=== PATIENT | male | born 1945 | race Caucasian/White ===

== ENCOUNTER 2017-08-20 15:33 | Emergency (ER) | payer MEDICARE, SELFPAY ==
[2017-08-20 15:34] VITALS: BP 159/77; PULSE 73; RESP 26; TEMP 36.4; O2SAT 92; BMI 58.8
[2017-08-20 15:46] VITALS: O2SAT 92
--- NOTE | 2017-08-20 15:53 | EKG12_ITS ---
Test Reason : SOB Blood Pressure : / mmHG Vent. Rate : 071 BPM Atrial Rate : 071 BPM P-R Int : 000 ms QRS Dur : 100 ms QT Int : 412 ms P-R-T Axes : 000 003 050 degrees QTc Int : 447 ms Atrial fibrillation Abnormal ECG Confirmed by XAVIER RINCON, RIGO ([id number]), metropolitan editor MINA ECHEVARRIA ([id number]) on 08/24/2017 2:59:14 PM Referred By: EMILI/DOUGLAS Confirmed By:RIGO PARK MD
--- NOTE | 2017-08-20 15:55 | RAD_ITS ---
STUDY: X-RAY CHEST REASON FOR EXAM: Male, 72 years old. Shortness of breath TECHNIQUE: Single AP portable view of the chest. COMPARISON: February 18, 2017 chest x-ray FINDINGS: Interstitial markings are prominent. There is a pattern of mild interstitial nodularity. There is slightly greater hazy appearance of the lung markings when compared to prior study. There is no demonstrated pleural abnormality. There is moderate cardiac enlargement. Normal mediastinum and duncan. Normal visualized pulmonary arteries. Normal visualized aortic arch and descending thoracic aorta. There are diffuse degenerative changes of the visualized thoracic spine. Normal visualized ribs, clavicles, and shoulders. There is no demonstrated abnormality of the visualized soft tissue structures of the upper abdomen. RAD/Chest PA and Lateral IMPRESSION: Similar appearing pattern of interstitial nodularity with slightly increased haziness when compared to prior study may represent superimposed atypical infiltrates or mild edema. Moderate cardiomegaly. Electronically Signed: Sandra Sanchez MD at 16:11 EDT Tel , Service support ,
[2017-08-20 16:07] LABS: Absolute Lymphocyte Count 0.82 X10^3/ul (0.83-4.51); Absolute Neutrophil Count 4.5 X10^3/uL (2.0-7.7); Basophil# 0.07 X10^3/uL; Basophil% 1.1 % (0-1); Eosinophil# 0.22 X10^3/uL; Eosinophils% 3.5 % (0-5); Hematocrit 32.4 % (40-54); Hemoglobin 10.1 g/dl (13.0-16.5); Lymphocyte # 0.82 X10^3/ul (4.0); Lymphocyte % 13.1 % (19-41); Mean Corp Hgb Conc 31.2 g/gl (32-36); Mean Corpuscular Hgb 26.2 pg (27.0-32.0); Mean Corpuscular Volume 83.9 fL (80-94); Mean Platelet Vol. 10.7 fl (6.2-12.0); Monocyte# 0.66 X10^3/uL; Monocyte% 10.5 % (0-10); Neutrophil # 4.46 X10^3/uL (2.7-7.7); Neutrophil % 71.3 % (47-70); Platelet Count 211 K/mm3 (150-450); RBC Distribution Width CV 16.7 % (11.6-14.6); RBC Distribution Width SD 49.6 fl (35.1-43.9); Red Blood Count 3.86 M/mm3 (4.6-6.2); White Blood Count 6.3 K/mm3 (4.4-11.0)
[2017-08-20 16:17] LABS: Anion Gap 10 (5-15); BUN 36 mg/dL (7-18); BUN/Creat Ratio 15.6 RATIO (10-20); Calcium,Total 8.1 mg/dL (8.5-10.1); Chloride 110 mmol/L (98-107); Creatinine, Serum 2.31 mg/dL (0.70-1.30); EST Glomerular Filtration Rate 30 mL/min (>60); Est Glom Filt Rate - Afr Amer 36 mL/min (>60); Estimated Creatinine Clearance 30.28 ml/min; Glucose 163 mg/dL (74-106); Potassium 4.1 mmol/L (3.5-5.1); Sodium Level 142 mmol/L (136-145)
[2017-08-20 16:24] LABS: POSITIVE COUNT NO; POSITIVE DIFFERENTIAL NO; POSITIVE MORPHOLOGY NO
--- NOTE | 2017-08-20 16:29 | ED.DCSUM_ITS ---
- ER Visit Summary Date of Service: 08/20/17 Chief Complaint: Dyspnea History of Present Illness: The patient is a 72 M worsening dyspnea over the past month, worse with exertion. No chest pains. History of CHF, sleep apnea, home O2 for the past year. 2 L during the day, 4 L at night. Also sleeps with a CPAP. History of diabetes, hypertension, paroxysmal atrial fibrillation. Patient denies any increasing leg swelling. He is on Lasix 80 mg p.o. daily. Patient on Coumadin. States recently now only having a dry cough, previously having sputum cough. Denies tobacco history. Occasional wine use. States had a heart cath a year ago by Dr. Rees. Has been no stenting. States he had an appointment last week, however there was delay at the office therefore he left. Denies any changes in his medications. States symptoms improved with rest. Physical Examination: General: Alert and oriented ?3, no acute distress, on oxygen. HEENT: Normocephalic, atraumatic. Moist mucosa membranes Neck: supple, nontender. Cardiovascular: Regular rate and rhythm, no murmurs Respiratory: Diminished sounds at bases, no distress Abdomen: Soft, nontender, nondistended Extremities: Nontender, chronic lymphedema bilateral legs 3+., pulses intact ?4 Neuro: no focal neurological deficits. Test Results: Rate controlled A. fib rate of 71, no ST or T-wave changes. WBC 6.3. Hemoglobin 10.1. Creatinine 2.31. Glucose 163. INR 1.9. BNP 543. Troponin less than 0.20. Emergency Department Course and Treatment: Patient vital signs stable, pulse ox stable on his 2 L. Complaining of exertional dyspnea with a cough, workup initiated. EKG noted rate controlled A. fib rate of [address] or T-wave changes. History of atrial fibrillation. INR 1.9. Hemoglobin 10.1. Creatinine 2.31. BNP 343. Troponin negative. Two-view chest x-ray noted per radiology infiltrate versus mild edema. Patient states recently more dry cough , clinically not concerned of pneumonia. White count 6.3. History of CHF, noting more concerns of mild edema. BNP was normal. He is only on daily Lasix of 80 mg p.o. patient does report chronic kidney disease, however currently with system on downtime, unable to review for previous baseline creatinine. Patient was ambulated on his 2 L, he went from 95-93%, however he was increasing dyspneic. Treated with 40 of IV Lasix in the ED. Discuss with hospitalist, Dr Perkins for admission due to symptoms. He agrees with admission. Treatment Plan: [] Disposition: Admission Impression: 1. CHF exacerbation 2. Chronic kidney disease 3. Chronic A. fib Addendum: Due to downtime there is delay patient being transported upstairs. Patient became increasing frustrated. At 2235, patient decided to leave department AMA and did not want to wait any further. Appropriate paperwork was filled and signed by patient. This note was generated with [employer] dictation software. It may contain incorrect words, spelling, and punctuation that were not noted in review of the chart prior to signing ED Disposition - Plan for ED Patient: Disposition: Against Medical Advice Chief Complaint: Shortness of Breath Referrals: Gutierrez Garces DO [Primary Care Provider] -
[2017-08-20 16:33] VITALS: BP 149/83; PULSE 71; RESP 20; O2SAT 97
[2017-08-20 16:40] LABS: BNP,B-Type NATRIURETIC PEPTIDE 343.1 pg/mL (0-100)
[2017-08-20 17:07] LABS: International Normalized Ratio 1.9
--- NOTE | 2017-08-21 00:49 | ED.RN ---
see down time charting for patient from [id number] to [id number]
== END 2017-08-20 22:36 | disposition left against medical advice (07) ==
PROVIDERS: Emergency Medicine; Emergency Provider Emergency Medicine; Family Provider Family Medicine; PCP Family Medicine
DX: I13.0 Hypertensive heart and chronic kidney disease with heart failure and stage 1 through stage 4 chronic kidney disease, or unspecified chronic kidney disease (principal); E11.22 Type 2 diabetes mellitus with diabetic chronic kidney disease; N18.4 Chronic kidney disease, stage 4 (severe); I50.21 Acute systolic (congestive) heart failure; I48.2 Chronic atrial fibrillation; G47.30 Sleep apnea, unspecified; E66.9 Obesity, unspecified; Z99.81 Dependence on supplemental oxygen; Z79.4 Long term (current) use of insulin; Z79.01 Long term (current) use of anticoagulants; Z79.899 Other long term (current) drug therapy
CPT/HCPCS: 36415; 71046; 80048; 83880; 84484; 85025; 85610; 93005; 96374; 99282; 99283; A4216; J1940

== ENCOUNTER → 2017-10-07 09:22 | Outpatient (CLI) | payer MEDICARE, SELFPAY ==
--- NOTE | 2017-10-07 09:22 | DT_ITS ---
This patient was seen during an EMR downtime October 04, 2017 - October 11, 2017. This patient may have a combination of paper and electronic documentation or all paper documentation. All documentation is viewable within the e-chart portion of [facility] for each patient visit.
[2017-10-12 02:03] LABS: Anion Gap 10 (5-15); BUN 36 mg/dL (7-18); BUN/Creat Ratio 17.3 RATIO (10-20); Calcium,Total 8.6 mg/dL (8.5-10.1); Chloride 107 mmol/L (98-107); Creatinine, Serum 2.08 mg/dL (0.70-1.30); EST Glomerular Filtration Rate 34 mL/min (>60); Est Glom Filt Rate - Afr Amer 41 mL/min (>60); Potassium 3.9 mmol/L (3.5-5.1); Sodium Level 141 mmol/L (136-145)
[2017-10-12 02:04] LABS: Glucose 111 mg/dL (74-106)
== END ==
PROVIDERS: Family Provider Family Medicine; PCP Family Medicine; Visit Provider Family Medicine
DX: E11.319 Type 2 diabetes mellitus with unspecified diabetic retinopathy without macular edema (principal); E11.22 Type 2 diabetes mellitus with diabetic chronic kidney disease; I13.0 Hypertensive heart and chronic kidney disease with heart failure and stage 1 through stage 4 chronic kidney disease, or unspecified chronic kidney disease; N18.4 Chronic kidney disease, stage 4 (severe); I50.9 Heart failure, unspecified
CPT/HCPCS: 36415; 80048

== ENCOUNTER 2017-12-21 08:30 | Day surgery (SDC) | payer MEDICARE, SELFPAY ==
[2017-12-21] VITALS (7 sets, daily range): BP systolic 97–135; BP diastolic 47–90; PULSE 56–69; RESP 16–18; TEMP 36.3–36.8; O2SAT 94–96; BMI 51.1
--- NOTE | 2017-12-21 | COLBX_PTH ---
PATIENT: REGGIE MOHR LOC: EN U#:[id number] AGE/SX: 72/M ROOM: RE12/21/[address]: Dr. Bob Merritt MD : [id number] BED: DIS: 12/21/2017 SPEC #: [id number] RECD: 12/21/17 14:35 STATUS: BERNICE SARA #: [id number] DUANE: 12/21/17 00:[address]: Bob Merritt DEPT: SURGICAL PATHOLOGY RECD BY: Junior Castellanos ENTERED: 12/21/17 14:35 SP TYPE: COLON BX OTHR DR: Dr. Gutierrez Garces, Tissues: Rectum, NOS Procedures: Surgery Specimen Level IV HEADER OPERATION: Colonoscopy PRE-OP DIAGNOSIS: History of adenoma TISSUE SUBMITTED: Rectal polyps MICROSCOPIC DIAGNOSIS Rectal polyps, biopsy: Tubular adenoma. Hyperplastic polyp. SJ:adrian 12/22/17 MICROSCOPIC DESCRIPTION Slides are reviewed. GROSS DESCRIPTION Received in fixative is one container labeled with the patient's name and designated rectal polyps. The specimen consists of two irregular fragments of light redd soft tissue that in aggregate measure 0.5 x 0.3 x 0.1 cm. The specimen is totally submitted in one cassette. / SJ:adrian 12/21/17 TC:1 CPT: 54358
[2017-12-21 08:56] LABS: Prothrombin Time Fingerstick 17.9 SEC (11.9-14.4)
[2017-12-21 09:11] LABS: Bedside Glucose 132 mg/dL (70-110)
--- NOTE | 2017-12-21 10:55 | PCM.OPRPT ---
Problem List (1) Tubulovillous adenoma polyp of colon Status: Acute Report of Operation Date of Procedure: 12/21/17 Pre-Operative Diagnosis: History of tubovillous adenoma with large-base Post-Operative Diagnosis: Rectal polyps, diverticulosis Surgery/Procedure Performed:: Colonoscopy with hot forcep polypectomy Specimen's removed: Rectal polyps ?2 Description of Procedure: The major risks and benefits associated with the procedure were explained to the patient in detail. The patient verbalized understanding and agreement with the same. The patient was brought to the endoscopy suite. After adequate sedation was achieved, the patient was placed in the left lateral decubitus position and a digital rectal exam was performed. This examination was within normal limits. A well-lubricated colonoscope was then inserted into the rectum and advanced under direct visualization to the level of the cecum. The bowel prep was good. The cecum was identified by both visual and anatomic landmarks. A photograph was taken of the end of the cecum. The scope was then fully withdrawn while examining the color, texture, anatomy and integrity of the mucosa from the cecum to the anal canal. The findings were consistent with normal colonic mucosa. Over 6 minutes were taken to examine the colonic mucosa. The previously tattooed area was identified and closely examined in the sigmoid colon. There did not appear to be any polyp growth or malignancy. Upon reaching the rectum the scope was retroflexed to examine the distal rectal vault. The patient did have 2 small rectal polyps. These were both removed with cautery forceps. Hemostasis was good. The scope was then straightened and was completely retrieved upon exiting the anal canal and the procedure was terminated. The patient was then transferred to the recovery room in stable condition. Recommendations for follow up: Dependent upon pathology but max 5 years
== END 2017-12-21 11:29 | disposition home or self-care (01) ==
LOC: EN 08:30 → AC 08:31
PROVIDERS: Family Provider Family Medicine; PCP Family Medicine; Visit Provider Surgery
PROC: 0DJD8ZZ Inspection of Lower Intestinal Tract, Via Natural or Artificial Opening Endoscopic (ICD-10-PCS; CPT 45378; principal; 2017-12-21 09:40)
DX: D12.8 Benign neoplasm of rectum (principal); K62.1 Rectal polyp; I13.0 Hypertensive heart and chronic kidney disease with heart failure and stage 1 through stage 4 chronic kidney disease, or unspecified chronic kidney disease; E11.22 Type 2 diabetes mellitus with diabetic chronic kidney disease; N18.3 Chronic kidney disease, stage 3 (moderate); I50.32 Chronic diastolic (congestive) heart failure; E78.5 Hyperlipidemia, unspecified; I48.0 Paroxysmal atrial fibrillation; I27.20 Pulmonary hypertension, unspecified; G47.33 Obstructive sleep apnea (adult) (pediatric); E66.01 Morbid (severe) obesity due to excess calories; Z68.43 Body mass index [BMI] 50.0-59.9, adult; Z87.442 Personal history of urinary calculi; Z87.891 Personal history of nicotine dependence; Z99.81 Dependence on supplemental oxygen; Z79.4 Long term (current) use of insulin; Z79.01 Long term (current) use of anticoagulants; Z79.82 Long term (current) use of aspirin; Z79.899 Other long term (current) drug therapy
CPT/HCPCS: 45384; 36416; 82962; 85610; 88305; J7120

== ENCOUNTER → 2018-01-10 09:15 | Outpatient (CLI) | payer MEDICARE, SELFPAY ==
[2018-01-10 10:05] LABS: International Normalized Ratio 2.5; Prothrombin Time (Protime)PT. 27.5 SECONDS (11.7-14.9)
== END ==
PROVIDERS: Family Provider Family Medicine; PCP Family Medicine; Visit Provider Internal Medicine Cardiovascular Disease
DX: I48.0 Paroxysmal atrial fibrillation (principal); Z79.01 Long term (current) use of anticoagulants
CPT/HCPCS: 36415; 85610

== ENCOUNTER → 2018-07-11 09:12 | Outpatient (CLI) | payer MEDICARE, SELFPAY ==
[2018-07-11 08:36] VITALS: BMI 49.7
[2018-07-11 09:58] LABS: International Normalized Ratio 3.4; Prothrombin Time (Protime)PT. 34.8 SECONDS (11.7-14.9)
== END ==
PROVIDERS: Family Provider Family Medicine; PCP Family Medicine; Referring Provider Internal Medicine Cardiovascular Disease; Visit Provider Internal Medicine Cardiovascular Disease
DX: I48.0 Paroxysmal atrial fibrillation (principal); Z79.01 Long term (current) use of anticoagulants
CPT/HCPCS: 36415; 85610

== ENCOUNTER → 2018-07-28 08:41 | Outpatient (CLI) | payer MEDICARE, SELFPAY ==
[2018-07-11 08:36] VITALS: BMI 49.7
[2018-07-28 10:14] LABS: International Normalized Ratio 2.1; Prothrombin Time (Protime)PT. 23.2 SECONDS (11.7-14.9)
== END ==
PROVIDERS: Family Provider Family Medicine; PCP Family Medicine; Referring Provider Internal Medicine Cardiovascular Disease; Visit Provider Internal Medicine Cardiovascular Disease
DX: I48.0 Paroxysmal atrial fibrillation (principal); Z79.01 Long term (current) use of anticoagulants
CPT/HCPCS: 36415; 85610

== ENCOUNTER 2018-08-20 12:10 | Emergency (ER) | payer MEDICARE, SELFPAY ==
[2018-07-11 08:36] VITALS: BMI 49.7
[2018-08-20] VITALS (11 sets, daily range): BP systolic 94–207; BP diastolic 70–99; PULSE 66–90; RESP 15–30; TEMP 36.9–37; O2SAT 90–98; BMI 50.5
--- NOTE | 2018-08-20 12:16 | NURSING ---
1200 STROKE ALERT CALLED PRIOR TO ARRIVAL
--- NOTE | 2018-08-20 12:18 | RAD_ITS ---
STUDY: X-RAY CHEST REASON FOR EXAM: Male, 73 years old. Possible stroke, mental status changes TECHNIQUE: AP COMPARISON: 08/20/2017 FINDINGS: Lungs are less expanded as compared to the prior study with more conspicuous central pulmonary vascular congestion and interstitial thickening. There is a nodular density in the right midlung measuring 2.8 cm, not evident on the prior study. There is no demonstrated pleural abnormality. There is moderate cardiac enlargement. Normal mediastinum and duncan. There is prominence of the pulmonary hilar arteries and peripheral pulmonary arteries, consistent with congestive heart failure (CHF). Normal visualized aortic arch and descending thoracic aorta. No acute bony process. There is no demonstrated abnormality of the visualized soft tissue structures of the upper abdomen. RAD/Chest 1 View IMPRESSION: 1. Possible nodule/mass of the right upper lobe, new since the prior study. Chest CT is warranted. 2. More conspicuous vascular congestion/fluid overload may be exaggerated by relative hypoinflation or related to worsening CHF. Electronically Signed: Prabhakar Sheikh MD at 13:18 EDT , Service support ,
--- NOTE | 2018-08-20 12:18 | CT_ITS ---
STUDY: CT BRAIN WITHOUT CONTRAST REASON FOR EXAM: Male, 73 years old. CVA RADIATION DOSAGE (If Supplied By Facility): CTDIvol = ( ) mGy, DLP = ( ) mGycm TECHNIQUE: Transaxial CT imaging of the brain was performed without administration of intravenous contrast material. Individualized dose optimization techniques were used for this CT. COMPARISON: No relevant priors. FINDINGS: Normal soft tissue structures. Normal calvarium. Normal size ventricles and extra-axial spaces for the patient's age. Area of diminished density of the left insular cortex and adjacent subinsular white matter measures approximately 2.5 x 1.5 cm. No associated hemorrhage. Areas of diminished density in the periventricular and subcortical white matter are moderate in severity. Normal basal ganglia and thalami. Normal brainstem. Normal cerebellum. There is no intracranial hemorrhage. Normal visualized paranasal sinuses. CT/Brain/Head without Contrast IMPRESSION: 1. Early small left MCA infarction. No intracranial hemorrhage. 2. Central parenchymal volume loss. White matter changes that are nonspecific but most commonly associated with chronic small vessel ischemic disease. N.B. : The above information has been verbally conveyed by Prabhakar Sheikh MD to Tom Hutchins on 08/20/2018 12:35:05 (ET). Electronically Signed: Prabhakar Sheikh MD at 12:38 EDT , Service support ,
--- NOTE | 2018-08-20 12:18 | EKG12_ITS ---
Test Reason : STROKE Blood Pressure : / mmHG Vent. Rate : 087 BPM Atrial Rate : 076 BPM P-R Int : 000 ms QRS Dur : 096 ms QT Int : 400 ms P-R-T Axes : 000 055 065 degrees QTc Int : 481 ms Atrial fibrillation with premature ventricular or aberrantly conducted complexes Nonspecific ST abnormality Prolonged QT Abnormal ECG Confirmed by XAVIER RINCON, RIGO ([id number]), desk editor MINA ECHEVARRIA ([id number]) on 08/23/2018 2:00:48 PM Referred By: KAY Confirmed By:RIGO PARK MD
--- NOTE | 2018-08-20 12:18 | NURSING ---
DR MERCHANT ON LINE FOR DR VILLANUEVA
--- NOTE | 2018-08-20 12:20 | CT_ITS ---
We are attempting to reach Tom Hutchins MD to discuss findings. An addendum with communication details will be sent when the communication is complete. STUDY: CTA OF THE BRAIN REASON FOR EXAM: Male, 73 years old. CVASCVASCTA - Head. AMS RADIATION DOSAGE (If Supplied By Facility): CTDIvol = ( 17.93 ) mGy, DLP = ( 505.94 ) mGycm TECHNIQUE: CT angiography was performed with a multi-detector CT scanner. Data acquisition was obtained from the skull base through the vertex following intravenous administration of 100ML IV Isovue 370. MIP images were reconstructed from the axial data set. Post-processing of the angiographic images was performed, with multiplanar reformation and 3D reconstruction. Individualized dose optimization techniques were used for this CT. COMPARISON: None. FINDINGS: There is calcified plaque formation of the right cavernous carotid artery, without a cross-sectional luminal stenosis. There is calcified plaque formation of the left cavernous carotid artery, without a cross-sectional luminal stenosis. There is non-visualization of the right A1 segment of the anterior cerebral arteries consistent with either aplastic development or an occlusion. Normal left A1 segments of the anterior cerebral artery. Normal intact anterior communicating artery (ACOM). Normal bilateral A2 segments of the anterior cerebral arteries. Normal right M1 and M2 segments of the middle cerebral arteries, with a normal M1 bifurcation. Normal left M1 segments of the middle cerebral arteries. There is occlusion at the proximal M2 superior division (axial image #152 series 2). Normal right posterior communicating artery (PCOM). There is non-visualization of the left posterior communicating artery (PCOM). Normal bilateral vertebral arteries. Normal basilar artery with a normal basilar bifurcation. The visualized bilateral superior cerebellar (SCA) arteries are normal. Normal bilateral P1, P2 and visualized P3 segments of the posterior cerebral arteries. IMPRESSION: Proximal left M2 occlusion. Electronically Signed: Fina Vizcarra MD at 13:09 EDT Tel , Service support , STUDY: CTA NECK WITH CONTRAST REASON FOR EXAM: Male, 73 years old. CVA CVA CTA - Head. AMS RADIATION DOSAGE (If Supplied By Facility): CTDIvol = ( ) mGy, DLP = ( ) mGycm TECHNIQUE: CT angiography with multi-detector data acquisition was performed from the aortic arch to the skull base following intravenous administration of 100ML IV Isovue 370. MIP images were reconstructed from the axial data set. Post-processing of the angiographic images was performed, with multiplanar reformation and 3D reconstruction. Individualized dose optimization techniques were used for this CT. COMPARISON: None. FINDINGS: RIGHT CAROTID ARTERIES: There is atherosclerotic tortuous elongation of the right common carotid artery. There is mild atherosclerotic plaque formation with minimal narrowing of the right carotid bulb. Normal origin of the right internal carotid (ICA) artery without a hemodynamically significant stenosis. There is atherosclerotic tortuous elongation of the cervical portion of the right internal carotid artery. Normal origin of the right external carotid artery (ECA). LEFT CAROTID ARTERIES: There is atherosclerotic tortuous elongation of the left common carotid artery. There is mild atherosclerotic plaque formation with minimal narrowing of the left carotid bulb. Normal origin of the left internal carotid (ICA) artery without a hemodynamically significant stenosis. There is atherosclerotic tortuous elongation of the cervical portion of the left internal carotid artery. Normal origin of the left external carotid artery (ECA). VERTEBRAL ARTERIES: Normal bilateral vertebral arteries. CT/CTA Head W/WO Contrast IMPRESSION: No occlusion or significant stenosis. Mild atherosclerotic plaque Electronically Signed: Fina Vizcarra MD at 13:11 EDT Tel , Service support ,
--- NOTE | 2018-08-20 12:20 | CT_ITS ---
We are attempting to reach Tom Hutchins MD to discuss findings. An addendum with communication details will be sent when the communication is complete. STUDY: CTA OF THE BRAIN REASON FOR EXAM: Male, 73 years old. CVASCVASCTA - Head. AMS RADIATION DOSAGE (If Supplied By Facility): CTDIvol = ( 17.93 ) mGy, DLP = ( 505.94 ) mGycm TECHNIQUE: CT angiography was performed with a multi-detector CT scanner. Data acquisition was obtained from the skull base through the vertex following intravenous administration of 100ML IV Isovue 370. MIP images were reconstructed from the axial data set. Post-processing of the angiographic images was performed, with multiplanar reformation and 3D reconstruction. Individualized dose optimization techniques were used for this CT. COMPARISON: None. FINDINGS: There is calcified plaque formation of the right cavernous carotid artery, without a cross-sectional luminal stenosis. There is calcified plaque formation of the left cavernous carotid artery, without a cross-sectional luminal stenosis. There is non-visualization of the right A1 segment of the anterior cerebral arteries consistent with either aplastic development or an occlusion. Normal left A1 segments of the anterior cerebral artery. Normal intact anterior communicating artery (ACOM). Normal bilateral A2 segments of the anterior cerebral arteries. Normal right M1 and M2 segments of the middle cerebral arteries, with a normal M1 bifurcation. Normal left M1 segments of the middle cerebral arteries. There is occlusion at the proximal M2 superior division (axial image #152 series 2). Normal right posterior communicating artery (PCOM). There is non-visualization of the left posterior communicating artery (PCOM). Normal bilateral vertebral arteries. Normal basilar artery with a normal basilar bifurcation. The visualized bilateral superior cerebellar (SCA) arteries are normal. Normal bilateral P1, P2 and visualized P3 segments of the posterior cerebral arteries. IMPRESSION: Proximal left M2 occlusion. Electronically Signed: Fina Vizcarra MD at 13:09 EDT Tel , Service support , STUDY: CTA NECK WITH CONTRAST REASON FOR EXAM: Male, 73 years old. CVA CVA CTA - Head. AMS RADIATION DOSAGE (If Supplied By Facility): CTDIvol = ( ) mGy, DLP = ( ) mGycm TECHNIQUE: CT angiography with multi-detector data acquisition was performed from the aortic arch to the skull base following intravenous administration of 100ML IV Isovue 370. MIP images were reconstructed from the axial data set. Post-processing of the angiographic images was performed, with multiplanar reformation and 3D reconstruction. Individualized dose optimization techniques were used for this CT. COMPARISON: None. FINDINGS: RIGHT CAROTID ARTERIES: There is atherosclerotic tortuous elongation of the right common carotid artery. There is mild atherosclerotic plaque formation with minimal narrowing of the right carotid bulb. Normal origin of the right internal carotid (ICA) artery without a hemodynamically significant stenosis. There is atherosclerotic tortuous elongation of the cervical portion of the right internal carotid artery. Normal origin of the right external carotid artery (ECA). LEFT CAROTID ARTERIES: There is atherosclerotic tortuous elongation of the left common carotid artery. There is mild atherosclerotic plaque formation with minimal narrowing of the left carotid bulb. Normal origin of the left internal carotid (ICA) artery without a hemodynamically significant stenosis. There is atherosclerotic tortuous elongation of the cervical portion of the left internal carotid artery. Normal origin of the left external carotid artery (ECA). VERTEBRAL ARTERIES: Normal bilateral vertebral arteries. CT/CTA Neck W/WO Contrast IMPRESSION: No occlusion or significant stenosis. Mild atherosclerotic plaque Electronically Signed: Fina Vizcarra MD at 13:11 EDT Tel , Service support ,
[2018-08-20 12:21] LABS: Bedside Glucose 162 mg/dL (70-110)
[2018-08-20 12:49] LABS: Anion Gap 6 (5-15); BUN 35 mg/dL (7-18); BUN/Creat Ratio 19.8 RATIO (10-20); Calcium,Total 8.3 mg/dL (8.5-10.1); Chloride 113 mmol/L (98-107); Creatinine, Serum 1.77 mg/dL (0.70-1.30); EST Glomerular Filtration Rate 40 mL/min (>60); Est Glom Filt Rate - Afr Amer 49 mL/min (>60); Estimated Creatinine Clearance 40.18 ml/min; Glucose 155 mg/dL (74-106); Potassium 4.3 mmol/L (3.5-5.1); Sodium Level 140 mmol/L (136-145)
[2018-08-20 12:54] LABS: Absolute Lymphocyte Count 0.65 X10^3/ul (0.83-4.51); Absolute Neutrophil Count 5.7 X10^3/uL (2.0-7.7); Basophil# 0.03 X10^3/uL; Basophil% 0.4 % (0-1); Eosinophil# 0.05 X10^3/uL; Eosinophils% 0.7 % (0-5); Hematocrit 39.6 % (40-54); Hemoglobin 12.8 g/dl (13.0-16.5); Lymphocyte # 0.65 X10^3/ul (4.0); Lymphocyte % 9.4 % (19-41); Mean Corp Hgb Conc 32.3 g/gl (32-36); Mean Corpuscular Hgb 26.1 pg (27.0-32.0); Mean Corpuscular Volume 80.7 fL (80-94); Mean Platelet Vol. 10.1 fl (6.2-12.0); Monocyte# 0.49 X10^3/uL; Monocyte% 7.1 % (0-10); Neutrophil % 82.3 % (47-70); Platelet Count 221 K/mm3 (150-450); RBC Distribution Width CV 15.8 % (11.6-14.6); Red Blood Count 4.91 M/mm3 (4.6-6.2); White Blood Count 6.9 K/mm3 (4.4-11.0)
[2018-08-20 12:55] LABS: POSITIVE COUNT NO; POSITIVE DIFFERENTIAL NO; POSITIVE MORPHOLOGY NO
[2018-08-20 12:58] LABS: International Normalized Ratio 1.8; Prothrombin Time (Protime)PT. 20.5 SECONDS (11.7-14.9)
[2018-08-20 12:59] LABS: Partial Thromboplast Time 47.7 Seconds (24.1-36.2)
--- NOTE | 2018-08-20 14:02 | ED.RN ---
WRONG TIME CHARTED FOR NIH AT 1245. TIME EDITED TO CORRECT TIME.
--- NOTE | 2018-08-20 14:40 | NURSING ---
[facility] NEURO ICU 3206 NURSE TO NURSE [phone]
--- NOTE | 2018-08-20 14:43 | NURSING ---
CALLED [facility] FOR TRANSPORT
--- NOTE | 2018-08-20 14:51 | ED.VISSUMM ---
- ER Visit Summary Date of Service: 08/20/18 Chief Complaint: Slurred speech, facial droop, right-sided weakness History of Present Illness: The patient is a 73 M who has the above symptoms. It is unclear when the symptoms started. The last time he was seen well was last night. The patient's daughter's boyfriend checked on him today and he had the symptoms. He denies headache or nausea. He does have a history of atrial fibrillation on Coumadin. History is difficult to obtain because of the patient's facial droop and slurred speech. Physical Examination: Vital signs reviewed. HEENT exam shows the right-sided facial droop. Heart is irregular without any murmurs. Lungs are clear. Abdomen is soft. His NIH is 11. He scores 2 points for questions, 1.4 commands, one point for gaze, 2 points for visual, 1.4 facial palsy, one point for right leg weakness and 2 points for dysarthria Test Results: CAT scan of the head reveals an early left MCA infarction. CTA reveals an M2 occlusion. Creatinine is 1.77, INR 1.8. Troponin normal. Atrial fibrillation with a rate of 87. Nonspecific ST and T wave changes. Emergency Department Course and Treatment: Dr. Sheldon called about this patient. He reviewed the patient's images and was concerned that because of the infarction already showing on the CAT scan the patient may have some decompensation. He recommended the patient be transferred to a neuro ICU where he can be monitored very closely. Family requested [facility]. I spoke with the transfer center and Dr. Hair accepted the patient Treatment Plan: [] Disposition: Transfer Impression: Ischemic stroke secondary to left M2 occlusion This note was generated with [employer] dictation software. It may contain incorrect words, spelling, and punctuation that were not noted in review of the chart prior to signing ED Disposition - Plan for ED Patient: Referrals: Gutierrez Garces DO [Primary Care Provider] -
--- NOTE | 2018-08-20 14:54 | ED.DCSUM_ITS ---
- ER Visit Summary Date of Service: 08/20/18 Chief Complaint: Slurred speech, facial droop, right-sided weakness History of Present Illness: The patient is a 73 M who has the above symptoms. It is unclear when the symptoms started. The last time he was seen well was last night. The patient's daughter's boyfriend checked on him today and he had the symptoms. He denies headache or nausea. He does have a history of atrial fibrillation on Coumadin. History is difficult to obtain because of the patient 's facial droop and slurred speech. Physical Examination: Vital signs reviewed. HEENT exam shows the right-sided facial droop. Heart is irregular without any murmurs. Lungs are clear. Abdomen is soft. His NIH is 11. He scores 2 points for questions, 1.4 commands, one point for gaze, 2 points for visual, 1.4 facial palsy, one point for right leg weakness and 2 points for dysarthria Test Results: CAT scan of the head reveals an early left MCA infarction. CTA reveals an M2 occlusion. Creatinine is 1.77, INR 1.8. Troponin normal. Atrial fibrillation with a rate of 87. Nonspecific ST and T wave changes. Emergency Department Course and Treatment: Dr. Sheldon called about this patient. He reviewed the patient's images and was concerned that because of the infarction already showing on the CAT scan the patient may have some decompensation. He recommended the patient be transferred to a neuro ICU where he can be monitored very closely. [facility] I spoke with the transfer center and Dr. Hair accepted the patient Treatment Plan: [] Disposition: Transfer Impression: Ischemic stroke secondary to left M2 occlusion This note was generated with [employer] dictation software. It may contain incorrect words, spelling, and punctuation that were not noted in review of the chart prior to signing ED Disposition - Plan for ED Patient: Referrals: Gutierrez Garces DO [Primary Care Provider] -
--- NOTE | 2018-08-20 15:57 | ED.RN ---
PT LEAVING VIA THAKUR SQUAD AT 1604
== END 2018-08-20 16:04 | disposition short-term general hospital (02) ==
PROVIDERS: Emergency Provider Emergency Medicine; Family Provider Family Medicine; PCP Family Medicine
DX: I63.542 Cerebral infarction due to unspecified occlusion or stenosis of left cerebellar artery (principal); R47.81 Slurred speech; R29.810 Facial weakness; G81.91 Hemiplegia, unspecified affecting right dominant side; I48.91 Unspecified atrial fibrillation; I25.10 Atherosclerotic heart disease of native coronary artery without angina pectoris; E11.9 Type 2 diabetes mellitus without complications; I10 Essential (primary) hypertension; G47.33 Obstructive sleep apnea (adult) (pediatric); Z79.01 Long term (current) use of anticoagulants
CPT/HCPCS: 70450; 70496; 70498; 71045; 80048; 82962; 84484; 85025; 85610; 85730; 93005; 99285; Q9967

== ENCOUNTER 2018-09-19 21:33 | Observation (INO) | payer MEDICARE, SELFPAY ==
[2018-08-20 12:13] VITALS: BMI 50.5
[2018-09-19 21:33] VITALS: BP 143/82; PULSE 70; RESP 18; TEMP 36.4; O2SAT 95; BMI 44.6
[2018-09-19 21:50] LABS: Bedside Glucose 119 mg/dL (70-110)
--- NOTE | 2018-09-19 21:55 | ED.VIS.GEN ---
History of Present Illness Chief Complaint: Hypoglycemia Detail of Chief Complaint: Confusion, unable to care for self Informant: Patient, Family Onset: Weeks Context: Sudden Onset Timing: Intermittent Quality: Problems since diagnosed with stroke Location: Home Current Severity: Mild Maximum Severity: Moderate Worsened by: Recent stroke and hypoglycemia Relieved by: Oral glucose Associated Symptoms: Patient states she has been confused. Unable to walk without assistance Narrative: Patient is a elderly male who was diagnosed with stroke approximately 1 month ago. He was transferred to [facility]. He was discharged to rehab unit. Daughter states he was discharged prematurely. They have had visiting nurse home care and unable to care for him. He needs 24-hour assistance according to patient and daughter. He states he gets confused. He has difficulty walking. He states he is not able to care for himself. - Past Medical History (1) Ischemic stroke Status: Chronic Comment: D/T left M2 occlusion per CTA done @ [facility] (2) Chronic diastolic (congestive) heart failure Status: Chronic (3) Chronic kidney disease, stage 3 (moderate) Status: Chronic (4) Hyperlipidemia Status: Chronic (5) Hypertension Status: Chronic (6) intermediate (current) use of anticoagulants Status: Chronic (7) Moderate to severe pulmonary hypertension Status: Chronic Comment: due to sleep apnea and extrisic restrictive lung disease (obesity) (8) Morbid obesity with body mass index of 50.0-59.9 in adult Status: Chronic Comment: referrend to bariatric surgery [facility] (9) Obstructive sleep apnea of adult Status: Chronic Comment: cpap at night (10) Paroxysmal atrial fibrillation Status: Chronic (11) Stasis dermatitis Status: Chronic (12) 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 Denies: Chills, Fever, Subjective, Sweats, Weight loss, - Eyes: Denies: Visual changes - bilaterally, Blurred Vision - bilaterally, Diplopia ENT: Denies: Rhinorrhea, Sore throat Cardiovascular: Denies: Chest pain Respiratory: Denies: Dyspnea, Cough, Dyspnea on exertion Gastrointestinal: Denies: Abdominal pain, Nausea, Vomiting, Diarrhea, Melena, Hematochezia Genitourinary: Denies: Dysuria, Hematuria, Frequency Musculoskeletal: Reports: Swelling - Swelling of right and left lower extremity. Denies: Myalgias, Arthralgias, Neck pain, Back pain, Extremity Pain Skin: Reports: Rash. Denies: Abscess, Wounds Neurological: Reports: Weakness. Denies: Headache, Parasthesia, Numbness Psych: Reports: Depression Hematologic: Denies: Easy bruising, Easy bleeding Allergy: Denies: Uticaria, Swelling of the mouth Physical Exam Vital Signs/Narrative: Vital Signs Temp Pulse Resp BP Pulse Ox 09/19/18 21:33 97.5 F L 70 18 143/82 H 95 Inital Vital Signs reviewed: Yes General: Well nourished, Well developed, No Acute Distress Head: Normocephalic, Atraumatic Eyes: Perrl, EOMI. Negative for: Pale conjunctiva, Scleral icterus ENT: Moist mucous membranes, No rhinorrhea, TM's clear Neck: Supple, Nontender, No lymphadenopathy, No JVD Cardiovascular: Regular rate, Regular rhythm, No murmurs, Normal S1, Normal S2 Respiratory: No distress, CTA bilaterally, Chest nontender Abdomen: Soft, Nontender, Nondistended, Normal bowel sounds, No masses Rectal: Deferred Back: Nontender, Normal Inspection. Negative for: CVA tenderness Extremities: Nontender, Edema - 2+ pitting Skin: Normal color, No rash, No Trauma. Negative for: Cyanosis, Jaundice Neurological: Alert, Oriented x3, Cranial nerves II-XII grossly intact, Normal Sensation, Normal DTR Psychological: Depressed Diagnostic/Tx/Re-eval Laboratory Results 09/19/18 09/19/18 09/19/18 21:44 21:45 21:45 WBC 10.5 RBC 5.48 Hgb 14.6 Hct 43.5 MCV 79.4 L MCH 26.6 L MCHC 33.6 RDW 16.5 H RDW Differential 47.1 H Plt Count 156 MPV 10.8 Immature Gran % (Auto) 0.300 Neut % (Auto) 82.4 H Lymph % (Auto) 8.1 L [place] % (Auto) 7.5 Eos % (Auto) 1.3 Baso % (Auto) 0.4 Absolute Neuts (auto) 8.6 H Absolute Lymphs (auto) 0.85 Total Counted Not Reportable Sodium 138 Potassium 3.6 Chloride 105 Carbon Dioxide 25.0 Anion Gap 8 BUN 22 H Creatinine 1.78 H Estim Creat Clear Calc 39.95 Est GFR (MDRD) Af Amer 49 L Est GFR (MDRD) Non-Af 40 L BUN/Creatinine Ratio 12.4 Glucose 99 Calcium 8.8 POC Glucose 119 H Urine is pending at the time of this note. . Hemoglobin is approximately 1.5 g higher than August 20, 2018. This may represent hemoconcentration. - Medical Decision Making Metabolic infectious lab/work-up was undertaken. Patient will require overnight stay and consult to social service for placement since patient is not able to care for himself in spite of home health care. Since patient unable to care for himself and unable to medicate himself will contact hospitalist for observation status with consult to case management for placement. ED Disposition - Plan for ED Patient: Disposition: Acute Care Hospital [facility] Diagnosis: Hypoglycemia due to insulin, Failure to thrive, Recent cerebrovascular accident (CVA) Referrals: Gutierrez Garces DO [Primary Care Provider] -
--- NOTE | 2018-09-19 21:59 | ED.DCSUM_ITS ---
History of Present Illness Chief Complaint: Hypoglycemia Detail of Chief Complaint: Confusion, unable to care for self Informant: Patient, Family Onset: Weeks Context: Sudden Onset Timing: Intermittent Quality: Problems since diagnosed with stroke Location: Home Current Severity: Mild Maximum Severity: Moderate Worsened by: Recent stroke and hypoglycemia Relieved by: Oral glucose Associated Symptoms: Patient states she has been confused. Unable to walk without assistance Narrative: Patient is a elderly male who was diagnosed with stroke approximately 1 month ago. He was transferred to [facility]. He was discharged to rehab unit. Daughter states he was discharged prematurely. They have had visiting nurse home care and unable to care for him. He needs 24-hour assistance according to patient and daughter. He states he gets confused. He has difficulty walking. He states he is not able to care for himself. - Past Medical History (1) Ischemic stroke Status: Chronic Comment: D/T left M2 occlusion per CTA done @ [facility] (2) Chronic diastolic (congestive) heart failure Status: Chronic (3) Chronic kidney disease, stage 3 (moderate) Status: Chronic (4) Hyperlipidemia Status: Chronic (5) Hypertension Status: Chronic (6) USP (current) use of anticoagulants Status: Chronic (7) Moderate to severe pulmonary hypertension Status: Chronic Comment: due to sleep apnea and extrisic restrictive lung disease (obesity) (8) Morbid obesity with body mass index of 50.0-59.9 in adult Status: Chronic Comment: referrend to bariatric surgery [facility] (9) Obstructive sleep apnea of adult Status: Chronic Comment: cpap at night (10) Paroxysmal atrial fibrillation Status: Chronic (11) Stasis dermatitis Status: Chronic (12) 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 Denies: Chills, Fever, Subjective, Sweats, Weight loss, - Eyes: Denies: Visual changes - bilaterally, Blurred Vision - bilaterally, Diplopia ENT: Denies: Rhinorrhea, Sore throat Cardiovascular: Denies: Chest pain Respiratory: Denies: Dyspnea, Cough, Dyspnea on exertion Gastrointestinal: Denies: Abdominal pain, Nausea, Vomiting, Diarrhea, Melena, Hematochezia Genitourinary: Denies: Dysuria, Hematuria, Frequency Musculoskeletal: Reports: Swelling - Swelling of right and left lower extremity. Denies: Myalgias, Arthralgias, Neck pain, Back pain, Extremity Pain Skin: Reports: Rash. Denies: Abscess, Wounds Neurological: Reports: Weakness. Denies: Headache, Parasthesia, Numbness Psych: Reports: Depression Hematologic: Denies: Easy bruising, Easy bleeding Allergy: Denies: Uticaria, Swelling of the mouth Physical Exam Vital Signs/Narrative: Vital Signs Temp Pulse Resp BP Pulse Ox 09/19/18 21:33 97.5 F L 70 18 143/82 H 95 Inital Vital Signs reviewed: Yes General: Well nourished, Well developed, No Acute Distress Head: Normocephalic, Atraumatic Eyes: Perrl, EOMI. Negative for: Pale conjunctiva, Scleral icterus ENT: Moist mucous membranes, No rhinorrhea, TM's clear Neck: Supple, Nontender, No lymphadenopathy, No JVD Cardiovascular: Regular rate, Regular rhythm, No murmurs, Normal S1, Normal S2 Respiratory: No distress, CTA bilaterally, Chest nontender Abdomen: Soft, Nontender, Nondistended, Normal bowel sounds, No masses Rectal: Deferred Back: Nontender, Normal Inspection. Negative for: CVA tenderness Extremities: Nontender, Edema - 2+ pitting Skin: Normal color, No rash, No Trauma. Negative for: Cyanosis, Jaundice Neurological: Alert, Oriented x3, Cranial nerves II-XII grossly intact, Normal Sensation, Normal DTR Psychological: Depressed Diagnostic/Tx/Re-eval Laboratory Results 09/19/18 09/19/18 09/19/18 21:44 21:45 21:45 WBC 10.5 RBC 5.48 Hgb 14.6 Hct 43.5 MCV 79.4 L MCH 26.6 L MCHC 33.6 RDW 16.5 H RDW Differential 47.1 H Plt Count 156 MPV 10.8 Immature Gran % (Auto) 0.300 Neut % (Auto) 82.4 H Lymph % (Auto) 8.1 L [place] % (Auto) 7.5 Eos % (Auto) 1.3 Baso % (Auto) 0.4 Absolute Neuts (auto) 8.6 H Absolute Lymphs (auto) 0.85 Total Counted Not Reportable Sodium 138 Potassium 3.6 Chloride 105 Carbon Dioxide 25.0 Anion Gap 8 BUN 22 H Creatinine 1.78 H Estim Creat Clear Calc 39.95 Est GFR (MDRD) Af Amer 49 L Est GFR (MDRD) Non-Af 40 L BUN/Creatinine Ratio 12.4 Glucose 99 Calcium 8.8 POC Glucose 119 H Urine is pending at the time of this note. . Hemoglobin is approximately 1.5 g higher than August 20, 2018. This may represent hemoconcentration. - Medical Decision Making Metabolic infectious lab/work-up was undertaken. Patient will require overnight stay and consult to social service for placement since patient is not able to care for himself in spite of home health care. Since patient unable to care for himself and unable to medicate himself will contact hospitalist for observation status with consult to case management for placement. ED Disposition - Plan for ED Patient: Disposition: Acute Care Hospital [facility] Diagnosis: Hypoglycemia due to insulin, Failure to thrive, Recent cerebrovascular accident (CVA) Referrals: Gutierrez Garces DO [Primary Care Provider] -
[2018-09-19 22:01] LABS: Absolute Lymphocyte Count 0.85 X10^3/ul (0.83-4.51); Absolute Neutrophil Count 8.6 X10^3/uL (2.0-7.7); Basophil# 0.04 X10^3/uL; Basophil% 0.4 % (0-1); Eosinophil# 0.14 X10^3/uL; Eosinophils% 1.3 % (0-5); Hematocrit 43.5 % (40-54); Hemoglobin 14.6 g/dl (13.0-16.5); Lymphocyte # 0.85 X10^3/ul (4.0); Lymphocyte % 8.1 % (19-41); Mean Corp Hgb Conc 33.6 g/gl (32-36); Mean Corpuscular Hgb 26.6 pg (27.0-32.0); Mean Corpuscular Volume 79.4 fL (80-94); Mean Platelet Vol. 10.8 fl (6.2-12.0); Monocyte# 0.79 X10^3/uL; Monocyte% 7.5 % (0-10); Neutrophil # 8.64 X10^3/uL (2.7-7.7); Neutrophil % 82.4 % (47-70); POSITIVE COUNT NO; POSITIVE DIFFERENTIAL NO; POSITIVE MORPHOLOGY NO; Platelet Count 156 K/mm3 (150-450); RBC Distribution Width CV 16.5 % (11.6-14.6); RBC Distribution Width SD 47.1 fl (35.1-43.9); Red Blood Count 5.48 M/mm3 (4.6-6.2); White Blood Count 10.5 K/mm3 (4.4-11.0)
--- NOTE | 2018-09-19 22:05 | NURSING ---
pt and family unsure of medication. pt has had some additions meds from jhon hernandez not sure. Daughter will call it in when she gets home
[2018-09-19 22:22] VITALS: BP 127/76; PULSE 59; RESP 20; O2SAT 93
[2018-09-19 22:35] LABS: Anion Gap 8 (5-15); BUN 22 mg/dL (7-18); BUN/Creat Ratio 12.4 RATIO (10-20); Calcium,Total 8.8 mg/dL (8.5-10.1); Chloride 105 mmol/L (98-107); Creatinine, Serum 1.78 mg/dL (0.70-1.30); EST Glomerular Filtration Rate 40 mL/min (>60); Est Glom Filt Rate - Afr Amer 49 mL/min (>60); Estimated Creatinine Clearance 39.95 ml/min; Glucose 99 mg/dL (74-106); Potassium 3.6 mmol/L (3.5-5.1); Sodium Level 138 mmol/L (136-145)
[2018-09-19 22:45] LABS: Bedside Glucose 116 mg/dL (70-110)
--- NOTE | 2018-09-19 22:59 | NURSING ---
pt po drop to 88% on ra. while sleeping. 02 at 2lnc applied. Family brought in list
[2018-09-19 23:00] VITALS: O2SAT 88
--- NOTE | 2018-09-19 23:03 | PCM.HP.STD ---
Problem List (1) Hypoglycemia due to insulin Status: Acute (2) Failure to thrive Status: Acute (3) Recent cerebrovascular accident (CVA) Status: Chronic (4) Ischemic stroke Status: Chronic Comment: D/T left M2 occlusion per CTA done @ [facility] (5) Chronic kidney disease, stage 3 (moderate) Status: Chronic (6) History of right and left heart catheterization Status: Chronic Comment: [facility] (7) History of right heart catheterization Status: Chronic (8) History of cardioversion Status: Chronic Comment: 03/23/14, 02/13/15, 08/23/2015 (9) Chronic diastolic (congestive) heart failure Status: Chronic (10) Hyperlipidemia Status: Chronic Qualifiers: Hyperlipidemia type: pure hypercholesterolemia Qualified Code(s): E78.00 - Pure hypercholesterolemia, unspecified; E78.0 - Pure hypercholesterolemia (11) Paroxysmal atrial fibrillation Status: Chronic (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 The patient subsequently went through rehabilitation for 2 weeks in [place]. He was discharged home with home nursing care. Per report of his daughter that was insufficient care at home as the patient has dosed himself with insulin improperly and caused him to become hypoglycemic today. The patient remains confused, discoordinated, and clearly unable to care for himself adequately at home without 24-hour care. He will be admitted tonight for observation and case management consulted in the morning. Currently denies any chest pain shortness of breath fevers or chills. Past Medical History Past Medical History (Chronic Problems): Chronic Problems (Last Updated 09/19/18 @ 18:17 by Jeri Sosa) Recent cerebrovascular accident (CVA) (Chronic) Ischemic stroke (Chronic 08/20/18) D/T left M2 occlusion per CTA done @ [facility] Tubulovillous adenoma polyp of colon (Chronic) Chronic kidney disease, stage 3 (moderate) (Chronic) Colon polyp (Chronic) Kidney stones (Chronic) History of right and left heart catheterization (Chronic ~2008) [facility] History of right heart catheterization (Chronic 05/19/13) History of cardioversion (Chronic 08/23/15) 03/23/14, 02/13/15, 08/23/2015 Stasis dermatitis (Chronic) Chronic diastolic (congestive) heart failure (Chronic) Severe concentric left ventricular hypertrophy (Chronic) Hyperlipidemia (Chronic) Hypertension (Chronic) Paroxysmal atrial fibrillation (Chronic) 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 (Chronic) Moderate to severe pulmonary hypertension (Chronic) due to sleep apnea and extrisic restrictive lung disease (obesity) Obstructive sleep apnea of adult (Chronic) cpap at night Morbid obesity with body mass index of 50.0-59.9 in adult (Chronic) referrend to bariatric surgery [facility] Medical History: Medical History (Last Updated 09/19/18 @ 18:17 by Jeri Sosa) Ischemic stroke (Chronic) Onset Date: 08/20/18 I63.9 D/T left M2 occlusion per CTA done @ [facility] Tubulovillous adenoma polyp of colon (Chronic) D12.6 Chronic kidney disease, stage 3 (moderate) (Chronic) N18.3 Colon polyp (Chronic) K63.5 Kidney stones (Chronic) N20.0 Stasis dermatitis (Chronic) I87.2 Dyspnea (Acute) R06.00 Chronic diastolic (congestive) heart failure (Chronic) I50.32 Severe concentric left ventricular hypertrophy (Chronic) I51.7 Hyperlipidemia (Chronic) E78.5 Hypertension (Chronic) I10 Paroxysmal atrial fibrillation (Chronic) I48.0 halfway (current) use of anticoagulants (Chronic) Z79.01 Moderate to severe pulmonary hypertension (Chronic) I27.2 due to sleep apnea and extrisic restrictive lung disease (obesity) Obstructive sleep apnea of adult (Chronic) G47.33 cpap at night Morbid obesity with body mass index of 50.0-59.9 in adult (Chronic) E66.01, Z68.43 referrend to bariatric surgery [facility] Allergies macitentan [From Opsumit] Allergy (Unknown, Verified 09/19/18 21:39) unknown Home Medications: Ambulatory Orders Medication Instructions Recorded Furosemide [Lasix] 80 mg PO DAILY 02/18/14 Amlodipine [Norvasc] 10 mg PO DAILY #30 tab 05/08/16 warfarin 1 mg tablet 1 mg PO .wednesday tab 07/11/18 Warfarin Sodium [Coumadin] 5 mg PO MOTUWETH 09/19/18 acetaminophen ER 650 mg 650 mg PO .qid tab 09/19/18 tablet,extended release atorvastatin 80 mg tablet 80 mg PO QHS 09/19/18 carvedilol 12.5 mg tablet 12.5 mg PO BID 09/19/18 guaifenesin ER 600 mg tablet, 600 mg PO Q12H 09/19/18 extended release 12 hr hydralazine 50 mg tablet 50 mg PO TID 09/19/18 insulin aspart (U-100) 100 unit/mL 4 unit SC .COMPLEX ml 09/19/18 (3 mL) subcutaneous pen insulin glargine (U-100) 100 25 unit SC QHS ml 09/19/18 unit/mL (3 mL) subcutaneous pen montelukast 10 mg tablet 10 mg PO QPM 09/19/18 sertraline 50 mg tablet 50 mg PO .q hs tab 09/19/18 topiramate 25 mg tablet 25 mg PO BID 09/19/18 Surgical History: Surgical History (Last Reviewed 07/11/18 @ 08:33 by Jeri Sosa) History of right and left heart catheterization (Chronic) Onset Date: ~2008 Z98.890 [facility] History of right heart catheterization (Chronic) Onset Date: 05/19/13 Z98.890 History of cardioversion (Chronic) Onset Date: 08/23/15 Z98.890 03/23/14, 02/13/15, 08/23/2015 Hx of appendectomy (Resolved) Z90.49 Hx of colonoscopy (Resolved) Z98.890 01/27/16 Surgical History: appendectomy Lives: With Family Smoking Status: Former smoker Alcohol: None - *Family History Maternal Family History: Family History (Last Reviewed 07/11/18 @ 08:33 by Jeri Sosa) Father Colon cancer History Items: Unknown Review of Systems Constitutional: Reports: Malaise, Weakness. Denies: Chills, Fever, Weight Change HEENT: Denies: Head Aches, Sinus Congestion, Sinus Drainage Cardiovascular: Denies: Chest Pain, Palpitations Respiratory: Denies: Cough, Shortness of breath at rest, Sputum production Gastrointestinal: Denies: Abdominal Pain, Nausea, Vomiting Genitourinary: Denies: Dysuria Musculoskeletal: Denies: Joint Pain, Joint Tenderness Skin: Denies: Rash, Wounds Neurological: Reports: Confusion, Incoordination. Denies: Focal weakness, Numbness, Tingling Psychiatric: Denies: Anxiety, Depression, Homicidal Ideations, Suicidal Ideations Hematologic/ Lymphatic: Denies: Easy Bruising, Easy Bleeding VTE Information - Inpt Only VTE Present on Admission: No VTE Mechan Device Prophylaxis: None VTE Pharm Prophylaxis ordered?: No Patient Problems: Active and Suspected Problems (Last Updated 09/19/18 @ 18:17 by Jeri Sosa) Hypoglycemia due to insulin (Acute) Failure to thrive (Acute) - Physical Exam General: Alert, Cooperative, Confused HEENT: Atraumatic, Normocephalic Neck: Supple Lungs: Clear to auscultation, Normal air movement Cardiovascular: Regular rate, Normal S1, Normal S2, No murmurs Abdomen: Bowel Sounds Present, Soft, Non Tender, Obese Extremities: Capillary Refill Less than 3 Seconds, Edema - 2+lower ext Skin: No rashes, No breakdown Musculoskeletal: No Tenderness to Palpation of Joints or Extremities Neurological: Neuro grossly intact Psych/Mental Status: Normal Affect, Appropriate Vital Signs Temp Pulse Resp BP Pulse Ox 97.5 F L 59 L 20 H 127/76 H 88 09/19/18 21:33 09/19/18 22:22 09/19/18 22:22 09/19/18 22:22 09/19/18 23:00 Oxygen Delivery Method Room Air Weight: 319 lb 10.724 oz Body Mass Index (BMI) 44.6 Finger Stick Blood Glucose 116 Laboratory Tests Past 24 Hrs 09/19/18 09/19/18 21:45 21:45 WBC 10.5 RBC 5.48 Hgb 14.6 Hct 43.5 MCV 79.4 L MCH 26.6 L MCHC 33.6 RDW 16.5 H RDW Differential 47.1 H Plt Count 156 MPV 10.8 Immature Gran % (Auto) 0.300 Neut % (Auto) 82.4 H Lymph % (Auto) 8.1 L [place] % (Auto) 7.5 Eos % (Auto) 1.3 Baso % (Auto) 0.4 Absolute Neuts (auto) 8.6 H Absolute Lymphs (auto) 0.85 Total Counted Not Reportable Sodium 138 Potassium 3.6 Chloride 105 Carbon Dioxide 25.0 Anion Gap 8 BUN 22 H Creatinine 1.78 H Estim Creat Clear Calc 39.95 Est GFR (MDRD) Af Amer 49 L Est GFR (MDRD) Non-Af 40 L BUN/Creatinine Ratio 12.4 Glucose 99 Calcium 8.8 POC Glucose 09/19/18 09/19/18 22:39 21:44 POC Glucose 116 H 119 H Assessment/Plan All Active Problems (Last Reviewed 07/11/18 @ 08:33 by Jeri Sosa) Hypoglycemia due to insulin (Acute) Failure to thrive (Acute) Dyspnea (Acute) Cellulitis (Resolved) Hx of appendectomy (Resolved) Hx of colonoscopy (Resolved) Chronic Problems (Last Updated 09/19/18 @ 18:17 by Jeri Sosa) Recent cerebrovascular accident (CVA) (Chronic) Ischemic stroke (Chronic 08/20/18) D/T left M2 occlusion per CTA done @ [facility] Tubulovillous adenoma polyp of colon (Chronic) Chronic kidney disease, stage 3 (moderate) (Chronic) Colon polyp (Chronic) Kidney stones (Chronic) History of right and left heart catheterization (Chronic ~2008) [facility] History of right heart catheterization (Chronic 05/19/13) History of cardioversion (Chronic 08/23/15) 03/23/14, 02/13/15, 08/23/2015 Stasis dermatitis (Chronic) Chronic diastolic (congestive) heart failure (Chronic) Severe concentric left ventricular hypertrophy (Chronic) Hyperlipidemia (Chronic) Hypertension (Chronic) Paroxysmal atrial fibrillation (Chronic) halfway (current) use of anticoagulants (Chronic) Moderate to severe pulmonary hypertension (Chronic) due to sleep apnea and extrisic restrictive lung disease (obesity) Obstructive sleep apnea of adult (Chronic) cpap at night Morbid obesity with body mass index of 50.0-59.9 in adult (Chronic) referrend to bariatric surgery [facility] Plan 1. Recent history of left middle cerebral artery stroke/2 weeks and rehab facility/unable to take care of self at home and function with ADLs?admit to medical surgical floor for observation, monitor blood sugars, repeat BMP in the a.m. 2. Chronic kidney disease-bmp am 3. Hyperlipidemia maintain statin 4. Paroxysmal atrial fibrillation continue Coumadin check INR in a.m. 5. DVT prophylaxis continue Coumadin 6. Hypertension continue home medication 7. Consult case management for placement Code Visit OBSV E&M: [id number] Initial observation care L2
[2018-09-19 23:05] VITALS: BP 132/87; PULSE 57; RESP 23; O2SAT 96
--- NOTE | 2018-09-19 23:07 | HP.PCM_ITS ---
Problem List (1) Hypoglycemia due to insulin Status: Acute (2) Failure to thrive Status: Acute (3) Recent cerebrovascular accident (CVA) Status: Chronic (4) Ischemic stroke Status: Chronic Comment: D/T left M2 occlusion per CTA done @ [facility] (5) Chronic kidney disease, stage 3 (moderate) Status: Chronic (6) History of right and left heart catheterization Status: Chronic Comment: [facility] (7) History of right heart catheterization Status: Chronic (8) History of cardioversion Status: Chronic Comment: 03/23/14, 02/13/15, 08/23/2015 (9) Chronic diastolic (congestive) heart failure Status: Chronic (10) Hyperlipidemia Status: Chronic Qualifiers: Hyperlipidemia type: pure hypercholesterolemia Qualified Code(s): E78.00 - Pure hypercholesterolemia, unspecified; E78.0 - Pure hypercholesterolemia (11) Paroxysmal atrial fibrillation Status: Chronic (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 The patient subsequently went through rehabilitation for 2 weeks in [place]. He was discharged home with home nursing care. Per report of his daughter that was insufficient care at home as the patient has dosed himself with insulin improperly and caused him to become hypoglycemic today. The patient remains confused, discoordinated, and clearly unable to care for himself adequately at home without 24-hour care. He will be admitted tonight for observation and case management consulted in the morning. Currently denies any chest pain shortness of breath fevers or chills. Past Medical History Past Medical History (Chronic Problems): Chronic Problems (Last Updated 09/19/18 @ 18:17 by Jeri Sosa) Recent cerebrovascular accident (CVA) (Chronic) Ischemic stroke (Chronic 08/20/18) D/T left M2 occlusion per CTA done @ [facility] Tubulovillous adenoma polyp of colon (Chronic) Chronic kidney disease, stage 3 (moderate) (Chronic) Colon polyp (Chronic) Kidney stones (Chronic) History of right and left heart catheterization (Chronic ~2008) [place] [facility] History of right heart catheterization (Chronic 05/19/13) History of cardioversion (Chronic 08/23/15) 03/23/14, 02/13/15, 08/23/2015 Stasis dermatitis (Chronic) Chronic diastolic (congestive) heart failure (Chronic) Severe concentric left ventricular hypertrophy (Chronic) Hyperlipidemia (Chronic) Hypertension (Chronic) Paroxysmal atrial fibrillation (Chronic) 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 (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) Moderate to severe pulmonary hypertension (Chronic) due to sleep apnea and extrisic restrictive lung disease (obesity) Obstructive sleep apnea of adult (Chronic) cpap at night Morbid obesity with body mass index of 50.0-59.9 in adult (Chronic) referrend to bariatric surgery [facility] Medical History: Medical History (Last Updated 09/19/18 @ 18:17 by Jeri Sosa) Ischemic stroke (Chronic) Onset Date: 08/20/18 I63.9 D/T left M2 occlusion per CTA done @ [facility] Tubulovillous adenoma polyp of colon (Chronic) D12.6 Chronic kidney disease, stage 3 (moderate) (Chronic) N18.3 Colon polyp (Chronic) K63.5 Kidney stones (Chronic) N20.0 Stasis dermatitis (Chronic) I87.2 Dyspnea (Acute) R06.00 Chronic diastolic (congestive) heart failure (Chronic) I50.32 Severe concentric left ventricular hypertrophy (Chronic) I51.7 Hyperlipidemia (Chronic) E78.5 Hypertension (Chronic) I10 Paroxysmal atrial fibrillation (Chronic) I48.0 longterm (current) use of anticoagulants (Chronic) Z79.01 Moderate to severe pulmonary hypertension (Chronic) I27.2 due to sleep apnea and extrisic restrictive lung disease (obesity) Obstructive sleep apnea of adult (Chronic) G47.33 cpap at night Morbid obesity with body mass index of 50.0-59.9 in adult (Chronic) E66.01, Z68.43 referrend to bariatric surgery [facility] Allergies macitentan [From Opsumit] Allergy (Unknown, Verified 09/19/18 21:39) unknown Home Medications: Ambulatory Orders Medication Instructions Recorded Furosemide [Lasix] 80 mg PO DAILY 02/18/14 Amlodipine [Norvasc] 10 mg PO DAILY #30 tab 05/08/16 warfarin 1 mg tablet 1 mg PO .wednesday tab 07/11/18 Warfarin Sodium [Coumadin] 5 mg PO MOTUWETH 09/19/18 acetaminophen ER 650 mg 650 mg PO .qid tab 09/19/18 tablet,extended release atorvastatin 80 mg tablet 80 mg PO QHS 09/19/18 carvedilol 12.5 mg tablet 12.5 mg PO BID 09/19/18 guaifenesin ER 600 mg tablet, 600 mg PO Q12H 09/19/18 extended release 12 hr hydralazine 50 mg tablet 50 mg PO TID 09/19/18 insulin aspart (U-100) 100 unit/mL 4 unit SC .COMPLEX ml 09/19/18 (3 mL) subcutaneous pen insulin glargine (U-100) 100 25 unit SC QHS ml 09/19/18 unit/mL (3 mL) subcutaneous pen montelukast 10 mg tablet 10 mg PO QPM 09/19/18 sertraline 50 mg tablet 50 mg PO .q hs tab 09/19/18 topiramate 25 mg tablet 25 mg PO BID 09/19/18 Surgical History: Surgical History (Last Reviewed 07/11/18 @ 08:33 by Jeri Sosa) History of right and left heart catheterization (Chronic) Onset Date: ~2008 Z98.890 [facility] History of right heart catheterization (Chronic) Onset Date: 05/19/13 Z98.890 History of cardioversion (Chronic) Onset Date: 08/23/15 Z98.890 03/23/14, 02/13/15, 08/23/2015 Hx of appendectomy (Resolved) Z90.49 Hx of colonoscopy (Resolved) Z98.890 01/27/16 Surgical History: appendectomy Lives: With Family Smoking Status: Former smoker Alcohol: None - *Family History Maternal Family History: Family History (Last Reviewed 07/11/18 @ 08:33 by Jeri Sosa) Father Colon cancer History Items: Unknown Review of Systems Constitutional: Reports: Malaise, Weakness. Denies: Chills, Fever, Weight Change HEENT: Denies: Head Aches, Sinus Congestion, Sinus Drainage Cardiovascular: Denies: Chest Pain, Palpitations Respiratory: Denies: Cough, Shortness of breath at rest, Sputum production Gastrointestinal: Denies: Abdominal Pain, Nausea, Vomiting Genitourinary: Denies: Dysuria Musculoskeletal: Denies: Joint Pain, Joint Tenderness Skin: Denies: Rash, Wounds Neurological: Reports: Confusion, Incoordination. Denies: Focal weakness, Numbness, Tingling Psychiatric: Denies: Anxiety, Depression, Homicidal Ideations, Suicidal Ideations Hematologic/ Lymphatic: Denies: Easy Bruising, Easy Bleeding VTE Information - Inpt Only VTE Present on Admission: No VTE Mechan Device Prophylaxis: None VTE Pharm Prophylaxis ordered?: No Patient Problems: Active and Suspected Problems (Last Updated 09/19/18 @ 18:17 by Jeri Sosa) Hypoglycemia due to insulin (Acute) Failure to thrive (Acute) - Physical Exam General: Alert, Cooperative, Confused HEENT: Atraumatic, Normocephalic Neck: Supple Lungs: Clear to auscultation, Normal air movement Cardiovascular: Regular rate, Normal S1, Normal S2, No murmurs Abdomen: Bowel Sounds Present, Soft, Non Tender, Obese Extremities: Capillary Refill Less than 3 Seconds, Edema - 2+lower ext Skin: No rashes, No breakdown Musculoskeletal: No Tenderness to Palpation of Joints or Extremities Neurological: Neuro grossly intact Psych/Mental Status: Normal Affect, Appropriate Vital Signs Temp Pulse Resp BP Pulse Ox 97.5 F L 59 L 20 H 127/76 H 88 09/19/18 21:33 09/19/18 22:22 09/19/18 22:22 09/19/18 22:22 09/19/18 23:00 Oxygen Delivery Method Room Air Weight: 319 lb 10.724 oz Body Mass Index (BMI) 44.6 Finger Stick Blood Glucose 116 Laboratory Tests Past 24 Hrs 09/19/18 09/19/18 21:45 21:45 WBC 10.5 RBC 5.48 Hgb 14.6 Hct 43.5 MCV 79.4 L MCH 26.6 L MCHC 33.6 RDW 16.5 H RDW Differential 47.1 H Plt Count 156 MPV 10.8 Immature Gran % (Auto) 0.300 Neut % (Auto) 82.4 H Lymph % (Auto) 8.1 L [place] % (Auto) 7.5 Eos % (Auto) 1.3 Baso % (Auto) 0.4 Absolute Neuts (auto) 8.6 H Absolute Lymphs (auto) 0.85 Total Counted Not Reportable Sodium 138 Potassium 3.6 Chloride 105 Carbon Dioxide 25.0 Anion Gap 8 BUN 22 H Creatinine 1.78 H Estim Creat Clear Calc 39.95 Est GFR (MDRD) Af Amer 49 L Est GFR (MDRD) Non-Af 40 L BUN/Creatinine Ratio 12.4 Glucose 99 Calcium 8.8 POC Glucose 09/19/18 09/19/18 22:39 21:44 POC Glucose 116 H 119 H Assessment/Plan All Active Problems (Last Reviewed 07/11/18 @ 08:33 by Jeri Sosa) Hypoglycemia due to insulin (Acute) Failure to thrive (Acute) Dyspnea (Acute) Cellulitis (Resolved) Hx of appendectomy (Resolved) Hx of colonoscopy (Resolved) Chronic Problems (Last Updated 09/19/18 @ 18:17 by Jeri Sosa) Recent cerebrovascular accident (CVA) (Chronic) Ischemic stroke (Chronic 08/20/18) D/T left M2 occlusion per CTA done @ [facility] Tubulovillous adenoma polyp of colon (Chronic) Chronic kidney disease, stage 3 (moderate) (Chronic) Colon polyp (Chronic) Kidney stones (Chronic) History of right and left heart catheterization (Chronic ~2008) [facility] History of right heart catheterization (Chronic 05/19/13) History of cardioversion (Chronic 08/23/15) 03/23/14, 02/13/15, 08/23/2015 Stasis dermatitis (Chronic) Chronic diastolic (congestive) heart failure (Chronic) Severe concentric left ventricular hypertrophy (Chronic) Hyperlipidemia (Chronic) Hypertension (Chronic) Paroxysmal atrial fibrillation (Chronic) longterm (current) use of anticoagulants (Chronic) Moderate to severe pulmonary hypertension (Chronic) due to sleep apnea and extrisic restrictive lung disease (obesity) Obstructive sleep apnea of adult (Chronic) cpap at night Morbid obesity with body mass index of 50.0-59.9 in adult (Chronic) referrend to bariatric surgery [facility] Plan 1. Recent history of left middle cerebral artery stroke/2 weeks and rehab facility/unable to take care of self at home and function with ADLs?admit to medical surgical floor for observation, monitor blood sugars, repeat BMP in the a.m. 2. Chronic kidney disease-bmp am 3. Hyperlipidemia maintain statin 4. Paroxysmal atrial fibrillation continue Coumadin check INR in a.m. 5. DVT prophylaxis continue Coumadin 6. Hypertension continue home medication 7. Consult case management for placement Code Visit OBSV E&M: [id number] Initial observation care L2
[2018-09-19 23:57] VITALS: BP 121/80; PULSE 59; RESP 17; O2SAT 95
[2018-09-20] VITALS (7 sets, daily range): BP systolic 130–165; BP diastolic 63–89; PULSE 63–85; RESP 18; TEMP 36.3–37.1; O2SAT 95–99; BMI 43.7
[2018-09-20 01:00] LABS: Bedside Glucose 169 mg/dL (70-110)
[2018-09-20] MEDS: Insulin Lispro 100 UNIT/ML INSULN.PEN SC ×5 (01:13→21:31)
[2018-09-20] MEDS: hydrALAZINE 50 MG Tablet PO ×3 (05:43→21:33)
[2018-09-20 06:50] LABS: Bedside Glucose 174 mg/dL (70-110)
[2018-09-20 06:50] LABS: Absolute Lymphocyte Count 1.21 X10^3/ul (0.83-4.51); Absolute Neutrophil Count 5.1 X10^3/uL (2.0-7.7); Basophil# 0.03 X10^3/uL; Basophil% 0.4 % (0-1); Eosinophil# 0.11 X10^3/uL; Eosinophils% 1.6 % (0-5); Hematocrit 44.4 % (40-54); Hemoglobin 14.4 g/dl (13.0-16.5); Lymphocyte # 1.21 X10^3/ul (4.0); Lymphocyte % 17.1 % (19-41); Mean Corp Hgb Conc 32.4 g/gl (32-36); Mean Corpuscular Hgb 25.4 pg (27.0-32.0); Mean Corpuscular Volume 78.4 fL (80-94); Mean Platelet Vol. 11.4 fl (6.2-12.0); Monocyte# 0.63 X10^3/uL; Monocyte% 8.9 % (0-10); Neutrophil % 71.9 % (47-70); Platelet Count 163 K/mm3 (150-450); RBC Distribution Width CV 16.7 % (11.6-14.6); RBC Distribution Width SD 47.9 fl (35.1-43.9); Red Blood Count 5.66 M/mm3 (4.6-6.2); White Blood Count 7.1 K/mm3 (4.4-11.0)
[2018-09-20 06:53] LABS: International Normalized Ratio 1.3; POSITIVE COUNT NO; POSITIVE DIFFERENTIAL NO; POSITIVE MORPHOLOGY NO; Prothrombin Time (Protime)PT. 15.5 SECONDS (11.7-14.9)
[2018-09-20 06:59] LABS: Anion Gap 7 (5-15); BUN 26 mg/dL (7-18); Calcium,Total 8.5 mg/dL (8.5-10.1); Chloride 104 mmol/L (98-107); Creatinine, Serum 1.63 mg/dL (0.70-1.30); EST Glomerular Filtration Rate 44 mL/min (>60); Est Glom Filt Rate - Afr Amer 54 mL/min (>60); Estimated Creatinine Clearance 43.63 ml/min; Glucose 164 mg/dL (74-106); Potassium 3.7 mmol/L (3.5-5.1); Sodium Level 137 mmol/L (136-145)
[2018-09-20 07:34] LABS: Mucous, Urine 0 SEEN /hpf (<or=2+); White Blood Cells 0 SEEN /hpf (0-5)
[2018-09-20 07:36] LABS: Color, Urine Yellow (Yellow); Glucose, Dipstick Normal (Normal); Ketone-Dipstick Negative (Negative); Leukocyte Esterase-Dipstick Negative /ul (Negative); Nitrite-Dipstick Negative (Negative); Occult Blood-Urine Negative /ul (Negative); Protein-Dipstick 100 mg/dl (Negative); Specific Gravity, Urine 1.015 (1.002-1.030); Urine Bilirubin Dipstick Negative (Negative); Urine Clarity Sl. Cloudy (Clear); Urine Urobilinogen Normal (Normal)
[2018-09-20 08:01] LABS: Magnesium 1.9 mg/dL (1.6-2.6)
[2018-09-20 08:16] LABS: Bacteria RARE /hpf (None Seen); Hyaline Cast 0-5 SEEN /lpf (0-5); Red Blood Cells-Urine 0-5 SEEN /hpf (0-5); Squamous Epithelial Cells - UA 0-5 SEEN /hpf (0-5)
[2018-09-20] MEDS: Carvedilol 12.5 MG Tablet PO ×2 (10:35→21:33)
[2018-09-20] MEDS: Furosemide 80 MG Tablet PO (10:35)
[2018-09-20] MEDS: guaiFENesin 600 MG Tablet PO ×2 (10:36→21:33)
[2018-09-20] MEDS: Nystatin Powder 15gm Bottle 1 APPLIC TOPICAL ×2 (10:36→21:35)
[2018-09-20] MEDS: amLODIPine 10 MG Tablet PO (10:37)
[2018-09-20] MEDS: Acetaminophen 325 MG Tablet 650 MG PO ×4 (10:37→21:35)
[2018-09-20] MEDS: Topiramate 25 MG Tablet PO ×2 (10:38→21:33)
--- NOTE | 2018-09-20 10:41 | PCM.PN.HOSP ---
Patient Problems: Active and Suspected Problems (Last Updated 09/19/18 @ 18:17 by Jeri Sosa) Hypoglycemia due to insulin (Acute) Failure to thrive (Acute) Subjective: Patient with no acute events overnight per self and per nursing report. He is been up and moving with physical and occupational therapy and did do well. He does have periods of worsened weakness and has difficulty lifting himself up and pushing with his upper extremities following his strokes. He does note that he has had 3 incidences of incorrectly performing insulin regimen but the most recent was an accidental clicking of his pen device by his daughter. Patient is amenable to shelter facility placement. Patient denies fevers, chills, nausea, emesis, abdominal pain, chest pain or dyspnea. Objective: Physical Examination: General: awake, alert, oriented x 3 and cooperative, seated upright in bed in no apparent distress. Skin: normal color, turgor, no icterus, cyanosis except bilateral lower extremity chronic venous stasis skin changes with wound care currently cleaning. HEENT: AT/NC, EOMI, PERRLA, MMM. Lungs: CTA bilaterally, moderate effort, mild decrease BL bases, no rales, ronchi or wheezing. Heart: Regular rate and rhythm; no gallop, rub audible. Abdomen: soft, morbidly obese, NTTP, ND, normal BS. Extremities: no cyanosis, clubbing, BL LE chronic venous stasis changes as noted, see skin. Neurological: patient awake, alert, oriented x 3; cognitive function intact; pupils equally reactive to light and accomodation; cranial nerves II-XII grossly normal, moving all 4 extremities, patient does state that from strokes he primarily has difficulties lifting himself with his upper extremities but the deficits are primarily with urinary and stool incontinence, strength moderately globally decreased. Psychiatric: affect appears normal, no acute evidence of depressive or anxiety feelings. Vitals/I&O's: Vital Signs Temp Pulse Resp BP Pulse Ox 98.7 F 85 18 133/77 H 95 09/20/18 10:29 09/20/18 10:29 09/20/18 10:29 09/20/18 10:29 09/20/18 10:29 Oxygen Flow Rate (L/min) 2 Oxygen Delivery Method Room Air Weight: 313 lb 4.43 oz Body Mass Index (BMI) 43.7 Finger Stick Blood Glucose 116 Intake and Output for Last 24 Hours 09/18/18 09/19/18 09/20/18 23:59 23:59 23:59 Intake Total 150 / 150 Balance 150 / 150 Laboratory Results 09/19/18 21:44: POC Glucose 119 H 09/19/18 21:45: WBC 10.5, RBC 5.48, Hgb 14.6, Hct 43.5, MCV 79.4 L, MCH 26.6 L, MCHC 33.6, RDW 16.5 H, RDW Differential 47.1 H, Plt Count 156, MPV 10.8, Immature Gran % (Auto) 0.300, Neut % (Auto) 82.4 H, Lymph % (Auto) 8.1 L, [place] % (Auto) 7.5, Eos % (Auto) 1.3, Baso % (Auto) 0.4, Absolute Neuts (auto) 8.6 H, Absolute Lymphs (auto) 0.85, Total Counted Not Reportable 09/19/18 21:45: Sodium 138, Potassium 3.6, Chloride 105, Carbon Dioxide 25.0, Anion Gap 8, BUN 22 H, Creatinine 1.78 H, Estim Creat Clear Calc 39.95, Est GFR (MDRD) Af Amer 49 L, Est GFR (MDRD) Non-Af 40 L, BUN/Creatinine Ratio 12.4, Glucose 99, Calcium 8.8 09/19/18 22:39: POC Glucose 116 H 09/20/18 00:50: POC Glucose 169 H 09/20/18 06:33: Sodium 137, Potassium 3.7, Chloride 104, Carbon Dioxide 26.0, Anion Gap 7, BUN 26 H, Creatinine 1.63 H, Estim Creat Clear Calc 43.63, Est GFR (MDRD) Af Amer 54 L, Est GFR (MDRD) Non-Af 44 L, BUN/Creatinine Ratio 16.0, Glucose 164 H, Calcium 8.5 09/20/18 06:33: WBC 7.1, RBC 5.66, Hgb 14.4, Hct 44.4, MCV 78.4 L, MCH 25.4 L, MCHC 32.4, RDW 16.7 H, RDW Differential 47.9 H, Plt Count 163, MPV 11.4, Immature Gran % (Auto) 0.100, Neut % (Auto) 71.9 H, Lymph % (Auto) 17.1 L, [place] % (Auto) 8.9, Eos % (Auto) 1.6, Baso % (Auto) 0.4, Absolute Neuts (auto) 5.1, Absolute Lymphs (auto) 1.21, Total Counted Not Reportable 09/20/18 06:33: PT 15.5 H, INR 1.3 09/20/18 06:33: Magnesium 1.9 09/20/18 06:44: POC Glucose 174 H 09/20/18 07:22: Urine Color Yellow, Urine Clarity Sl. Cloudy, Urine pH 5.0, Ur Specific [place] 1.015, Urine Protein 100 H, Urine Glucose (UA) Normal, Urine Ketones Negative, Urine Occult Blood Negative, Urine Nitrite Negative, Urine Bilirubin Negative, Urine Urobilinogen Normal, Ur Leukocyte Esterase Negative, Urine RBC 0-5 SEEN, Urine WBC 0 SEEN, Ur Squamous Epith Cells 0-5 SEEN, Urine Bacteria RARE, Hyaline Casts 0-5 SEEN, Urine Mucus 0 SEEN Current Medications Acetaminophen (Tylenol) 650 mg PO 4X/DAY [facility] Last Admin: 09/20/18 10:37 Dose: 650 mg Amlodipine Besylate (Norvasc) [address] [facility] Last Admin: 09/20/18 10:37 Dose: 10 mg Atorvastatin Calcium (Lipitor) [address] [facility] Carvedilol (Coreg) 12.[address] [facility] Last Admin: 09/20/18 10:35 Dose: 12.5 mg Dextrose (D50w Syringe) 0 gm IV X1 PRN; Protocol PRN Reason: Hypoglycemia Furosemide (Lasix) [address] [facility] Last Admin: 09/20/18 10:35 Dose: 80 mg Glucagon () 1 mg IM .X1 PRN PRN Reason: Hypoglycemia Guaifenesin (Mucinex) [address] [facility] Last Admin: 09/20/18 10:36 Dose: 600 mg Hydralazine HCl (Apresoline) [address] [facility] Last Admin: 09/20/18 05:43 Dose: 50 mg Insulin Glargine (Lantus (Bkc)) [address] [facility] Insulin Human Lispro (Humalog Kwikpen (Bkc)) [address] [facility]; Protocol Last Admin: 09/20/18 06:53 Dose: 1 u Montelukast Sodium (Singulair) [address] [facility] Nutritional Formula (Lactose Free) (Glucerna Shake) [address] [facility] Last Admin: 09/20/18 08:25 Dose: Not Given Nystatin (Mycostatin Powder) [address] [facility]; Protocol Last Admin: 09/20/18 10:36 Dose: 1 applicatio Sertraline HCl (Zoloft) [address] [facility] Sodium Chloride () 5 - 15 ml IV UD PRN PRN Reason: SALINE FLUSH Topiramate (Topamax) [address] [facility] Last Admin: 09/20/18 10:38 Dose: 25 mg Warfarin Sodium (Coumadin (Pbkc)) 2.5 mg PO SuSa@1700 [facility]; Protocol Warfarin Sodium (Coumadin (Pbkc)) 5 mg PO MoTuWeTh@1700 [facility] Medical Necessity - Tobacco Use Smoking Status: Former smoker Assessment/Plan All Active Problems (Last Reviewed 07/11/18 @ 08:33 by Jeri Sosa) Hypoglycemia due to insulin (Acute) Failure to thrive (Acute) Dyspnea (Acute) Cellulitis (Resolved) Hx of appendectomy (Resolved) Hx of colonoscopy (Resolved) The patient is a 73 y/o M w/ PMHx: Morbid Obesity, HTN, HLD, Chronic Diastolic CHF, CKD stage III, PAF on coumadin, Pulmonary HTN, ANDERSON on CPAP q HS, recent left middle cerebral artery stroke approximately 1 month prior with recent rehabilitation stay x2 weeks in [place] with discharge to home over this last week with difficulties caring for himself and medication errors. (1) Diabetes mellitus type II w/ Transient Hypoglycemia secondary to Medication Error: Medication regimen air x3 although recent regimen possibly incorrectly dosed per family member, given patient recent history of stroke and discharge to home with difficulties, admitted to medical surgical floor, maintain on fall and aspiration precautions, improvement of blood sugars therefore restarted on patient diabetic regimen with close monitoring, ADA diet, accu checks w/ ISS, PT, OT and case management consulted as from current description patient would likely benefit from continued shelter facility as he had been in acute rehab but potentially needs a stepdown prior to home. (2) Recent L MCA CVA: Notes primary deficit urinary and stool incontinence as well as some difficulties with bilateral upper extremity, primarily attempts to push himself up, continue home regimen with transition from Coumadin which is notably subtherapeutic to Xarelto with CM assessment for cost, continue statin, BP regimen and diabetic regimen. (3) Chronic diastolic CHF: Will continue home regimen with transition from Coumadin which is notably subtherapeutic to Xarelto with CM assessment for cost, continue statin, Coreg, Lasix, hydralazine. (4) Hypertension: Continue home regimen including Norvasc, Coreg, Lasix, hydralazine, PRN hydralazine. (5) Hyperlipidemia: Continue home statin regimen. (6) Chronic Kidney Disease Stage III: Admission BUN/Cr 22/1.78, repeat 09/19/18 BUN/Cr 26/1.63, baseline renal function 1.6-2.0, repeat BMP in AM. (7) Anxiety and depression: We will continue home Zoloft regimen. (8) Morbid Obesity: Weight loss and lifestyle changes encouraged, nutrition consulted. (9) ANDERSON: CPAP nightly. (10) DVT prophylaxis: SCDs, coumadin w/ INR trending, subtherapeutic 1.3, given recent issues with medication self abilities, will transition to xarelto renally dosed and will need to check with CM about cost. Code Visit OBSV E&M: [id number] Subsequent observation care L2
--- NOTE | 2018-09-20 10:50 | NURSING ---
Was asked to see patient for venous stasis dermatitis to bilateral lower legs. there are patches of dry, thick, redd skin. there is hemosiderin staining noted bilaterally. no open wounds at this time. applied aloe vesta to bilateral lower legs. was able to remove most of the dry skin from bilateral shins. only minimal edema noted. patient states he does not normally getting swelling in his legs unless I don't take my Lasix. will monitor.
--- NOTE | 2018-09-20 10:58 | PN_ITS ---
Patient Problems: Active and Suspected Problems (Last Updated 09/19/18 @ 18:17 by Jeri Sosa) Hypoglycemia due to insulin (Acute) Failure to thrive (Acute) Subjective: Patient with no acute events overnight per self and per nursing report. He is been up and moving with physical and occupational therapy and did do well. He does have periods of worsened weakness and has difficulty lifting himself up and pushing with his upper extremities following his strokes. He does note that he has had 3 incidences of incorrectly performing insulin regimen but the most recent was an accidental clicking of his pen device by his daughter. Patient is amenable to nursing home facility placement. Patient denies fevers, chills, nausea, emesis, abdominal pain, chest pain or dyspnea. Objective: Physical Examination: General: awake, alert, oriented x 3 and cooperative, seated upright in bed in no apparent distress. Skin: normal color, turgor, no icterus, cyanosis except bilateral lower extremity chronic venous stasis skin changes with wound care currently cleaning. HEENT: AT/NC, EOMI, PERRLA, MMM. Lungs: CTA bilaterally, moderate effort, mild decrease BL bases, no rales, ronchi or wheezing. Heart: Regular rate and rhythm; no gallop, rub audible. Abdomen: soft, morbidly obese, NTTP, ND, normal BS. Extremities: no cyanosis, clubbing, BL LE chronic venous stasis changes as noted, see skin. Neurological: patient awake, alert, oriented x 3; cognitive function intact; pupils equally reactive to light and accomodation; cranial nerves II-XII grossly normal, moving all 4 extremities, patient does state that from strokes he primarily has difficulties lifting himself with his upper extremities but the deficits are primarily with urinary and stool incontinence, strength moderately globally decreased. Psychiatric: affect appears normal, no acute evidence of depressive or anxiety feelings. Vitals/I&O's: Vital Signs Temp Pulse Resp BP Pulse Ox 98.7 F 85 18 133/77 H 95 09/20/18 10:29 09/20/18 10:29 09/20/18 10:29 09/20/18 10:29 09/20/18 10:29 Oxygen Flow Rate (L/min) 2 Oxygen Delivery Method Room Air Weight: 313 lb 4.43 oz Body Mass Index (BMI) 43.7 Finger Stick Blood Glucose 116 Intake and Output for Last 24 Hours 09/18/18 09/19/18 09/20/18 23:59 23:59 23:59 Intake Total 150 / 150 Balance 150 / 150 Laboratory Results 09/19/18 21:44: POC Glucose 119 H 09/19/18 21:45: WBC 10.5, RBC 5.48, Hgb 14.6, Hct 43.5, MCV 79.4 L, MCH 26.6 L, MCHC 33.6, RDW 16.5 H, RDW Differential 47.1 H, Plt Count 156, MPV 10.8, Immature Gran % (Auto) 0.300, Neut % (Auto) 82.4 H, Lymph % (Auto) 8.1 L, [place] % (Auto) 7.5, Eos % (Auto) 1.3, Baso % (Auto) 0.4, Absolute Neuts (auto) 8.6 H, Absolute Lymphs (auto) 0.85, Total Counted Not Reportable 09/19/18 21:45: Sodium 138, Potassium 3.6, Chloride 105, Carbon Dioxide 25.0, Anion Gap 8, BUN 22 H, Creatinine 1.78 H, Estim Creat Clear Calc 39.95, Est GFR (MDRD) Af Amer 49 L, Est GFR (MDRD) Non-Af 40 L, BUN/Creatinine Ratio 12.4, Glucose 99, Calcium 8.8 09/19/18 22:39: POC Glucose 116 H 09/20/18 00:50: POC Glucose 169 H 09/20/18 06:33: Sodium 137, Potassium 3.7, Chloride 104, Carbon Dioxide 26.0, Anion Gap 7, BUN 26 H, Creatinine 1.63 H, Estim Creat Clear Calc 43.63, Est GFR (MDRD) Af Amer 54 L, Est GFR (MDRD) Non-Af 44 L, BUN/Creatinine Ratio 16.0, Glucose 164 H, Calcium 8.5 09/20/18 06:33: WBC 7.1, RBC 5.66, Hgb 14.4, Hct 44.4, MCV 78.4 L, MCH 25.4 L, MCHC 32.4, RDW 16.7 H, RDW Differential 47.9 H, Plt Count 163, MPV 11.4, Immature Gran % (Auto) 0.100, Neut % (Auto) 71.9 H, Lymph % (Auto) 17.1 L, [place] % (Auto) 8.9, Eos % (Auto) 1.6, Baso % (Auto) 0.4, Absolute Neuts (auto) 5.1, Absolute Lymphs (auto) 1.21, Total Counted Not Reportable 09/20/18 06:33: PT 15.5 H, INR 1.3 09/20/18 06:33: Magnesium 1.9 09/20/18 06:44: POC Glucose 174 H 09/20/18 07:22: Urine Color Yellow, Urine Clarity Sl. Cloudy, Urine pH 5.0, Ur Specific Norris 1.015, Urine Protein 100 H, Urine Glucose (UA) Normal, Urine Ketones Negative, Urine Occult Blood Negative, Urine Nitrite Negative, Urine Bilirubin Negative, Urine Urobilinogen Normal, Ur Leukocyte Esterase Negative, Urine RBC 0-5 SEEN, Urine WBC 0 SEEN, Ur Squamous Epith Cells 0-5 SEEN, Urine Bacteria RARE, Hyaline Casts 0-5 SEEN, Urine Mucus 0 SEEN Current Medications Acetaminophen (Tylenol) 650 mg PO 4X/DAY [facility] Last Admin: 09/20/18 10:37 Dose: 650 mg Amlodipine Besylate (Norvasc) 10 mg PO DAILY [facility] Last Admin: 09/20/18 10:37 Dose: 10 mg Atorvastatin Calcium (Lipitor) 80 mg PO QHS [facility] Carvedilol (Coreg) 12.5 mg PO BID [facility] Last Admin: 09/20/18 10:35 Dose: 12.5 mg Dextrose (D50w Syringe) 0 gm IV X1 PRN; Protocol PRN Reason: Hypoglycemia Furosemide (Lasix) 80 mg PO DAILY [facility] Last Admin: 09/20/18 10:35 Dose: 80 mg Glucagon () 1 mg IM .X1 PRN PRN Reason: Hypoglycemia Guaifenesin (Mucinex) 600 mg PO Q12 [facility] Last Admin: 09/20/18 10:36 Dose: 600 mg Hydralazine HCl (Apresoline) 50 mg PO TID [facility] Last Admin: 09/20/18 05:43 Dose: 50 mg Insulin Glargine (Lantus (Bkc)) 12 units SC DINNER [facility] Insulin Human Lispro (Humalog Kwikpen (Bkc)) 0 unit SC ACHS [facility]; Protocol Last Admin: 09/20/18 06:53 Dose: 1 u Montelukast Sodium (Singulair) 10 mg PO QPM [facility] Nutritional Formula (Lactose Free) (Glucerna Shake) 120 ml PO TIDCM [facility] Last Admin: 09/20/18 08:25 Dose: Not Given Nystatin (Mycostatin Powder) 1 applic TOPICAL BID [facility]; Protocol Last Admin: 09/20/18 10:36 Dose: 1 applicatio Sertraline HCl (Zoloft) 50 mg PO QHS [facility] Sodium Chloride () 5 - 15 ml IV UD PRN PRN Reason: SALINE FLUSH Topiramate (Topamax) 25 mg PO BID [facility] Last Admin: 09/20/18 10:38 Dose: 25 mg Warfarin Sodium (Coumadin (Pbkc)) 2.5 mg PO SuSa@1700 [facility]; Protocol Warfarin Sodium (Coumadin (Pbkc)) 5 mg PO MoTuWeTh@1700 [facility] Medical Necessity - Tobacco Use Smoking Status: Former smoker Assessment/Plan All Active Problems (Last Reviewed 07/11/18 @ 08:33 by Jrei Sosa) Hypoglycemia due to insulin (Acute) Failure to thrive (Acute) Dyspnea (Acute) Cellulitis (Resolved) Hx of appendectomy (Resolved) Hx of colonoscopy (Resolved) The patient is a 73 y/o M w/ PMHx: Morbid Obesity, HTN, HLD, Chronic Diastolic CHF, CKD stage III, PAF on coumadin, Pulmonary HTN, ANDERSON on CPAP q HS, recent left middle cerebral artery stroke approximately 1 month prior with recent rehabilitation stay x2 weeks in [place] with discharge to home over this last week with difficulties caring for himself and medication errors. (1) Diabetes mellitus type II w/ Transient Hypoglycemia secondary to Medication Error: Medication regimen air x3 although recent regimen possibly incorrectly dosed per family member, given patient recent history of stroke and discharge to home with difficulties, admitted to medical surgical floor, maintain on fall and aspiration precautions, improvement of blood sugars therefore restarted on patient diabetic regimen with close monitoring, ADA diet, accu checks w/ ISS, PT, OT and case management consulted as from current description patient would likely benefit from continued nursing home facility as he had been in acute rehab but potentially needs a stepdown prior to home. (2) Recent L MCA CVA: Notes primary deficit urinary and stool incontinence as well as some difficulties with bilateral upper extremity, primarily attempts to push himself up, continue home regimen with transition from Coumadin which is notably subtherapeutic to Xarelto with CM assessment for cost, continue statin, BP regimen and diabetic regimen. (3) Chronic diastolic CHF: Will continue home regimen with transition from Coumadin which is notably subtherapeutic to Xarelto with CM assessment for cost, continue statin, Coreg, Lasix, hydralazine. (4) Hypertension: Continue home regimen including Norvasc, Coreg, Lasix, hydralazine, PRN hydralazine. (5) Hyperlipidemia: Continue home statin regimen. (6) Chronic Kidney Disease Stage III: Admission BUN/Cr 22/1.78, repeat 09/19/18 BUN/Cr 26/1.63, baseline renal function 1.6-2.0, repeat BMP in AM. (7) Anxiety and depression: We will continue home Zoloft regimen. (8) Morbid Obesity: Weight loss and lifestyle changes encouraged, nutrition consulted. (9) ANDERSON: CPAP nightly. (10) DVT prophylaxis: SCDs, coumadin w/ INR trending, subtherapeutic 1.3, given recent issues with medication self abilities, will transition to xarelto renally dosed and will need to check with CM about cost. Code Visit OBSV E&M: 45814 Subsequent observation care L2
--- NOTE | 2018-09-20 11:13 | CASEMGMT ---
Addendum entered by Rita Bedoya 09/20/18 11:56: SW received message from Sylvia at [facility]. Sylvia states that they had already been working on getting pt placed skilled at [facility] through Dr. Garces has pt had recent hospitalization and was already working with [facility] to get pre-cert. Sylvia states that she received referral and will provide referral to DON and [facility] and will update this worker when pre-cert is obtained. Original Note: Social Work Note SW reviewed H+P, appears that pt is at [facility] for SNF placement. Pt does have periods of confusion. SW met with pt, introduced self and role at [facility]. Pt states agreeable to SNF, unable to recall specific name of SNF but states that his daughter Sofy will know the name of the SNF. Pt gave this worker permission to call his daughter Sofy. SW placed a call to pt's daughter Sofy. Sofy confirms the plan is for pt to go to SNF and states pt will be going to [facility]. REBECA explained that this worker will have to check on bed availability and will need to determine if [facility] is in network with pt's insurance. Sofy states she has already been in contact with [facility] and they have a bed for pt and that they take pt's insurance. REBECA explained that this worker will still have to make referral and determine if they are able to accept pt. Sofy states understanding. REBECA placed a call to Sylvia at [facility], left message regarding referral. REBECA faxed referral. REBECA waiting for call back from Sylvia at [facility]. Plan: [facility] pending acceptance and pre-cert Rita Bedoya [employer]STOCK HAULIER, GENERAL FREIGHT AGENT
[2018-09-20 12:15] LABS: Bedside Glucose 290 mg/dL (70-110)
[2018-09-20] MEDS: Rivaroxaban 15 MG Tablet PO (16:43)
[2018-09-20 17:15] LABS: Bedside Glucose 256 mg/dL (70-110)
[2018-09-20] MEDS: Sertraline 50 MG Tablet PO (21:33)
[2018-09-20] MEDS: Atorvastatin Calcium 80 MG Tablet PO (21:33)
[2018-09-20] MEDS: Montelukast 10 MG Tablet PO (21:39)
[2018-09-20 23:00] LABS: Bedside Glucose 238 mg/dL (70-110)
[2018-09-21] VITALS (7 sets, daily range): BP systolic 121–156; BP diastolic 54–91; PULSE 61–98; RESP 18; TEMP 36.4–36.9; O2SAT 95–97
[2018-09-21] MEDS: Insulin Lispro 100 UNIT/ML INSULN.PEN SC ×4 (06:36→21:20)
[2018-09-21] MEDS: hydrALAZINE 50 MG Tablet PO ×3 (06:39→21:16)
[2018-09-21 06:46] LABS: Bedside Glucose 191 mg/dL (70-110)
[2018-09-21] MEDS: Multivitamins,Ther W-Minerals Tablet 1 TABLET PO (08:02)
[2018-09-21 08:07] LABS: Absolute Lymphocyte Count 1.29 X10^3/ul (0.83-4.51); Absolute Neutrophil Count 3.8 X10^3/uL (2.0-7.7); Basophil# 0.04 X10^3/uL; Basophil% 0.7 % (0-1); Eosinophils% 3.4 % (0-5); Hematocrit 41.2 % (40-54); Hemoglobin 13.6 g/dl (13.0-16.5); Lymphocyte # 1.29 X10^3/ul (4.0); Lymphocyte % 21.6 % (19-41); Mean Corpuscular Hgb 26.5 pg (27.0-32.0); Mean Corpuscular Volume 80.3 fL (80-94); Mean Platelet Vol. 10.8 fl (6.2-12.0); Monocyte# 0.61 X10^3/uL; Monocyte% 10.2 % (0-10); Neutrophil # 3.82 X10^3/uL (2.7-7.7); Neutrophil % 63.9 % (47-70); Platelet Count 152 K/mm3 (150-450); RBC Distribution Width CV 16.8 % (11.6-14.6); RBC Distribution Width SD 48.9 fl (35.1-43.9); Red Blood Count 5.13 M/mm3 (4.6-6.2)
[2018-09-21 08:09] LABS: POSITIVE COUNT NO; POSITIVE DIFFERENTIAL NO; POSITIVE MORPHOLOGY NO
[2018-09-21 08:16] LABS: Anion Gap 9 (5-15); BUN 30 mg/dL (7-18); BUN/Creat Ratio 16.7 RATIO (10-20); Calcium,Total 8.4 mg/dL (8.5-10.1); Chloride 107 mmol/L (98-107); EST Glomerular Filtration Rate 40 mL/min (>60); Est Glom Filt Rate - Afr Amer 48 mL/min (>60); Estimated Creatinine Clearance 39.51 ml/min; Glucose 172 mg/dL (74-106); Potassium 3.7 mmol/L (3.5-5.1); Sodium Level 139 mmol/L (136-145)
--- NOTE | 2018-09-21 08:58 | CASEMGMT ---
Addendum entered by Rita Bedoya 09/21/18 14:52: REBECA received call from Rosita Flores at [facility] who is pt's CM. SW update Rosita on admission to [facility] and plan is for pt to discharge to [facility] pending pre-cert. Original Note: Addendum entered by Rita Bedoya 09/21/18 14:14: REBECA faxed updated clinicals to [facility]. Original Note: Social Work Note SW spoke with Sylvia at [facility] informed her that pt is medically cleared for discharge once pre-cert is obtained. Sylvia states that her supervisor communications and signals had started the process last week with [facility] and they were having difficulties but states that she will follow up with [facility] and let this worker know when pre-cert is obtained. REBECA will fax updated clinicals when available. Plan: [facility] pending pre-cert Rita Bedoya MORTGAGE LOAN PROCESSOR, BIOMEDICAL REPAIR TECHNICIAN
--- NOTE | 2018-09-21 09:00 | NURSING ---
In to reassess bilateral lower legs. there is still a small amount of thick dry skin to the left card. washed legs and feet with soap and water. pat dry. was able to remove most of the remaining dry skin. applied aloe vesta to bilateral lower legs and feet. patient tolerated well. no further needs or concerns voiced at this time.
[2018-09-21] MEDS: Nystatin Powder 15gm Bottle 1 APPLIC TOPICAL ×2 (09:31→21:26)
[2018-09-21] MEDS: Carvedilol 12.5 MG Tablet PO ×2 (09:32→21:15)
[2018-09-21] MEDS: guaiFENesin 600 MG Tablet PO ×2 (09:32→21:15)
[2018-09-21] MEDS: Furosemide 80 MG Tablet PO (09:32)
[2018-09-21] MEDS: Acetaminophen 325 MG Tablet 650 MG PO ×4 (09:33→21:16)
[2018-09-21] MEDS: amLODIPine 10 MG Tablet PO (09:33)
[2018-09-21] MEDS: Topiramate 25 MG Tablet PO ×2 (09:34→21:15)
--- NOTE | 2018-09-21 10:11 | PCM.PN.HOSP ---
Patient Problems: Active and Suspected Problems (Last Updated 09/19/18 @ 18:17 by Jeri Sosa) Hypoglycemia due to insulin (Acute) Failure to thrive (Acute) Subjective: Patient with no acute events overnight per self and per nursing report. Blood sugars remain appropriate. Patient continues to work with PT and OT. From discussion with nursing staff they do feel that transition to assisted facility is appropriate given patient mental status and sometimes appears mildly confused. Patient denies fevers, chills, nausea, emesis, abdominal pain, chest pain or dyspnea. Objective: Physical Examination: General: awake, alert, oriented x 3 and cooperative, seated upright in bed in no apparent distress. Skin: normal color, turgor, no icterus, cyanosis except bilateral lower extremity chronic venous stasis skin changes, improved since day prior Wound Care evaluation. HEENT: AT/NC, EOMI, PERRLA, MMM. Lungs: CTA bilaterally, moderate effort, mild decrease BL bases, no rales, ronchi or wheezing. Heart: Regular rate and rhythm; no gallop, rub audible. Abdomen: soft, morbidly obese, NTTP, ND, normal BS. Extremities: no cyanosis, clubbing, BL LE chronic venous stasis changes as noted, see skin. Neurological: patient awake, alert, oriented x 3; cognitive function intact; pupils equally reactive to light and accomodation; cranial nerves II-XII grossly normal, moving all 4 extremities, patient does state that from strokes he primarily has difficulties lifting himself with his upper extremities but the deficits are primarily with urinary and stool incontinence, strength moderately globally decreased. Psychiatric: affect appears normal, no acute evidence of depressive or anxiety feelings. Vitals/I&O's: Vital Signs Temp Pulse Resp BP Pulse Ox 97.9 F 75 18 142/73 H 95 09/21/18 09:24 09/21/18 09:24 09/21/18 09:24 09/21/18 09:24 09/21/18 09:24 Oxygen Flow Rate (L/min) 2 Oxygen Delivery Method Room Air Weight: 313 lb 4.43 oz Body Mass Index (BMI) 43.7 Finger Stick Blood Glucose 116 Intake and Output for Last 24 Hours 09/19/18 09/20/18 09/21/18 23:59 23:59 23:59 Intake Total 1300 / 1300 600 / 600 Output Total 350 / 350 500 / 500 Balance 950 / 950 100 / 100 Laboratory Results 09/20/18 11:46: POC Glucose 290 H 09/20/18 16:38: POC Glucose 256 H 09/20/18 21:31: POC Glucose 238 H 09/21/18 06:34: POC Glucose 191 H 09/21/18 07:20: WBC 6.0, RBC 5.13, Hgb 13.6, Hct 41.2, MCV 80.3, MCH 26.5 L, MCHC 33.0, RDW 16.8 H, RDW Differential 48.9 H, Plt Count 152, MPV 10.8, Immature Gran % (Auto) 0.200, Neut % (Auto) 63.9, Lymph % (Auto) 21.6, [place] % (Auto) 10.2 H, Eos % (Auto) 3.4, Baso % (Auto) 0.7, Absolute Neuts (auto) 3.8, Absolute Lymphs (auto) 1.29, Total Counted Not Reportable 09/21/18 07:20: Sodium 139, Potassium 3.7, Chloride 107, Carbon Dioxide 23.0, Anion Gap 9, BUN 30 H, Creatinine 1.80 H, Estim Creat Clear Calc 39.51, Est GFR (MDRD) Af Amer 48 L, Est GFR (MDRD) Non-Af 40 L, BUN/Creatinine Ratio 16.7, Glucose 172 H, Calcium 8.4 L Current Medications Acetaminophen (Tylenol) 650 mg PO 4X/DAY [facility] Last Admin: 09/21/18 09:33 Dose: 650 mg Amlodipine Besylate (Norvasc) 10 mg PO DAILY [facility] Last Admin: 09/21/18 09:33 Dose: 10 mg Atorvastatin Calcium (Lipitor) 80 mg PO QHS [facility] Last Admin: 09/20/18 21:33 Dose: 80 mg Carvedilol (Coreg) 12.5 mg PO BID [facility] Last Admin: 09/21/18 09:32 Dose: 12.5 mg Dextrose (D50w Syringe) 0 gm IV X1 PRN; Protocol PRN Reason: Hypoglycemia Furosemide (Lasix) 80 mg PO DAILY [facility] Last Admin: 09/21/18 09:32 Dose: 80 mg Glucagon () 1 mg IM .X1 PRN PRN Reason: Hypoglycemia Guaifenesin (Mucinex) 600 mg PO Q12 [facility] Last Admin: 09/21/18 09:32 Dose: 600 mg Hydralazine HCl (Apresoline) 50 mg PO TID [facility] Last Admin: 09/21/18 06:39 Dose: 50 mg Insulin Glargine (Lantus (Bkc)) 12 units SC DINNER [facility] Last Admin: 09/20/18 16:41 Dose: 12 units Insulin Human Lispro (Humalog Kwikpen (Bkc)) 0 unit SC ACHS [facility]; Protocol Last Admin: 09/21/18 06:36 Dose: 2 u Montelukast Sodium (Singulair) 10 mg PO QPM [facility] Last Admin: 09/20/18 21:39 Dose: 10 mg Multivitamins/Minerals (Multivitamin With Minerals) 1 tablet PO DAILYCM [facility] Last Admin: 09/21/18 08:02 Dose: 1 tablet Nystatin (Mycostatin Powder) 1 applic TOPICAL BID [facility]; Protocol Last Admin: 09/21/18 09:31 Dose: 1 applicatio Rivaroxaban (Xarelto) 15 mg PO DAILY@1700 [facility] Last Admin: 09/20/18 16:43 Dose: 15 mg Sertraline HCl (Zoloft) 50 mg PO QHS [facility] Last Admin: 09/20/18 21:33 Dose: 50 mg Sodium Chloride () 5 - 15 ml IV UD PRN PRN Reason: SALINE FLUSH Topiramate (Topamax) 25 mg PO BID [facility] Last Admin: 09/21/18 09:34 Dose: 25 mg Medical Necessity - Tobacco Use Smoking Status: Former smoker Assessment/Plan All Active Problems (Last Reviewed 07/11/18 @ 08:33 by Jeri Sosa) Hypoglycemia due to insulin (Acute) Failure to thrive (Acute) Dyspnea (Acute) Cellulitis (Resolved) Hx of appendectomy (Resolved) Hx of colonoscopy (Resolved) The patient is a 73 y/o M w/ PMHx: Morbid Obesity, HTN, HLD, Chronic Diastolic CHF, CKD stage III, PAF on coumadin, Pulmonary HTN, ANDERSON on CPAP q HS, recent left middle cerebral artery stroke approximately 1 month prior with recent rehabilitation stay x2 weeks in [place] with discharge to home over this last week with difficulties caring for himself and medication errors. (1) Diabetes mellitus type II w/ Transient Hypoglycemia secondary to Medication Error: Medication regimen air x3 although recent regimen possibly incorrectly dosed per family member, given patient recent history of stroke and discharge to home with difficulties, admitted to medical surgical floor, maintain on fall and aspiration precautions, improvement of blood sugars therefore restarted on patient diabetic regimen with close monitoring, ADA diet, accu checks w/ ISS, PT, OT and case management consulted. Awaiting precertification for SNF transition. (2) Recent L MCA CVA: Notes primary deficit urinary and stool incontinence as well as some difficulties with bilateral upper extremity, primarily attempts to push himself up, transitioning to Xarelto, continue statin, BP regimen and diabetic regimen. (3) Chronic diastolic CHF: Transitioning to Xarelto, continue statin, Coreg, Lasix, hydralazine. (4) Hypertension: Continue home regimen including Norvasc, Coreg, Lasix, hydralazine, PRN hydralazine. (5) Hyperlipidemia: Continue home statin regimen. (6) Chronic Kidney Disease Stage III: Admission BUN/Cr 22/1.78, repeat 09/19/18 BUN/Cr 26/1.63, baseline renal function 1.6-2.0, 09/21/18 BUN/Cr 30/1.80, remains within baseline renal function noted. (7) Anxiety and depression: We will continue home Zoloft regimen. (8) Morbid Obesity: Weight loss and lifestyle changes encouraged, nutrition consulted. (9) ANDERSON: CPAP nightly. (10) DVT prophylaxis: SCDs, transitioned to xarelto given admission INR 1.3, has had difficulties managing his medications, suspect coumadin poor choice for him given this history. Code Visit OBSV E&M: 23119 Subsequent observation care L2
--- NOTE | 2018-09-21 10:15 | PN_ITS ---
Patient Problems: Active and Suspected Problems (Last Updated 09/19/18 @ 18:17 by Jeri Sosa) Hypoglycemia due to insulin (Acute) Failure to thrive (Acute) Subjective: Patient with no acute events overnight per self and per nursing report. Blood sugars remain appropriate. Patient continues to work with PT and OT. From discussion with nursing staff they do feel that transition to longterm facility is appropriate given patient mental status and sometimes appears mildly confused. Patient denies fevers, chills, nausea, emesis, abdominal pain, chest pain or dyspnea. Objective: Physical Examination: General: awake, alert, oriented x 3 and cooperative, seated upright in bed in no apparent distress. Skin: normal color, turgor, no icterus, cyanosis except bilateral lower extremity chronic venous stasis skin changes, improved since day prior Wound Care evaluation. HEENT: AT/NC, EOMI, PERRLA, MMM. Lungs: CTA bilaterally, moderate effort, mild decrease BL bases, no rales, ronchi or wheezing. Heart: Regular rate and rhythm; no gallop, rub audible. Abdomen: soft, morbidly obese, NTTP, ND, normal BS. Extremities: no cyanosis, clubbing, BL LE chronic venous stasis changes as noted, see skin. Neurological: patient awake, alert, oriented x 3; cognitive function intact; pupils equally reactive to light and accomodation; cranial nerves II-XII grossly normal, moving all 4 extremities, patient does state that from strokes he primarily has difficulties lifting himself with his upper extremities but the deficits are primarily with urinary and stool incontinence, strength moderately globally decreased. Psychiatric: affect appears normal, no acute evidence of depressive or anxiety feelings. Vitals/I&O's: Vital Signs Temp Pulse Resp BP Pulse Ox 97.9 F 75 18 142/73 H 95 09/21/18 09:24 09/21/18 09:24 09/21/18 09:24 09/21/18 09:24 09/21/18 09:24 Oxygen Flow Rate (L/min) 2 Oxygen Delivery Method Room Air Weight: 313 lb 4.43 oz Body Mass Index (BMI) 43.7 Finger Stick Blood Glucose 116 Intake and Output for Last 24 Hours 09/19/18 09/20/18 09/21/18 23:59 23:59 23:59 Intake Total 1300 / 1300 600 / 600 Output Total 350 / 350 500 / 500 Balance 950 / 950 100 / 100 Laboratory Results 09/20/18 11:46: POC Glucose 290 H 09/20/18 16:38: POC Glucose 256 H 09/20/18 21:31: POC Glucose 238 H 09/21/18 06:34: POC Glucose 191 H 09/21/18 07:20: WBC 6.0, RBC 5.13, Hgb 13.6, Hct 41.2, MCV 80.3, MCH 26.5 L, MCHC 33.0, RDW 16.8 H, RDW Differential 48.9 H, Plt Count 152, MPV 10.8, Immature Gran % (Auto) 0.200, Neut % (Auto) 63.9, Lymph % (Auto) 21.6, [place] % (Auto) 10.2 H, Eos % (Auto) 3.4, Baso % (Auto) 0.7, Absolute Neuts (auto) 3.8, Absolute Lymphs (auto) 1.29, Total Counted Not Reportable 09/21/18 07:20: Sodium 139, Potassium 3.7, Chloride 107, Carbon Dioxide 23.0, Anion Gap 9, BUN 30 H, Creatinine 1.80 H, Estim Creat Clear Calc 39.51, Est GFR (MDRD) Af Amer 48 L, Est GFR (MDRD) Non-Af 40 L, BUN/Creatinine Ratio 16.7, Glucose 172 H, Calcium 8.4 L Current Medications Acetaminophen (Tylenol) 650 mg PO 4X/DAY [facility] Last Admin: 09/21/18 09:33 Dose: 650 mg Amlodipine Besylate (Norvasc) 10 mg PO DAILY [facility] Last Admin: 09/21/18 09:33 Dose: 10 mg Atorvastatin Calcium (Lipitor) 80 mg PO QHS [facility] Last Admin: 09/20/18 21:33 Dose: 80 mg Carvedilol (Coreg) 12.5 mg PO BID [facility] Last Admin: 09/21/18 09:32 Dose: 12.5 mg Dextrose (D50w Syringe) 0 gm IV X1 PRN; Protocol PRN Reason: Hypoglycemia Furosemide (Lasix) 80 mg PO DAILY [facility] Last Admin: 09/21/18 09:32 Dose: 80 mg Glucagon () 1 mg IM .X1 PRN PRN Reason: Hypoglycemia Guaifenesin (Mucinex) 600 mg PO Q12 [facility] Last Admin: 09/21/18 09:32 Dose: 600 mg Hydralazine HCl (Apresoline) 50 mg PO TID [facility] Last Admin: 09/21/18 06:39 Dose: 50 mg Insulin Glargine (Lantus (Bkc)) 12 units SC DINNER [facility] Last Admin: 09/20/18 16:41 Dose: 12 units Insulin Human Lispro (Humalog Kwikpen (Bkc)) 0 unit SC ACHS [facility]; Protocol Last Admin: 09/21/18 06:36 Dose: 2 u Montelukast Sodium (Singulair) 10 mg PO QPM [facility] Last Admin: 09/20/18 21:39 Dose: 10 mg Multivitamins/Minerals (Multivitamin With Minerals) 1 tablet PO DAILYCM [facility] Last Admin: 09/21/18 08:02 Dose: 1 tablet Nystatin (Mycostatin Powder) 1 applic TOPICAL BID [facility]; Protocol Last Admin: 09/21/18 09:31 Dose: 1 applicatio Rivaroxaban (Xarelto) 15 mg PO DAILY@1700 [facility] Last Admin: 09/20/18 16:43 Dose: 15 mg Sertraline HCl (Zoloft) 50 mg PO QHS [facility] Last Admin: 09/20/18 21:33 Dose: 50 mg Sodium Chloride () 5 - 15 ml IV UD PRN PRN Reason: SALINE FLUSH Topiramate (Topamax) 25 mg PO BID [facility] Last Admin: 09/21/18 09:34 Dose: 25 mg Medical Necessity - Tobacco Use Smoking Status: Former smoker Assessment/Plan All Active Problems (Last Reviewed 07/11/18 @ 08:33 by Jeri Sosa) Hypoglycemia due to insulin (Acute) Failure to thrive (Acute) Dyspnea (Acute) Cellulitis (Resolved) Hx of appendectomy (Resolved) Hx of colonoscopy (Resolved) The patient is a 73 y/o M w/ PMHx: Morbid Obesity, HTN, HLD, Chronic Diastolic CHF, CKD stage III, PAF on coumadin, Pulmonary HTN, ANDERSON on CPAP q HS, recent left middle cerebral artery stroke approximately 1 month prior with recent rehabilitation stay x2 weeks in [place] with discharge to home over this last week with difficulties caring for himself and medication errors. (1) Diabetes mellitus type II w/ Transient Hypoglycemia secondary to Medication Error: Medication regimen air x3 although recent regimen possibly incorrectly dosed per family member, given patient recent history of stroke and discharge to home with difficulties, admitted to medical surgical floor, maintain on fall and aspiration precautions, improvement of blood sugars therefore restarted on patient diabetic regimen with close monitoring, ADA diet, accu checks w/ ISS, PT, OT and case management consulted. Awaiting precertification for SNF transition. (2) Recent L MCA CVA: Notes primary deficit urinary and stool incontinence as well as some difficulties with bilateral upper extremity, primarily attempts to push himself up, transitioning to Xarelto, continue statin, BP regimen and diabetic regimen. (3) Chronic diastolic CHF: Transitioning to Xarelto, continue statin, Coreg, Lasix, hydralazine. (4) Hypertension: Continue home regimen including Norvasc, Coreg, Lasix, hydralazine, PRN hydralazine. (5) Hyperlipidemia: Continue home statin regimen. (6) Chronic Kidney Disease Stage III: Admission BUN/Cr 22/1.78, repeat 09/19/18 BUN/Cr 26/1.63, baseline renal function 1.6-2.0, 09/21/18 BUN/Cr 30/1.80, remains within baseline renal function noted. (7) Anxiety and depression: We will continue home Zoloft regimen. (8) Morbid Obesity: Weight loss and lifestyle changes encouraged, nutrition consulted. (9) ANDERSON: CPAP nightly. (10) DVT prophylaxis: SCDs, transitioned to xarelto given admission INR 1.3, has had difficulties managing his medications, suspect coumadin poor choice for him given this history. Code Visit OBSV E&M: 75951 Subsequent observation care L2
--- NOTE | 2018-09-21 10:43 | CASEMGMT ---
RN JAZMIN NOTE: To room to talk with pt. Pt sitting up in recliner chair. Reviewed FU form with pt and questions answered. Pt voices understanding. Form signed by pt, copy made and placed on chart, and original given to pt. Pt instructed if he has any further questions, to ask for CM. Bhupendra MARTINEZ RN CM
--- NOTE | 2018-09-21 11:19 | PCM.TXEXTCAR ---
- Diet 09/20/18 06:44 ADA [Diet: Calorie Controlled] Is pt able to select menu?: Yes How many daily calories?: 2000 calorie - Routine Orders/Code Status Enema Type: Fleetz Enema Frequency: Daily PRN Suppository Type: Dulcolax 10mg Suppository Frequency: Daily PRN Keep PO Greater than or Equal to (%): 92 Routine Lab Work: - - Repeat CBC, BMP within 1 week. Code Status: Full Code - Wound(s) right elbow Wound Type: Abrasion Dressing Change: Dry Sterile Dressing - Suggestions for Active Care Change Position every (hours): 2 Hours to sit in a chair: 6 Times a day to sit in chair: 3 - Therapies Weight Bearing: Full weight bearing Physical Therapy: Eval and Treat Occupational Therapy: Eval and Treat - Allergies/Procedures Done in Hospital Allergies/Adverse Reactions: Allergies macitentan [From Opsumit] Allergy (Unknown, Verified 09/19/18 21:39) unknown Procedures: EKG - Type of Care/Length of Stay Estimated LOS: Convalescent Care Less Than 30 days Type of Care Needed: Skilled Rehab Potential: Good Prognosis: Good - Additional Orders/Day of Discharge Additional Orders: (1) Fall and Aspiration precautions. (2) HOB. (3) IS 10x/hr 7a-7p. (4) Continue ISS accu checks q AC and HS. May increase lantus as needed to achieve goal, was reduced during current admission secondary to hypoglycemia with accidental frequent insulin dosing errors outpatient. (5) Patient has chronic urinary and stool incontinence. Day of Discharge: 09/21/18 - Dietary and Speech Recommendations Dietitian Recommendations/Changes: Will discontinue Glucerna TID d/t adequate PO intake and pt desiring to lose wt. - Follow Up Care Primary Care Physician: Gutierrez Garces DO [Primary Care Provider] - Please follow up with your Primary Care Physician in: Follow-up within 3-5 days hospital discharge and 1-2 days SNF discharge.
[2018-09-21 11:31] LABS: Bedside Glucose 302 mg/dL (70-110)
--- NOTE | 2018-09-21 16:12 | CASEMGMT ---
Social Work Note SW placed a call to Sylvia at [facility]. Sylvia states that she reached out to pt's insurance and got a pre-authorization number but no pre-cert yet. Sylvia states she talked with her salesforce administrator about bringing pt to [facility] without the official pre-cert and salesforce administrator told Sylvia that if pre-cert is not obtained by midday tomorrow, salesforce administrator is going to call [facility] in regards to pre-cert. Plan: [facility] pending pre-cert Rita Bedoya MAINTENANCE MECHANIC ENGINE, WELFARE ADVISER
[2018-09-21 16:41] LABS: Bedside Glucose 271 mg/dL (70-110)
[2018-09-21] MEDS: Rivaroxaban 15 MG Tablet PO (17:19)
--- NOTE | 2018-09-21 20:59 | NURSING ---
pt states he does not want to be woken up tonight. informed the pt that the nurse & risk control analyst would still be rounding every hour.
[2018-09-21] MEDS: Sertraline 50 MG Tablet PO (21:15)
[2018-09-21] MEDS: Atorvastatin Calcium 80 MG Tablet PO (21:15)
[2018-09-21] MEDS: Montelukast 10 MG Tablet PO (21:15)
[2018-09-21 23:15] LABS: Bedside Glucose 304 mg/dL (70-110)
[2018-09-22] VITALS (9 sets, daily range): BP systolic 144–156; BP diastolic 62–77; PULSE 52–68; RESP 18; TEMP 36.4–37.1; O2SAT 95–99
[2018-09-22] MEDS: 0.9% NaCl Peripheral Flush Adult/Peds IV (06:35)
[2018-09-22] MEDS: hydrALAZINE 50 MG Tablet PO ×3 (06:43→22:04)
[2018-09-22 07:01] LABS: Bedside Glucose 187 mg/dL (70-110)
[2018-09-22 07:13] LABS: Anion Gap 7 (5-15); BUN 27 mg/dL (7-18); BUN/Creat Ratio 15.4 RATIO (10-20); Calcium,Total 8.5 mg/dL (8.5-10.1); Chloride 107 mmol/L (98-107); Creatinine, Serum 1.75 mg/dL (0.70-1.30); EST Glomerular Filtration Rate 41 mL/min (>60); Est Glom Filt Rate - Afr Amer 50 mL/min (>60); Estimated Creatinine Clearance 40.64 ml/min; Glucose 185 mg/dL (74-106); Potassium 3.7 mmol/L (3.5-5.1); Sodium Level 139 mmol/L (136-145)
[2018-09-22 07:16] LABS: Absolute Lymphocyte Count 0.92 X10^3/ul (0.83-4.51); Absolute Neutrophil Count 3.7 X10^3/uL (2.0-7.7); Basophil# 0.05 X10^3/uL; Basophil% 0.9 % (0-1); Eosinophil# 0.16 X10^3/uL; Hematocrit 44.1 % (40-54); Hemoglobin 14.4 g/dl (13.0-16.5); Lymphocyte # 0.92 X10^3/ul (4.0); Lymphocyte % 17.4 % (19-41); Mean Corp Hgb Conc 32.7 g/gl (32-36); Mean Corpuscular Volume 79.6 fL (80-94); Mean Platelet Vol. 11.3 fl (6.2-12.0); Monocyte# 0.46 X10^3/uL; Monocyte% 8.7 % (0-10); Neutrophil # 3.68 X10^3/uL (2.7-7.7); Neutrophil % 69.8 % (47-70); POSITIVE COUNT NO; POSITIVE DIFFERENTIAL NO; POSITIVE MORPHOLOGY NO; Platelet Count 156 K/mm3 (150-450); RBC Distribution Width SD 49.4 fl (35.1-43.9); Red Blood Count 5.54 M/mm3 (4.6-6.2); White Blood Count 5.3 K/mm3 (4.4-11.0)
--- NOTE | 2018-09-22 07:57 | NURSING ---
Still just a few areas of dry skin noted to the left lower leg. applied aloe vesta. patient awaiting precert to the snf. possible discharge today. pt denies further needs at this time.
--- NOTE | 2018-09-22 09:05 | CASEMGMT ---
Social Work Note SW received message from Sylvia at [facility] stating she still hasn't heard anything regarding pre-cert. Sylvia states she will be out of the office from 9:30-11:30am but has her medical office clerk looking for fax from pt's insurance. Sylvia states that she is giving pt's insurance until 12:00pm and then will be speaking with her practice administrator about getting pt to facility today. Sylvia provided cell phone [phone]. Plan: [facility] pending pre-cert Rita Bedoya MSW, DENTAL CERAMIST ASSISTANT
[2018-09-22] MEDS: Carvedilol 12.5 MG Tablet PO ×2 (10:35→22:05)
[2018-09-22] MEDS: Furosemide 80 MG Tablet PO (10:35)
[2018-09-22] MEDS: Nystatin Powder 15gm Bottle 1 APPLIC TOPICAL (10:35)
[2018-09-22] MEDS: Multivitamins,Ther W-Minerals Tablet 1 TABLET PO (10:35)
[2018-09-22] MEDS: guaiFENesin 600 MG Tablet PO ×2 (10:35→22:05)
[2018-09-22] MEDS: amLODIPine 10 MG Tablet PO (10:36)
[2018-09-22] MEDS: Topiramate 25 MG Tablet PO ×2 (10:37→22:06)
[2018-09-22 11:50] LABS: Bedside Glucose 244 mg/dL (70-110)
[2018-09-22] MEDS: Insulin Lispro 100 UNIT/ML INSULN.PEN SC ×2 (12:36→16:02)
--- NOTE | 2018-09-22 14:10 | CASEMGMT ---
Addendum entered by Rita Bedoya 09/22/18 16:03: SW received message from Sylvia at [facility] stating she has called [facility] and hasn't got a response yet from anyone. Sylvia states she has been trying to contact Fariha Vieyra, Patient Chain Tender, #[phone] ext. [phone]. REBECA placed a call to Fariha Vieyra as well asking to clarify if pt was denied SNF due to pt's functioning level or because of [facility] being out if network with insurance. SW waiting for call back for clarification. Original Note: Social Work Note SW received call from Sylvia at [facility]. Sylvia states that she received a letter from [facility] stating pt was denied skilled due to [facility] being an out of network facility. Sylvia states that she has plenty of residents [facility] and states that she will be calling [facility] to get more information regarding letter and give this worker a call back. REBECA placed a call to Sylvia at [facility] who states she still hasn't heard anything from [facility] but will let this worker know by the end of the day what she finds out. Plan: Sylvia at [facility] is calling [facility] to check with being in network with pt's insurance. REBECA waiting for call back. Rita Bedoya DIRECTOR AMBULATORY, HEAD USHER
--- NOTE | 2018-09-22 14:25 | PCM.PN.HOSP ---
Patient Problems: Active and Suspected Problems (Last Updated 09/19/18 @ 18:17 by Jeri Sosa) Hypoglycemia due to insulin (Acute) Failure to thrive (Acute) Subjective: Patient with no acute events overnight per self and per nursing report. His only complaint was being awoken during the evening and also complaining of the left hand IV that some place. Discussed the patient is still awaiting precertification and noted that this was an ideal situation for transition to longterm facility given patient debility with walking as well as confusion and several medication insulin self dosing errors. Patient denies fevers, chills, nausea, emesis, abdominal pain, chest pain or dyspnea. Objective: Physical Examination: General: awake, alert, oriented x 3 and cooperative, seated upright in bed in no apparent distress. Skin: normal color, turgor, no icterus, cyanosis except bilateral lower extremity chronic venous stasis skin changes. HEENT: AT/NC, EOMI, PERRLA, MMM. Lungs: CTA bilaterally, moderate effort, mild decrease BL bases, no rales, ronchi or wheezing. Heart: Regular rate and rhythm; no gallop, rub audible. Abdomen: soft, morbidly obese, NTTP, ND, normal BS. Extremities: no cyanosis, clubbing, BL LE chronic venous stasis changes as noted, bilateral lower extremity ankle edema, not markedly pitting. Neurological: patient awake, alert, oriented x 3; cognitive function intact; pupils equally reactive to light and accomodation; cranial nerves II-XII grossly normal, moving all 4 extremities, patient does state that from strokes he primarily has difficulties lifting himself with his upper extremities but the deficits are primarily with urinary and stool incontinence, strength improving but remains moderately globally decreased. Psychiatric: affect appears normal, no acute evidence of depressive or anxiety feelings. Vitals/I&O's: Vital Signs Temp Pulse Resp BP Pulse Ox 98.1 F 60 18 156/77 H 95 09/22/18 09:50 09/22/18 09:50 09/22/18 09:50 09/22/18 09:50 09/22/18 09:50 Oxygen Flow Rate (L/min) 4 Oxygen Delivery Method Room Air Weight: 313 lb 4.43 oz Body Mass Index (BMI) 43.7 Finger Stick Blood Glucose 116 Intake and Output for Last 24 Hours 0509/21/18 09/22/18 23:59 23:59 23:59 Intake Total 1300 / 1300 2400 / 2400 400 / 400 Output Total 350 / 350 500 / 500 Balance 950 / 950 1900 / 1900 400 / 400 Laboratory Results 09/21/18 16:33: POC Glucose 271 H 09/21/18 21:10: POC Glucose 304 H 09/22/18 06:38: POC Glucose 187 H 09/22/18 06:50: WBC 5.3, RBC 5.54, Hgb 14.4, Hct 44.1, MCV 79.6 L, MCH 26.0 L, MCHC 32.7, RDW 17.0 H, RDW Differential 49.4 H, Plt Count 156, MPV 11.3, Immature Gran % (Auto) 0.200, Neut % (Auto) 69.8, Lymph % (Auto) 17.4 L, [place] % (Auto) 8.7, Eos % (Auto) 3.0, Baso % (Auto) 0.9, Absolute Neuts (auto) 3.7, Absolute Lymphs (auto) 0.92, Total Counted Not Reportable 09/22/18 06:50: Sodium 139, Potassium 3.7, Chloride 107, Carbon Dioxide 25.0, Anion Gap 7, BUN 27 H, Creatinine 1.75 H, Estim Creat Clear Calc 40.64, Est GFR (MDRD) Af Amer 50 L, Est GFR (MDRD) Non-Af 41 L, BUN/Creatinine Ratio 15.4, Glucose 185 H, Calcium 8.5 09/22/18 11:43: POC Glucose 244 H Current Medications Acetaminophen (Tylenol) 650 mg PO 4X/DAY [facility] Last Admin: 09/22/18 10:37 Dose: Not Given Amlodipine Besylate (Norvasc) 10 mg PO DAILY [facility] Last Admin: 09/22/18 10:36 Dose: 10 mg Atorvastatin Calcium (Lipitor) 80 mg PO QHS [facility] Last Admin: 09/21/18 21:15 Dose: 80 mg Carvedilol (Coreg) 12.5 mg PO BID [facility] Last Admin: 09/22/18 10:35 Dose: 12.5 mg Dextrose (D50w Syringe) 0 gm IV X1 PRN; Protocol PRN Reason: Hypoglycemia Furosemide (Lasix) 80 mg PO DAILY [facility] Last Admin: 09/22/18 10:35 Dose: 80 mg Glucagon () 1 mg IM .X1 PRN PRN Reason: Hypoglycemia Guaifenesin (Mucinex) 600 mg PO Q12 [facility] Last Admin: 09/22/18 10:35 Dose: 600 mg Hydralazine HCl (Apresoline) 50 mg PO TID [facility] Last Admin: 09/22/18 06:43 Dose: 50 mg Insulin Glargine (Lantus (Bkc)) 12 units SC QHS [facility] Last Admin: 09/21/18 21:19 Dose: 12 u Insulin Human Lispro (Humalog Kwikpen (Bk)) 0 unit SC ACHS [facility]; Protocol Last Admin: 09/22/18 12:36 Dose: 3 u Montelukast Sodium (Singulair) 10 mg PO QPM [facility] Last Admin: 09/21/18 21:15 Dose: 10 mg Multivitamins/Minerals (Multivitamin With Minerals) 1 tablet PO DAILYCM [facility] Last Admin: 09/22/18 10:35 Dose: 1 tablet Nystatin (Mycostatin Powder) 1 applic TOPICAL BID [facility]; Protocol Last Admin: 09/22/18 10:35 Dose: 1 applicatio Rivaroxaban (Xarelto) 15 mg PO DAILY@1700 [facility] Last Admin: 09/21/18 17:19 Dose: 15 mg Sertraline HCl (Zoloft) 50 mg PO QHS [facility] Last Admin: 09/21/18 21:15 Dose: 50 mg Sodium Chloride () 5 - 15 ml IV UD PRN PRN Reason: SALINE FLUSH Last Admin: 09/22/18 06:35 Dose: 10 ml Topiramate (Topamax) 25 mg PO BID [facility] Last Admin: 09/22/18 10:37 Dose: 25 mg Medical Necessity - Tobacco Use Smoking Status: Former smoker Assessment/Plan All Active Problems (Last Reviewed 07/11/18 @ 08:33 by Jeri Sosa) Hypoglycemia due to insulin (Acute) Failure to thrive (Acute) Dyspnea (Acute) Cellulitis (Resolved) Hx of appendectomy (Resolved) Hx of colonoscopy (Resolved) The patient is a 73 y/o M w/ PMHx: Morbid Obesity, HTN, HLD, Chronic Diastolic CHF, CKD stage III, PAF on coumadin, Pulmonary HTN, ANDERSON on CPAP q HS, recent left middle cerebral artery stroke approximately 1 month prior with recent rehabilitation stay x2 weeks in [place] with discharge to home over this last week with difficulties caring for himself and medication errors. (1) Diabetes mellitus type II w/ Transient Hypoglycemia secondary to Medication Error: Medication regimen air x3 although recent regimen possibly incorrectly dosed per family member, given patient recent history of stroke and discharge to home with difficulties, admitted to medical surgical floor, maintain on fall and aspiration precautions, improvement of blood sugars therefore restarted on patient diabetic regimen with close monitoring, ADA diet, accu checks w/ ISS, PT, OT and case management consulted, currently insurance is denying longterm facility transition however given patient's recent stroke, debility, several episodes of self-medication errors notably with his insulin best scenario is for this patient to transition to a longterm facility for continued therapies and medication monitoring. Attempting to contact insurance to assist in patient placement to longterm facility as unsafe to return home even with family as they are not always with him. (2) Recent L MCA CVA: Notes primary deficit urinary and stool incontinence as well as some difficulties with bilateral upper extremity, primarily attempts to push himself up, transitioned to Xarelto, continue statin, BP regimen and diabetic regimen. (3) Chronic diastolic CHF: Transitioning to Xarelto, continue statin, Coreg, Lasix, hydralazine. (4) Hypertension: Continue home regimen including Norvasc, Coreg, Lasix, hydralazine, PRN hydralazine. (5) Hyperlipidemia: Continue home statin regimen. (6) Chronic Kidney Disease Stage III: Admission BUN/Cr 22/1.78, repeat 09/22/18 BUN/Cr 27/1.64, baseline renal function 1.6-2.0, stable. (7) Anxiety and depression: We will continue home Zoloft regimen. (8) Morbid Obesity: Weight loss and lifestyle changes encouraged, nutrition consulted. (9) ANDERSON: CPAP q HS. (10) DVT prophylaxis: SCDs, admission INR 1.3, subtherapeutic, issues with medication self administratio, thus transitioned to xarelto. Code Visit OBSV E&M: 48429 Subsequent observation care L2
--- NOTE | 2018-09-22 14:29 | PN_ITS ---
Patient Problems: Active and Suspected Problems (Last Updated 09/19/18 @ 18:17 by Jeri Sosa) Hypoglycemia due to insulin (Acute) Failure to thrive (Acute) Subjective: Patient with no acute events overnight per self and per nursing report. His only complaint was being awoken during the evening and also complaining of the left hand IV that some place. Discussed the patient is still awaiting precertification and noted that this was an ideal situation for transition to fdc facility given patient debility with walking as well as confusion and several medication insulin self dosing errors. Patient denies fevers, chills, nausea, emesis, abdominal pain, chest pain or dyspnea. Objective: Physical Examination: General: awake, alert, oriented x 3 and cooperative, seated upright in bed in no apparent distress. Skin: normal color, turgor, no icterus, cyanosis except bilateral lower extrem ity chronic venous stasis skin changes. HEENT: AT/NC, EOMI, PERRLA, MMM. Lungs: CTA bilaterally, moderate effort, mild decrease BL bases, no rales, ronchi or wheezing. Heart: Regular rate and rhythm; no gallop, rub audible. Abdomen: soft, morbidly obese, NTTP, ND, normal BS. Extremities: no cyanosis, clubbing, BL LE chronic venous stasis changes as noted, bilateral lower extremity ankle edema, not markedly pitting. Neurological: patient awake, alert, oriented x 3; cognitive function intact; pupils equally reactive to light and accomodation; cranial nerves II-XII grossly normal, moving all 4 extremities, patient does state that from strokes he primarily has difficulties lifting himself with his upper extremities but the deficits are primarily with urinary and stool incontinence, strength improving but remains moderately globally decreased. Psychiatric: affect appears normal, no acute evidence of depressive or anxiety feelings. Vitals/I&O's: Vital Signs Temp Pulse Resp BP Pulse Ox 98.1 F 60 18 156/77 H 95 09/22/18 09:50 09/22/18 09:50 09/22/18 09:50 09/22/18 09:50 09/22/18 09:50 Oxygen Flow Rate (L/min) 4 Oxygen Delivery Method Room Air Weight: 313 lb 4.43 oz Body Mass Index (BMI) 43.7 Finger Stick Blood Glucose 116 Intake and Output for Last 24 Hours 09/20/18 09/21/18 09/22/18 23:59 23:59 23:59 Intake Total 1300 / 1300 2400 / 2400 400 / 400 Output Total 350 / 350 500 / 500 Balance 950 / 950 1900 / 1900 400 / 400 Laboratory Results 09/21/18 16:33: POC Glucose 271 H 09/21/18 21:10: POC Glucose 304 H 09/22/18 06:38: POC Glucose 187 H 09/22/18 06:50: WBC 5.3, RBC 5.54, Hgb 14.4, Hct 44.1, MCV 79.6 L, MCH 26.0 L, MCHC 32.7, RDW 17.0 H, RDW Differential 49.4 H, Plt Count 156, MPV 11.3, Immature Gran % (Auto) 0.200, Neut % (Auto) 69.8, Lymph % (Auto) 17.4 L, [place] % (Auto) 8.7, Eos % (Auto) 3.0, Baso % (Auto) 0.9, Absolute Neuts (auto) 3.7, Absolute Lymphs (auto) 0.92, Total Counted Not Reportable 09/22/18 06:50: Sodium 139, Potassium 3.7, Chloride 107, Carbon Dioxide 25.0, Anion Gap 7, BUN 27 H, Creatinine 1.75 H, Estim Creat Clear Calc 40.64, Est GFR (MDRD) Af Amer 50 L, Est GFR (MDRD) Non-Af 41 L, BUN/Creatinine Ratio 15.4, Glucose 185 H, Calcium 8.5 09/22/18 11:43: POC Glucose 244 H Current Medications Acetaminophen (Tylenol) 650 mg PO 4X/DAY [facility] Last Admin: 09/22/18 10:37 Dose: Not Given Amlodipine Besylate (Norvasc) 10 mg PO DAILY [facility] Last Admin: 09/22/18 10:36 Dose: 10 mg Atorvastatin Calcium (Lipitor) 80 mg PO QHS [facility] Last Admin: 09/21/18 21:15 Dose: 80 mg Carvedilol (Coreg) 12.5 mg PO BID [facility] Last Admin: 09/22/18 10:35 Dose: 12.5 mg Dextrose (D50w Syringe) 0 gm IV X1 PRN; Protocol PRN Reason: Hypoglycemia Furosemide (Lasix) 80 mg PO DAILY [facility] Last Admin: 09/22/18 10:35 Dose: 80 mg Glucagon () 1 mg IM .X1 PRN PRN Reason: Hypoglycemia Guaifenesin (Mucinex) 600 mg PO Q12 [facility] Last Admin: 09/22/18 10:35 Dose: 600 mg Hydralazine HCl (Apresoline) 50 mg PO TID [facility] Last Admin: 09/22/18 06:43 Dose: 50 mg Insulin Glargine (Lantus (Bkc)) 12 units SC QHS [facility] Last Admin: 09/21/18 21:19 Dose: 12 u Insulin Human Lispro (Humalog Kwikpen (Bkc)) 0 unit SC ACHS [facility]; Protocol Last Admin: 09/22/18 12:36 Dose: 3 u Montelukast Sodium (Singulair) 10 mg PO QPM [facility] Last Admin: 09/21/18 21:15 Dose: 10 mg Multivitamins/Minerals (Multivitamin With Minerals) 1 tablet PO DAILYCM [facility] Last Admin: 09/22/18 10:35 Dose: 1 tablet Nystatin (Mycostatin Powder) 1 applic TOPICAL BID [facility]; Protocol Last Admin: 09/22/18 10:35 Dose: 1 applicatio Rivaroxaban (Xarelto) 15 mg PO DAILY@1700 [facility] Last Admin: 09/21/18 17:19 Dose: 15 mg Sertraline HCl (Zoloft) 50 mg PO QHS [facility] Last Admin: 09/21/18 21:15 Dose: 50 mg Sodium Chloride () 5 - 15 ml IV UD PRN PRN Reason: SALINE FLUSH Last Admin: 09/22/18 06:35 Dose: 10 ml Topiramate (Topamax) 25 mg PO BID [facility] Last Admin: 09/22/18 10:37 Dose: 25 mg Medical Necessity - Tobacco Use Smoking Status: Former smoker Assessment/Plan All Active Problems (Last Reviewed 07/11/18 @ 08:33 by Jeri Sosa) Hypoglycemia due to insulin (Acute) Failure to thrive (Acute) Dyspnea (Acute) Cellulitis (Resolved) Hx of appendectomy (Resolved) Hx of colonoscopy (Resolved) The patient is a 73 y/o M w/ PMHx: Morbid Obesity, HTN, HLD, Chronic Diastolic CHF, CKD stage III, PAF on coumadin, Pulmonary HTN, ANDERSON on CPAP q HS, 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 (1) Diabetes mellitus type II w/ Transient Hypoglycemia secondary to Medication Error: Medication regimen air x3 although recent regimen possibly incorrectly dosed per family member, given patient recent history of stroke and discharge to home with difficulties, admitted to medical surgical floor, maintain on fall and aspiration precautions, improvement of blood sugars therefore restarted on patient diabetic regimen with close monitoring, ADA diet, accu checks w/ ISS, PT, OT and case management consulted, currently insurance is denying fdc facility transition however given patient's recent stroke, debility, several episodes of self-medication errors notably with his insulin best scenario is for this patient to transition to a fdc facility for continued therapies and medication monitoring. Attempting to contact insurance to assist in patient placement to fdc facility as unsafe to return home even with family as they are not always with him. (2) Recent L MCA CVA: Notes primary deficit urinary and stool incontinence as w ell as some difficulties with bilateral upper extremity, primarily attempts to push himself up, transitioned to Xarelto, continue statin, BP regimen and diabetic regimen. (3) Chronic diastolic CHF: Transitioning to Xarelto, continue statin, Coreg, Lasix, hydralazine. (4) Hypertension: Continue home regimen including Norvasc, Coreg, Lasix, hydralazine, PRN hydralazine. (5) Hyperlipidemia: Continue home statin regimen. (6) Chronic Kidney Disease Stage III: Admission BUN/Cr 22/1.78, repeat 09/22/18 BUN/Cr 27/1.64, baseline renal function 1.6-2.0, stable. (7) Anxiety and depression: We will continue home Zoloft regimen. (8) Morbid Obesity: Weight loss and lifestyle changes encouraged, nutrition consulted. (9) ANDERSON: CPAP q HS. (10) DVT prophylaxis: SCDs, admission INR 1.3, subtherapeutic, issues with medication self administratio, thus transitioned to xarelto. Code Visit OBSV E&M: 54046 Subsequent observation care L2
[2018-09-22] MEDS: Rivaroxaban 15 MG Tablet PO (16:01)
[2018-09-22] MEDS: Acetaminophen 325 MG Tablet 650 MG PO ×3 (16:01→22:06)
[2018-09-22 16:11] LABS: Bedside Glucose 266 mg/dL (70-110)
[2018-09-22] MEDS: Montelukast 10 MG Tablet PO (20:32)
[2018-09-22] MEDS: Atorvastatin Calcium 80 MG Tablet PO (22:05)
[2018-09-22] MEDS: Sertraline 50 MG Tablet PO (22:07)
[2018-09-22 22:41] LABS: Bedside Glucose 276 mg/dL (70-110)
[2018-09-23] VITALS (7 sets, daily range): BP systolic 129–163; BP diastolic 64–98; PULSE 60–80; RESP 16–20; TEMP 36.3–36.7; O2SAT 94–99
--- NOTE | 2018-09-23 01:57 | NURSING ---
Addendum entered by Luzma Renner 09/23/18 02:42: 2159 Patient refused sliding scale Humalog. He said, You guys haven't got this right the whole time I've been here. It is for before meals. RN said the doctor's orders are for before meals and before bedtime. Original Note: 0145 RN rounded on patient. With hand motions patient dismissed RN.
[2018-09-23 05:50] LABS: Absolute Lymphocyte Count 1.02 X10^3/ul (0.83-4.51); Absolute Neutrophil Count 3.5 X10^3/uL (2.0-7.7); Basophil# 0.04 X10^3/uL; Basophil% 0.8 % (0-1); Eosinophil# 0.15 X10^3/uL; Eosinophils% 2.9 % (0-5); Hematocrit 43.9 % (40-54); Hemoglobin 13.9 g/dl (13.0-16.5); Lymphocyte # 1.02 X10^3/ul (4.0); Lymphocyte % 19.6 % (19-41); Mean Corp Hgb Conc 31.7 g/gl (32-36); Mean Corpuscular Hgb 25.2 pg (27.0-32.0); Mean Corpuscular Volume 79.5 fL (80-94); Mean Platelet Vol. 10.7 fl (6.2-12.0); Monocyte# 0.52 X10^3/uL; Neutrophil # 3.47 X10^3/uL (2.7-7.7); Neutrophil % 66.5 % (47-70); Platelet Count 168 K/mm3 (150-450); RBC Distribution Width CV 17.1 % (11.6-14.6); RBC Distribution Width SD 49.4 fl (35.1-43.9); Red Blood Count 5.52 M/mm3 (4.6-6.2); White Blood Count 5.2 K/mm3 (4.4-11.0)
[2018-09-23 05:53] LABS: POSITIVE COUNT NO; POSITIVE DIFFERENTIAL NO; POSITIVE MORPHOLOGY NO
[2018-09-23 06:02] LABS: Anion Gap 6 (5-15); BUN 26 mg/dL (7-18); BUN/Creat Ratio 14.9 RATIO (10-20); Calcium,Total 8.5 mg/dL (8.5-10.1); Chloride 108 mmol/L (98-107); Creatinine, Serum 1.74 mg/dL (0.70-1.30); EST Glomerular Filtration Rate 41 mL/min (>60); Est Glom Filt Rate - Afr Amer 50 mL/min (>60); Estimated Creatinine Clearance 40.87 ml/min; Glucose 214 mg/dL (74-106); Potassium 3.4 mmol/L (3.5-5.1); Sodium Level 141 mmol/L (136-145)
[2018-09-23] MEDS: Insulin Lispro 100 UNIT/ML INSULN.PEN SC ×4 (06:43→21:11)
[2018-09-23] MEDS: hydrALAZINE 50 MG Tablet PO ×3 (06:45→21:15)
[2018-09-23] MEDS: guaiFENesin 600 MG Tablet PO ×2 (09:06→21:14)
[2018-09-23] MEDS: Multivitamins,Ther W-Minerals Tablet 1 TABLET PO (09:06)
[2018-09-23] MEDS: Carvedilol 12.5 MG Tablet PO ×2 (09:06→21:15)
[2018-09-23] MEDS: amLODIPine 10 MG Tablet PO (09:06)
[2018-09-23] MEDS: Furosemide 80 MG Tablet PO (09:06)
[2018-09-23] MEDS: Topiramate 25 MG Tablet PO ×2 (09:07→21:17)
[2018-09-23] MEDS: Nystatin Powder 15gm Bottle 1 APPLIC TOPICAL ×2 (09:08→21:14)
--- NOTE | 2018-09-23 09:49 | PCM.PN.HOSP ---
Patient Problems: Active and Suspected Problems (Last Updated 09/19/18 @ 18:17 by Jeri Sosa) Hypoglycemia due to insulin (Acute) Failure to thrive (Acute) Subjective: Patient with no acute events overnight per self and per nursing report. Patient despite not being awoken did not sleep well secondary to discomfort with bed. Patient still awaiting precertification. Patient still with some confusion occasionally with orientation occasional reduction which is baseline following his stroke. He continues to have issues with incontinence both of stool and urine which has been since his stroke. Given patient debility and issues especially with medications would still greatly benefit from penitentiary facility placement. Patient denies fevers, chills, nausea, emesis, abdominal pain, chest pain or dyspnea. Objective: Physical Examination: General: awake, alert, oriented x 3 and cooperative, seated upright in bed in no apparent distress. Skin: normal color, turgor, no icterus, cyanosis except bilateral lower extremity chronic venous stasis skin changes, improved since evaluation with wound RN. . HEENT: AT/NC, EOMI, PERRLA, MMM. Lungs: CTA bilaterally, moderate effort, mild decrease BL bases, no rales, ronchi or wheezing. Heart: Regular rate and rhythm; no gallop, rub audible. Abdomen: soft, morbidly obese, NTTP, ND, normal BS. Extremities: no cyanosis, clubbing, BL LE chronic venous stasis changes as noted, bilateral lower extremity ankle edema, not markedly pitting. Neurological: patient awake, alert, oriented x 3; cognitive function intact; pupils equally reactive to light and accomodation; cranial nerves II-XII grossly normal, moving all 4 extremities, BL UE resistance/lifting difficulties, urinary and stool incontinence, strength improving, remains moderately globally decreased. Psychiatric: affect appears normal, no acute evidence of depressive or anxiety feelings. Vitals/I&O's: Vital Signs Temp Pulse Resp BP Pulse Ox 97.4 F L 80 18 129/64 H 99 09/23/18 09:00 09/23/18 09:00 09/23/18 09:00 09/23/18 09:00 09/23/18 09:00 Oxygen Flow Rate (L/min) 4 Oxygen Delivery Method Room Air Weight: 313 lb 4.43 oz Body Mass Index (BMI) 43.7 Finger Stick Blood Glucose 116 Intake and Output for Last 24 Hours 09/21/18 09/22/18 09/23/18 23:59 23:59 23:59 Intake Total 2400 / 2400 400 / 400 Output Total 500 / 500 Balance 1900 / 1900 400 / 400 Laboratory Results 09/22/18 11:43: POC Glucose 244 H 09/22/18 15:59: POC Glucose 266 H 09/22/18 21:56: POC Glucose 276 H 09/23/18 05:30: WBC 5.2, RBC 5.52, Hgb 13.9, Hct 43.9, MCV 79.5 L, MCH 25.2 L, MCHC 31.7 L, RDW 17.1 H, RDW Differential 49.4 H, Plt Count 168, MPV 10.7, Immature Gran % (Auto) 0.200, Neut % (Auto) 66.5, Lymph % (Auto) 19.6, [place] % (Auto) 10.0, Eos % (Auto) 2.9, Baso % (Auto) 0.8, Absolute Neuts (auto) 3.5, Absolute Lymphs (auto) 1.02, Total Counted Not Reportable 09/23/18 05:30: Sodium 141, Potassium 3.4 L, Chloride 108 H, Carbon Dioxide 27.0, Anion Gap 6, BUN 26 H, Creatinine 1.74 H, Estim Creat Clear Calc 40.87, Est GFR (MDRD) Af Amer 50 L, Est GFR (MDRD) Non-Af 41 L, BUN/Creatinine Ratio 14.9, Glucose 214 H, Calcium 8.5 Current Medications Acetaminophen (Tylenol) 650 mg PO 4X/DAY [facility] Last Admin: 09/23/18 09:07 Dose: Not Given Amlodipine Besylate (Norvasc) 10 mg PO DAILY [facility] Last Admin: 09/23/18 09:06 Dose: 10 mg Atorvastatin Calcium (Lipitor) 80 mg PO QHS [facility] Last Admin: 09/22/18 22:05 Dose: 80 mg Carvedilol (Coreg) 12.5 mg PO BID [facility] Last Admin: 09/23/18 09:06 Dose: 12.5 mg Dextrose (D50w Syringe) 0 gm IV X1 PRN; Protocol PRN Reason: Hypoglycemia Furosemide (Lasix) 80 mg PO DAILY [facility] Last Admin: 09/23/18 09:06 Dose: 80 mg Glucagon () 1 mg IM .X1 PRN PRN Reason: Hypoglycemia Guaifenesin (Mucinex) 600 mg PO Q12 [facility] Last Admin: 09/23/18 09:06 Dose: 600 mg Hydralazine HCl (Apresoline) 50 mg PO TID [facility] Last Admin: 09/23/18 06:45 Dose: 50 mg Insulin Glargine (Lantus (Bkc)) 12 units SC QHS [facility] Last Admin: 09/22/18 22:01 Dose: 12 u Insulin Human Lispro (Humalog Kwikpen (Bkc)) 0 unit SC ACHS [facility]; Protocol Last Admin: 09/23/18 06:43 Dose: 2 u Montelukast Sodium (Singulair) 10 mg PO QPM [facility] Last Admin: 09/22/18 20:32 Dose: 10 mg Multivitamins/Minerals (Multivitamin With Minerals) 1 tablet PO DAILYCM [facility] Last Admin: 09/23/18 09:06 Dose: 1 tablet Nystatin (Mycostatin Powder) 1 applic TOPICAL BID [facility]; Protocol Last Admin: 09/23/18 09:08 Dose: 1 applicatio Rivaroxaban (Xarelto) 15 mg PO DAILY@1700 [facility] Last Admin: 09/22/18 16:01 Dose: 15 mg Sertraline HCl (Zoloft) 50 mg PO QHS [facility] Last Admin: 09/22/18 22:07 Dose: 50 mg Sodium Chloride () 5 - 15 ml IV UD PRN PRN Reason: SALINE FLUSH Last Admin: 09/22/18 06:35 Dose: 10 ml Topiramate (Topamax) 25 mg PO BID [facility] Last Admin: 09/23/18 09:07 Dose: 25 mg Medical Necessity - Tobacco Use Smoking Status: Former smoker Assessment/Plan All Active Problems (Last Reviewed 07/11/18 @ 08:33 by Jeri Sosa) Hypoglycemia due to insulin (Acute) Failure to thrive (Acute) Dyspnea (Acute) Cellulitis (Resolved) Hx of appendectomy (Resolved) Hx of colonoscopy (Resolved) The patient is a 73 y/o M w/ PMHx: Morbid Obesity, HTN, HLD, Chronic Diastolic CHF, CKD stage III, PAF on coumadin, Pulmonary HTN, ANDERSON on CPAP q HS, recent left middle cerebral artery stroke approximately 1 month prior with recent rehabilitation stay x2 weeks in [place] with discharge to home over this last week with difficulties caring for himself and medication errors. (1) Diabetes mellitus type II w/ Transient Hypoglycemia secondary to Medication Error: Medication regimen air x3 although recent regimen possibly incorrectly dosed per family member, given patient recent history of stroke and discharge to home with difficulties, admitted to medical surgical floor, maintain on fall and aspiration precautions, improvement of blood sugars therefore restarted on patient diabetic regimen with close monitoring, ADA diet, accu checks w/ ISS, PT, OT and case management consulted, currently insurance is denying [facility]iary facility transition however given patient's recent stroke, debility, several episodes of self-medication errors notably with his insulin best scenario is for this patient to transition to a penitentiary facility for continued therapies and medication monitoring. Patient high risk for accidental self harm if insurance does not approve SNF. (2) Recent L MCA CVA: Notes primary deficit urinary and stool incontinence as well as some difficulties with bilateral upper extremity, primarily attempts to push himself up, transitioned to Xarelto, continue statin, BP regimen and diabetic regimen. (3) Chronic diastolic CHF: Transitioning to Xarelto, continue statin, Coreg, Lasix, hydralazine. (4) Hypertension: Continue home regimen including Norvasc, Coreg, Lasix, hydralazine, PRN hydralazine. (5) Hyperlipidemia: Continue home statin regimen. (6) Chronic Kidney Disease Stage III: Admission BUN/Cr 22/1.78, repeat 09/23/18 BUN/Cr 26/1.74, baseline renal function 1.6-2.0, stable. (7) Anxiety and depression: We will continue home Zoloft regimen. (8) Morbid Obesity: Weight loss and lifestyle changes encouraged, nutrition consulted. (9) ANDERSON: CPAP q HS. (10) DVT prophylaxis: SCDs, admission INR 1.3, subtherapeutic, issues with medication self administration, transitioned to xarelto. Code Visit OBSV E&M: 21206 Subsequent observation care L2
--- NOTE | 2018-09-23 09:54 | PN_ITS ---
Patient Problems: Active and Suspected Problems (Last Updated 09/19/18 @ 18:17 by Jeri Sosa) Hypoglycemia due to insulin (Acute) Failure to thrive (Acute) Subjective: Patient with no acute events overnight per self and per nursing report. Patient despite not being awoken did not sleep well secondary to discomfort with bed. Patient still awaiting precertification. Patient still with some confusion occasionally with orientation occasional reduction which is baseline following his stroke. He continues to have issues with incontinence both of stool and urine which has been since his stroke. Given patient debility and issues especially with medications would still greatly benefit from longterm facility placement. Patient denies fevers, chills, nausea, emesis, abdominal pain, chest pain or dyspnea. Objective: Physical Examination: General: awake, alert, oriented x 3 and cooperative, seated upright in bed in no apparent distress. Skin: normal color, turgor, no icterus, cyanosis except bilateral lower extremity chronic venous stasis skin changes, improved since evaluation with wound RN. . HEENT: AT/NC, EOMI, PERRLA, MMM. Lungs: CTA bilaterally, moderate effort, mild decrease BL bases, no rales, ronchi or wheezing. Heart: Regular rate and rhythm; no gallop, rub audible. Abdomen: soft, morbidly obese, NTTP, ND, normal BS. Extremities: no cyanosis, clubbing, BL LE chronic venous stasis changes as noted, bilateral lower extremity ankle edema, not markedly pitting. Neurological: patient awake, alert, oriented x 3; cognitive function intact; pupils equally reactive to light and accomodation; cranial nerves II-XII grossly normal, moving all 4 extremities, BL UE resistance/lifting difficulties, urinary and stool incontinence, strength improving, remains moderately globally decreased. Psychiatric: affect appears normal, no acute evidence of depressive or anxiety feelings. Vitals/I&O's: Vital Signs Temp Pulse Resp BP Pulse Ox 97.4 F L 80 18 129/64 H 99 09/23/18 09:00 09/23/18 09:00 09/23/18 09:00 09/23/18 09:00 09/23/18 09:00 Oxygen Flow Rate (L/min) 4 Oxygen Delivery Method Room Air Weight: 313 lb 4.43 oz Body Mass Index (BMI) 43.7 Finger Stick Blood Glucose 116 Intake and Output for Last 24 Hours 09/21/18 09/22/18 09/23/18 23:59 23:59 23:59 Intake Total 2400 / 2400 400 / 400 Output Total 500 / 500 Balance 1900 / 1900 400 / 400 Laboratory Results 09/22/18 11:43: POC Glucose 244 H 09/22/18 15:59: POC Glucose 266 H 09/22/18 21:56: POC Glucose 276 H 09/23/18 05:30: WBC 5.2, RBC 5.52, Hgb 13.9, Hct 43.9, MCV 79.5 L, MCH 25.2 L, MCHC 31.7 L, RDW 17.1 H, RDW Differential 49.4 H, Plt Count 168, MPV 10.7, Immature Gran % (Auto) 0.200, Neut % (Auto) 66.5, Lymph % (Auto) 19.6, [place] % (Auto) 10.0, Eos % (Auto) 2.9, Baso % (Auto) 0.8, Absolute Neuts (auto) 3.5, Absolute Lymphs (auto) 1.02, Total Counted Not Reportable 09/23/18 05:30: Sodium 141, Potassium 3.4 L, Chloride 108 H, Carbon Dioxide 27.0, Anion Gap 6, BUN 26 H, Creatinine 1.74 H, Estim Creat Clear Calc 40.87, Est GFR (MDRD) Af Amer 50 L, Est GFR (MDRD) Non-Af 41 L, BUN/Creatinine Ratio 14.9, Glucose 214 H, Calcium 8.5 Current Medications Acetaminophen (Tylenol) 650 mg PO 4X/DAY [facility] Last Admin: 09/23/18 09:07 Dose: Not Given Amlodipine Besylate (Norvasc) 10 mg PO DAILY [facility] Last Admin: 09/23/18 09:06 Dose: 10 mg Atorvastatin Calcium (Lipitor) 80 mg PO QHS [facility] Last Admin: 09/22/18 22:05 Dose: 80 mg Carvedilol (Coreg) 12.5 mg PO BID [facility] Last Admin: 09/23/18 09:06 Dose: 12.5 mg Dextrose (D50w Syringe) 0 gm IV X1 PRN; Protocol PRN Reason: Hypoglycemia Furosemide (Lasix) 80 mg PO DAILY [facility] Last Admin: 09/23/18 09:06 Dose: 80 mg Glucagon () 1 mg IM .X1 PRN PRN Reason: Hypoglycemia Guaifenesin (Mucinex) 600 mg PO Q12 [facility] Last Admin: 09/23/18 09:06 Dose: 600 mg Hydralazine HCl (Apresoline) 50 mg PO TID [facility] Last Admin: 09/23/18 06:45 Dose: 50 mg Insulin Glargine (Lantus (Bkc)) 12 units SC QHS [facility] Last Admin: 09/22/18 22:01 Dose: 12 u Insulin Human Lispro (Humalog Kwikpen (Bkc)) 0 unit SC ACHS [facility]; Protocol Last Admin: 09/23/18 06:43 Dose: 2 u Montelukast Sodium (Singulair) 10 mg PO QPM [facility] Last Admin: 09/22/18 20:32 Dose: 10 mg Multivitamins/Minerals (Multivitamin With Minerals) 1 tablet PO DAILYCM [facility] Last Admin: 09/23/18 09:06 Dose: 1 tablet Nystatin (Mycostatin Powder) 1 applic TOPICAL BID [facility]; Protocol Last Admin: 09/23/18 09:08 Dose: 1 applicatio Rivaroxaban (Xarelto) 15 mg PO DAILY@1700 [facility] Last Admin: 09/22/18 16:01 Dose: 15 mg Sertraline HCl (Zoloft) 50 mg PO QHS [facility] Last Admin: 09/22/18 22:07 Dose: 50 mg Sodium Chloride () 5 - 15 ml IV UD PRN PRN Reason: SALINE FLUSH Last Admin: 09/22/18 06:35 Dose: 10 ml Topiramate (Topamax) 25 mg PO BID [facility] Last Admin: 09/23/18 09:07 Dose: 25 mg Medical Necessity - Tobacco Use Smoking Status: Former smoker Assessment/Plan All Active Problems (Last Reviewed 07/11/18 @ 08:33 by Jeri Sosa) Hypoglycemia due to insulin (Acute) Failure to thrive (Acute) Dyspnea (Acute) Cellulitis (Resolved) Hx of appendectomy (Resolved) Hx of colonoscopy (Resolved) The patient is a 73 y/o M w/ PMHx: Morbid Obesity, HTN, HLD, Chronic Diastolic CHF, CKD stage III, PAF on coumadin, Pulmonary HTN, ANDERSON on CPAP q HS, recent left middle cerebral artery stroke approximately 1 month prior with recent rehabilitation stay x2 weeks in [place] with discharge to home over this last week with difficulties caring for himself and medication errors. (1) Diabetes mellitus type II w/ Transient Hypoglycemia secondary to Medication Error: Medication regimen air x3 although recent regimen possibly incorrectly dosed per family member, given patient recent history of stroke and discharge to home with difficulties, admitted to medical surgical floor, maintain on fall and aspiration precautions, improvement of blood sugars therefore restarted on patient diabetic regimen with close monitoring, ADA diet, accu checks w/ ISS, PT, OT and case management consulted, currently insurance is denying longterm facility transition however given patient's recent stroke, debility, several episodes of self-medication errors notably with his insulin best scenario is for this patient to transition to a longterm facility for continued therapies and medication monitoring. Patient high risk for accidental self harm if insurance does not approve SNF. (2) Recent L MCA CVA: Notes primary deficit urinary and stool incontinence as well as some difficulties with bilateral upper extremity, primarily attempts to push himself up, transitioned to Xarelto, continue statin, BP regimen and diabetic regimen. (3) Chronic diastolic CHF: Transitioning to Xarelto, continue statin, Coreg, Lasix, hydralazine. (4) Hypertension: Continue home regimen including Norvasc, Coreg, Lasix, hydralazine, PRN hydralazine. (5) Hyperlipidemia: Continue home statin regimen. (6) Chronic Kidney Disease Stage III: Admission BUN/Cr 22/1.78, repeat 09/23/18 BUN/Cr 26/1.74, baseline renal function 1.6-2.0, stable. (7) Anxiety and depression: We will continue home Zoloft regimen. (8) Morbid Obesity: Weight loss and lifestyle changes encouraged, nutrition consulted. (9) ANDERSON: CPAP q HS. (10) DVT prophylaxis: SCDs, admission INR 1.3, subtherapeutic, issues with medication self administration, transitioned to xarelto. Code Visit OBSV E&M: 21395 Subsequent observation care L2
--- NOTE | 2018-09-23 11:04 | CASEMGMT ---
REBECA called [facility] at 8:30am and left a message for clarification on pt's denial. REBECA then called [facility], spoke w/Rachel. She explained that she did speak w/[facility], left Rita a message(who is not here today). She explained that [facility] is continuing to deny pt as they are not in network w/[employer]. REBECA explained will call daughter and work on another option of a facility that is in network. REBECA called daughter, explained that [facility] has denied pt for [facility] as they are not in network w/[employer], and that we can try for another facility in the area that is in network. Daughter explained pt was at [facility], then in their rehab for two weeks. Pt was supposed to go to a penitentiary from there but they discharged pt home w/home care instead. She states Rosita from [facility] was working on getting pt into [facility] and that she told Sofy it was approved. REBECA explained that since pt is here now, we have been working on this, since we have the latest clinical information, so Rosita is likely not able to continue to work on this. REBECA explained again that [facility] is not in network, so this plan is not going to work unfortunately. SW explained there are facilities in [facility], offered to read them to her, fax them, or email. Daughter states to email them. She wants to speak w/a couple of people and get back to this REBECA. She also mentioned another daughter in the [place] area who works at a penitentiary. Upon further discussion, the daughter in [place] is not actually related, though pt did care for since the age of [age]. We spoke about what would make more sense, pt staying in this area where he lives or going to [place]. Daughter also asked about POA, states pt wants to make his preacher his POA for medical, she is financial POA. SW explained can speak to pt about it but it would depend on his mental status if he can do the papers or not. She states she thinks he would be able to, SW can speak w/him REBECA received a call back from Julia at [facility]. She reiterated that [facility] is not in network w/them for skilled services. REBECA explained we are working on another facility, asked if there is a way to expedite it. She states that the penitentiary can jyotsna the request urgent, then they have to get back in 48 hours to the facility, and there is someone there on Wednesday and Wednesday. REBECA emailed the list of SNF's to daughter. She called back at 10:15 and left a message stating that they would like a referral sent to [facility]. SW faxed information, phones were down. Referral did go through at 11:20. SW called [facility] and left a message. SW also left in the message that they can jyotsna the request, if they can take pt, urgent and then the insurance has to respond in 48 hours. SW called daughter back, explained that the referral was faxed, spoke w/her again about the insurance, explained again that though pt has Medicare and Medicaid, it's through [employer] and [facility] is not in network w/[employer]. Daughter states it's confusing but she is starting to understand. She is on her way here to see pt, will speak w/her when she is here. ALEKSANDR Ruffin
[2018-09-23 11:30] LABS: Bedside Glucose 281 mg/dL (70-110)
[2018-09-23 11:40] LABS: Bedside Glucose 265 mg/dL (70-110)
--- NOTE | 2018-09-23 13:20 | CASEMGMT ---
SW spoke w/Adia at [facility], they can take pt and will start precert. They use a 3rd constitution party for precerts so it is unlikely they will be able to attain precert on the weekend. SW asked if the 3rd constitution party can have insurance call [facility] directly if they get precert on the weekend, she states will ask. SW did assist pt in completing LW and POA forms, gave pt originals and copies, and copies placed on chart. SW also spoke w/pt, he is agreeable to [facility]. SW spoke w/daughter who just arrived. SW let her know that [facility] can take pt and that we are just waiting for precert. SW explained if we don't have it today there is a chance that we could get precert on weekend, but is unlikely. Daughter states understanding. SW also let daughter know that SW was able to assist pt in completing LW/POA. SW did also get a call from Rod at [facility] inquiring about plan for pt([phone]). SW will let [facility] know once this SW knows for certain the plan. SW will continue to follow, completed PAS/RR, this w/results in envelope to go w/pt to [facility]. Now SW waiting for call back from [facility] in regard to precert . ALEKSANDR Ruffin
--- NOTE | 2018-09-23 16:04 | CASEMGMT ---
SW called daughter and did let her know that we did not get a precert yet. SW explained if precert is attained on the weekend she should be notified. Otherwise pt will be here until Wednesday. Daughter states understanding. ALEKSANDR Ruffin
[2018-09-23] MEDS: Rivaroxaban 15 MG Tablet PO (17:00)
[2018-09-23 17:10] LABS: Bedside Glucose 247 mg/dL (70-110)
[2018-09-23] MEDS: Acetaminophen 325 MG Tablet 650 MG PO (21:10)
[2018-09-23] MEDS: Montelukast 10 MG Tablet PO (21:11)
[2018-09-23] MEDS: Atorvastatin Calcium 80 MG Tablet PO (21:15)
[2018-09-23] MEDS: Sertraline 50 MG Tablet PO (21:17)
[2018-09-23 21:26] LABS: Bedside Glucose 259 mg/dL (70-110)
[2018-09-23 21:50] LABS: Bedside Glucose 211 mg/dL (70-110)
[2018-09-24] VITALS (7 sets, daily range): BP systolic 123–177; BP diastolic 48–119; PULSE 59–73; RESP 16–18; TEMP 36.3–36.6; O2SAT 92–99
[2018-09-24] MEDS: Insulin Lispro 100 UNIT/ML INSULN.PEN SC ×4 (06:36→21:43)
[2018-09-24] MEDS: hydrALAZINE 50 MG Tablet PO ×3 (06:37→21:41)
[2018-09-24 06:50] LABS: Bedside Glucose 184 mg/dL (70-110)
--- NOTE | 2018-09-24 09:04 | PN_ITS ---
Patient Problems: Active and Suspected Problems (Last Updated 09/24/18 @ 09:03 by Marisabel Ricci MD) Hypoglycemia due to insulin (Acute) Failure to thrive (Acute) Subjective: Chief complaint: Follow-up after admission for transient hypoglycemia, recent history of left MCA stroke. Patient seen and examined. No acute events overnight. He denied any significant complaints. He is alert and oriented x3. His vital signs are stable. - Physical Exam General: Alert, Oriented x3, Cooperative, No apparent distress HEENT: Atraumatic, PERRLA, EOMI, Normocephalic Oral: Moist Mucosa, No Gingival or Mucosal Lesions/ Ulcerations Neck: Supple, No JVD, Negative Carotid Bruits Lungs: Clear to auscultation, No rhonchi, No wheeze, No rales, Diminished Cardiovascular: Regular rate, Regular Rhythm, Normal S1, Normal S2, PMI Normal Abdomen: Bowel Sounds Present, Soft, Non Tender, Non-Distended, No Hepato- splenomegaly, Obese Extremities: No clubbing, No cyanosis, - - Stasis dermatitis. Trace edema. Skin: No rashes, No breakdown Lymphatic: No Cervical, Supraclavicular, or Inguinal Adenopathy Neurological: Cranial nerves II-XII grossly intact, Motor Exam 5/5 strength throughout Psych/Mental Status: Normal Affect, Appropriate, Alert and oriented to time, place, person, mood and affect Vital Signs Temp Pulse Resp BP Pulse Ox 97.9 F 62 16 177/119 H 99 09/24/18 02:28 09/24/18 06:37 09/24/18 02:28 09/24/18 02:28 09/24/18 02:28 Oxygen Flow Rate (L/min) 4 Oxygen Delivery Method Nasal Cannula Weight: 313 lb 4.43 oz Body Mass Index (BMI) 43.7 Finger Stick Blood Glucose 116 Intake and Output for Last 24 Hours 09/22/18 09/23/18 09/24/18 23:59 23:59 23:59 Intake Total 400 / 400 Balance 400 / 400 POC Glucose 09/24/18 09/23/18 09/23/18 06:32 21:09 16:59 POC Glucose 184 H 259 H 247 H 09/23/18 09/23/18 09/23/18 11:31 11:16 06:42 POC Glucose 265 H 281 H 211 H Medical Necessity - Tobacco Use Smoking Status: Former smoker Assessment/Plan All Active Problems (Last Updated 09/24/18 @ 09:03 by Marisabel Ricci MD) Hypoglycemia due to insulin (Acute) Failure to thrive (Acute) This is a 73 years old male patient presented to the emergency room because of difficulties taking care of himself as well as medication errors, found to have transient hypoglycemia and also had recent history of left MCA stroke. #1 transient hypoglycemia: Due to medication error. After admission, blood sugar stabilized, has been in the range of 200s. He is on Lantus insulin as well as sliding scale. He has been eating normally. Vital signs are stable. Plan: Awaiting insurance approval for placement to senior care facility. #2 physical debility/functional decline/difficulties caring for himself: Secondary to age and multiple medical problems including recent history of left MCA stroke. Patient seen by PT OT, recommended placement to senior care facility, plan as above. #3 recent left MCA stroke: With no significant motor deficit. Continue Xarelto and statins. Blood pressure has been stable. #4 chronic diastolic CHF: Compensated, stable, continue Coreg, hydralazine and Lasix. #5 hypertension: Blood pressure has been stable but this morning, it was slightly elevated. Continue Norvasc, Coreg, Lasix and hydralazine. #6 paroxysmal A. fib: Has been in sinus rhythm, rate is controlled. Continue Coreg for rate control and Xarelto for anticoagulation. #7 stage III chronic kidney disease: Serum creatinine is been stable. #8 hyperlipidemia: Continue statins. #9 type 2 diabetes mellitus: Blood sugar has been under fair control, continue Lantus and sliding scale. #10 anxiety/depression: Continue Zoloft. #11 obstructive sleep apnea: Continue CPAP nightly. #12 DVT prophylaxis: Continue Xarelto. This note was generated with [employer] dictation software. It may contain incorrect words, spelling, and punctuation that were not noted in checking the note before signing. Code Visit OBSV E&M: 94867 Subsequent observation care L2
[2018-09-24] MEDS: guaiFENesin 600 MG Tablet PO ×2 (09:41→21:40)
[2018-09-24] MEDS: Multivitamins,Ther W-Minerals Tablet 1 TABLET PO (09:41)
[2018-09-24] MEDS: Carvedilol 12.5 MG Tablet PO ×2 (09:41→21:41)
[2018-09-24] MEDS: Nystatin Powder 15gm Bottle 1 APPLIC TOPICAL ×2 (09:42→21:40)
[2018-09-24] MEDS: amLODIPine 10 MG Tablet PO (09:42)
[2018-09-24] MEDS: Furosemide 80 MG Tablet PO (09:42)
[2018-09-24] MEDS: Topiramate 25 MG Tablet PO (09:49)
--- NOTE | 2018-09-24 10:24 | CASEMGMT ---
SOCIAL WORK CALL TO [facility], SPOKE WITH YOANA WHO STATES WILL FOLLOW UP WITH [facility] REGARDING PRECERT. THIS WORKER INQUIRING IF AUTH HAS BEEN OBTAINED. YOANA REPORTS WILL CALL THIS WORKER BACK. NURSE UPDATED. RISHI GONZALEZ, DISC INSPECTOR, ASSISTANT TO THE CEO.
--- NOTE | 2018-09-24 10:42 | CASEMGMT ---
SOCIAL WORK RECEIVED CALL FROM YOANA WITH [facility]. PER YOANA, PRECERT HAS NOT BEEN OBTAINED. [facility] AND [facility] TO CALL THE FLOOR ONCE PRECERT OBTAINED. GREEN SHEET ADDED TO CHART AND STAFF UPDATED. RISHI GONZALEZ, METAL CABINET FINISHER, PHOTOGRAPHER AERIAL.
[2018-09-24 12:15] LABS: Bedside Glucose 304 mg/dL (70-110)
[2018-09-24] MEDS: Rivaroxaban 15 MG Tablet PO (17:33)
[2018-09-24 17:40] LABS: Bedside Glucose 230 mg/dL (70-110)
[2018-09-24] MEDS: Sertraline 50 MG Tablet PO (21:41)
[2018-09-24] MEDS: Montelukast 10 MG Tablet PO (21:41)
[2018-09-24] MEDS: Acetaminophen 325 MG Tablet 650 MG PO (21:42)
[2018-09-24] MEDS: Atorvastatin Calcium 80 MG Tablet PO (21:47)
[2018-09-25] VITALS (7 sets, daily range): BP systolic 99–157; BP diastolic 66–91; PULSE 60–71; RESP 18; TEMP 36.4–36.7; O2SAT 93–100
[2018-09-25] MEDS: hydrALAZINE 50 MG Tablet PO ×2 (06:32→21:39)
[2018-09-25] MEDS: Insulin Lispro 100 UNIT/ML INSULN.PEN SC ×4 (06:33→21:35)
[2018-09-25 06:41] LABS: Bedside Glucose 255 mg/dL (70-110)
[2018-09-25 06:41] LABS: Bedside Glucose 212 mg/dL (70-110)
--- NOTE | 2018-09-25 08:58 | PCM.PROGNOTE ---
Patient Problems: Active and Suspected Problems (Last Updated 09/24/18 @ 09:03 by Marisabel Ricci MD) Hypoglycemia due to insulin (Acute) Failure to thrive (Acute) Subjective: Chief complaint: Follow-up after admission for transient hypoglycemia, recent history of left MCA stroke. Patient seen and examined. No acute events overnight. He denies any significant complaints. His blood pressure slightly elevated, other vital signs are stable. - Physical Exam General: Alert, Oriented x3, Cooperative, No apparent distress HEENT: Atraumatic, PERRLA, EOMI, Normocephalic Oral: Moist Mucosa, No Gingival or Mucosal Lesions/ Ulcerations Neck: Supple, No JVD, Negative Carotid Bruits, Trachea Midline, Thyroid Normal Size and Texture Lungs: Clear to auscultation, No rhonchi, No wheeze, No rales, Diminished Cardiovascular: Regular rate, Regular Rhythm, Normal S1, Normal S2, PMI Normal Abdomen: Bowel Sounds Present, Soft, Non Tender, Non-Distended, No Hepato-splenomegaly, Obese Extremities: No clubbing, No cyanosis, No edema, - - Stasis dermatitis. Skin: No rashes, No breakdown Lymphatic: No Cervical, Supraclavicular, or Inguinal Adenopathy Neurological: Cranial nerves II-XII grossly intact, Neuro grossly intact Psych/Mental Status: Normal Affect, Appropriate Vital Signs Temp Pulse Resp BP Pulse Ox 98.1 F 71 18 157/91 H 100 09/25/18 06:35 09/25/18 06:35 09/25/18 06:35 09/25/18 06:35 09/25/18 06:35 Oxygen Flow Rate (L/min) 2 Oxygen Delivery Method Nasal Cannula Weight: 313 lb 4.43 oz Body Mass Index (BMI) 43.7 Finger Stick Blood Glucose 116 POC Glucose 09/25/18 09/24/18 09/24/18 06:32 21:36 17:31 POC Glucose 212 H 255 H 230 H 09/24/18 12:06 POC Glucose 304 H Medical Necessity - Tobacco Use Smoking Status: Former smoker Assessment/Plan All Active Problems (Last Updated 09/24/18 @ 09:03 by Marisabel Ricci MD) Hypoglycemia due to insulin (Acute) Failure to thrive (Acute) This is a 73 years old male patient presented to the emergency room because of difficulties taking care of himself as well as medication errors, found to have transient hypoglycemia and also had recent history of left MCA stroke. #1 transient hypoglycemia: Due to medication error. After admission, blood sugar stabilized, has been in the range of 200s. Remained on Lantus insulin as well as sliding scale. Vital signs are stable. Plan: Awaiting insurance approval for placement to [facility] facility. #2 physical debility/functional decline/difficulties caring for himself: Secondary to age and multiple medical problems including recent history of left MCA stroke. Patient seen by PT OT, recommended placement to [facility] facility, plan as above. #3 recent left MCA stroke: With no significant motor deficit. Continue Xarelto and statins. Blood pressure has been stable. #4 chronic diastolic CHF: Compensated, stable, continue Coreg, hydralazine and Lasix. #5 hypertension: Blood pressure in the acceptable range in context of recent stroke. Continue Norvasc, Coreg, Lasix and hydralazine. #6 paroxysmal A. fib: Has been in sinus rhythm, rate is controlled. Continue Coreg for rate control and Xarelto for anticoagulation. #7 stage III chronic kidney disease: Serum creatinine is been stable. #8 hyperlipidemia: Continue statins. #9 type 2 diabetes mellitus: Blood sugar has been under fair control, continue Lantus and sliding scale. #10 anxiety/depression: Continue Zoloft. #11 obstructive sleep apnea: Continue CPAP nightly. #12 DVT prophylaxis: Continue Xarelto. This note was generated with [employer] dictation software. It may contain incorrect words, spelling, and punctuation that were not noted in checking the note before signing. Code Visit Inpatient E&M: 60549 Subs Hosp L2
--- NOTE | 2018-09-25 09:01 | PN_ITS ---
Patient Problems: Active and Suspected Problems (Last Updated 09/24/18 @ 09:03 by Marisabel Ricci MD) Hypoglycemia due to insulin (Acute) Failure to thrive (Acute) Subjective: Chief complaint: Follow-up after admission for transient hypoglycemia, recent history of left MCA stroke. Patient seen and examined. No acute events overnight. He denies any significant complaints. His blood pressure slightly elevated, other vital signs are stable. - Physical Exam General: Alert, Oriented x3, Cooperative, No apparent distress HEENT: Atraumatic, PERRLA, EOMI, Normocephalic Oral: Moist Mucosa, No Gingival or Mucosal Lesions/ Ulcerations Neck: Supple, No JVD, Negative Carotid Bruits, Trachea Midline, Thyroid Normal Size and Texture Lungs: Clear to auscultation, No rhonchi, No wheeze, No rales, Diminished Cardiovascular: Regular rate, Regular Rhythm, Normal S1, Normal S2, PMI Normal Abdomen: Bowel Sounds Present, Soft, Non Tender, Non-Distended, No Hepato- splenomegaly, Obese Extremities: No clubbing, No cyanosis, No edema, - - Stasis dermatitis. Skin: No rashes, No breakdown Lymphatic: No Cervical, Supraclavicular, or Inguinal Adenopathy Neurological: Cranial nerves II-XII grossly intact, Neuro grossly intact Psych/Mental Status: Normal Affect, Appropriate Vital Signs Temp Pulse Resp BP Pulse Ox 98.1 F 71 18 157/91 H 100 09/25/18 06:35 09/25/18 06:35 09/25/18 06:35 09/25/18 06:35 09/25/18 06:35 Oxygen Flow Rate (L/min) 2 Oxygen Delivery Method Nasal Cannula Weight: 313 lb 4.43 oz Body Mass Index (BMI) 43.7 Finger Stick Blood Glucose 116 POC Glucose 09/25/18 09/24/18 09/24/18 06:32 21:36 17:31 POC Glucose 212 H 255 H 230 H 09/24/18 12:06 POC Glucose 304 H Medical Necessity - Tobacco Use Smoking Status: Former smoker Assessment/Plan All Active Problems (Last Updated 09/24/18 @ 09:03 by Marisabel Ricci MD) Hypoglycemia due to insulin (Acute) Failure to thrive (Acute) This is a 73 years old male patient presented to the emergency room because of difficulties taking care of himself as well as medication errors, found to have transient hypoglycemia and also had recent history of left MCA stroke. #1 transient hypoglycemia: Due to medication error. After admission, blood sugar stabilized, has been in the range of 200s. Remained on Lantus insulin as well as sliding scale. Vital signs are stable. Plan: Awaiting insurance approval for placement to intermediate facility. #2 physical debility/functional decline/difficulties caring for himself: Secondary to age and multiple medical problems including recent history of left MCA stroke. Patient seen by PT OT, recommended placement to intermediate facility, plan as above. #3 recent left MCA stroke: With no significant motor deficit. Continue Xarelto and statins. Blood pressure has been stable. #4 chronic diastolic CHF: Compensated, stable, continue Coreg, hydralazine and Lasix. #5 hypertension: Blood pressure in the acceptable range in context of recent stroke. Continue Norvasc, Coreg, Lasix and hydralazine. #6 paroxysmal A. fib: Has been in sinus rhythm, rate is controlled. Continue Coreg for rate control and Xarelto for anticoagulation. #7 stage III chronic kidney disease: Serum creatinine is been stable. #8 hyperlipidemia: Continue statins. #9 type 2 diabetes mellitus: Blood sugar has been under fair control, continue Lantus and sliding scale. #10 anxiety/depression: Continue Zoloft. #11 obstructive sleep apnea: Continue CPAP nightly. #12 DVT prophylaxis: Continue Xarelto. This note was generated with [employer] dictation software. It may contain incorrect words, spelling, and punctuation that were not noted in checking the note before signing. Code Visit Inpatient E&M: 88919 Subs Hosp L2
[2018-09-25] MEDS: Furosemide 80 MG Tablet PO (09:06)
[2018-09-25] MEDS: Multivitamins,Ther W-Minerals Tablet 1 TABLET PO (09:06)
[2018-09-25] MEDS: Carvedilol 12.5 MG Tablet PO ×2 (09:06→21:39)
[2018-09-25] MEDS: guaiFENesin 600 MG Tablet PO ×2 (09:06→21:38)
[2018-09-25] MEDS: Nystatin Powder 15gm Bottle 1 APPLIC TOPICAL ×2 (09:07→21:40)
[2018-09-25] MEDS: amLODIPine 10 MG Tablet PO (09:08)
[2018-09-25] MEDS: Acetaminophen 325 MG Tablet 650 MG PO ×2 (09:08→21:38)
[2018-09-25] MEDS: Topiramate 25 MG Tablet PO (09:08)
[2018-09-25 11:26] LABS: Bedside Glucose 203 mg/dL (70-110)
--- NOTE | 2018-09-25 13:28 | NEWVISION ---
BP 99/70 - SCHEDULED APRESOLINE 50MG PO DUE. DR CUNNINGHAM TEXT REGARDING SAME - APRESOLINE TO BE HELD THIS DOSE
[2018-09-25 16:25] LABS: Bedside Glucose 254 mg/dL (70-110)
[2018-09-25] MEDS: Rivaroxaban 15 MG Tablet PO (17:15)
--- NOTE | 2018-09-25 20:37 | NURSING ---
Responded to pt's bed exit and he was going into the bathroom and he slammed the bathroom door. I opened the door and he told me to shut it. Said he was taking a crap and he had been on his own now for 6 days. Checked on him in a couple of minutes and he said he was ok. Jacques BRADY advised.
[2018-09-25] MEDS: Montelukast 10 MG Tablet PO (21:39)
[2018-09-25] MEDS: Atorvastatin Calcium 80 MG Tablet PO (21:40)
[2018-09-25] MEDS: Sertraline 50 MG Tablet PO (21:41)
[2018-09-25 21:51] LABS: Bedside Glucose 242 mg/dL (70-110)
[2018-09-26] VITALS (7 sets, daily range): BP systolic 127–153; BP diastolic 73–96; PULSE 62–78; RESP 18; TEMP 36.6–36.8; O2SAT 96–97
[2018-09-26] MEDS: Insulin Lispro 100 UNIT/ML INSULN.PEN SC ×4 (06:27→21:05)
[2018-09-26] MEDS: hydrALAZINE 50 MG Tablet PO ×3 (06:28→21:04)
[2018-09-26] MEDS: Multivitamins,Ther W-Minerals Tablet 1 TABLET PO (08:22)
[2018-09-26] MEDS: guaiFENesin 600 MG Tablet PO ×2 (08:23→21:04)
[2018-09-26] MEDS: amLODIPine 10 MG Tablet PO (08:23)
[2018-09-26] MEDS: Furosemide 80 MG Tablet PO (08:23)
[2018-09-26] MEDS: Carvedilol 12.5 MG Tablet PO ×2 (08:23→21:04)
[2018-09-26] MEDS: Nystatin Powder 15gm Bottle 1 APPLIC TOPICAL ×2 (08:23→21:04)
[2018-09-26] MEDS: Topiramate 25 MG Tablet PO ×2 (08:24→21:07)
[2018-09-26 10:51] LABS: Bedside Glucose 205 mg/dL (70-110)
--- NOTE | 2018-09-26 11:13 | NURSING ---
ENTERED ROOM TO GET PTS ACCUCHECK, PT LYING IN BED WITH EYES CLOSED, STATES COME BACK LATER. IM SLEEPING.
[2018-09-26 12:56] LABS: Bedside Glucose 276 mg/dL (70-110)
--- NOTE | 2018-09-26 14:10 | PCM.PN.HOSP ---
Patient Problems: Active and Suspected Problems (Last Updated 09/24/18 @ 09:03 by Marisabel Ricci MD) Hypoglycemia due to insulin (Acute) Failure to thrive (Acute) Subjective: No new events. Concerned about his coumadin. Vitals/I&O's: Vital Signs Temp Pulse Resp BP Pulse Ox 36.6 C 62 18 142/79 H 96 09/26/18 12:30 09/26/18 13:47 09/26/18 12:30 09/26/18 13:47 09/26/18 12:30 Oxygen Flow Rate (L/min) 4 Oxygen Delivery Method Room Air Weight: 142.1 kg Body Mass Index (BMI) 43.7 Finger Stick Blood Glucose 116 Intake and Output for Last 24 Hours 09/24/18 09/25/18 09/26/18 23:59 23:59 23:59 Intake Total 440 / 440 1130 / 1130 Balance 440 / 440 1130 / 1130 General: Alert, No apparent distress HEENT: Atraumatic, Normocephalic Oral: Moist Mucosa, No Gingival or Mucosal Lesions/ Ulcerations Neck: No Nodes, Thyroid Normal Size and Texture Lungs: Clear to auscultation, Normal air movement, No rhonchi, No wheeze Cardiovascular: Regular rate, Regular Rhythm, Normal S1, Normal S2 Abdomen: Bowel Sounds Present, Soft, Non Tender, Non-Distended, No Hepato-splenomegaly Extremities: No edema, No Calf Tenderness Skin: No rashes, No breakdown Psych/Mental Status: Normal Affect, Appropriate Laboratory Results 09/25/18 16:19: POC Glucose 254 H 09/25/18 21:32: POC Glucose 242 H 09/26/18 06:27: POC Glucose 205 H 09/26/18 12:44: POC Glucose 276 H Current Medications Acetaminophen (Tylenol) 650 mg PO 4X/DAY [facility] Last Admin: 09/26/18 13:56 Dose: Not Given Amlodipine Besylate (Norvasc) 10 mg PO DAILY [facility] Last Admin: 09/26/18 08:23 Dose: 10 mg Atorvastatin Calcium (Lipitor) 80 mg PO QHS [facility] Last Admin: 09/25/18 21:40 Dose: 80 mg Carvedilol (Coreg) 12.5 mg PO BID [facility] Last Admin: 09/26/18 08:23 Dose: 12.5 mg Dextrose (D50w Syringe) 0 gm IV X1 PRN; Protocol PRN Reason: Hypoglycemia Furosemide (Lasix) 80 mg PO DAILY [facility] Last Admin: 09/26/18 08:23 Dose: 80 mg Glucagon () 1 mg IM .X1 PRN PRN Reason: Hypoglycemia Guaifenesin (Mucinex) 600 mg PO Q12 [facility] Last Admin: 09/26/18 08:23 Dose: 600 mg Hydralazine HCl (Apresoline) 50 mg PO TID [facility] Last Admin: 09/26/18 13:47 Dose: 50 mg Insulin Glargine (Lantus (Bk)) 12 units SC QHS [facility] Last Admin: 09/25/18 21:38 Dose: 12 u Insulin Human Lispro (Humalog Kwikpen ([facility])) 0 unit SC ACHS [facility]; Protocol Last Admin: 09/26/18 12:51 Dose: 4 u Montelukast Sodium (Singulair) 10 mg PO QPM [facility] Last Admin: 09/25/18 21:39 Dose: 10 mg Multivitamins/Minerals (Multivitamin With Minerals) 1 tablet PO DAILYCM [facility] Last Admin: 09/26/18 08:22 Dose: 1 tablet Nystatin (Mycostatin Powder) 1 applic TOPICAL BID [facility]; Protocol Last Admin: 09/26/18 08:23 Dose: 1 applicatio Rivaroxaban (Xarelto) 15 mg PO DAILY@1700 [facility] Last Admin: 09/25/18 17:15 Dose: 15 mg Sertraline HCl (Zoloft) 50 mg PO QHS [facility] Last Admin: 09/25/18 21:41 Dose: 50 mg Sodium Chloride () 5 - 15 ml IV UD PRN PRN Reason: SALINE FLUSH Last Admin: 09/22/18 06:35 Dose: 10 ml Topiramate (Topamax) 25 mg PO BID [facility] Last Admin: 09/26/18 08:24 Dose: 25 mg Medical Necessity - Tobacco Use Smoking Status: Former smoker Assessment/Plan All Active Problems (Last Updated 09/24/18 @ 09:03 by Marisabel Ricci MD) Hypoglycemia due to insulin (Acute) Failure to thrive (Acute) 1. failure to thrive ongoing awaiting on precertification once precertification obtained, pt to be discharged to SNF 2. L MCA complicates #1 rivaroxaban and statin follow up with neurology 3. HFpEF compensated carvedilol, hydralazine and lasix. not candidate for LUCIO-/ARB given CKD Code Visit Inpatient E&M: 06799 Subs Hosp L2
--- NOTE | 2018-09-26 14:14 | PN_ITS ---
Patient Problems: Active and Suspected Problems (Last Updated 09/24/18 @ 09:03 by Marisabel Ricci MD) Hypoglycemia due to insulin (Acute) Failure to thrive (Acute) Subjective: No new events. Concerned about his coumadin. Vitals/I&O's: Vital Signs Temp Pulse Resp BP Pulse Ox 36.6 C 62 18 142/79 H 96 09/26/18 12:30 09/26/18 13:47 09/26/18 12:30 09/26/18 13:47 09/26/18 12:30 Oxygen Flow Rate (L/min) 4 Oxygen Delivery Method Room Air Weight: 142.1 kg Body Mass Index (BMI) 43.7 Finger Stick Blood Glucose 116 Intake and Output for Last 24 Hours 09/24/18 09/25/18 09/26/18 23:59 23:59 23:59 Intake Total 440 / 440 1130 / 1130 Balance 440 / 440 1130 / 1130 General: Alert, No apparent distress HEENT: Atraumatic, Normocephalic Oral: Moist Mucosa, No Gingival or Mucosal Lesions/ Ulcerations Neck: No Nodes, Thyroid Normal Size and Texture Lungs: Clear to auscultation, Normal air movement, No rhonchi, No wheeze Cardiovascular: Regular rate, Regular Rhythm, Normal S1, Normal S2 Abdomen: Bowel Sounds Present, Soft, Non Tender, Non-Distended, No Hepato- splenomegaly Extremities: No edema, No Calf Tenderness Skin: No rashes, No breakdown Psych/Mental Status: Normal Affect, Appropriate Laboratory Results 09/25/18 16:19: POC Glucose 254 H 09/25/18 21:32: POC Glucose 242 H 09/26/18 06:27: POC Glucose 205 H 09/26/18 12:44: POC Glucose 276 H Current Medications Acetaminophen (Tylenol) 650 mg PO 4X/DAY [facility] Last Admin: 09/26/18 13:56 Dose: Not Given Amlodipine Besylate (Norvasc) 10 mg PO DAILY [facility] Last Admin: 09/26/18 08:23 Dose: 10 mg Atorvastatin Calcium (Lipitor) 80 mg PO QHS [facility] Last Admin: 09/25/18 21:40 Dose: 80 mg Carvedilol (Coreg) 12.5 mg PO BID [facility] Last Admin: 09/26/18 08:23 Dose: 12.5 mg Dextrose (D50w Syringe) 0 gm IV X1 PRN; Protocol PRN Reason: Hypoglycemia Furosemide (Lasix) 80 mg PO DAILY [facility] Last Admin: 09/26/18 08:23 Dose: 80 mg Glucagon () 1 mg IM .X1 PRN PRN Reason: Hypoglycemia Guaifenesin (Mucinex) 600 mg PO Q12 [facility] Last Admin: 09/26/18 08:23 Dose: 600 mg Hydralazine HCl (Apresoline) 50 mg PO TID [facility] Last Admin: 09/26/18 13:47 Dose: 50 mg Insulin Glargine (Lantus (Bk)) 12 units SC QHS [facility] Last Admin: 09/25/18 21:38 Dose: 12 u Insulin Human Lispro (Humalog Kwikpen ([facility])) 0 unit SC ACHS [facility]; Protocol Last Admin: 09/26/18 12:51 Dose: 4 u Montelukast Sodium (Singulair) 10 mg PO QPM [facility] Last Admin: 09/25/18 21:39 Dose: 10 mg Multivitamins/Minerals (Multivitamin With Minerals) 1 tablet PO DAILYCM [facility] Last Admin: 09/26/18 08:22 Dose: 1 tablet Nystatin (Mycostatin Powder) 1 applic TOPICAL BID [facility]; Protocol Last Admin: 09/26/18 08:23 Dose: 1 applicatio Rivaroxaban (Xarelto) 15 mg PO DAILY@1700 [facility] Last Admin: 09/25/18 17:15 Dose: 15 mg Sertraline HCl (Zoloft) 50 mg PO QHS [facility] Last Admin: 09/25/18 21:41 Dose: 50 mg Sodium Chloride () 5 - 15 ml IV UD PRN PRN Reason: SALINE FLUSH Last Admin: 09/22/18 06:35 Dose: 10 ml Topiramate (Topamax) 25 mg PO BID [facility] Last Admin: 09/26/18 08:24 Dose: 25 mg Medical Necessity - Tobacco Use Smoking Status: Former smoker Assessment/Plan All Active Problems (Last Updated 09/24/18 @ 09:03 by Marisabel Ricci MD) Hypoglycemia due to insulin (Acute) Failure to thrive (Acute) 1. failure to thrive * ongoing * awaiting on precertification * once precertification obtained, pt to be discharged to SNF 2. L MCA * complicates #1 * rivaroxaban and statin * follow up with neurology 3. HFpEF * compensated * carvedilol, hydralazine and lasix. * not candidate for LUCIO-/ARB given CKD Code Visit Inpatient E&M: 21439 Subs Hosp L2
[2018-09-26 16:41] LABS: Bedside Glucose 260 mg/dL (70-110)
[2018-09-26] MEDS: Rivaroxaban 15 MG Tablet PO (17:27)
[2018-09-26] MEDS: Sertraline 50 MG Tablet PO (21:04)
[2018-09-26] MEDS: Acetaminophen 325 MG Tablet 650 MG PO (21:04)
[2018-09-26] MEDS: Atorvastatin Calcium 80 MG Tablet PO (21:04)
[2018-09-26] MEDS: Montelukast 10 MG Tablet PO (21:04)
[2018-09-26 21:15] LABS: Bedside Glucose 286 mg/dL (70-110)
[2018-09-27] MEDS: Carvedilol 12.5 MG Tablet PO (06:59)
[2018-09-27] MEDS: Multivitamins,Ther W-Minerals Tablet 1 TABLET PO (06:59)
[2018-09-27] MEDS: Furosemide 80 MG Tablet PO (06:59)
[2018-09-27] MEDS: Acetaminophen 325 MG Tablet 650 MG PO ×2 (06:59→14:06)
[2018-09-27] MEDS: Topiramate 25 MG Tablet PO (06:59)
[2018-09-27 07:00] VITALS: PULSE 78
[2018-09-27] MEDS: Nystatin Powder 15gm Bottle 1 APPLIC TOPICAL (07:00)
[2018-09-27] MEDS: Insulin Lispro 100 UNIT/ML INSULN.PEN SC ×2 (07:00→12:56)
[2018-09-27] MEDS: guaiFENesin 600 MG Tablet PO (07:00)
[2018-09-27] MEDS: amLODIPine 10 MG Tablet PO (07:00)
[2018-09-27] MEDS: hydrALAZINE 50 MG Tablet PO ×2 (07:00→14:06)
[2018-09-27 07:04] VITALS: BP 163/75; PULSE 78; RESP 18; TEMP 36.5; O2SAT 95
[2018-09-27 07:05] VITALS: O2SAT 95
[2018-09-27 07:11] LABS: Bedside Glucose 189 mg/dL (70-110)
--- NOTE | 2018-09-27 09:24 | CASEMGMT ---
Social Work Note REBECA faxed updated clinicals to [facility]. REBECA placed a call to Adia at [facility], updated her that pt is still at [facility] and pt is ready for discharge once pre-cert is obtained. Adia states she is still waiting for pre-cert. Plan: [facility] pending pre-cert Rita Bedoya BAND DIRECTOR, PRIMARY PRODUCTS INSPECTORS
--- NOTE | 2018-09-27 09:34 | PCM.TXEXTCAR ---
- Diet 09/20/18 06:44 ADA [Diet: Calorie Controlled] Is pt able to select menu?: Yes How many daily calories?: 1999 calorie - Routine Orders/Code Status Enema Type: Fleetz Enema Frequency: Daily PRN Suppository Type: Dulcolax 10mg Suppository Frequency: Daily PRN Keep PO Greater than or Equal to (%): 92 Routine Lab Work: - - Repeat CBC, BMP within 1 week. Code Status: Full Code - Wound(s) right elbow Wound Type: Abrasion Dressing Change: Dry Sterile Dressing - Suggestions for Active Care Change Position every (hours): 2 Hours to sit in a chair: 6 Times a day to sit in chair: 3 - Therapies Weight Bearing: Full weight bearing Physical Therapy: Eval and Treat Occupational Therapy: Eval and Treat - Allergies/Procedures Done in Hospital Allergies/Adverse Reactions: Allergies macitentan [From Opsumit] Allergy (Unknown, Verified 09/19/18 21:39) unknown Procedures: EKG - Type of Care/Length of Stay Estimated LOS: Convalescent Care Less Than 30 days Type of Care Needed: Skilled Rehab Potential: Good Prognosis: Good - Additional Orders/Day of Discharge Additional Orders: (1) Fall and Aspiration precautions. (2) HOB. (3) IS 10x/hr 7a-7p. (4) Continue ISS accu checks q AC and HS. May increase lantus as needed to achieve goal, was reduced during current admission secondary to hypoglycemia with accidental frequent insulin dosing errors outpatient. (5) Patient has chronic urinary and stool incontinence. Day of Discharge: 09/21/18 - Dietary and Speech Recommendations Dietitian Recommendations/Changes: Continue 1999 calorie-controlled diet. - Follow Up Care Primary Care Physician: Gutierrez Garces DO [Primary Care Provider] - Please follow up with your Primary Care Physician in: Follow-up within 3-5 days hospital discharge and 1-2 days SNF discharge.
--- NOTE | 2018-09-27 09:36 | PCM.DC.SUM ---
Discharge Date and Diagnosis - Problem List Patient Problems: Active and Suspected Problems (Last Updated 09/24/18 @ 09:03 by Marisabel Ricci MD) Hypoglycemia due to insulin (Acute) Failure to thrive (Acute) Date of Admission: 09/19/18 Date of Discharge: 09/27/18 - Primary Discharge Diagnosis Active and Suspected Problems (Last Updated 09/24/18 @ 09:03 by Marisabel Ricci MD) Hypoglycemia due to insulin (Acute) Failure to thrive (Acute) 1. failure to thrive ongoing awaiting on precertification once precertification obtained, pt to be discharged to SNF 2. L MCA complicates #1 rivaroxaban and statin follow up with neurology 3. HFpEF compensated carvedilol, hydralazine and lasix. not candidate for LUCIO-/ARB given CKD - Secondary Discharge Diagnosis Chronic Problems (Last Updated 09/24/18 @ 09:03 by Marisabel Ricci MD) Recent cerebrovascular accident (CVA) (Chronic) Ischemic stroke (Chronic 08/20/18) D/T left M2 occlusion per CTA done @ [facility] ER Tubulovillous adenoma polyp of colon (Chronic) Chronic kidney disease, stage 3 (moderate) (Chronic) Kidney stones (Chronic) History of right and left heart catheterization (Chronic ~2008) [facility] History of right heart catheterization (Chronic 05/19/13) History of cardioversion (Chronic 08/23/15) 03/23/14, 02/13/15, 08/23/2015 Stasis dermatitis (Chronic) Chronic diastolic (congestive) heart failure (Chronic) Severe concentric left ventricular hypertrophy (Chronic) Hyperlipidemia (Chronic) Hypertension (Chronic) Paroxysmal atrial fibrillation (Chronic) FPC (current) use of anticoagulants (Chronic) Moderate to severe pulmonary hypertension (Chronic) due to sleep apnea and extrisic restrictive lung disease (obesity) Obstructive sleep apnea of adult (Chronic) cpap at night Morbid obesity with body mass index of 50.0-59.9 in adult (Chronic) referrend to bariatric surgery [facility] Course and Treatment Consultations 09/20/18 10:39 Consult: Onc/Wound/concession attendant Routine Comment: enmanuel lower venous statis Operations: None Procedures: None Summary of Care Provided: The patient is a 73 year old M presents with hypoglycemia. Patient did dose himself and probably with insulin and came in confused, uncoordinated and unable to care for himself without 24-hour care. Patient was brought in under observation on the . Patient has remained here awaiting insurance approval for the past several days and over the holiday weekend. The hope is the patient be able to be discharged on the . No other active medical issues have occurred while the patient has been here. [] Patient Problems: Active and Suspected Problems (Last Updated 09/24/18 @ 09:03 by Marisabel Ricci MD) Hypoglycemia due to insulin (Acute) Failure to thrive (Acute) - Physical Exam General: Alert, No apparent distress HEENT: Atraumatic, Normocephalic Skin: No rashes, No breakdown Vital Signs Temp Pulse Resp BP Pulse Ox 36.5 C L 78 18 163/75 H 95 09/27/18 07:04 09/27/18 07:04 09/27/18 07:04 09/27/18 07:04 09/27/18 07:05 Oxygen Flow Rate (L/min) 4 Oxygen Delivery Method Nasal Cannula Weight: 142.1 kg Body Mass Index (BMI) 43.7 Finger Stick Blood Glucose 116 Intake and Output for Last 24 Hours 09/25/18 09/26/18 09/27/18 23:59 23:59 23:59 Intake Total 440 / 440 1530 / 1530 1350 / 1350 Balance 440 / 440 1530 / 1530 1350 / 1350 POC Glucose 09/27/18 09/26/18 09/26/18 06:56 21:03 16:38 POC Glucose 189 H 286 H 260 H 09/26/18 09/26/18 12:44 06:27 POC Glucose 276 H 205 H Discharge Diet: Low fat/ Low Cholesterol, 1800 Calorie Control Diet Discharge Activity: Return to Normal Activity Home Medications: Medications to take at Discharge Furosemide [Lasix] 80 mg PO DAILY 02/18/14 Amlodipine [Norvasc] 10 mg PO DAILY #30 tab 05/08/16 atorvastatin 80 mg tablet 80 mg PO QHS 09/19/18 carvedilol 12.5 mg tablet 12.5 mg PO BID 09/19/18 guaifenesin ER 600 mg tablet, extended release 12 hr 600 mg PO Q12H 09/19/18 hydralazine 50 mg tablet 50 mg PO TID 09/19/18 montelukast 10 mg tablet 10 mg PO QPM 09/19/18 sertraline 50 mg tablet 50 mg PO .q hs tab 09/19/18 topiramate 25 mg tablet 25 mg PO BID 09/19/18 Insulin Glargine [Lantus SoloStar Pen] 12 units SC DINNER pen 09/21/18 Insulin Lispro [Humalog KwikPen] See Protocol SC ACHS insuln.pen 09/21/18 Multivitamins,Ther W-Minerals [Multivitamin With Minerals] 1 tablet PO DAILYCM tablet 09/21/18 Nystatin Powder [Mycostatin Powder] 1 applic TOPICAL BID bottle 09/21/18 Rivaroxaban [Xarelto] 15 mg PO DAILY@1700 tablet 09/21/18 Acetaminophen [Tylenol Tablet] 650 mg PO 4X/DAY tablet 09/27/18 Primary Care Physician: Gutierrez Garces DO [Primary Care Provider] - Please follow up with your Primary Care Physician in: Follow-up within 3-5 days hospital discharge and 1-2 days SNF discharge. Disposition: Detention facility Minutes spent on discharge:: 28 Patient Condition:: Fair Medical Necessity - Tobacco Use Smoking Status: Former smoker Meaningful Use Info Meaningful Use Diagnoses (Choose all that apply): None applicable Code Visit Inpatient E&M: 90930 Disch Hosp
--- NOTE | 2018-09-27 09:39 | DS.PCM_ITS ---
Discharge Date and Diagnosis - Problem List Patient Problems: Active and Suspected Problems (Last Updated 09/24/18 @ 09:03 by Marisabel Ricci MD) Hypoglycemia due to insulin (Acute) Failure to thrive (Acute) Date of Admission: 09/19/18 Date of Discharge: 09/27/18 - Primary Discharge Diagnosis Active and Suspected Problems (Last Updated 09/24/18 @ 09:03 by Marisabel Ricci MD) Hypoglycemia due to insulin (Acute) Failure to thrive (Acute) 1. failure to thrive * ongoing * awaiting on precertification * once precertification obtained, pt to be discharged to SNF 2. L MCA * complicates #1 * rivaroxaban and statin * follow up with neurology 3. HFpEF * compensated * carvedilol, hydralazine and lasix. * not candidate for LUCIO-/ARB given CKD - Secondary Discharge Diagnosis Chronic Problems (Last Updated 09/24/18 @ 09:03 by Marisabel Ricci MD) Recent cerebrovascular accident (CVA) (Chronic) Ischemic stroke (Chronic 08/20/18) D/T left M2 occlusion per CTA done @ [facility] ER Tubulovillous adenoma polyp of colon (Chronic) Chronic kidney disease, stage 3 (moderate) (Chronic) Kidney stones (Chronic) History of right and left heart catheterization (Chronic ~2008) [facility] History of right heart catheterization (Chronic 05/19/13) History of cardioversion (Chronic 08/23/15) 03/23/14, 02/13/15, 08/23/2015 Stasis dermatitis (Chronic) Chronic diastolic (congestive) heart failure (Chronic) Severe concentric left ventricular hypertrophy (Chronic) Hyperlipidemia (Chronic) Hypertension (Chronic) Paroxysmal atrial fibrillation (Chronic) long term (current) use of anticoagulants (Chronic) Moderate to severe pulmonary hypertension (Chronic) due to sleep apnea and extrisic restrictive lung disease (obesity) Obstructive sleep apnea of adult (Chronic) cpap at night Morbid obesity with body mass index of 50.0-59.9 in adult (Chronic) referrend to bariatric surgery [facility] Course and Treatment Consultations 09/20/18 10:39 Consult: Onc/Wound/bi tester Routine Comment: enmanuel lower venous statis Operations: None Procedures: None Summary of Care Provided: The patient is a 73 year old M presents with hypoglycemia. Patient did dose himself and probably with insulin and came in confused, uncoordinated and unable to care for himself without 24-hour care. Patient was brought in under observation on the . Patient has remained here awaiting insurance approval for the past several days and over the holiday weekend. The hope is the patient be able to be discharged on the . No other active medical issues have occurred while the patient has been here. [] Patient Problems: Active and Suspected Problems (Last Updated 09/24/18 @ 09:03 by Marisabel Ricci MD) Hypoglycemia due to insulin (Acute) Failure to thrive (Acute) - Physical Exam General: Alert, No apparent distress HEENT: Atraumatic, Normocephalic Skin: No rashes, No breakdown Vital Signs Temp Pulse Resp BP Pulse Ox 36.5 C L 78 18 163/75 H 95 09/27/18 07:04 09/27/18 07:04 09/27/18 07:04 09/27/18 07:04 09/27/18 07:05 Oxygen Flow Rate (L/min) 4 Oxygen Delivery Method Nasal Cannula Weight: 142.1 kg Body Mass Index (BMI) 43.7 Finger Stick Blood Glucose 116 Intake and Output for Last 24 Hours 09/25/18 09/26/18 09/27/18 23:59 23:59 23:59 Intake Total 440 / 440 1530 / 1530 1350 / 1350 Balance 440 / 440 1530 / 1530 1350 / 1350 POC Glucose 09/27/18 09/26/18 09/26/18 06:56 21:03 16:38 POC Glucose 189 H 286 H 260 H 09/26/18 09/26/18 12:44 06:27 POC Glucose 276 H 205 H Discharge Diet: Low fat/ Low Cholesterol, 1800 Calorie Control Diet Discharge Activity: Return to Normal Activity Home Medications: Medications to take at Discharge Furosemide [Lasix] 80 mg PO DAILY 02/18/14 Amlodipine [Norvasc] 10 mg PO DAILY #30 tab 05/08/16 atorvastatin 80 mg tablet 80 mg PO QHS 09/19/18 carvedilol 12.5 mg tablet 12.5 mg PO BID 09/19/18 guaifenesin ER 600 mg tablet, extended release 12 hr 600 mg PO Q12H 09/19/18 hydralazine 50 mg tablet 50 mg PO TID 09/19/18 montelukast 10 mg tablet 10 mg PO QPM 09/19/18 sertraline 50 mg tablet 50 mg PO .q hs tab 09/19/18 topiramate 25 mg tablet 25 mg PO BID 09/19/18 Insulin Glargine [Lantus SoloStar Pen] 12 units SC DINNER pen 09/21/18 Insulin Lispro [Humalog KwikPen] See Protocol SC ACHS insuln.pen 09/21/18 Multivitamins,Ther W-Minerals [Multivitamin With Minerals] 1 tablet PO DAILYCM tablet 09/21/18 Nystatin Powder [Mycostatin Powder] 1 applic TOPICAL BID bottle 09/21/18 Rivaroxaban [Xarelto] 15 mg PO DAILY@1700 tablet 09/21/18 Acetaminophen [Tylenol Tablet] 650 mg PO 4X/DAY tablet 09/27/18 Primary Care Physician: Gutierrez Garces DO [Primary Care Provider] - Please follow up with your Primary Care Physician in: Follow-up within 3-5 days hospital discharge and 1-2 days SNF discharge. Disposition: Custodial facility Minutes spent on discharge:: 28 Patient Condition:: Fair Medical Necessity - Tobacco Use Smoking Status: Former smoker Meaningful Use Info Meaningful Use Diagnoses (Choose all that apply): None applicable Code Visit Inpatient E&M: 64336 Disch Hosp
[2018-09-27 13:04] VITALS: BP 137/65; PULSE 79; RESP 18; TEMP 36.6; O2SAT 97
[2018-09-27 13:06] LABS: Bedside Glucose 247 mg/dL (70-110)
--- NOTE | 2018-09-27 13:18 | NURSING ---
Patient's daughter called in. Notified this RN that pt is ignoring her phone calls because she could not come in past few days. She states that she was sick and so was her son. Requested for this RN to notify pt. that she called to check on him and of reason for not visiting. patient notified of same.
--- NOTE | 2018-09-27 14:00 | CASEMGMT ---
Addendum entered by Rita Bedoya 09/27/18 15:10: REBECA placed a call to pt's PASSPORT CM Rosita Flores at [facility] and left message that pt discharged to [facility] today. REBECA Faxed discharge instructions to Rosita. Original Note: Social Work Note SW received message from Adia at [facility] stating pre-cert has been obtained and pt is able to discharge today. REBECA faxed completed discharge paperwork to [facility] including transfer to extended care facility, signed medication list and any scripts. Original in SNF folder and copy on pt's chart. REBECA spoke with RN who states pt is able to be transported via wheelchair van. REBECA placed a call to [facility] who states they don't have any wheelchair vans available. REBECA placed a call to [facility] who states they are also unable to transport pt. REBECA placed a call to pt's daughter Sofy, updated Sofy that pre-cert has been obtained and pt is able to discharge to [facility] today. REBECA asked Sofy if she is able to transport pt and Sofy states she and her son both have a cold and she is unable to transport pt. REBECA placed a call to Adia at [facility] and asked if [facility] is able to transport pt. Adia states that her transportation department head can be at [facility] around 2:15pm to transport pt. RN and secretary office clerk updated. Rema BRANDON completed PAS/RR Wednesday. Original in SNF folder and copy on pt's chart. Plan: Pt to discharge to [facility] skilled today with W transporting via wheelchair van at 2:15pm Rita Bedoya MSW, LAYUP WORKER
[2018-09-27 14:06] VITALS: PULSE 79
--- NOTE | 2018-09-27 14:30 | NURSING ---
report called to PATRICK byrne-
--- NOTE | 2018-09-28 11:28 | CASEMGMT ---
Social Work Note SW placed a call to Rod at [facility] and updated him that pt discharged to [facility] yesterday. Rita Bedoya HEAD MEN'S TENNIS COACH, DEPALLETIZER OPERATOR
== END 2018-09-27 14:30 | disposition skilled nursing facility (03) ==
LOC: ED 22:40 → MS3 23:34
PROVIDERS: Family Medicine; Hospitalist; Admitting Provider Family Medicine; Emergency Provider Emergency Medicine; Family Provider Family Medicine; PCP Family Medicine
DX: T38.3X1A Poisoning by insulin and oral hypoglycemic [antidiabetic] drugs, accidental (unintentional), initial encounter (principal); E11.649 Type 2 diabetes mellitus with hypoglycemia without coma; I50.32 Chronic diastolic (congestive) heart failure; I13.0 Hypertensive heart and chronic kidney disease with heart failure and stage 1 through stage 4 chronic kidney disease, or unspecified chronic kidney disease; N18.3 Chronic kidney disease, stage 3 (moderate); E78.5 Hyperlipidemia, unspecified; E11.22 Type 2 diabetes mellitus with diabetic chronic kidney disease; E66.01 Morbid (severe) obesity due to excess calories; I27.20 Pulmonary hypertension, unspecified; G47.33 Obstructive sleep apnea (adult) (pediatric); R62.7 Adult failure to thrive; I48.0 Paroxysmal atrial fibrillation; Z87.891 Personal history of nicotine dependence; Z79.01 Long term (current) use of anticoagulants; Z79.4 Long term (current) use of insulin; Z79.899 Other long term (current) drug therapy; Z68.41 Body mass index [BMI] 40.0-44.9, adult; Z71.3 Dietary counseling and surveillance; Z86.73 Personal history of transient ischemic attack (TIA), and cerebral infarction without residual deficits
CPT/HCPCS: 36415; 80048; 81001; 82962; 83735; 85025; 85610; 97110; 97116; 97162; 97166; 97530; 97802; 99218; 99285; A4216; G0378

== ENCOUNTER 2019-05-15 13:55 | Inpatient (IN) | payer MEDICARE, SELFPAY ==
[2019-05-04 09:25] VITALS: BMI 47.2
[2019-05-15] VITALS (14 sets, daily range): BP systolic 152–162; BP diastolic 71–89; PULSE 68–100; RESP 12–19; TEMP 36.8–37.6; O2SAT 94–98; BMI 47.3; BMI 47.7
--- NOTE | 2019-05-15 14:59 | ED.VIS.GEN ---
History of Present Illness Chief Complaint: Cellulitis Informant: Patient Onset: Days Context: Gradual Onset Timing: Continuous Narrative: Patient is a 74-year-old male with history of atrial fibrillation, on Xarelto, hypertension, obstructive sleep apnea and stroke 4 months ago presenting for leg drainage and concern for infection. Patient states he has had a watery drainage from his left lower leg for the past 2 days. He denies associated pain or fever. He is not have any symptoms on the right leg. He does for the past week he has not been sleeping well at night visibly able to lie flat. He is been wearing his CPAP machine regularly. He notes he has been feeling generally weak for the past few days. He denies anything specific just feeling unwell. He denies any new shortness of breath or dyspnea on exertion. He has a chronic cough for the past year which is unchanged. He does complain of some slight warmth and tightness of the affected leg. He states he saw his local tanker truck driver, Dr. Parker, 6 days ago who said he was looking well. Patient is on 80 mg Lasix daily and has not had any medication changes recently. He denies any fever or chills. He denies any other complaints at this time. Past Medical History - Allergies and Home Meds Allergies/Adverse Reactions: Allergies No Known Allergies Allergy (Verified 05/15/19 13:57) Past Medical History: - - Atrial fibrillation, hypertension, ANDERSON, history of stroke Surgical History: appendectomy Smoking Status: Former smoker - Family History Maternal Family History: Family History (Last Reviewed 05/15/19 @ 18:19 by LYNDON Martinez) Father Colon cancer Family History: Reports: Unknown Review of Systems General: Denies: Chills, Fever, Sweats Eyes: Denies: Visual changes - bilaterally, Diplopia ENT: Denies: Rhinorrhea, Sore throat Cardiovascular: Denies: Chest pain, Palpitations Respiratory: Denies: Dyspnea, Cough, Dyspnea on exertion Gastrointestinal: Denies: Abdominal pain, Nausea, Vomiting, Diarrhea, Melena, Hematochezia Genitourinary: Denies: Dysuria, Hematuria, Frequency Musculoskeletal: Denies: Back pain, Extremity Pain Skin: Reports: - - Left lower leg draining. Denies: Rash, Wounds Neurological: Denies: Headache, Weakness, Numbness Physical Exam Vital Signs/Narrative: Vital Signs Temp Pulse Resp BP Pulse Ox 05/15/19 13:59 98.4 F 83 16 162/89 H 98 05/15/19 13:57 98.4 F 83 16 162/89 H 98 Inital Vital Signs reviewed: Yes General: Well nourished, Well developed, No Acute Distress Head: Normocephalic, Atraumatic Eyes: Perrl, EOMI ENT: Moist mucous membranes, No rhinorrhea Neck: Supple, Nontender, No JVD Cardiovascular: Regular rate, No murmurs, Irregular Respiratory: No distress, CTA bilaterally, Chest nontender, - - No crackles appreciated Abdomen: Soft, Nontender, Nondistended, Normal bowel sounds Back: Nontender, Normal Inspection Extremities: Nontender, No edema Skin: - - Some serosanguineous drainage is present on the left lower leg as well as a 2 cm blister the anterior card, no edema or calf tenderness appreciated. Chronic skin changes bilaterally consistent with venous stasis. There is mild increased erythema of the left lower leg compared to the right but no significant warmth. Neurological: Alert, Oriented x3, Cranial nerves II-XII grossly intact, Normal Strength, Normal Sensation Psychological: Normal affect, Normal Mood Diagnostic/Tx/Re-eval Clinical Impression(s) from Imaging Studies Chest X-Ray 05/15/19 15:25 IMPRESSION: Cardiomegaly. Mild degree of CHF. Electronically Signed: Fran Krause, at 15:44 EST , Service support , Laboratory Data 05/15/19 05/15/19 05/15/19 16:23 16:23 16:23 WBC 14.4 H RBC 5.11 Hgb 13.9 Hct 44.0 MCV 86.1 MCH 27.2 MCHC 31.6 L RDW Std Deviation 45.7 H RDW Coeff of Jun 14.5 Plt Count 170 MPV 10.9 Immature Gran % (Auto) 0.300 Neut % (Auto) 88.8 H Lymph % (Auto) 5.7 L [place] % (Auto) 4.7 Eos % (Auto) 0.3 Baso % (Auto) 0.2 Absolute Neuts (auto) 12.8 H Absolute Lymphs (auto) 0.82 L Nucleated RBC % 0 Sodium 137 Potassium 3.7 Chloride 104 Carbon Dioxide 29.0 Anion Gap 4 L BUN 27 H Creatinine 1.69 H Estim Creat Clear Calc 40.20 Est GFR (MDRD) Af Amer 51 L Est GFR (MDRD) Non-Af 43 L BUN/Creatinine Ratio 16.0 Glucose 245 H Calcium 9.0 Troponin I < 0.015 B-Natriuretic Peptide 410.6 H - Medical Decision Making Patient is evaluated for worsening swelling and drainage of his left lower extremity. He appears nontoxic in no acute distress. He denies any respiratory symptoms but does note he has been sleeping well for the last week. I question if he is having some orthopnea. Patient is anticoagulated on Xarelto and has not missed any doses. Do not think a duplex is indicated at this time. Chest x-ray does show pulmonary vascular congestion and patient's proBNP is elevated. Patient's troponin is normal and his kidney function is at his baseline. She does have a mild leukocytosis but he does not appear to have a cellulitis or other acute source of bacterial infection. Will not start antibiotics at this time. As patient is already on a relatively high dose of Lasix, 80 mg daily I do think he will require admission for IV diuresing. He is agreeable with this plan. He is given 40 of IV Lasix in the emergency room. Patient stable for the PCU at time of disposition. ED Disposition - Plan for ED Patient: Disposition: [facility] Diagnosis: Venous insufficiency, Edema, lower extremity, Acute on chronic diastolic (congestive) heart failure
--- NOTE | 2019-05-15 15:25 | RAD_ITS ---
STUDY: X-RAY CHEST REASON FOR EXAM: Male, 74 years old. Lower extremity edema TECHNIQUE: AP and lateral views of the chest. COMPARISON: Comparison is made with prior study dated August 20, 2018. FINDINGS: There is evidence of vascular congestion and mild degree of CHF. There is no demonstrated pleural abnormality. There is moderate cardiac enlargement. Calcified bilateral hilar lymph nodes. Normal visualized pulmonary arteries. There is atherosclerotic tortuosity of the aortic arch and descending thoracic aorta. There are degenerative changes of the visualized thoracic spine. Normal visualized ribs, clavicles, and shoulders. There is no demonstrated abnormality of the visualized soft tissue structures of the upper abdomen. RAD/Chest PA and Lateral IMPRESSION: Cardiomegaly. Mild degree of CHF. Electronically Signed: Fran Krause, at 15:44 EST , Service support ,
[2019-05-15 16:43] LABS: Absolute Lymphocyte Count 0.82 X10^3/uL (0.83-4.51); Absolute Neutrophil Count 12.8 X10^3/uL (2.0-7.7); Basophil# 0.03 X10^3/uL; Basophil% 0.2 % (0-1); Eosinophil# 0.05 X10^3/uL; Eosinophils% 0.3 % (0-5); Hemoglobin 13.9 g/dL (13.0-16.5); Lymphocyte # 0.82 X10^3/ul (4.0); Lymphocyte % 5.7 % (19-41); Mean Corp Hgb Conc 31.6 g/dL (32-36); Mean Corpuscular Hgb 27.2 pg (27.0-32.0); Mean Corpuscular Volume 86.1 fL (80-94); Mean Platelet Vol. 10.9 fl (6.2-12.0); Monocyte# 0.68 X10^3/uL; Monocyte% 4.7 % (0-10); NRBC Flagged by Analyzer 0 % (0-5); Neutrophil # 12.76 X10^3/uL (2.7-7.7); Neutrophil % 88.8 % (47-70); Platelet Count 170 K/mm3 (150-450); RBC Distribution Width CV 14.5 % (11.6-14.6); RBC Distribution Width SD 45.7 fl (35.1-43.9); Red Blood Count 5.11 M/mm3 (4.6-6.2); White Blood Count 14.4 K/mm3 (4.4-11.0)
[2019-05-15 16:53] LABS: Anion Gap 4 (5-15); BUN 27 mg/dL (7-18); Chloride 104 mmol/L (98-107); Creatinine, Serum 1.69 mg/dL (0.70-1.30); EST Glomerular Filtration Rate 43 mL/min (>60); Est Glom Filt Rate - Afr Amer 51 mL/min (>60); Glucose 245 mg/dL (74-106); Potassium 3.7 mmol/L (3.5-5.1); Sodium Level 137 mmol/L (136-145)
[2019-05-15 17:34] LABS: BNP,B-Type NATRIURETIC PEPTIDE 410.6 pg/mL (0-100)
--- NOTE | 2019-05-15 17:50 | HP.PCM_ITS ---
History of Present Illness The patient is a 74 year old M [] Past Medical History Past Medical History (Chronic Problems): Chronic Problems (Last Reviewed 04/28/19 @ 09:01 by Jeri Sosa) Recent cerebrovascular accident (CVA) (Chronic) Ischemic stroke (Chronic 08/20/18) D/T left M2 occlusion per CTA done @ [facility] ER Tubulovillous adenoma polyp of colon (Chronic) Chronic kidney disease, stage 3 (moderate) (Chronic) Kidney stones (Chronic) History of right and left heart catheterization (Chronic ~2008) [facility] History of right heart catheterization (Chronic 05/19/13) History of cardioversion (Chronic 08/23/15) 03/23/14, 02/13/15, 08/23/2015 Stasis dermatitis (Chronic) Chronic diastolic (congestive) heart failure (Chronic) Severe concentric left ventricular hypertrophy (Chronic) Hyperlipidemia (Chronic) Hypertension (Chronic) Paroxysmal atrial fibrillation (Chronic) senior living (current) use of anticoagulants (Chronic) Moderate to severe pulmonary hypertension (Chronic) due to sleep apnea and extrisic restrictive lung disease (obesity) Obstructive sleep apnea of adult (Chronic) cpap at night Morbid obesity with body mass index of 50.0-59.9 in adult (Chronic) referrend to bariatric surgery [facility] Medical History: Medical History (Last Reviewed 04/28/19 @ 09:01 by Jeri Sosa) Ischemic stroke (Chronic) Onset Date: 08/20/18 I63.9 D/T left M2 occlusion per CTA done @ [facility] ER Tubulovillous adenoma polyp of colon (Chronic) D12.6 Chronic kidney disease, stage 3 (moderate) (Chronic) N18.3 Kidney stones (Chronic) N20.0 Stasis dermatitis (Chronic) I87.2 Chronic diastolic (congestive) heart failure (Chronic) I50.32 Hyperlipidemia (Chronic) E78.5 Hypertension (Chronic) I10 Paroxysmal atrial fibrillation (Chronic) I48.0 Moderate to severe pulmonary hypertension (Chronic) I27.2 due to sleep apnea and extrisic restrictive lung disease (obesity) Obstructive sleep apnea of adult (Chronic) G47.33 cpap at night Morbid obesity with body mass index of 50.0-59.9 in adult (Chronic) E66.01, Z68.43 referrend to bariatric surgery [facility] Allergies No Known Allergies Allergy (Verified 05/15/19 13:57) Home Medications: Ambulatory Orders Medication Instructions Recorded Furosemide [Lasix] 80 mg PO DAILY 02/18/14 Amlodipine [Norvasc] 10 mg PO DAILY #30 tab 05/08/16 atorvastatin 80 mg tablet 80 mg PO QHS 09/19/18 carvedilol 12.5 mg tablet 12.5 mg PO BID 09/19/18 hydralazine 50 mg tablet 50 mg PO TID 09/19/18 Rivaroxaban [Xarelto] 15 mg PO DAILY@1700 tab 09/21/18 mirabegron 25 mg tablet,extended 25 mg PO DAILY 10/31/18 release 24 hr aspirin 325 mg tablet 325 mg PO DAILY 05/04/19 insulin glargine 100 unit/mL (3 30 unit SC .q hs ml 05/04/19 mL) subcutaneous pen Surgical History: Surgical History (Last Reviewed 04/28/19 @ 09:01 by Jeri Sosa) History of cardioversion (Chronic) Onset Date: 08/23/15 Z98.890 03/23/14, 02/13/15, 08/23/2015 Surgical History: appendectomy Psychiatric History: No pertinent psych hx Smoking Status: Former smoker - *Family History Maternal Family History: Family History (Last Reviewed 04/28/19 @ 09:01 by Jeri Sosa) Father Colon cancer History Items: Unknown - Physical Exam Vitals/I&O's: Vital Signs Temp Pulse Resp BP Pulse Ox 99.3 F H 84 16 152/71 H 95 05/15/19 17:00 05/15/19 17:00 05/15/19 17:00 05/15/19 17:00 05/15/19 17:00 Oxygen Delivery Method Room Air Weight: 330 lb Body Mass Index (BMI) 47.3 Finger Stick Blood Glucose 116 Laboratory Results 05/15/19 16:23: WBC 14.4 H, RBC 5.11, Hgb 13.9, Hct 44.0, MCV 86.1, MCH 27.2, MCHC 31.6 L, RDW Std Deviation 45.7 H, RDW Coeff of Jun 14.5, Plt Count 170, MPV 10.9, Immature Gran % (Auto) 0.300, Neut % (Auto) 88.8 H, Lymph % (Auto) 5.7 L, [place] % (Auto) 4.7, Eos % (Auto) 0.3, Baso % (Auto) 0.2, Absolute Neuts (auto) 12.8 H, Absolute Lymphs (auto) 0.82 L, Nucleated RBC % 0 05/15/19 16:23: Sodium 137, Potassium 3.7, Chloride 104, Carbon Dioxide 29.0, Anion Gap 4 L, BUN 27 H, Creatinine 1.69 H, Estim Creat Clear Calc 40.20, Est GFR (MDRD) Af Amer 51 L, Est GFR (MDRD) Non-Af 43 L, BUN/Creatinine Ratio 16.0, Glucose 245 H, Calcium 9.0, Troponin I < 0.015 05/15/19 16:23: B-Natriuretic Peptide 410.6 H Assessment/Plan All Active Problems (Last Reviewed 04/28/19 @ 09:01 by Jeri Sosa) Hypoglycemia due to insulin (Acute) Failure to thrive (Acute)
[2019-05-15] MEDS: Furosemide 40 MG/4 ML Vial IV (18:05)
--- NOTE | 2019-05-15 18:14 | PCM.HP.STD ---
<León Rasmussen - Last Filed: 05/15/19 18:14> Problem List (1) Venous insufficiency Status: Acute (2) Ischemic stroke Status: Chronic Comment: D/T left M2 occlusion per CTA done @ [facility] ER (3) Chronic kidney disease, stage 3 (moderate) Status: Chronic (4) Stasis dermatitis Status: Chronic Qualifiers: Laterality: bilateral Qualified Code(s): I87.2 - Venous insufficiency (chronic) (peripheral) (5) Chronic diastolic (congestive) heart failure Status: Chronic (6) Hyperlipidemia Status: Chronic Qualifiers: Hyperlipidemia type: pure hypercholesterolemia Qualified Code(s): E78.00 - Pure hypercholesterolemia, unspecified; E78.0 - Pure hypercholesterolemia (7) Hypertension Status: Chronic Qualifiers: Hypertension type: essential hypertension Qualified Code(s): I10 - Essential (primary) hypertension (8) Paroxysmal atrial fibrillation Status: Chronic (9) Moderate to severe pulmonary hypertension Status: Chronic Comment: due to sleep apnea and extrisic restrictive lung disease (obesity) (10) Obstructive sleep apnea of adult Status: Chronic Comment: cpap at night (11) Morbid obesity with body mass index of 50.0-59.9 in adult Status: Chronic Comment: referrend to bariatric surgery [facility] History of Present Illness Date of Admission: 05/15/19 Chief Complaint: LLE edema The patient is a 74 year old M with pmhx of diastolic CHF, pulmonary HTN, pAfib, stasis dermatitis, CKDIII, HTN, HLD, CVA, ANDERSON who presetned to the ER after being advised to come in by his doctor for LLE swelling. He chronically has LE edema, however his left leg has become worse over the past two days and he has noticed that clear fluid is leaking out of his distal left leg. There is no new erythema or warmth. He feels that his right leg is actually much less swollen than it usually is. He takes lasix daily and reports good compliance. He has no hx DVT and also is on xarelto for afib. He states he saw Dr. Rees last week and did not have this issue and was told he was doing well at that time. He denies any SOB, new cough, abdominal distention, or scrotal swelling. He denies orthopnea and dyspnea. He sleeps laying flat in bed with his CPAP nightly. He has no chest pain, palp, or LH/dizziness. He feels that he is doing well otherwise than the new swelling and drainage from his LLE. [] Past Medical History Past Medical History (Chronic Problems): Chronic Problems (Last Reviewed 04/28/19 @ 09:01 by Jeri Sosa) Recent cerebrovascular accident (CVA) (Chronic) Ischemic stroke (Chronic 08/20/18) D/T left M2 occlusion per CTA done @ [facility] ER Tubulovillous adenoma polyp of colon (Chronic) Chronic kidney disease, stage 3 (moderate) (Chronic) Kidney stones (Chronic) History of right and left heart catheterization (Chronic ~2008) [facility] History of right heart catheterization (Chronic 05/19/13) History of cardioversion (Chronic 08/23/15) 03/23/14, 02/13/15, 08/23/2015 Stasis dermatitis (Chronic) Chronic diastolic (congestive) heart failure (Chronic) Severe concentric left ventricular hypertrophy (Chronic) Hyperlipidemia (Chronic) Hypertension (Chronic) Paroxysmal atrial fibrillation (Chronic) [facility] (current) use of anticoagulants (Chronic) Moderate to severe pulmonary hypertension (Chronic) due to sleep apnea and extrisic restrictive lung disease (obesity) Obstructive sleep apnea of adult (Chronic) cpap at night Morbid obesity with body mass index of 50.0-59.9 in adult (Chronic) referrend to bariatric surgery [facility] Medical History: Medical History (Last Reviewed 04/28/19 @ 09:01 by Jeri Sosa) Ischemic stroke (Chronic) Onset Date: 08/20/18 I63.9 D/T left M2 occlusion per CTA done @ [facility] ER Tubulovillous adenoma polyp of colon (Chronic) D12.6 Chronic kidney disease, stage 3 (moderate) (Chronic) N18.3 Kidney stones (Chronic) N20.0 Stasis dermatitis (Chronic) I87.2 Chronic diastolic (congestive) heart failure (Chronic) I50.32 Hyperlipidemia (Chronic) E78.5 Hypertension (Chronic) I10 Paroxysmal atrial fibrillation (Chronic) I48.0 Moderate to severe pulmonary hypertension (Chronic) I27.2 due to sleep apnea and extrisic restrictive lung disease (obesity) Obstructive sleep apnea of adult (Chronic) G47.33 cpap at night Morbid obesity with body mass index of 50.0-59.9 in adult (Chronic) E66.01, Z68.43 referrend to bariatric surgery [facility] Allergies No Known Allergies Allergy (Verified 05/15/19 13:57) Home Medications: Ambulatory Orders Medication Instructions Recorded Furosemide [Lasix] 80 mg PO DAILY 02/18/14 atorvastatin 80 mg tablet 80 mg PO QHS 09/19/18 carvedilol 12.5 mg tablet 12.5 mg PO BID 09/19/18 hydralazine 50 mg tablet 50 mg PO TID 09/19/18 mirabegron 25 mg tablet,extended 25 mg PO DAILY 10/31/18 release 24 hr aspirin 325 mg tablet 325 mg PO DAILY 05/04/19 Amlodipine [Norvasc] 10 mg PO DAILY 05/15/19 Insulin Glargine,Hum.rec.anlog 30 unit SQ DAILY 05/15/19 [Basaglar Kwikpen U-100] Rivaroxaban [Xarelto] 15 mg PO DAILY@1700 05/15/19 Surgical History: Surgical History (Last Reviewed 04/28/19 @ 09:01 by Jeri Sosa) History of cardioversion (Chronic) Onset Date: 08/23/15 Z98.890 03/23/14, 02/13/15, 08/23/2015 Surgical History: appendectomy Psychiatric History: No pertinent psych hx Lives: Alone Smoking Status: Former smoker Tobacco Use: Non-smoker Alcohol: None Drugs: None - *Family History Maternal Family History: Family History (Last Reviewed 05/15/19 @ 18:19 by LYNDON Martinez) Father Colon cancer History Items: Unknown Review of Systems Constitutional: Denies: Chills, Fever, Weight Change, Fatigue HEENT: Denies: Head Aches, Sinus Congestion, Sinus Drainage Cardiovascular: Denies: Chest Pain, Chest Pressure, Chest Tightness, Edema, Heaviness, Light Headedness, Orthopnea, Palpitations, Paroxysmal Noc. Dyspnea, Syncope Respiratory: Denies: Cough, Shortness of Breath, Shortness of breath at rest, Shortness of breath upon exertion, Sputum production, Wheezing Gastrointestinal: Denies: Abdominal Pain, Diarrhea, Nausea, Vomiting Genitourinary: Denies: Dysuria, Frequency, Hematuria Musculoskeletal: Denies: Joint Pain, Joint Tenderness, Muscle pain Skin: Reports: Skin Changes. Denies: Rash, Wounds Neurological: Denies: Slurred speech, Confusion, Focal weakness, Numbness, Tingling Psychiatric: Denies: Anxiety, Depression, Homicidal Ideations, Suicidal Ideations Hematologic/ Lymphatic: Denies: Easy Bruising, Easy Bleeding VTE Information - Inpt Only VTE Present on Admission: No VTE Mechan Device Prophylaxis: None VTE Pharm Prophylaxis ordered?: Yes Patient Problems: Active and Suspected Problems (Last Reviewed 04/28/19 @ 09:01 by Jeri Sosa) Venous insufficiency (Acute) - Physical Exam Vitals/I&O's: Vital Signs Temp Pulse Resp BP Pulse Ox 99.3 F H 84 16 152/71 H 95 05/15/19 18:00 05/15/19 17:00 05/15/19 17:00 05/15/19 17:00 05/15/19 17:00 Oxygen Delivery Method Room Air Weight: 330 lb Body Mass Index (BMI) 47.3 Finger Stick Blood Glucose 116 General: Alert, Oriented x3, Cooperative HEENT: Atraumatic, PERRLA, EOMI, Normocephalic Neck: Supple, No JVD, Negative Carotid Bruits Lungs: Clear to auscultation, Normal air movement Cardiovascular: Regular rate, No murmurs Abdomen: Bowel Sounds Present, Soft, Non Tender Extremities: Capillary Refill Less than 3 Seconds, Edema - 2-3+ pitting edema LLE, 2+ RLE pitting edema at the ankle. anterior distal leg with one bullae negative nickolsky sign, some serous drainage on palpation anterior and posteriorly. No open wounds. No erythema/warmth. Skin: No rashes, No breakdown, - - chronic venous stasis BLE Musculoskeletal: No Tenderness to Palpation of Joints or Extremities Neurological: Cranial nerves II-XII grossly intact Psych/Mental Status: Normal Affect, Appropriate, Alert and oriented to time, place, person, mood and affect Laboratory Results 05/15/19 16:23: WBC 14.4 H, RBC 5.11, Hgb 13.9, Hct 44.0, MCV 86.1, MCH 27.2, MCHC 31.6 L, RDW Std Deviation 45.7 H, RDW Coeff of Jun 14.5, Plt Count 170, MPV 10.9, Immature Gran % (Auto) 0.300, Neut % (Auto) 88.8 H, Lymph % (Auto) 5.7 L, [place] % (Auto) 4.7, Eos % (Auto) 0.3, Baso % (Auto) 0.2, Absolute Neuts (auto) 12.8 H, Absolute Lymphs (auto) 0.82 L, Nucleated RBC % 0 05/15/19 16:23: Sodium 137, Potassium 3.7, Chloride 104, Carbon Dioxide 29.0, Anion Gap 4 L, BUN 27 H, Creatinine 1.69 H, Estim Creat Clear Calc 40.20, Est GFR (MDRD) Af Amer 51 L, Est GFR (MDRD) Non-Af 43 L, BUN/Creatinine Ratio 16.0, Glucose 245 H, Calcium 9.0, Troponin I < 0.015 05/15/19 16:23: B-Natriuretic Peptide 410.6 H Assessment/Plan All Active Problems (Last Reviewed 04/28/19 @ 09:01 by Jrei Sosa) Venous insufficiency (Acute) Hypoglycemia due to insulin (Acute) Failure to thrive (Acute) 1. LLE edema, increased serous drainage - likely 2/2 severe stasis dermatitis/venous insufficiency complicated by pulmonary HTN and chronic diastolic CHF. No SOB, hypoxia, abdominal or scrotal swelling. Elevated BNP. Will start IV lasix, add lucio wraps, wound consult, low sodium diet with fluid restriction, trend I/O/weights. Pt would benefit from referral to the wound care center as an outpatient as this appears chronic in nature. -unlikely to have VTE as he is on xarelto. 2. pAfib - rate stable. continue coreg/xarelto. 3. Hx ischemic CVA, L MCA - no residual focal weakness. States only longterm side effect is that his mental processing has somewhat slowed. xarelto, statin, aspirin 4. DMt2 with morbid obesity - continue home insulin, + SSI. Dietary eval. 5. CKDIII - appears to be at baseline. Trend with IV lasix. 6. HTN - stable. consider using an alternative to amlodipine with his venous stasis issues. 7. HLD - on statin 8. ANDERSON - continue qhs CPAP DVT ppx: xarelto DC planning: pt lives alone and is ambulatory and independent. likely home with wound care center referral. This patient was seen by León Rasmussen PA-C under the supervision of Dr. José. <Soheila José - Last Filed: 05/15/19 19:45> History of Present Illness The patient is a 74 year old M [] Past Medical History Medical History: Medical History (Last Reviewed 04/28/19 @ 09:01 by Jeri Sosa) Ischemic stroke (Chronic) Onset Date: 08/20/18 I63.9 D/T left M2 occlusion per CTA done @ [facility] ER Tubulovillous adenoma polyp of colon (Chronic) D12.6 Chronic kidney disease, stage 3 (moderate) (Chronic) N18.3 Kidney stones (Chronic) N20.0 Stasis dermatitis (Chronic) I87.2 Chronic diastolic (congestive) heart failure (Chronic) I50.32 Hyperlipidemia (Chronic) E78.5 Hypertension (Chronic) I10 Paroxysmal atrial fibrillation (Chronic) I48.0 Moderate to severe pulmonary hypertension (Chronic) I27.2 due to sleep apnea and extrisic restrictive lung disease (obesity) Obstructive sleep apnea of adult (Chronic) G47.33 cpap at night Morbid obesity with body mass index of 50.0-59.9 in adult (Chronic) E66.01, Z68.43 referrend to bariatric surgery [facility] Allergies No Known Allergies Allergy (Verified 05/15/19 13:57) Surgical History: Surgical History (Last Reviewed 04/28/19 @ 09:01 by Jeri Sosa) History of cardioversion (Chronic) Onset Date: 08/23/15 Z98.890 03/23/14, 02/13/15, 08/23/2015 - *Family History Maternal Family History: Family History (Last Reviewed 05/15/19 @ 18:19 by LYNDON Martinez) Father Colon cancer - Physical Exam Vitals/I&O's: Vital Signs Temp Pulse Resp BP Pulse Ox 98.2 F 91 18 153/76 H 96 05/15/19 18:43 05/15/19 18:43 05/15/19 18:43 05/15/19 18:43 05/15/19 18:43 Oxygen Delivery Method Room Air Weight: 332 lb 7.313 oz Body Mass Index (BMI) 47.7 Finger Stick Blood Glucose 116 Laboratory Results 05/15/19 16:23: WBC 14.4 H, RBC 5.11, Hgb 13.9, Hct 44.0, MCV 86.1, MCH 27.2, MCHC 31.6 L, RDW Std Deviation 45.7 H, RDW Coeff of Jun 14.5, Plt Count 170, MPV 10.9, Immature Gran % (Auto) 0.300, Neut % (Auto) 88.8 H, Lymph % (Auto) 5.7 L, [place] % (Auto) 4.7, Eos % (Auto) 0.3, Baso % (Auto) 0.2, Absolute Neuts (auto) 12.8 H, Absolute Lymphs (auto) 0.82 L, Nucleated RBC % 0 05/15/19 16:23: Sodium 137, Potassium 3.7, Chloride 104, Carbon Dioxide 29.0, Anion Gap 4 L, BUN 27 H, Creatinine 1.69 H, Estim Creat Clear Calc 40.20, Est GFR (MDRD) Af Amer 51 L, Est GFR (MDRD) Non-Af 43 L, BUN/Creatinine Ratio 16.0, Glucose 245 H, Calcium 9.0, Troponin I < 0.015 05/15/19 16:23: B-Natriuretic Peptide 410.6 H Current Medications Acetaminophen (Tylenol) 650 mg PO Q6H PRN PRN PRN Reason: Pain 1-1010 or Fever Amlodipine Besylate (Norvasc) 10 mg PO DAILY [facility] Aspirin (Aspirin) 325 mg PO DAILYCM [facility] Atorvastatin Calcium (Lipitor) 80 mg PO QHS [facility] Carvedilol (Coreg) 12.5 mg PO BID [facility] Dextrose (D50w Syringe) 0 gm IV X1 PRN; Protocol PRN Reason: Hypoglycemia Furosemide (Lasix) 40 mg IV BID@1000,1800 [facility] Glucagon () 1 mg IM .X1 PRN PRN Reason: Hypoglycemia Hydralazine HCl (Apresoline) 50 mg PO TID [facility] Sodium Chloride () 500 mls @ 15 mls/hr IV PRN PRN PRN Reason: Blood Transfusion Sodium Chloride () 250 mls @ 15 mls/hr IV .[id number] PRN PRN Reason: Saline Flush Sodium Chloride () 250 mls @ 15 mls/hr IV .[id number] PRN PRN Reason: Additional IVPB Infusion Insulin Glargine (Lantus ([facility])) 26 units SC DAILY [facility] Insulin Human Lispro (Humalog Kwikpen ([facility])) 0 unit SC ACHS [facility]; Protocol Mirabegron (Myrbetriq) 25 mg PO DAILY [facility] Ondansetron HCl (Zofran) 4 mg PO Q6H PRN PRN PRN Reason: NAUSEA Rivaroxaban (Xarelto) 15 mg PO DAILY@1700 [facility] Sodium Chloride () 10 - 40 ml IV UD PRN PRN Reason: SALINE FLUSH Assessment/Plan Patient was seen by León Rasmussen PA-C under my supervision Patient is a 74-year-old who was admitted through the ED on 05/15/2019 with a complaint of left lower leg edema. Patient states his left lower extremity was leaking fluid. He has lower extremity edema but his left leg is gradually gotten bigger over the last 2 days he noticed clear fluid seeping out of the distal part of his leg. He had no assisted fever or chills or redness or warmth or pain of the left lower extremity. He has been compliant with his Lasix. He is on Xarelto for A. fib and also has a history of DVT. He denies any orthopnea or PND and denies any shortness of breath. Seen in the ED, vitals were significant for mildly elevated BP of 153/76. Creatinine was 1.69 which is his baseline and BNP was slightly elevated at 410. Initial troponin was negative. CBC showed white cell count of 14.4. Chest x-ray showed cardiomegaly with mild degree of CHF. He has been admitted to manage for CHF exacerbation. o/e: Vital Signs Height 5 ft 10 in Weight: 332 lb 7.313 oz Weight in Pounds 332.5 lbs Pulse Ox 96 Temperature 98.2 F Pulse Rate 100 Respiratory Rate 18 Blood Pressure 153/76 Blood Pressure Position Semi-Fowlers General: Alert, Oriented x3, Cooperative HEENT: Atraumatic, PERRLA, EOMI, Normocephalic Neck: Supple, No JVD, Negative Carotid Bruits Lungs: Clear to auscultation, Normal air movement Cardiovascular: Regular rate, No murmurs, normal S1 and S2 Abdomen: Bowel Sounds Present, Soft, Non Tender Extremities: Capillary Refill Less than 3 Seconds, Edema -3+ pitting bipedal edema; bullae on anterior card, with mild serous drainage. Discoloration of LE due to chronic stasis dermatitis. Skin: No rashes, No breakdown, - - chronic venous stasis BLE Musculoskeletal: No Tenderness to Palpation of Joints or Extremities Neurological: Cranial nerves II-XII grossly intact Psych/Mental Status: Normal Affect, Appropriate, Alert and oriented to time, place, person, mood and affect Plan is to admit and manage for acute on chronic HFpEF. Patient on PO lasix 80mg daily; Will give IV lasix 40mg bid. Apply LUCIO wraps to LE. Monitor intake and output strictly, and restrict fluid to 1500cc daily. EF from echo in August 2018 showed EF of 65%. Will check echo. Code status: full code Patient counseled extensively about different types of CODE STATUS including full code, DNR CCA and DNR CCA. Patient elects to be full code. Total [id number] time 16 minutes. Rest of management as per León Rasmussen PA-C's note, which I have reviewed and endorsed. Code Visit Inpatient E&M: 70887 Init Hosp L3 Procedures: 81088 Advncd Care Plan 30 Min
[2019-05-15] MEDS: hydrALAZINE 50 MG Tablet PO (22:30)
[2019-05-15] MEDS: Atorvastatin Calcium 80 MG Tablet PO (22:30)
[2019-05-15] MEDS: Carvedilol 12.5 MG Tablet PO (22:30)
[2019-05-15] MEDS: Insulin Lispro 100 UNIT/ML INSULN.PEN SC (22:34)
[2019-05-15 22:36] LABS: Bedside Glucose 249 mg/dL (70-110)
[2019-05-16] VITALS (9 sets, daily range): BP systolic 124–140; BP diastolic 70–76; PULSE 36–68; RESP 12–20; TEMP 36.7–37.1; O2SAT 95–98
[2019-05-16] MEDS: hydrALAZINE 50 MG Tablet PO (05:45)
[2019-05-16 06:06] LABS: Absolute Lymphocyte Count 1.35 X10^3/uL (0.83-4.51); Absolute Neutrophil Count 6.2 X10^3/uL (2.0-7.7); Basophil# 0.04 X10^3/uL; Basophil% 0.5 % (0-1); Eosinophil# 0.04 X10^3/uL; Eosinophils% 0.5 % (0-5); Hemoglobin 12.7 g/dL (13.0-16.5); Lymphocyte # 1.35 X10^3/ul (4.0); Lymphocyte % 16.2 % (19-41); Mean Corp Hgb Conc 32.6 g/dL (32-36); Mean Corpuscular Hgb 28.2 pg (27.0-32.0); Mean Corpuscular Volume 86.7 fL (80-94); Mean Platelet Vol. 10.8 fl (6.2-12.0); Monocyte# 0.68 X10^3/uL; Monocyte% 8.1 % (0-10); NRBC Flagged by Analyzer 0 % (0-5); Neutrophil # 6.21 X10^3/uL (2.7-7.7); Neutrophil % 74.3 % (47-70); Platelet Count 157 K/mm3 (150-450); RBC Distribution Width CV 14.4 % (11.6-14.6); RBC Distribution Width SD 45.4 fl (35.1-43.9); White Blood Count 8.4 K/mm3 (4.4-11.0)
[2019-05-16 06:29] LABS: Anion Gap 4 (5-15); BUN 28 mg/dL (7-18); BUN/Creat Ratio 15.8 RATIO (10-20); Calcium,Total 8.4 mg/dL (8.5-10.1); Chloride 106 mmol/L (98-107); Creatinine, Serum 1.77 mg/dL (0.70-1.30); EST Glomerular Filtration Rate 40 mL/min (>60); Est Glom Filt Rate - Afr Amer 49 mL/min (>60); Estimated Creatinine Clearance 38.38 ml/min; Glucose 228 mg/dL (74-106); Potassium 3.4 mmol/L (3.5-5.1); Sodium Level 138 mmol/L (136-145)
[2019-05-16] MEDS: Insulin Lispro 100 UNIT/ML INSULN.PEN SC ×2 (06:40→11:07)
[2019-05-16 06:46] LABS: Bedside Glucose 224 mg/dL (70-110)
[2019-05-16] MEDS: Aspirin 325 MG Tablet PO (08:21)
[2019-05-16] MEDS: Furosemide 40 MG/4 ML Vial IV (08:22)
[2019-05-16] MEDS: 0.9% Saline Lock 10 ML Syringe IV (08:23)
[2019-05-16] MEDS: amLODIPine 10 MG Tablet PO (08:23)
[2019-05-16] MEDS: Mirabegron 25 MG TAB.ER.24H PO (08:23)
--- NOTE | 2019-05-16 10:10 | CON.PCM_ITS ---
<Hermilo Herrera - Last Filed: 05/16/19 10:10> Problem List (1) Edema, lower extremity Status: Acute (2) Paroxysmal atrial fibrillation Status: Chronic Reason for Consult Date of Consultation: 05/16/19 Reason for Consultation: Paroxysmal atrial fibrillation, pause History of Present Illness: The patient is a 74 year old M who presented [facility] Emergency Department on 05/15/2019 for lower extremity drainage. He has a past medical history of paroxysmal atrial fibrillation, hypertension, obesity, chronic kidney disease, hyperlipidemia, obstructive of sleep apnea, CVA in August 2018, and pulmonary hypertension. There was concern as lower extremity may related to fluid volume overload. He underwent a chest x-ray and laboratory evaluation with a BNP. His chest x-ray revealed pulmonary congestion in his BNP was elevated at 410. It was recommend that he be admitted for further evaluation and diuresis. On 05/16/2019 at approximately 7:20 AM it was noted to have a 2.2-second pause. At that time, patient was sitting in his chair. He was asymptomatic. Cardiology was consulted for further input. Past Medical History Allergies/Adverse Reactions: Allergies No Known Allergies Allergy (Verified 05/15/19 13:57) Home Medications: Ambulatory Orders Medication Instructions Recorded atorvastatin 80 mg tablet 80 mg PO QHS 09/19/18 carvedilol 12.5 mg tablet 12.5 mg PO BID 09/19/18 hydralazine 50 mg tablet 50 mg PO TID 09/19/18 mirabegron 25 mg tablet,extended 25 mg PO DAILY 10/31/18 release 24 hr aspirin 325 mg tablet 325 mg PO DAILY 05/04/19 Amlodipine [Norvasc] 10 mg PO DAILY 05/15/19 Insulin Glargine,Hum.rec.anlog 30 unit SQ DAILY 05/15/19 [Basaglar Kwikpen U-100] Rivaroxaban [Xarelto] 15 mg PO DAILY@1700 05/15/19 Furosemide [Lasix] 80 mg PO BID #60 tab 05/16/19 Past Medical History (Chronic Problems): Chronic Problems (Last Reviewed 04/28/19 @ 09:01 by Jeri Sosa) Acute on chronic diastolic (congestive) heart failure (Chronic) Recent cerebrovascular accident (CVA) (Chronic) Ischemic stroke (Chronic 08/20/18) D/T left M2 occlusion per CTA done @ [facility] ER Tubulovillous adenoma polyp of colon (Chronic) Chronic kidney disease, stage 3 (moderate) (Chronic) Kidney stones (Chronic) History of right and left heart catheterization (Chronic ~2008) [place] Nguyễn History of right heart catheterization (Chronic 05/19/13) History of cardioversion (Chronic 08/23/15) 03/23/14, 02/13/15, 08/23/2015 Stasis dermatitis (Chronic) Chronic diastolic (congestive) heart failure (Chronic) Severe concentric left ventricular hypertrophy (Chronic) Hyperlipidemia (Chronic) Hypertension (Chronic) Paroxysmal atrial fibrillation (Chronic) penitentiary (current) use of anticoagulants (Chronic) Moderate to severe pulmonary hypertension (Chronic) due to sleep apnea and extrisic restrictive lung disease (obesity) Obstructive sleep apnea of adult (Chronic) cpap at night Morbid obesity with body mass index of 50.0-59.9 in adult (Chronic) referrend to bariatric surgery [facility] Surgical History: appendectomy Psychiatric History: No pertinent psych hx - *Family History Maternal Family History: Family History (Last Reviewed 05/15/19 @ 18:19 by LYNDON Martinez) Father Colon cancer History Items: Unknown Lives: Alone Smoking Status: Former smoker Tobacco Use: Non-smoker Alcohol: None Drugs: None Review of Systems - Review of Systems General: Denies: Fever, Fatigue, Malaise, Chills HEENT: Denies: Vision Change Cardiovascular: Reports: Peripheral Edema. Denies: Chest Discomfort, Chest Discomfort at Rest, Chest Discomfort with Exertion, Chest Pressure, Chest Tightness, Chest Heaviness, Shortness of Breath, Shortness of Breath at Rest, Shortness of Breath with Exertion, Orthopnea, PND, Palpitations, Lightheadedness, Dizziness, Near Syncope, Syncope, Orthostatic Symptoms, C laudication Respiratory: Denies: Cough Muscoloskeletal: Denies: Myalgias Neurological: Denies: Dizziness Subjectve: Patient seen and evaluated. He acknowledges feeling well. During episode of pause noted on telemetry, patient was asymptomatic. Does acknowledge improvement of lower extremity edema this morning. He denies any ongoing shortness of breath with activity or at rest. He denies any episodes of chest pain. Objective: Vital Signs Temp Pulse Resp BP Pulse Ox 98.7 F 36 L 20 H 137/73 H 95 05/16/19 05:40 05/16/19 07:20 05/16/19 05:40 05/16/19 05:45 05/16/19 05:40 Oxygen Delivery Method Room Air Weight: 332 lb 14.368 oz Body Mass Index (BMI) 47.7 Finger Stick Blood Glucose 116 Intake and Output for Last 24 Hours 05/14/19 05/15/19 05/16/19 23:59 23:59 23:59 Intake Total 300 / 300 100 / 100 Output Total 500 / 500 450 / 450 Balance -200 / -200 -350 / -350 General: Healthy Appearing, Awake, Alert, Oriented x 3, Cooperative HEENT: Atraumatic Oral: Moist Mucosa Neck: Supple, No JVD Lungs: Clear to auscultation Cardiovascular: Irregular Rhythm, Normal S1, Normal S2, No Murmurs, No Rubs, No Gallops Vascular: No Carotid Bruits Extremities: No Cyanosis, No Clubbing, Normal Capillary Refill, Mild LLE Edema Musculoskeletal: No Erythema, No Warmth Skin: No Rashes Neurological: No Focal Motor or Sensory Deficit Psych/Mental Status: Appropriate, Normal Affect 05/15/19 16:23: WBC 14.4 H, RBC 5.11, Hgb 13.9, Hct 44.0, MCV 86.1, MCH 27.2, MCHC 31.6 L, Plt Count 170, MPV 10.9, Immature Gran % (Auto) 0.300, Neut % (Auto) 88.8 H, Lymph % (Auto) 5.7 L, Duval % (Auto) 4.7, Eos % (Auto) 0.3, Baso % (Auto) 0.2, Absolute Neuts (auto) 12.8 H, Nucleated RBC % 0 05/15/19 16:23: Sodium 137, Potassium 3.7, Chloride 104, Carbon Dioxide 29.0, Anion Gap 4 L, BUN 27 H, Creatinine 1.69 H, Est GFR (MDRD) Af Amer 51 L, Est GFR (MDRD) Non-Af 43 L, BUN/Creatinine Ratio 16.0, Glucose 245 H, Calcium 9.0, Troponin I < 0.015 05/15/19 16:23: B-Natriuretic Peptide 410.6 H 05/16/19 05:45: WBC 8.4, RBC 4.50 L, Hgb 12.7 L, Hct 39.0 L, MCV 86.7, MCH 28.2, MCHC 32.6, Plt Count 157, MPV 10.8, Immature Gran % (Auto) 0.400, Neut % (Auto) 74.3 H, Lymph % (Auto) 16.2 L, Duval % (Auto) 8.1, Eos % (Auto) 0.5, Baso % (Auto) 0.5, Absolute Neuts (auto) 6.2, Nucleated RBC % 0 05/16/19 05:45: Sodium 138, Potassium 3.4 L, Chloride 106, Carbon Dioxide 28.0, Anion Gap 4 L, BUN 28 H, Creatinine 1.77 H, Est GFR (MDRD) Af Amer 49 L, Est GFR (MDRD) Non-Af 40 L, BUN/Creatinine Ratio 15.8, Glucose 228 H, Calcium 8.4 L Rhythm: EKG: ECHO: 08/22/2017 Inclusions: ?Take difficult exam due to body habitus and suboptimal positioning ?Exam dictation: Stroke ?The left ventricle is normal in size. There is moderate concentric left ventricle hypertrophy. Left ventricular systolic function is normal. EF equals 65 ?5% (visual estimate). Definitive contrast used for endocardial border detection. Indeterminate left ventricular diastolic function due to atrial fibrillation. ?The left atrial cavity is severely dilated. ?There are no significant valvular abnormalities. ?There is no patent devi ovale as detected by Doppler and agitated saline contrast. ?The patient has not had a prior CT echocardiographic exam for comparison. Stress Test: 04/24/2013 Normal submaximal treadmill echocardiogram. Negative for ischemia by ECG and echocardiographic criteria. Cardiac Cath: PCI: CT Surgery: Holter monitor: EPS: PPM: CXR: Chest CT Scan: Assessment/Plan 1. Paroxysmal atrial fibrillation Patient has longstanding history of atrial fibrillation with cardioversions previously. His troponin in the emergency department was negative. At approximately 7:20 AM, he was noted to have a 2.2-second pause. This occurred at rest. Patient was asymptomatic. He denies any precipitating factors such as bowel movement or coughing. His home regimen included carvedilol 12.5 mg p.o. twice daily and Xarelto 15 mg p.o. daily. Patient has not tolerated tachycardia previously. Thus, at this time he will continue with current beta-mary. We will follow on outpatient basis. 2. Congestive heart failure. His last echocardiogram in August 2018 showed a preserved ejection fraction of 60% and indeterminate diastolic dysfunction. Patient did present with symptoms consistent with fluid volume overload with elevated BNP and chest x-ray revealing pulmonary congestion. He does have significant right sided heart failure, previously. Patient does acknowledge excessive liquid intake upwards to 2 gallons a day. At this time, he will continue outpatient p.o. Lasix of 80 mg p.o. daily. This will be adjusted based on response and symptoms. 3. Hypertension Patient's blood pressure is well-controlled. We will continue to monitor. We will not make any medication regimen changes. 4. Hyperlipidemia He will continue current statin medication. He will continue with outpatient laboratory evaluation. Patient's case was discussed further with Dr. Rees, who will also personally evaluate patient. Thank you for allowing us to participate in the patients plan of care, if you have any questions please do not hesitate to call. This note was generated using a voice recognition system and there may be incorrect words, spelling or punctuation that were not noted when reviewing the office note prior to saving. <Mehdi Rees - Last Filed: 05/16/19 11:16> Problem List (1) Edema, lower extremity Status: Acute (2) Acute on chronic diastolic (congestive) heart failure Status: Chronic (3) Ischemic stroke Status: Chronic Comment: D/T left M2 occlusion per CTA done @ [facility] ER (4) History of right and left heart catheterization Status: Chronic Comment: SPENCER Nguyễn (5) History of right heart catheterization Status: Chronic (6) Chronic diastolic (congestive) heart failure Status: Chronic (7) Severe concentric left ventricular hypertrophy Status: Chronic (8) Hyperlipidemia Status: Chronic Qualifiers: Hyperlipidemia type: pure hypercholesterolemia Qualified Code(s): E78.00 - Pure hypercholesterolemia, unspecified; E78.0 - Pure hypercholesterolemia (9) Hypertension Status: Chronic Qualifiers: Hypertension type: essential hypertension Qualified Code(s): I10 - Essential (primary) hypertension (10) Paroxysmal atrial fibrillation Status: Chronic (11) Moderate to severe pulmonary hypertension Status: Chronic Comment: due to sleep apnea and extrisic restrictive lung disease (obesity) (12) Obstructive sleep apnea of adult Status: Chronic Comment: cpap at night (13) Morbid obesity with body mass index of 50.0-59.9 in adult Status: Chronic Comment: referrend to bariatric surgery [facility] Reason for Consult History of Present Illness: The patient is a 74 year old M, well-known to me, recently seen in our office for a routine follow-up and the patient was doing fairly well. Over the and holidays, the patient imbibed an excessive amount of salt and water intake, and in fact drinks about 2 gallons of mineral water every day. Patient slowly had lower extremity edema as well as dyspnea on exertion but had no orthopnea, PND, chest pain, angina, presyncope, or syncope or dizziness or lightheadedness. While the patient was awake this morning and while he is in chronic atrial fibrillation he had a 2.2-second pause which was completely asymptomatic. In addition the patient had weeping of his left lower extremity and denied any trauma. Patient was given IV Lasix, and is diuresing nicely. Patient is sitting in a chair comfortable no acute distress. [] Past Medical History - *Family History Maternal Family History: Family History (Last Reviewed 05/15/19 @ 18:19 by LYNDON Martinez) Father Colon cancer Objective: Vital Signs Temp Pulse Resp BP Pulse Ox 98.7 F 36 L 20 H 137/73 H 95 05/16/19 05:40 05/16/19 07:20 05/16/19 05:40 05/16/19 05:45 05/16/19 05:40 Oxygen Delivery Method Room Air Weight: 332 lb 14.368 oz Body Mass Index (BMI) 47.7 Finger Stick Blood Glucose 116 Intake and Output for Last 24 Hours 05/14/19 05/15/19 05/16/19 23:59 23:59 23:59 Intake Total 300 / 300 100 / 100 Output Total 500 / 500 450 / 450 Balance -200 / -200 -350 / -350 05/15/19 16:23: WBC 14.4 H, RBC 5.11, Hgb 13.9, Hct 44.0, MCV 86.1, MCH 27.2, MCHC 31.6 L, Plt Count 170, MPV 10.9, Immature Gran % (Auto) 0.300, Neut % (Auto) 88.8 H, Lymph % (Auto) 5.7 L, Duval % (Auto) 4.7, Eos % (Auto) 0.3, Baso % (Auto) 0.2, Absolute Neuts (auto) 12.8 H, Nucleated RBC % 0 05/15/19 16:23: Sodium 137, Potassium 3.7, Chloride 104, Carbon Dioxide 29.0, Anion Gap 4 L, BUN 27 H, Creatinine 1.69 H, Est GFR (MDRD) Af Amer 51 L, Est GFR (MDRD) Non-Af 43 L, BUN/Creatinine Ratio 16.0, Glucose 245 H, Calcium 9.0, Troponin I < 0.015 05/15/19 16:23: B-Natriuretic Peptide 410.6 H 05/16/19 05:45: WBC 8.4, RBC 4.50 L, Hgb 12.7 L, Hct 39.0 L, MCV 86.7, MCH 28.2, MCHC 32.6, Plt Count 157, MPV 10.8, Immature Gran % (Auto) 0.400, Neut % (Auto) 74.3 H, Lymph % (Auto) 16.2 L, Duval % (Auto) 8.1, Eos % (Auto) 0.5, Baso % (Auto) 0.5, Absolute Neuts (auto) 6.2, Nucleated RBC % 0 05/16/19 05:45: Sodium 138, Potassium 3.4 L, Chloride 106, Carbon Dioxide 28.0, Anion Gap 4 L, BUN 28 H, Creatinine 1.77 H, Est GFR (MDRD) Af Amer 49 L, Est GFR (MDRD) Non-Af 40 L, BUN/Creatinine Ratio 15.8, Glucose 228 H, Calcium 8.4 L Rhythm: EKG: ECHO: Stress Test: Cardiac Cath: PCI: CT Surgery: Holter monitor: EPS: PPM: CXR: Chest CT Scan: Assessment/Plan Interventional cardiology attending addendum: Patient has known chronic right-sided congestive heart failure due to severe pulmonary pretension superimposed on severe obstructive sleep apnea and chronic atrial fibrillation. I recommended the patient dial back his p.o. intake of fluids, but the patient uses this to assist with weight loss which she has achieved quite nicely actually. I recommended the patient increase his Lasix to 80 mg p.o. twice daily and follow-up with us in the office in 2 weeks time for blood pressure check and assessment of his lower extremity edema. I advised the patient to maintain Juan bandages on both legs. Unfortunately he is on amlodipine which promotes lower extremity edema however I believe it is helpful to assist with pulmonary vasodilatation. As far as his pause goes, the patient is in chronic atrial fibrillation, and periodically will have prolonged RR intervals. He is completely asymptomatic and denied any presyncope, syncope, lightheadedness, dizziness, positional symptoms or otherwise. Would recommend continuing his Coreg currently at 12.5 mg p.o. twice daily. The patient may be discharged home so that he may attend to his dog who is alone at home. Discussed with Dr. Ricci. Thank you very much for the opportunity to participate in cardiac care of your patient. Consultation took place between 1045 and 11:20 AM. Code Visit Inpatient E&M: 47048 Init Hosp L2
--- NOTE | 2019-05-16 11:09 | DCINST_ITS ---
- Discharge Diagnoses Current Active Problems: Current Active and Chronic Problems (Last Reviewed 04/28/19 @ 09:01 by Jeri Sosa) Venous insufficiency (Acute) Edema, lower extremity (Acute) Acute on chronic diastolic (congestive) heart failure (Chronic) You will use the following diet at home:: Calorie/Carbohydrate Controlled (specify 1200, 1400, etc) - 1800 jey / day, Cardiac Your food should be the consistency of: Regular Your liquids should be the consistency of: Regular/Thin Discharge Activity: Return to Normal Activity Additional Instructions: Apply LUCIO wraps daily to the legs. Check weights daily. If 5 lb weight gain in 24 hours call your doctor. Allergies/Adverse Reactions: Allergies No Known Allergies Allergy (Verified 05/15/19 13:57) Medications to take at Discharge atorvastatin 80 mg tablet 80 mg PO QHS 09/19/18 carvedilol 12.5 mg tablet 12.5 mg PO BID 09/19/18 hydralazine 50 mg tablet 50 mg PO TID 09/19/18 mirabegron 25 mg tablet,extended release 24 hr 25 mg PO DAILY 10/31/18 aspirin 325 mg tablet 325 mg PO DAILY 05/04/19 Amlodipine [Norvasc] 10 mg PO DAILY 05/15/19 Insulin Glargine,Hum.rec.anlog [Basaglar Kwikpen U-100] 30 unit SQ DAILY 05/15/19 Rivaroxaban [Xarelto] 15 mg PO DAILY@1700 05/15/19 Furosemide [Lasix] 80 mg PO BID #60 tab 05/16/19 The following prescriptions were given: Furosemide [Lasix] 80 mg PO BID #60 tab Transmission Status: Pending to [facility]/pharmacy #[id number] Primary Care Physician: Gutierrez Garces DO [Primary Care Provider] - Please follow up with your Primary Care Physician in: 1-2 weeks Test Results: Test results from this visit will be discussed in further detail at your follow- up appointment, if applicable. Please Follow Up With: Clinic,Wound When: 1 week Proposed Discharge Date: 05/16/19
--- NOTE | 2019-05-16 11:20 | CASEMGMT ---
This RN CM to room to complete CM assessment and someone is at bedside speaking to pt at this time. This RN CM will attempt again later. Josué RN CM
[2019-05-16 11:30] LABS: Bedside Glucose 362 mg/dL (70-110)
--- NOTE | 2019-05-16 11:30 | CASEMGMT ---
JOSE ANTONIO WU assessment: Face to Face with patient for initial transition planning/care coordination assessment. JOSE ANTONIO WU introduced self and role at [facility], pt voices understanding and consents to assessment at this time. Pt is sitting up in chair in no distress at this time. Pt is A/Ox4 at this time and answers all questions appropriately at this time. Care providers, pharmacy, and demographics verified/updated at this time. Presentation: Pt presented with cellulitis in left leg-pt states 'my leg is leaking' Admitting dx: CHF exac, venous stasis PCP: Dez Specialists: brii Murray; Cabrera, cardio Preferred Pharmacy: [facility] Insurance: [employer] Prescription Benefit: [employer] Living Will/HPOA: Pt states has LW/HPOA and is aware that they are on file at [facility] at this time. Pt HPOA is Julián Christiansen, pt's friend. LNOK: Julián Christiansen, friend/HPOA; Sofy Chung, daughter Living Arrangements: Pt states lives alone in 1 story home with no stairs and states no concerns at home at this time. Pt states is independent with ADL's. Transportation: Pt states drives self and states no transportation concerns at this time. DME/HHC: Pt states has grab bars, cpap, and home oxygen 4 liters at bedtime, bleed into cpap. Pt states cpap and oxygen are thru [facility]. Pt states has had HHC in the past and has been to [facility] in the past. Pt states no concerns with going home at time of discharge. Pt states is retired. Pt states does not smoke or drink ETOH. Pt states no further concerns/needs at this time. CM to follow for any further discharge planning/needs. Advised pt to ask for CM if any further questions/concerns/needs arise, voices understanding. Pt Goal: Home Plan[place] JOSE ANTONIO WU
--- NOTE | 2019-05-16 11:53 | PHA.DC.MR ---
Pharmacy Service has performed discharge medication reconciliation for this patient. Home Medications atorvastatin 80 mg tablet 80 mg PO QHS 09/19/18 carvedilol 12.5 mg tablet 12.5 mg PO BID 09/19/18 hydralazine 50 mg tablet 50 mg PO TID 09/19/18 mirabegron 25 mg tablet,extended release 24 hr 25 mg PO DAILY 10/31/18 aspirin 325 mg tablet 325 mg PO DAILY 05/04/19 Amlodipine [Norvasc] 10 mg PO DAILY 05/15/19 Insulin Glargine,Hum.rec.anlog [Tanneraglchristopher Zendejas U-100] 30 unit SQ DAILY 05/15/19 Rivaroxaban [Xarelto] 15 mg PO DAILY@1700 05/15/19 Furosemide [Lasix] 80 mg PO BID #60 tab 05/16/19 The patient's discharge medication list was reviewed for discrepancies and discrepancies were resolved.
--- NOTE | 2019-05-16 11:55 | DS.PCM_ITS ---
<León Rasmussen - Last Filed: 05/16/19 11:55> Discharge Date and Diagnosis Date of Admission: 05/15/19 Date of Discharge: 05/16/19 - Primary Discharge Diagnosis Active and Suspected Problems (Last Reviewed 04/28/19 @ 09:01 by Jeri Sosa) Venous insufficiency with LLE edema Bradycardia, 2 sec pause chronic atrial fibrillation Dmt2 with morbid obesity hypokalemia CKDIII HTN HLD Pulmonary HTN chronic diastolic CHF ANDERSON Hx CVA - Secondary Discharge Diagnosis Chronic Problems (Last Reviewed 04/28/19 @ 09:01 by Jeri Sosa) Acute on chronic diastolic (congestive) heart failure (Chronic) Recent cerebrovascular accident (CVA) (Chronic) Ischemic stroke (Chronic 08/20/18) D/T left M2 occlusion per CTA done @ [facility] ER Tubulovillous adenoma polyp of colon (Chronic) Chronic kidney disease, stage 3 (moderate) (Chronic) Kidney stones (Chronic) History of right and left heart catheterization (Chronic ~2008) [place] [facility] History of right heart catheterization (Chronic 05/19/13) History of cardioversion (Chronic 08/23/15) 03/23/14, 02/13/15, 08/23/2015 Stasis dermatitis (Chronic) Chronic diastolic (congestive) heart failure (Chronic) Severe concentric left ventricular hypertrophy (Chronic) Hyperlipidemia (Chronic) Hypertension (Chronic) Paroxysmal atrial fibrillation (Chronic) 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 Mild degree of CHF. Consultations 05/15/19 18:23 Consult: Onc/Wound/wood polisher Routine Comment: Cardiology - Elaine/Cabrera Operations: None Procedures: None Summary of Care Provided: Hospital course: The patient is a 74 year old M with pmhx as above who presented to the ER with LLE edema and serous drainage for two days leading up to admission. He had not had any increased SOB, RLE swelling (actually reported improvement from baseline), no orthopnea or PND. He had severe venous stasis and stasis mark matitis. He was admitted and started on IV lasix and provided with JUAN wraps and a wound care consult. Overnight he had bradycardia with a 2 sec pause. Cardiology was consulted and recommended that he continue coreg and go home on a higher dose of lasix. he was prescribed lasix and potassium, and discharged home in stable condition. He needs to continue JUAN wraps daily. He was referred to the wound care center for follow up this week. He will need to follow up with his PCP in 1-2 weeks and with cardiology as directed. This patient was seen by León Rasmussen PA-C under the supervision of Doctor Radhames. [] - Physical Exam Vitals/I&O's: Vital Signs Temp Pulse Resp BP Pulse Ox 98.7 F 63 20 H 140/70 H 95 05/16/19 11:29 05/16/19 11:29 05/16/19 11:29 05/16/19 11:29 05/16/19 11:29 Oxygen Delivery Method Room Air Weight: 332 lb 14.368 oz Body Mass Index (BMI) 47.7 Finger Stick Blood Glucose 116 Intake and Output for Last 24 Hours 05/14/19 05/15/19 05/16/19 23:59 23:59 23:59 Intake Total 300 / 300 100 / 100 Output Total 500 / 500 450 / 450 Balance -200 / -200 -350 / -350 General: Alert, Oriented x3, Cooperative HEENT: Atraumatic, PERRLA, EOMI, Normocephalic Neck: Supple, No JVD, Negative Carotid Bruits Lungs: Clear to auscultation, Normal air movement Cardiovascular: No murmurs, Irregular Rate Abdomen: Bowel Sounds Present, Soft, Non Tender, Obese Extremities: Capillary Refill Less than 3 Seconds, Edema - pitting edema BLE, JUAN wraps in place. Skin: No rashes, No breakdown Musculoskeletal: No Tenderness to Palpation of Joints or Extremities Neurological: Cranial nerves II-XII grossly intact Psych/Mental Status: Normal Affect, Appropriate, Alert and oriented to time, place, person, mood and affect Laboratory Results 05/15/19 16:23: WBC 14.4 H, RBC 5.11, Hgb 13.9, Hct 44.0, MCV 86.1, MCH 27.2, MCHC 31.6 L, RDW Std Deviation 45.7 H, RDW Coeff of Jun 14.5, Plt Count 170, MPV 10.9, Immature Gran % (Auto) 0.300, Neut % (Auto) 88.8 H, Lymph % (Auto) 5.7 L, Starke % (Auto) 4.7, Eos % (Auto) 0.3, Baso % (Auto) 0.2, Absolute Neuts (auto) 12.8 H, Absolute Lymphs (auto) 0.82 L, Nucleated RBC % 0 05/15/19 16:23: Sodium 137, Potassium 3.7, Chloride 104, Carbon Dioxide 29.0, Anion Gap 4 L, BUN 27 H, Creatinine 1.69 H, Estim Creat Clear Calc 40.20, Est GFR (MDRD) Af Amer 51 L, Est GFR (MDRD) Non-Af 43 L, BUN/Creatinine Ratio 16.0, Glucose 245 H, Calcium 9.0, Troponin I < 0.015 05/15/19 16:23: B-Natriuretic Peptide 410.6 H 05/15/19 22:24: POC Glucose 249 H 05/16/19 05:45: WBC 8.4, RBC 4.50 L, Hgb 12.7 L, Hct 39.0 L, MCV 86.7, MCH 28.2, MCHC 32.6, RDW Std Deviation 45.4 H, RDW Coeff of Jun 14.4, Plt Count 157, MPV 10.8, Immature Gran % (Auto) 0.400, Neut % (Auto) 74.3 H, Lymph % (Auto) 16.2 L, Starke % (Auto) 8.1, Eos % (Auto) 0.5, Baso % (Auto) 0.5, Absolute Neuts (auto) 6.2, Absolute Lymphs (auto) 1.35, Nucleated RBC % 0 05/16/19 05:45: Sodium 138, Potassium 3.4 L, Chloride 106, Carbon Dioxide 28.0, Anion Gap 4 L, BUN 28 H, Creatinine 1.77 H, Estim Creat Clear Calc 38.38, Est GFR (MDRD) Af Amer 49 L, Est GFR (MDRD) Non-Af 40 L, BUN/Creatinine Ratio 15.8, Glucose 228 H, Calcium 8.4 L 05/16/19 06:39: POC Glucose 224 H 05/16/19 11:05: POC Glucose 362 H Current Medications Acetaminophen (Tylenol) 650 mg PO Q6H PRN PRN PRN Reason: Pain 1-02/09 or Fever Amlodipine Besylate (Norvasc) 10 mg PO DAILY [facility] Last Admin: 05/16/19 08:23 Dose: 10 mg Documented by: Aspirin (Aspirin) 325 mg PO DAILYCM [facility] Last Admin: 05/16/19 08:21 Dose: 325 mg Documented by: Atorvastatin Calcium (Lipitor) 80 mg PO QHS [facility] Last Admin: 05/15/19 22:30 Dose: 80 mg Documented by: Dextrose (D50w Syringe) 0 gm IV X1 PRN; Protocol PRN Reason: Hypoglycemia Furosemide (Lasix) 80 mg PO BID@1000,1800 ALEISHA Glucagon () 1 mg IM .X1 PRN PRN Reason: Hypoglycemia Hydralazine HCl (Apresoline) 50 mg PO TID [facility] Last Admin: 05/16/19 05:45 Dose: 50 mg Documented by: Sodium Chloride () 500 mls @ 15 mls/hr IV PRN PRN PRN Reason: Blood Transfusion Sodium Chloride () 250 mls @ 15 mls/hr IV .[id number] PRN PRN Reason: Saline Flush Sodium Chloride () 250 mls @ 15 mls/hr IV .[id number] PRN PRN Reason: Additional IVPB Infusion Insulin Glargine (Lantus (Bk)) 26 units SC DAILY [facility] Last Admin: 05/16/19 08:22 Dose: 26 units Documented by: Insulin Human Lispro (Humalog Kwikpen ([facility])) 0 unit SC ACHS [facility]; Protocol Last Admin: 05/16/19 11:07 Dose: 6 u Documented by: Mirabegron (Myrbetriq) 25 mg PO DAILY [facility] Last Admin: 05/16/19 08:23 Dose: 25 mg Documented by: Ondansetron HCl (Zofran) 4 mg PO Q6H PRN PRN PRN Reason: NAUSEA Rivaroxaban (Xarelto) 15 mg PO DAILY@1700 ALEISHA Sodium Chloride () 10 - 40 ml IV UD PRN PRN Reason: SALINE FLUSH Last Admin: 05/16/19 08:23 Dose: 10 ml Documented by: Discharge Diet: Low fat/ Low Cholesterol, 1800 Calorie Control Diet, 2000 mg Sodium Diet Discharge Activity: Return to Normal Activity Home Medications: Medications to take at Discharge atorvastatin 80 mg tablet 80 mg PO QHS 09/19/18 carvedilol 12.5 mg tablet 12.5 mg PO BID 09/19/18 hydralazine 50 mg tablet 50 mg PO TID 09/19/18 mirabegron 25 mg tablet,extended release 24 hr 25 mg PO DAILY 10/31/18 aspirin 325 mg tablet 325 mg PO DAILY 05/04/19 Amlodipine [Norvasc] 10 mg PO DAILY 05/15/19 Insulin Glargine,Hum.rec.anlog [Basaglar Kwikpen U-100] 30 unit SQ DAILY 05/15/19 Rivaroxaban [Xarelto] 15 mg PO DAILY@1700 05/15/19 Furosemide [Lasix] 80 mg PO BID #60 tab 05/16/19 Potassium Chloride [K-Dur] 20 meq PO DAILY #30 tab 05/16/19 Following Prescrptions Were Given to Patient: Potassium Chloride [K-Dur] 20 meq PO DAILY #30 tab Transmission Status: Received by [id number] Furosemide [Lasix] 80 mg PO BID #60 tab Transmission Status: Received by [id number] Primary Care Physician: Gutierrez Garces DO [Primary Care Provider] - Please follow up with your Primary Care Physician in: 1-2 weeks Please Follow Up With: Clinic,Wound When: 1 week Please Follow Up With: Gutierrez Garces DO Disposition: Home Minutes spent on discharge:: 35 Patient Condition:: Stable Medical Necessity - Tobacco Use Smoking Status: Former smoker Tobacco Use: Non-smoker Meaningful Use Info Meaningful Use Diagnoses (Choose all that apply): None applicable <Marisabel Ricci E - Last Filed: 05/16/19 13:04> Discharge Date and Diagnosis - Secondary Discharge Diagnosis Chronic Problems (Last Reviewed 04/28/19 @ 09:01 by Jeri Sosa) Acute on chronic diastolic (congestive) heart failure (Chronic) Recent cerebrovascular accident (CVA) (Chronic) Ischemic stroke (Chronic 08/20/18) D/T left M2 occlusion per CTA done @ [facility] ER Tubulovillous adenoma polyp of colon (Chronic) Chronic kidney disease, stage 3 (moderate) (Chronic) Kidney stones (Chronic) History of right and left heart catheterization (Chronic ~2008) [facility] History of right heart catheterization (Chronic 05/19/13) History of cardioversion (Chronic 08/23/15) 03/23/14, 02/13/15, 08/23/2015 Stasis dermatitis (Chronic) Chronic diastolic (congestive) heart failure (Chronic) Severe concentric left ventricular hypertrophy (Chronic) Hyperlipidemia (Chronic) Hypertension (Chronic) Paroxysmal atrial fibrillation (Chronic) 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 Patient presented to the emergency room because of left lower extremity edema and serous drainage in context of history of chronic lymphedema on the left side without evidence of increasing redness or hotness. There was a concern that patient may have cellulitis which was ruled out. He does have a history of severe venous stasis and states dermatitis. Patient was treated with IV Lasix. Overnight, patient had bradycardia with 2 seconds pause. Cardiology was consulted and recommended to keep patient on the same dose of Coreg and recommended to increase his Lasix to 80 mg p.o. twice daily. His EKG revealed no acute ischemic changes. Routine blood work was notable for mild leukocytosis which improved without antibiotics. His kidney function was stable and he does have stage III chronic kidney disease. His vital signs were stable except bradycardia, was afebrile, blood pressure stable, pulse ox was 95% on room air. Patient discharged home in a stable medical condition, kept on the same dose of Coreg, discharged on Lasix 80 mg p.o. twice daily according to cardiology, plan to follow-up with cardiology according to Dr. Rees, follow-up with PCP in 1 to 2 weeks, follow-up with wound care center in 1 week as well. - Physical Exam General: Alert, Oriented x3, Cooperative, No apparent distress. HEENT: Atraumatic, PERRLA, EOMI. Neck: Supple, No JVD, Negative Carotid Bruits, Trachea Midline, Thyroid Normal. Lungs: Clear to auscultation, Normal air movement, No rhonchi, No wheeze, No rales. Cardiovascular: Regular rate, Regular Rhythm, Normal S1, Normal S2, PMI Normal. Abdomen: Bowel Sounds Present, Soft, Non Tender, Non-Distended, No Hepato- splenomegaly. Extremities: No clubbing, No cyanosis, edema, Juan wraps on the left leg. Skin: No rashes, No breakdown Neurological: Cranial nerves are intact. Neuro grossly intact Vital Signs are stable. This note was generated with [employer] dictation software. It may contain incorrect words, spelling, and punctuation that were not noted in checking the note before signing. - Physical Exam Vitals/I&O's: Vital Signs Temp Pulse Resp BP Pulse Ox 98.7 F 63 20 H 140/70 H 95 05/16/19 11:29 05/16/19 11:29 05/16/19 11:29 05/16/19 11:29 05/16/19 11:29 Oxygen Delivery Method Room Air Weight: 332 lb 14.368 oz Body Mass Index (BMI) 47.7 Finger Stick Blood Glucose 116 Intake and Output for Last 24 Hours 05/14/19 05/15/19 05/16/19 23:59 23:59 23:59 Intake Total 300 / 300 100 / 100 Output Total 500 / 500 450 / 450 Balance -200 / -200 -350 / -350 Laboratory Results 05/15/19 16:23: WBC 14.4 H, RBC 5.11, Hgb 13.9, Hct 44.0, MCV 86.1, MCH 27.2, MCHC 31.6 L, RDW Std Deviation 45.7 H, RDW Coeff of Jun 14.5, Plt Count 170, MPV 10.9, Immature Gran % (Auto) 0.300, Neut % (Auto) 88.8 H, Lymph % (Auto) 5.7 L, Starke % (Auto) 4.7, Eos % (Auto) 0.3, Baso % (Auto) 0.2, Absolute Neuts (auto) 12.8 H, Absolute Lymphs (auto) 0.82 L, Nucleated RBC % 0 05/15/19 16:23: Sodium 137, Potassium 3.7, Chloride 104, Carbon Dioxide 29.0, Anion Gap 4 L, BUN 27 H, Creatinine 1.69 H, Estim Creat Clear Calc 40.20, Est GFR (MDRD) Af Amer 51 L, Est GFR (MDRD) Non-Af 43 L, BUN/Creatinine Ratio 16.0, Glucose 245 H, Calcium 9.0, Troponin I < 0.015 05/15/19 16:23: B-Natriuretic Peptide 410.6 H 05/15/19 22:24: POC Glucose 249 H 05/16/19 05:45: WBC 8.4, RBC 4.50 L, Hgb 12.7 L, Hct 39.0 L, MCV 86.7, MCH 28.2, MCHC 32.6, RDW Std Deviation 45.4 H, RDW Coeff of Jun 14.4, Plt Count 157, MPV 10.8, Immature Gran % (Auto) 0.400, Neut % (Auto) 74.3 H, Lymph % (Auto) 16.2 L, Starke % (Auto) 8.1, Eos % (Auto) 0.5, Baso % (Auto) 0.5, Absolute Neuts (auto) 6.2, Absolute Lymphs (auto) 1.35, Nucleated RBC % 0 05/16/19 05:45: Sodium 138, Potassium 3.4 L, Chloride 106, Carbon Dioxide 28.0, Anion Gap 4 L, BUN 28 H, Creatinine 1.77 H, Estim Creat Clear Calc 38.38, Est GFR (MDRD) Af Amer 49 L, Est GFR (MDRD) Non-Af 40 L, BUN/Creatinine Ratio 15.8, Glucose 228 H, Calcium 8.4 L 05/16/19 06:39: POC Glucose 224 H 05/16/19 11:05: POC Glucose 362 H Disposition: Home Minutes spent on discharge:: 26 Patient Condition:: Stable Meaningful Use Info Meaningful Use Diagnoses (Choose all that apply): None applicable Code Visit OBSV E&M: 88719 Observation care discharge
--- NOTE | 2019-05-17 13:21 | CASEMGMT ---
This RN JAZMIN received a message from pt regarding possibly setting [facility] now that he is home for wound care. This RN JAZMIN attempted to call pt back without success, message left for pt to call CM dept back for any further questions/concerns/needs. SStyariel BRADY CM
== END 2019-05-16 12:00 | disposition home or self-care (01) | DRG 300 ==
LOC: ED 15:02 → PCU 18:15
PROVIDERS: Physician Assistant; Admitting Provider Student in an Organized Health Care Education/Training Program; Emergency Provider Emergency Medicine; Family Provider Family Medicine; PCP Family Medicine; Referring Provider Student in an Organized Health Care Education/Training Program; Visit Provider Hospitalist
DX: I87.2 Venous insufficiency (chronic) (peripheral) (principal); I13.0 Hypertensive heart and chronic kidney disease with heart failure and stage 1 through stage 4 chronic kidney disease, or unspecified chronic kidney disease; Z68.42 Body mass index [BMI] 45.0-49.9, adult; I50.32 Chronic diastolic (congestive) heart failure; I48.20 Chronic atrial fibrillation, unspecified; R00.1 Bradycardia, unspecified; N18.3 Chronic kidney disease, stage 3 (moderate); Z23 Encounter for immunization; E11.22 Type 2 diabetes mellitus with diabetic chronic kidney disease; G47.33 Obstructive sleep apnea (adult) (pediatric); E66.01 Morbid (severe) obesity due to excess calories; E87.6 Hypokalemia; I27.20 Pulmonary hypertension, unspecified; E78.5 Hyperlipidemia, unspecified; Z86.73 Personal history of transient ischemic attack (TIA), and cerebral infarction without residual deficits; Z87.891 Personal history of nicotine dependence; Z79.4 Long term (current) use of insulin
CPT/HCPCS: 36415; 71046; 80048; 82962; 83880; 84484; 85025; 94002; 94003; 99285; G0008; 90686; A4216; J1940

== ENCOUNTER 2019-05-24 08:36 | Outpatient (RCR) | payer MEDICARE, SELFPAY ==
[2019-05-15 18:30] VITALS: BMI 47.7
[2019-05-24 08:55] VITALS: BP 133/70; PULSE 61; RESP 22; TEMP 36.9; BMI 47.4
--- NOTE | 2019-05-24 10:56 | VDLE_ITS ---
Reason For Study: Swelling LLE Procedure LEFT Exam performed in department. GSV is normal. The study was technically difficult. CFV is compressible, spontaneous, phasic, A preliminary report was called and/or faxed competent, and demonstrates normal to Hedy Medrano. augmentation. FV is compressible, spontaneous, phasic, competent and demonstrates normal augmentation. POP V is compressible, spontaneous, phasic, competent and demonstrates normal augmentation. T/P Trunk is compressible. PTV is compressible. LT PerV is compressible. Patient unable to tolerate compressions at mid and distal thigh; relied on color doppler Unable to assess Lt distal calf veins due to wound/bandages. Interpretation Summary Deep veins of the left lower extremity are patent and compressible segmentally. There is no evidence of left lower extremity deep vein thrombosis. Valvular competence appears intact within the proximal deep venous system on the left . The left great saphenous vein appears patent and compressible segmentally. The left distal deep calf veins were not evaluated due to the presence of bandages. Ordering Physician: Hedy Medrano Referring Physician: Gutierrez Garces Performed By: Sofy Herrera, SUMEET, RVT
--- NOTE | 2019-05-24 12:16 | HP.PCM_ITS ---
(1) Cellulitis of left lower extremity Status: Acute Current Visit: Yes Code(s): L03.116 - Cellulitis of left lower limb (2) Edema, lower extremity Status: Acute Current Visit: Yes Code(s): R60.0 - Localized edema (3) Failure to thrive Status: Acute Current Visit: Yes (4) Venous insufficiency Status: Acute Current Visit: Yes Code(s): I87.2 - Venous insufficiency (chronic) (peripheral) (5) Acute on chronic diastolic (congestive) heart failure Status: Chronic Current Visit: Yes Code(s): I50.33 - Acute on chronic diastolic (congestive) heart failure (6) Chronic kidney disease, stage 3 (moderate) Status: Chronic Current Visit: Yes Code(s): N18.3 - Chronic kidney disease, stage 3 (moderate) (7) Paroxysmal atrial fibrillation Status: Chronic Current Visit: Yes Code(s): I48.0 - Paroxysmal atrial fibrillation (8) Recent cerebrovascular accident (CVA) Status: Chronic Current Visit: Yes Code(s): Z86.73 - Personal history of transient ischemic attack (TIA), and cerebral infarction without residual deficits (9) Diabetes, type 1.5, uncontrolled, managed as type 1 Status: Acute Current Visit: Yes Code(s): E13.65 - Other specified diabetes mellitus with hyperglycemia History of Present Illness Date of Service: 05/24/19 Chief Complaint: Here for follow-up on his left lower leg cellulitis and open wound History of Wound: Larry a 4-year-old white male diabetic with stage III kidney disease diastolic congestive heart failure many other comorbidities recent CVA 4 months ago was at the emergency room because his left leg started swelling and developed an open wound. Recently since being home from the hospital 4 days he has fallen and has a contusion to his left knee. He states the left leg is still swollen even after being discharged and still very red and warm to touch. He has a superficial open area on his left [place] also that we cultured to make sure that there is nothing else going on lateral redness very tender to touch his leg and his calf is extremely tender sending him for a stat ultrasound of his left leg even though he is on Xarelto. Left leg is 10 mm bigger than the right leg at calf Past Medical History Past Medical History: Chronic Problems (Last Reviewed 04/28/19 @ 09:01 by Jeri Sosa) Acute on chronic diastolic (congestive) heart failure (Chronic) Recent cerebrovascular accident (CVA) (Chronic) Ischemic stroke (Chronic 08/20/18) D/T left M2 occlusion per CTA done @ [facility] Tubulovillous adenoma polyp of colon (Chronic) Chronic kidney disease, stage 3 (moderate) (Chronic) Kidney stones (Chronic) History of right and left heart catheterization (Chronic ~2008) [facility] History of right heart catheterization (Chronic 05/19/13) History of cardioversion (Chronic 08/23/15) 03/23/14, 02/13/15, 08/23/2015 Stasis dermatitis (Chronic) Chronic diastolic (congestive) heart failure (Chronic) Severe concentric left ventricular hypertrophy (Chronic) Hyperlipidemia (Chronic) Hypertension (Chronic) Paroxysmal atrial fibrillation (Chronic) senior care (current) use of anticoagulants (Chronic) Moderate to severe pulmonary hypertension (Chronic) due to sleep apnea and extrisic restrictive lung disease (obesity) Obstructive sleep apnea of adult (Chronic) cpap at night Morbid obesity with body mass index of 50.0-59.9 in adult (Chronic) referrend to bariatric surgery [facility] Past Medical History: Left legs cellulitis with infection and open wound on left [place] Surgical History: appendectomy Allergies/Adverse Reactions: Allergies No Known Allergies Allergy (Verified 05/15/19 13:57) Home Medications: Ambulatory Orders Medication Instructions Recorded atorvastatin 80 mg tablet 80 mg PO QHS 09/19/18 carvedilol 12.5 mg tablet 12.5 mg PO BID 09/19/18 hydralazine 50 mg tablet 50 mg PO TID 09/19/18 mirabegron 25 mg tablet,extended 25 mg PO DAILY 10/31/18 release 24 hr aspirin 325 mg tablet 325 mg PO DAILY 05/04/19 Amlodipine [Norvasc] 10 mg PO DAILY 05/15/19 Insulin Glargine,Hum.rec.anlog 30 unit SQ DAILY 05/15/19 [Basaglchristopher Zendejas U-100] Rivaroxaban [Xarelto] 15 mg PO DAILY@1700 05/15/19 Furosemide [Lasix] 80 mg PO BID #60 tab 05/16/19 Potassium Chloride [K-Dur] 20 meq PO DAILY #30 tab 05/16/19 - Family History Maternal Family History: Family History (Last Reviewed 05/15/19 @ 18:19 by LYNDON Martinez) Father Colon cancer Unknown Lives: Alone Smoking Status: Former smoker Review of Systems Constitutional: Denies: Chills, Fever Eyes: Denies: Blurred vision, Drainage, Pain HEENT: Denies: Difficulty Hearing, Difficulty Swallowing, Sore Throat, Visual Changes Cardiovascular: Denies: Chest Pain, Palpitations, Syncope Respiratory: Denies: Cough, Shortness of Breath Gastrointestinal: Denies: Abdominal Pain, Nausea, Vomiting Genitourinary: Denies: Dysuria, Frequency Musculoskeletal: Denies: Joint Pain, Muscle pain Skin: Reports: - - [place] of the left lower leg in an open wound. Denies: Jaundice, Rash Neurological: Denies: Balance problems, Change in Speech, Difficulty swallowing, Focal weakness Psychiatric: Denies: Anxiety, Depression Endocrine: Denies: Change in Body Habitus Hematologic/ Lymphatic: Denies: Adenopathy - Physical Exam Vital Signs Temp Pulse Resp BP 98.4 F 61 22 H 133/70 H 05/24/19 08:55 05/24/19 08:55 05/24/19 08:55 05/24/19 08:55 General: Oriented x3, Cooperative, Well developed HEENT: Atraumatic, PERRLA Oral: Moist Mucosa Neck: Supple, No JVD Lungs: Clear to auscultation, Normal air movement Cardiovascular: Regular rate, Regular Rhythm Abdomen: Bowel Sounds Present, Soft, Non Tender, No Hepato-splenomegaly Extremities: No clubbing, No edema, - - Very warm to touch and reddened cellulitic left lower leg with an open nonhealing wound on the [place] Wound Measurements and Assessment WC - Nurse 1 - General Ulcer Measurement Start: 05/24/19 08:54 Freq: Status: Active Protocol: Activity Type Activity Date Activity User E-Sign Co-Sign Detail Recorded Client Recorded Date Recorded By Document 05/24/19 08:55 DL [id number] 05/24/19 09:14 DL 05/24/19 08:55 Wound Center Nurse 1 [Ulcer Assessment] #1 L [place] -Current Size (cm) - Length 3.2 -Current Size (cm) - Width 1.8 -Current Size (cm) - Depth 0.1 -Total Square Cm 5.76 -Photo Taken Yes -Epithelialization None Present -Classification - Thickness Full Thickness without Exposed Support Structure -Exudate Amt Small -Exudate Type Serosanguineous -Wound Margin Distinct, Outline Attached -Granulation Amt None Present (0 %) -Necrosis Amt Large (67-100%) -Necrotic Tissue Type Adherent Slough -Structure Exposed N/A -Texture (Mary Ellen-wound Skin Appearance) Localized Edema ,Scarring -Moisture (Mary Ellen-wound Skin Appearance Dry/Scaly ) -Color (Mary Ellen-wound Skin Appearance) Erythema -Temperature (Mary Ellen-wound Skin No Abnormality Appearance) (Pt Warm) -Tenderness on Palpation (Mary Ellen-wound No Skin Appearance) -Ulcer Cleansing Wound Cleanser -Foul Odor after Cleansing No -Anesthetic Used 5% Lidocaine Gel [Edema Assessment] -Right Calf (cm) 45.5 -Right Ankle (cm) 29.5 -Left Calf (cm) 51.6 -Left Ankle (cm) 31.5 WC - Nurse 2 - General Ulcer CM Notes Start: 05/24/19 08:54 Freq: Status: Active Protocol: Activity Type Activity Date Activity User E-Sign Co-Sign Detail Recorded Client Recorded Date Recorded By Document 05/24/19 09:31 MW [id number] 05/24/19 09:51 MW 05/24/19 09:31 Wound Center Nurse 2 [Procedure/Treatment] #1 L [place] -Time 09:31 -Correct Patient Yes -Correct Side, Site, Position Yes -Correct Procedure Yes -Procedure Performed Yes -Type of Procedure Debridement -Clinical Debridement Subcutaneous -Post Debridement Size (cm) - Length 2.7 -Post Debridement Size (cm) - Width 2.0 -Post Debridement Size (cm) - Depth 0.1 -Total Square Cm 5.40 -Wound/Ulcer Outcome Not Healed -Ulcer Cleansing Rinsed/ Irrigated with Saline -Foul Odor after Cleansing No -Bioengineered Tissue No -Bleeding Controlled with Pressure -Offloading No -Treatment Response Procedure Tolerated Well [See Physician Procedure note for Specifics] Pain Scale: 0-10 Numeric [Pain] -Is Patient Pain Free? Yes Musculoskeletal: No Tenderness to Palpation of Joints or Extremities Lymphatic: No Cervical, Supraclavicular, or Inguinal Adenopathy Neurological: Cranial nerves II-XII grossly intact, Neuro grossly intact Psych/Mental Status: Normal Affect, Appropriate Debridement Note Post-Debridement Measurements/Treatment WC - Nurse 2 - General Ulcer CM Notes Start: 05/24/19 08:54 Freq: Status: Active Protocol: Activity Type Activity Date Activity User E-Sign Co-Sign Detail Recorded Client Recorded Date Recorded By Document 05/24/19 09:31 MW [id number] 05/24/19 09:51 MW 05/24/19 09:31 Wound Center Nurse 2 #1 L [place] -Time 09:31 -Correct Patient Yes -Correct Side, Site, Position Yes -Correct Procedure Yes -Procedure Performed Yes -Type of Procedure Debridement -Clinical Debridement Subcutaneous -Post Debridement Size (cm) - Length 2.7 -Post Debridement Size (cm) - Width 2.0 -Post Debridement Size (cm) - Depth 0.1 -Total Square Cm 5.40 -Wound/Ulcer Outcome Not Healed -Ulcer Cleansing Rinsed/ Irrigated with Saline -Foul Odor after Cleansing No -Bioengineered Tissue No -Bleeding Controlled with Pressure -Offloading No -Treatment Response Procedure Tolerated Well Pain Scale: 0-10 Numeric Is Patient Pain Free? Yes Type of Debridement: Excisional debridement Anesthesia Used: 5% Lidocaine Gel Depth: Down to and including healthy tissue, in the subcutaneous layer Percentage of wound debrided: 100 Instrument Used: 5mm curette Tissue Removed: Fibrin and some devitalized tissue Severity: Limited To Skin Breakdown Amount of bleeding with debridement: Mild Bleeding Controlled with: Compression and gauze Patient tolerated procedure well Assessment/Plan Labs were drawn for hemoglobin A1c and a pre-albumin Cultures of the wound taken Active Problems (Last Reviewed 04/28/19 @ 09:01 by Jeri Sosa) Venous insufficiency (Acute) Edema, lower extremity (Acute) Acute on chronic diastolic (congestive) heart failure (Chronic) Cellulitis of left lower extremity (Acute) Diabetes, type 1.5, uncontrolled, managed as type 1 (Acute) Failure to thrive (Acute) Recent cerebrovascular accident (CVA) (Chronic) Chronic kidney disease, stage 3 (moderate) (Chronic) Paroxysmal atrial fibrillation (Chronic) Assessment: Open nonhealing ulcer to left [place] infection. Edema lower left leg. Cellulitis of the left lower leg. Diabetes type 1 .5 uncontrolled Plan: Wash left leg with Hibiclens or antibacterial soap apply Aquacel extra to the wound base moistened cover with Adaptic gauze and a Sohelia. single layer Tubigrip to the left leg. Cultures pending till then start Bactrim DS 1 p.o. twice daily for 14 days for the cellulitis. Patient states he will need home health care for his wound care and has one that he used from the stroke that he can call for evaluation for nurse. And therefore will have to be transferred to a another physician for care. Stat ultrasound left lower leg. Schedule for ABs and ultrasound of bilateral lower legs
== END 2019-06-02 23:59 ==
LOC: WC 08:36
PROVIDERS: PCP Family Medicine; Referring Provider Nurse Practitioner; Visit Provider Nurse Practitioner
DX: I87.2 Venous insufficiency (chronic) (peripheral) (principal); M79.89 Other specified soft tissue disorders; R60.0 Localized edema; L97.821 Non-pressure chronic ulcer of other part of left lower leg limited to breakdown of skin; N18.3 Chronic kidney disease, stage 3 (moderate); I48.0 Paroxysmal atrial fibrillation; I48.20 Chronic atrial fibrillation, unspecified; E13.65 Other specified diabetes mellitus with hyperglycemia; E13.22 Other specified diabetes mellitus with diabetic chronic kidney disease; I13.0 Hypertensive heart and chronic kidney disease with heart failure and stage 1 through stage 4 chronic kidney disease, or unspecified chronic kidney disease; E66.01 Morbid (severe) obesity due to excess calories; E78.5 Hyperlipidemia, unspecified; I50.32 Chronic diastolic (congestive) heart failure; G47.33 Obstructive sleep apnea (adult) (pediatric); Z86.73 Personal history of transient ischemic attack (TIA), and cerebral infarction without residual deficits; Z68.43 Body mass index [BMI] 50.0-59.9, adult; Z79.899 Other long term (current) drug therapy; Z79.01 Long term (current) use of anticoagulants; Z79.82 Long term (current) use of aspirin; Z87.891 Personal history of nicotine dependence
CPT/HCPCS: 11042; 87070; 87075; 87077; 87186; 87205; 93971; 99213; G0463

== ENCOUNTER → 2019-10-21 09:29 | Outpatient (CLI) | payer MEDICARE, MEDICAID, SELFPAY ==
--- NOTE | 2019-10-21 | SPU_PTH ---
PATIENT: REGGIE MOHR LOC: [facility] U#:[id number] AGE/SX: 79/M ROOM: RE10/21/[address]: Dr. Reggie Murray MD : 1945 BED: DIS: SPEC #: [id number] RECD: 10/21/19 09:07 STATUS: BERNICE SARA #: [id number] DUANE: 10/21/19 00:[address]: Reggie Murray V DEPT: CYTOLOGY RECD BY: Andre Vargas ENTERED: 10/23/19 09:08 SP TYPE: Sputum Cy OT DR: Dr. Gutierrez Garces, Tissues: Sputum Procedures: Pap Stain (control) Special Stain Group II Special Stain Group I AFB Stain (control) GMS Stain (control) Cytospin Fluid HEADER OPERATION: Not noted PRE-OP DIAGNOSIS: COPD TISSUE SUBMITTED: Sputum for cytology DIAGNOSIS CYTOLOGY Sputum for cytology (smears and cytospin): Negative for malignant cells. Negative for fungal organisms. Negative for acid fast bacilli. See comment. AM:adrian 10/23/19 COMMENT AFB and GMS stains with matched controls were used in the evaluation of this case. Case has been reviewed in consultation with Dr. Kaur who concurs with the above diagnosis. IDC:SJ CYTOLOGY STUDY Slides are reviewed. CYTOLOGY GROSS Received is <1 ml of pale yellow mucoid fluid labeled with the patient's name and and designated per the requisition as sputum. Submitted for cytology preparation. / adrian 10/23/19 TC:5 CPT: 76212, 34920 x2
--- NOTE | 2019-10-21 09:35 | RAD_ITS ---
STUDY: X-RAY - PARANASAL SINUSES REASON FOR EXAM: Male, 74 years old. COPD, SINUS CONGESTION TECHNIQUE: 3 view(s) of the paranasal sinuses were obtained. COMPARISON: None. FINDINGS: Normal visualized frontal, maxillary, ethmoidal and sphenoid sinuses. Normal visualized facial bones. The soft tissue structures are unremarkable. RAD/Sinuses min 3 Views IMPRESSION: Normal x-rays of the paranasal sinuses. Electronically Signed: Geovanny Llanos MD at 16:33 EDT , Service support ,
[2019-10-21 09:37] LABS: Acid Fast Stain SEE PATHOLOGY REPORT; Cytology, Body Fluid / CSF SEE PATHOLOGY REPORT; Fungus Stain (WCH) SEE PATHOLOGY REPORT
== END ==
PROVIDERS: PCP Family Medicine; Referring Provider Internal Medicine Pulmonary Disease; Visit Provider Internal Medicine Pulmonary Disease
DX: R05 Cough (principal); J44.9 Chronic obstructive pulmonary disease, unspecified; J32.8 Other chronic sinusitis
CPT/HCPCS: 70220; 87070; 87205; 88108; 88312; 88313

== ENCOUNTER → 2019-11-24 09:30 | Outpatient (CLI) | payer MEDICARE, MEDICAID, SELFPAY ==
[2019-11-09 09:34] VITALS: BMI 53.5
--- NOTE | 2019-11-24 09:31 | ECHOCS_ITS ---
Reason For Study: PHTN Procedure This was a 2D Doppler, Color Flow transthoracic echocardiogram. The study was technically difficult. Due to obesity. Contrast injection was performed. Exam performed in department. Left Ventricle Moderate concentric left ventricular hypertrophy. The estimated ejection fraction is 65 %. Unable to assess diastolic dysfunction due to arrhythmia. No regional wall motion abnormalities noted. Right Ventricle Moderately dilated right ventricle. A moderator band is seen in the right ventricle. Mild global right ventricular systolic dysfunction. Atria The left atrium is severely enlarged. The right atrium is severely enlarged. Hypermobile atrial septum. Mitral Valve Mild diffuse mitral valve thickening. Trivial mitral valve insufficiency. Tricuspid Valve Normal tricuspid valve. Trivial tricuspid valve insufficiency. Right ventricular systolic pressure estimated to be 54 mmHg. Moderate pulmonary hypertension. Aortic Valve Trisinus/trileaflet aortic valve. Pulmonic Valve Normal pulmonic valve. Great Vessels Normal aortic root. Normal arch. Normal inferior vena cava. Inferior vena cava collapse with sniff. Pericardium/Pleural No pericardial effusion. Medication 22 gauge I.V. with prn adaptor inserted into right arm. Diluted definity 4.0ml given slow IV push to enhance endocardial definition. MMode/2D Measurements & Calculations LVIDd: 5.2 cm IVSd: 1.8 cm Ao root diam: 3.3 cm LVIDs: 3.4 cm LVPWd: 1.4 cm RVDd: 3.9 cm FS: 34.7 % LAV(MOD-bp): 95.2 ml LA A4 area: 28.0 cm2 LA dimension(2D): 5.1 cm LAV(MOD-bp) Indexed: 35.0 ml/m2 LAV(MOD-sp2): 95.6 ml LAV(MOD-sp4): 84.7 ml RA A4 area: 25.3 cm2 Doppler Measurements & Calculations MV E max ernst: 136.1 cm/sec Ao V2 max: 154.3 cm/sec LV V1 max: 96.4 cm/sec Ao max P.5 mmHg LV V1 max P.7 mmHg Ao V2 mean: 104.7 cm/sec LV V1 mean P.3 mmHg Ao mean P.9 mmHg LV V1 mean: 73.9 cm/sec Ao V2 VTI: 34.4 cm LV V1 VTI: 22.5 cm PA V2 max: 95.9 cm/sec TR max ernst: 312.6 cm/sec TR max P.1 mmHg Interpretation Summary Moderate concentric left ventricular hypertrophy. The estimated ejection fraction is 65 %. Unable to assess diastolic dysfunction due to arrhythmia. Moderately to severely dilated right ventricle. Mild global right ventricular systolic dysfunction. The left atrium is severely enlarged. The right atrium is severely enlarged. Hypermobile atrial septum. Trivial mitral valve insufficiency. Trivial tricuspid valve insufficiency. Right ventricular systolic pressure estimated to be 54 mmHg. Moderate pulmonary hypertension. Compared to echo report dated 05/08/16, LV function remains the same, but RV has now dilated to at least moderate. Has remained the same. RVSP not calculated at that time. Patient appears to be in atrial fibrillation. Ordering Physician: Mehdi Rees Referring Physician: Gutierrez Garces Performed By: Cassidy Richards RDCS, RVT
== END ==
PROVIDERS: PCP Family Medicine; Referring Provider Internal Medicine Cardiovascular Disease; Visit Provider Internal Medicine Cardiovascular Disease
DX: I27.20 Pulmonary hypertension, unspecified (principal); R60.0 Localized edema
CPT/HCPCS: 93306; Q9957; A4216; C8929

== ENCOUNTER 2019-12-03 09:00 | Emergency (ER) | payer MEDICARE, MEDICAID, SELFPAY ==
[2019-11-09 09:34] VITALS: BMI 53.5
[2019-12-03 09:02] VITALS: BP 185/86; PULSE 77; RESP 21; TEMP 37.2; O2SAT 96; BMI 52.6
[2019-12-03 09:59] LABS: Absolute Lymphocyte Count 0.95 X10^3/uL (0.83-4.51); Basophil# 0.07 X10^3/uL; Basophil% 0.8 % (0-1); Eosinophil# 0.15 X10^3/uL; Eosinophils% 1.7 % (0-5); Hemoglobin 10.7 g/dL (13.0-16.5); Lymphocyte # 0.95 X10^3/ul (4.0); Lymphocyte % 10.6 % (19-41); Mean Corp Hgb Conc 30.6 g/dL (32-36); Mean Corpuscular Hgb 24.3 pg (27.0-32.0); Mean Corpuscular Volume 79.5 fL (80-94); Mean Platelet Vol. 9.2 fl (6.2-12.0); Monocyte# 0.76 X10^3/uL; Monocyte% 8.5 % (0-10); NRBC Flagged by Analyzer 0 % (0-5); Neutrophil % 78.1 % (47-70); Platelet Count 301 K/mm3 (150-450); RBC Distribution Width CV 16.4 % (11.6-14.6); RBC Distribution Width SD 46.9 fl (35.1-43.9)
[2019-12-03 10:03] LABS: International Normalized Ratio 1.4; Partial Thromboplast Time 37.8 Seconds (24.1-36.2); Prothrombin Time (Protime)PT. 16.2 SECONDS (11.7-14.9)
[2019-12-03 10:12] LABS: ALB/GLOB Ratio 0.6 RATIO (0.9-2.4); AST(SGOT) 13 U/L (15-37); Alanine Aminotransfer ALT/SGPT 17 U/L (16-61); Alkaline Phosphatase 84 U/L (45-117); Anion Gap 5 (5-15); BUN 28 mg/dL (7-18); BUN/Creat Ratio 14.7 RATIO (10-20); Calcium,Total 8.4 mg/dL (8.5-10.1); Chloride 103 mmol/L (98-107); EST Glomerular Filtration Rate 37 mL/min (>60); Est Glom Filt Rate - Afr Amer 45 mL/min (>60); Estimated Creatinine Clearance 35.75 ml/min; Globulin 5.1 g/dL (2.2-4.2); Glucose 175 mg/dL (74-106); Potassium 4.1 mmol/L (3.5-5.1); Protein, Total 8.1 g/dL (6.4-8.2); Sodium Level 136 mmol/L (136-145)
[2019-12-03 10:17] LABS: Lactic Acid 1.3 mmol/L (0.4-1.9)
[2019-12-03 10:35] VITALS: BP 146/118; PULSE 75; RESP 24; O2SAT 96
--- NOTE | 2019-12-03 10:48 | ED.DCSUM_ITS ---
- ER Visit Summary Date of Service: 12/03/19 Chief Complaint: Left leg infected History of Present Illness: The patient is a [address] Garces and Dr. Rees. He is on Xarelto for atrial fibrillation. He reports that he has chronic venous stasis changes, but his left leg is been red for the past 2 days. Reports that this morning that there is an area that is actually come to ahead. He denies any fever, chills, nausea, vomiting, or other constitutional symptoms. Physical Examination: Vitals: Stable. Afebrile. General: Well-nourished and well-developed. Head: Normocephalic atraumatic. Neck: Supple, no lymphadenopathy. No JVD. Nontender. Cardiovascular: Regular rate and rhythm. No murmurs. Respiratory: No respiratory distress. Clear to auscultation bilaterally. Abdominal: Soft, nontender, nondistended, normal bowel sounds. No guarding, rebound, or peritoneal signs. Back: Nontender. Extremities: 2+ pitting edema of his lower extremities bilaterally. He has chronic venous stasis changes bilaterally. There is no palpable dorsalis pedis pulse bilaterally. He does have erythema over the left leg there is a marble sized pointing lesion in the center of this. There is approximate 2 cm of surrounding induration. It is moderately tender to palpation. Skin: Normal color, no rash. Neurologic: Alert and oriented ?3. Cranial nerves II through XII are intact. Normal strength and sensation. Psych: Normal affect. Test Results: CBC shows an H&H of 10.7 35.0, segmented neutrophils 78, lymphocytes of 11. Chem-7 shows a calcium of 8.4, glucose 175, BUN 20, creatinine 1.9. Lactic acid is 1.3. INR is 1.4 with a PTT of 37.8. LFTs show an albumin of 3.0 and globulin of 5.1. AST is 13. Emergency Department Course and Treatment: Patient had his lesion opened and drained. I did not get aggressive about breaking up loculations because he is on Xarelto. He had aerobic and anaerobic culture sent. I suspect that this is MRSA. He was given a dose of vancomycin IV. Patient feels well and would like to go home. He does understand that if this is not improving with conservative management that he may require a more formal I&D and admission to the hospital. Treatment Plan: Patient will be discharged on Bactrim and Keflex. He is also given prescription for Bactroban ointment. Instructed to follow-up his primary care physician in 2 days for a wound check. He is also given the information for the wound clinic. Return to the emergency department for any worsening symptoms. Disposition: To home in improved and stable condition. Impression: 1. Abscess left leg. 2. I&D. 3. Chronic renal insufficiency. 4. Chronic venous stasis. 5. Diabetes mellitus. 6. Coagulopathy on Xarelto. This note was generated with [employer] dictation software. It may contain incorrect words, spelling, and punctuation that were not noted in review of the chart prior to signing ED Disposition - Plan for ED Patient: Instructions: ED Abscess Incision And Drainage Prescriptions: Smz/Tmp Ds [Bactrim Ds] 1 tablet PO BID #14 tablet Mupirocin [Bactroban] 1 applic TOPICAL TID #1 tube Cephalexin [Keflex] 500 mg PO TID #21 capsule Referrals: Gutierrez Garces DO [Primary Care Provider] - 2 Days for wound check
[2019-12-03 13:05] VITALS: BP 169/88; PULSE 76; RESP 16; O2SAT 97
== END 2019-12-03 13:07 | disposition home or self-care (01) ==
LOC: ED 09:47
PROVIDERS: Emergency Provider Emergency Medicine; PCP Family Medicine
DX: L02.416 Cutaneous abscess of left lower limb (principal); I87.8 Other specified disorders of veins; N18.9 Chronic kidney disease, unspecified; I12.9 Hypertensive chronic kidney disease with stage 1 through stage 4 chronic kidney disease, or unspecified chronic kidney disease; E11.22 Type 2 diabetes mellitus with diabetic chronic kidney disease; E78.00 Pure hypercholesterolemia, unspecified; I48.91 Unspecified atrial fibrillation; Z79.01 Long term (current) use of anticoagulants; Z79.4 Long term (current) use of insulin; Z79.899 Other long term (current) drug therapy
CPT/HCPCS: 80053; 83605; 85025; 85610; 85730; 87040; 87070; 87075; 87077; 87186; 87205; 99285; J7040; J7050; A4216

== ENCOUNTER 2020-04-01 20:01 | Inpatient (IN) | payer MEDICARE, MEDICAID, SELFPAY ==
[2020-02-15 13:06] VITALS: BMI 55.5
[2020-04-01 20:04] VITALS: PULSE 77; RESP 18; TEMP 36.9; O2SAT 88; BMI 56.0
[2020-04-01 20:08] VITALS: BP 180/87; PULSE 77; RESP 14; TEMP 36.9; O2SAT 88; O2SAT 98
--- NOTE | 2020-04-01 20:19 | EKG12_ITS ---
Test Reason : SOB Blood Pressure : / mmHG Vent. Rate : 080 BPM Atrial Rate : 113 BPM P-R Int : 000 ms QRS Dur : 098 ms QT Int : 404 ms P-R-T Axes : 000 000 046 degrees QTc Int : 465 ms Atrial fibrillation Low voltage QRS Cannot rule out Anterior infarct , age undetermined Abnormal ECG Confirmed by XAVIER RINCON, SERGEY ([id number]), photograph editor HALEY NUÑEZ ([id number]) on 04/03/2020 9:46:35 AM Referred By: Sergey Almaraz Confirmed By:SERGEY PARK MD
--- NOTE | 2020-04-01 20:35 | RAD_ITS ---
STUDY: X-RAY CHEST REASON FOR EXAM: Male, 75 years old. shortness of breath TECHNIQUE: Single AP portable view of the chest. COMPARISON: 05/15/2019. FINDINGS: No pleural effusion. Mild prominence of the central pulmonary vasculature. There is mild cardiac enlargement. Normal mediastinum and duncan. Normal visualized aortic arch and descending thoracic aorta. Normal visualized thoracic spine. Normal visualized ribs, clavicles, and shoulders. There is no demonstrated abnormality of the visualized soft tissue structures of the upper abdomen. RAD/Chest 1 View (Portable) IMPRESSION: Mild cardiac enlargement and pulmonary venous congestion. Electronically Signed: Ruth Chapa MD at 21:04 EST Tel , Service support ,
[2020-04-01 20:42] LABS: Absolute Lymphocyte Count 1.11 X10^3/uL (0.83-4.51); Absolute Neutrophil Count 4.7 X10^3/uL (2.0-7.7); Basophil# 0.07 X10^3/uL; Eosinophil# 0.22 X10^3/uL; Eosinophils% 3.3 % (0-5); Hematocrit 33.6 % (40-54); Hemoglobin 9.8 g/dL (13.0-16.5); Lymphocyte # 1.11 X10^3/ul (4.0); Lymphocyte % 16.6 % (19-41); Mean Corp Hgb Conc 29.2 g/dL (32-36); Mean Corpuscular Hgb 23.1 pg (27.0-32.0); Mean Corpuscular Volume 79.1 fL (80-94); Mean Platelet Vol. 9.6 fl (6.2-12.0); Monocyte# 0.53 X10^3/uL; Monocyte% 7.9 % (0-10); NRBC Flagged by Analyzer 0 % (0-5); Neutrophil # 4.73 X10^3/uL (2.7-7.7); Neutrophil % 70.8 % (47-70); Platelet Count 217 K/mm3 (150-450); RBC Distribution Width SD 51.6 fl (35.1-43.9); Red Blood Count 4.25 M/mm3 (4.6-6.2); White Blood Count 6.7 K/mm3 (4.4-11.0)
[2020-04-01 21:06] LABS: Anion Gap 6 (5-15); BUN 37 mg/dL (7-18); BUN/Creat Ratio 13.8 RATIO (10-20); Calcium,Total 8.1 mg/dL (8.5-10.1); Chloride 105 mmol/L (98-107); Creatinine, Serum 2.68 mg/dL (0.70-1.30); EST Glomerular Filtration Rate 25 mL/min (>60); Est Glom Filt Rate - Afr Amer 30 mL/min (>60); Estimated Creatinine Clearance 25.76 ml/min; Glucose 352 mg/dL (74-106); Potassium 4.5 mmol/L (3.5-5.1); Sodium Level 138 mmol/L (136-145)
[2020-04-01 21:08] LABS: D-Dimer Quantitative (DVT/PE) 0.95 FEU/ug/m (0.27-0.49)
[2020-04-01 21:10] LABS: BNP,B-Type NATRIURETIC PEPTIDE 302.3 pg/mL (0-100)
[2020-04-01 21:45] VITALS: BP 228/111; PULSE 89; RESP 22; TEMP 36.8; O2SAT 96
[2020-04-01 22:33] VITALS: BP 201/66; PULSE 76; RESP 24; TEMP 36.6; O2SAT 94
--- NOTE | 2020-04-01 22:53 | ED.VISSUMM ---
- ER Visit Summary Date of Service: 04/01/20 Chief Complaint: Shortness of breath History of Present Illness: The patient is a [address] Murray, Dr. Henry, and Dr. Garces. He reports that shortness of breath began 1 week ago. Is gradually gotten worse. Is much worse the past 2 days. Severe when he walks around mild at rest. Reports that he has a chronic cough that is unchanged. This is nonproductive. He denies any fever or chills. He denies sick contacts. He does wear a mask. Patient denies any chest pain. He states that he uses 4 L of oxygen at night through his CPAP. For the past 2 days he has been having to use his CPAP during the day. He is on Xarelto and has been compliant with this. Physical Examination: Vitals: 98.4, 180/87, 77, 14, 98% on 2 L nasal cannula. General: Well-nourished and well-developed. Head: Normocephalic atraumatic. Neck: Supple, no lymphadenopathy. No JVD. Nontender. Cardiovascular: Regular rate and rhythm. No murmurs. Respiratory: No respiratory distress. Clear to auscultation bilaterally. Poor air movement. Abdominal: Soft, nontender, nondistended, normal bowel sounds. No guarding, rebound, or peritoneal signs. Back: Nontender. Extremities: Nontender, 3+ pitting edema lower extremities bilaterally. Skin: Normal color, no rash. Neurologic: Alert and oriented ?3. Cranial nerves II through XII are intact. Normal strength and sensation. Psych: Normal affect. Test Results: EKG is A. fib at [address] changes. Troponin is negative. BNP is 302.3. D-dimer 0.95. However, I cannot do a CTA of his chest as his creatinine is 2.68. Chem-7 otherwise shows a BUN of 37, glucose 352, calcium of 8.1. Baseline creatinine in 2019 is been 1.69?1.9. COVID-19 rapid antigen is negative. CBC shows an H&H 9.8 and 33.6, segmented for 71, etc. 17. Clinical Impression(s) from Imaging Studies Chest X-Ray 04/01/20 20:35 IMPRESSION: Mild cardiac enlargement and pulmonary venous congestion. Electronically Signed: Ruth Chapa MD at 21:04 EST Tel , Service support , Emergency Department Course and Treatment: Patient's pulse ox is been in the mid 90s while he is on bed. However, when even getting out of bed to stand at the bedside his drops into the 70s. He was given 40 mg of Lasix IV. Treatment Plan: Patient was discussed with Dr. Tan and Dr. Almaraz. He will be admitted to the hospital for further evaluation and treatment. Disposition: Admitted in in improved condition. Impression: 1. CHF. 2. Acute kidney injury. 3. Coagulopathy on Xarelto. 4. Obstructive sleep apnea. 5. Anemia. This note was generated with [employer] software. It may contain incorrect words, spelling, and punctuation that were not noted in review of the chart prior to signing ED Disposition - Plan for ED Patient: Referrals: Gutierrez Garces DO [Primary Care Provider] -
[2020-04-01 22:54] VITALS: O2SAT 94
[2020-04-01] MEDS: Carvedilol 12.5 MG Tablet PO (23:14)
--- NOTE | 2020-04-01 23:18 | PCM.HP.STD ---
Problem List (1) Pure hypercholesterolemia Status: Chronic (2) Essential hypertension Status: Chronic (3) Venous insufficiency Status: Chronic (4) Edema, lower extremity Status: Chronic (5) Acute on chronic diastolic (congestive) heart failure Status: Acute (6) Chronic kidney disease, stage 3 (moderate) Status: Chronic (7) Stasis dermatitis Status: Chronic Qualifiers: (8) Paroxysmal atrial fibrillation Status: Chronic (9) Obstructive sleep apnea of adult Status: Chronic Comment: cpap at night (10) Morbid obesity with body mass index of 50.0-59.9 in adult Status: Chronic Comment: referrend to bariatric surgery [facility] History of Present Illness Date of Admission: 04/01/20 Chief Complaint: shortness of breath The patient is a 75 year old male patient with significant past medical history of coronary artery disease, congestive heart failure, obesity, pulmonary hypertension, chronic kidney disease who presents the emergency room with shortness of breath. Onset of symptoms began last week and have been progressively getting worse. In the emergency room the patient has been found to be short of breath and hypertensive. His basal natriuretic peptide is greater than 300. In his last ejection fraction was measured in 2019 was 60%. The patient will be admitted to progressive care unit for acute congestive heart failure management. Of note, Covid testing was done and was negative in the emergency room. 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) Moderate to severe pulmonary hypertension (Chronic) due to sleep apnea and extrisic restrictive lung disease (obesity) Obstructive sleep apnea of adult (Chronic) cpap at night Morbid obesity with body mass index of 50.0-59.9 in adult (Chronic) referrend to bariatric surgery [facility] Medical History: Medical History (Last Reviewed 02/15/20 @ 13:09 by Yoselin Rodriguez) Pure hypercholesterolemia (Chronic) E78.00 Essential hypertension (Chronic) I10 Venous insufficiency (Acute) I87.2 Edema, lower extremity (Acute) R60.0 Acute on chronic diastolic (congestive) heart failure (Chronic) I50.33 Cellulitis of left lower extremity (Acute) L03.116 Diabetes, type 1.5, uncontrolled, managed as type 1 (Acute) E13.65 Hypoglycemia due to insulin (Acute) E16.0, T38.3X5A Tubulovillous adenoma polyp of colon (Chronic) D12.6 Chronic kidney disease, stage 3 (moderate) (Chronic) N18.3 Kidney stones (Chronic) N20.0 Stasis dermatitis (Chronic) I87.2 Chronic diastolic (congestive) heart failure (Chronic) I50.32 Severe concentric left ventricular hypertrophy (Chronic) I51.7 Paroxysmal atrial fibrillation (Chronic) I48.0 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) Z79.01 Moderate to severe pulmonary hypertension (Chronic) I27.2 due to sleep apnea and extrisic restrictive lung disease (obesity) Obstructive sleep apnea of adult (Chronic) G47.33 cpap at night Morbid obesity with body mass index of 50.0-59.9 in adult (Chronic) E66.01, Z68.43 referrend to bariatric surgery [facility] Failure to thrive Ischemic stroke Onset Date: 08/20/18 I63.9 D/T left M2 occlusion per CTA done @ [facility] ER Recent cerebrovascular accident (CVA) Z86.73 Allergies No Known Allergies Allergy (Verified 02/15/20 13:07) Home Medications: Ambulatory Orders Medication Instructions Recorded atorvastatin 80 mg tablet 80 mg PO QHS 09/19/18 carvedilol 12.5 mg tablet 12.5 mg PO BID 09/19/18 hydralazine 50 mg tablet 50 mg PO TID 09/19/18 mirabegron 25 mg tablet,extended 25 mg PO DAILY 10/31/18 release 24 hr aspirin 325 mg tablet 325 mg PO DAILY 05/04/19 Amlodipine [Norvasc] 10 mg PO DAILY 05/15/19 Insulin Glargine,Hum.rec.anlog 60 unit SQ QHS 05/15/19 [Basaglar Pedroikpen U-100] Rivaroxaban [Xarelto] 15 mg PO DAILY@1700 05/15/19 furosemide 80 mg tablet 80 mg PO DAILY tab 10/15/20 glipizide 10 mg tablet 10 mg PO DAILY 02/15/20 Fluticasone Furoate [Arnuity 04/01/20 Ellipta] Surgical History: Surgical History (Last Reviewed 02/15/20 @ 13:09 by Yoselin Rodriguez) History of cardioversion Onset Date: 08/23/15 Z98.890 03/23/14, 02/13/15, 08/23/2015 History of right and left heart catheterization Onset Date: Z98.890 [facility] History of right heart catheterization Onset Date: 05/19/13 Z98.890 Surgical History: appendectomy Psychiatric History: No pertinent psych hx Smoking Status: Former smoker - *Family History Maternal Family History: Family History (Last Reviewed 02/15/20 @ 13:09 by Yoselin Rodriguez) Father Colon cancer History Items: Unknown Review of Systems Constitutional: Reports: Weakness. Denies: Chills, Fever, Weight Change HEENT: Denies: Head Aches, Sinus Congestion, Sinus Drainage Cardiovascular: Denies: Chest Pain, Palpitations Respiratory: Reports: Shortness of breath at rest. Denies: Cough, Sputum production Gastrointestinal: Denies: Abdominal Pain, Nausea, Vomiting Genitourinary: Denies: Dysuria Musculoskeletal: Denies: Joint Pain, Joint Tenderness Skin: Denies: Rash, Wounds Neurological: Denies: Numbness, Tingling, Focal weakness Psychiatric: Denies: Anxiety, Depression, Homicidal Ideations, Suicidal Ideations Hematologic/ Lymphatic: Denies: Easy Bruising, Easy Bleeding VTE Information - Inpt Only VTE Present on Admission: No VTE Mechan Device Prophylaxis: None VTE Pharm Prophylaxis ordered?: Yes - Physical Exam Vitals/I&O's: Vital Signs Temp Pulse Resp BP Pulse Ox 98 F 76 24 H 201/66 H 94 04/01/20 22:33 04/01/20 22:33 04/01/20 22:33 04/01/20 22:33 04/01/20 22:33 Oxygen Flow Rate (L/min) 2 Oxygen Delivery Method Room Air Weight: 402 lb 1.97 oz Body Mass Index (BMI) 56.0 Finger Stick Blood Glucose 116 General: Alert, Oriented x3, Cooperative HEENT: Atraumatic, Normocephalic Neck: Supple Lungs: No rhonchi, No wheeze, No rales, Diminished Cardiovascular: Regular rate, Normal S1, Normal S2, No murmurs Abdomen: Bowel Sounds Present, Soft, Non Tender, Obese Extremities: Edema - 3+ lower ext edema Skin: No rashes Musculoskeletal: No Tenderness to Palpation of Joints or Extremities Neurological: Neuro grossly intact Psych/Mental Status: Normal Affect, Appropriate Microbiology Past 72 Hours 04/01/20 20:36 Mucosa - Nose SARS-CoV-2 Antigen (Rapid) - Final Laboratory Results 04/01/20 20:28: WBC 6.7, RBC 4.25 L, Hgb 9.8 L, Hct 33.6 L, MCV 79.1 L, MCH 23.1 L, MCHC 29.2 L, RDW Std Deviation 51.6 H, RDW Coeff of Jun 18.0 H, Plt Count 217, MPV 9.6, Immature Gran % (Auto) 0.400, Neut % (Auto) 70.8 H, Lymph % (Auto) 16.6 L, [place] % (Auto) 7.9, Eos % (Auto) 3.3, Baso % (Auto) 1.0, Absolute Neuts (auto) 4.7, Absolute Lymphs (auto) 1.11, Nucleated RBC % 0 04/01/20 20:28: D-Dimer Quant (PE/DVT) 0.95 H* 04/01/20 20:28: Sodium 138, Potassium 4.5, Chloride 105, Carbon Dioxide 27.0, Anion Gap 6, BUN 37 H, Creatinine 2.68 H, Estim Creat Clear Calc 25.76, Est GFR (MDRD) Af Amer 30 L, Est GFR (MDRD) Non-Af 25 L, BUN/Creatinine Ratio 13.8, Glucose 352 H, Calcium 8.1 L, Troponin I < 0.015 04/01/20 20:28: B-Natriuretic Peptide 302.3 H Current Medications Carvedilol (Carvedilol 12.5 Mg Tablet) 12.5 mg PO X1 ONE Stop: 04/02/20 22:52 Last Admin: 04/01/20 23:14 Dose: 12.5 mg Documented by: Assessment/Plan All Active Problems (Last Reviewed 02/15/20 @ 13:09 by Yoselin Rodriguez) Acute on chronic diastolic (congestive) heart failure (Acute) Cellulitis of left lower extremity (Acute) Diabetes, type 1.5, uncontrolled, managed as type 1 (Acute) Hypoglycemia due to insulin (Acute) Chronic Problems (Last Reviewed 02/15/20 @ 13:09 by Yoselin Rodriguez) Pure hypercholesterolemia (Chronic) Essential hypertension (Chronic) Venous insufficiency (Chronic) Edema, lower extremity (Chronic) Tubulovillous adenoma polyp of colon (Chronic) Chronic kidney disease, stage 3 (moderate) (Chronic) Kidney stones (Chronic) Stasis dermatitis (Chronic) Chronic diastolic (congestive) heart failure (Chronic) Severe concentric left ventricular hypertrophy (Chronic) Paroxysmal atrial fibrillation (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 Acute congestive heart failure?admit patient to progressive care unit, order echocardiogram, Lasix IV, oxygen as needed protocol, repeat CBC BMP BNP in the morning 2. Hypertension?continue home medications 3. Chronic kidney disease repeat BMP in the morning 4. Paroxysmal atrial fibrillation check INR next 5. Obstructive sleep apnea?continue home CPAP 6. DVT prophylaxis?patient is treated for A. fib with anticoagulation. Inpatient E&M: 81473 Init Hosp L3
[2020-04-01 23:47] VITALS: BP 208/97; PULSE 76; RESP 19; TEMP 36.7; O2SAT 94
[2020-04-01] MEDS: Furosemide 40 MG/4 ML Vial IV (23:47)
[2020-04-02] VITALS (16 sets, daily range): BP systolic 153–171; BP diastolic 75–109; PULSE 55–76; RESP 18–20; TEMP 36.6–36.9; O2SAT 95–98; BMI 55.2; BMI 55.3
[2020-04-02] MEDS: metOLazone 5 MG Tablet PO (00:43)
[2020-04-02] MEDS: hydrALAZINE 50 MG Tablet PO (05:31)
--- NOTE | 2020-04-02 05:55 | ECHOCS_ITS ---
Reason For Study: Congenital Heart Disease Procedure This was a 2D Doppler, Color Flow transthoracic echocardiogram. The study was technically difficult. Contrast injection was performed. Patient sitting upright for testing due to SOB. Exam performed portable in patient room. Left Ventricle Normal LV size. Severe concentric left ventricular hypertrophy. Left ventricular systolic function is normal. The estimated ejection fraction is 65 %. Unable to assess diastolic dysfunction. No regional wall motion abnormalities noted. Right Ventricle Normal RV size. Normal systolic function. Atria The left atrium is moderately enlarged. The right atrium is mildly enlarged. No doppler evidence for ASD. Mitral Valve There is mild mitral annular calcification. Mild diffuse mitral valve thickening. Trivial mitral valve insufficiency. Tricuspid Valve Normal tricuspid valve. Trivial tricuspid valve insufficiency. Unable to estimate RV systolic pressure/pulmonary artery pressure due to technically difficult study. Aortic Valve Trisinus/trileaflet aortic valve. Mild diffuse aortic valve calcification. Pulmonic Valve The pulmonic valve is not well visualized. Great Vessels Normal sized aortic root. Pericardium/Pleural No pericardial effusion. Medication Diluted definity 4ml given slow IV push to enhance endocardial definition. MMode/2D Measurements & Calculations LVIDd: 4.7 cm IVSd: 1.9 cm Ao root diam: 3.3 cm LVIDs: 3.3 cm LVPWd: 1.9 cm LA dimension: 4.9 cm FS: 29.9 % LAV(MOD-bp): 101.6 ml LA A4 area: 31.6 cm2 LAV(MOD-bp) Indexed: 36.3 ml/m2 LAV(MOD-sp2): 86.8 ml LAV(MOD-sp4): 99.5 ml Time Measurements MV dec time: 0.21 sec Doppler Measurements & Calculations MV E max ernst: 134.3 cm/sec Ao V2 max: 158.9 cm/sec LV V1 max: 113.8 cm/sec Ao max P.1 mmHg LV V1 max P.2 mmHg PA V2 max: 111.7 cm/sec Interpretation Summary The study was technically difficult. Contrast injection was performed. Left ventricular systolic function is normal. The estimated ejection fraction is 65 %. Severe concentric left ventricular hypertrophy. The left atrium is moderately enlarged. The right atrium is mildly enlarged. There is mild mitral annular calcification. Mild diffuse mitral valve thickening. Trivial mitral valve insufficiency. Trivial tricuspid valve insufficiency. Mild diffuse aortic valve calcification. Unable to estimate RV systolic pressure/pulmonary artery pressure due to technically difficult study. Unable to assess diastolic dysfunction. Ordering Physician: Sergey Almaraz Referring Physician: Gutierrez Garces Performed By: Papo Parker RCS
[2020-04-02 06:40] LABS: Bedside Glucose 145 mg/dL (70-110)
[2020-04-02 06:41] LABS: Absolute Lymphocyte Count 1.11 X10^3/uL (0.83-4.51); Absolute Neutrophil Count 4.3 X10^3/uL (2.0-7.7); Basophil# 0.08 X10^3/uL; Basophil% 1.2 % (0-1); Eosinophil# 0.25 X10^3/uL; Eosinophils% 3.9 % (0-5); Hematocrit 33.6 % (40-54); Hemoglobin 9.7 g/dL (13.0-16.5); Lymphocyte # 1.11 X10^3/ul (4.0); Lymphocyte % 17.3 % (19-41); Mean Corp Hgb Conc 28.9 g/dL (32-36); Mean Corpuscular Hgb 22.8 pg (27.0-32.0); Mean Corpuscular Volume 78.9 fL (80-94); Mean Platelet Vol. 9.8 fl (6.2-12.0); Monocyte# 0.65 X10^3/uL; Monocyte% 10.1 % (0-10); NRBC Flagged by Analyzer 0 % (0-5); Neutrophil % 67.2 % (47-70); Platelet Count 210 K/mm3 (150-450); RBC Distribution Width SD 50.5 fl (35.1-43.9); Red Blood Count 4.26 M/mm3 (4.6-6.2); White Blood Count 6.4 K/mm3 (4.4-11.0)
[2020-04-02 06:54] LABS: International Normalized Ratio 1.4; Prothrombin Time (Protime)PT. 16.9 SECONDS (11.7-14.9)
[2020-04-02 07:07] LABS: BUN 37 mg/dL (7-18); Creatinine, Serum 2.25 mg/dL (0.70-1.30); EST Glomerular Filtration Rate 31 mL/min (>60); Estimated Creatinine Clearance 30.68 ml/min; Glucose 153 mg/dL (74-106)
[2020-04-02 07:08] LABS: Anion Gap 4 (5-15); BUN/Creat Ratio 16.4 RATIO (10-20); Calcium,Total 8.3 mg/dL (8.5-10.1); Chloride 107 mmol/L (98-107); Cholesterol 115 mg/dL (200); Est Glom Filt Rate - Afr Amer 37 mL/min (>60); High Density Lipoprotein 39 mg/dL; Potassium 3.6 mmol/L (3.5-5.1); Sodium Level 140 mmol/L (136-145); Triglycerides 80 mg/dL; Very Low Density Lipoprotein 16 mg/dL (5-40)
[2020-04-02 08:43] LABS: BNP,B-Type NATRIURETIC PEPTIDE 432.5 pg/mL (0-100)
[2020-04-02] MEDS: Carvedilol 12.5 MG Tablet PO ×2 (08:56→16:48)
[2020-04-02] MEDS: Aspirin 325 MG Tablet PO (08:56)
[2020-04-02] MEDS: glipiZIDE 10 MG Tablet PO (08:56)
[2020-04-02] MEDS: amLODIPine 10 MG Tablet PO (08:57)
[2020-04-02] MEDS: Furosemide 40 MG/4 ML Vial IV ×2 (08:57→13:40)
[2020-04-02] MEDS: Mirabegron 25 MG TAB.ER.24H PO (08:57)
[2020-04-02] MEDS: 0.9% Saline Lock 10 ML Syringe IV ×2 (08:57→13:40)
--- NOTE | 2020-04-02 10:40 | NURSING ---
Stasis dermatis noted bilateral lower legs. washed legs and feet with soap and water. pat dry. applied aloe vesta. was able to to remove some of the dry flaky skin. pt tolerated well.
[2020-04-02] MEDS: Insulin Lispro 100 UNIT/ML INSULN.PEN SC ×3 (11:49→22:30)
[2020-04-02 11:55] LABS: Bedside Glucose 256 mg/dL (70-110)
--- NOTE | 2020-04-02 12:09 | PN_ITS ---
Patient Problems: Active and Suspected Problems (Last Reviewed 02/15/20 @ 13:09 by Yoselin Rodriguez) Acute on chronic diastolic (congestive) heart failure (Acute) Subjective: Pt states that he feels like his breathing is a little better than it had been. Down to 1 L nasal cannula now. BP meds were changed recently and 1 dose of hy dralazine was dropped daily. Wears CPAP and slept poorly last PM 2/2 not having mask. Wants to go home. Vitals/I&O's: Vital Signs Temp Pulse Resp BP Pulse Ox 98.1 F 64 18 163/96 H 98 04/02/20 11:30 04/02/20 11:30 04/02/20 11:30 04/02/20 11:30 04/02/20 11:30 Oxygen Flow Rate (L/min) 2 Oxygen Delivery Method Nasal Cannula Weight: 177 kg Body Mass Index (BMI) 55.2 Finger Stick Blood Glucose 116 Intake and Output for Last 24 Hours 03/31/20 04/01/20 04/02/20 23:59 23:59 23:59 Intake Total 630 / 630 Output Total 1200 / 1200 Balance -570 / -570 General: Alert, Oriented x3, Cooperative, No apparent distress, Well developed, Well nourished HEENT: Atraumatic, PERRLA, EOMI, EAC Clear Oral: Moist Mucosa, No Gingival or Mucosal Lesions/ Ulcerations, - - fair dentition Neck: Supple, No JVD, Trachea Midline, Thyroid Normal Size and Texture Lungs: Clear to auscultation, No rhonchi, No wheeze, No rales, Diminished - diffusely, - - very distant 2/2 body habitus Cardiovascular: Regular rate, Regular Rhythm, Normal S1, Normal S2, No murmurs, No Ectopic Activity, No rub noted, No Gallop Abdomen: Bowel Sounds Present, Soft, Non Tender, Non-Distended, No Hepato- splenomegaly, Obese, No hernias noted Extremities: No clubbing, No cyanosis, Edema - 2-3+ per pt is at baseline, Pe ripheral Pulses Normal Skin: No rashes, - - some skin breakdown on legs--> chronic Musculoskeletal: No Tenderness to Palpation of Joints or Extremities, No Muscle Wasting, Arthritic Changes Lymphatic: No Cervical, Supraclavicular, or Inguinal Adenopathy Neurological: Cranial nerves II-XII grossly intact, Neuro grossly intact Psych/Mental Status: Normal Affect, Appropriate Microbiology Past 72 Hours 04/01/20 20:36 Mucosa - Nose SARS-CoV-2 Antigen (Rapid) - Final Laboratory Results 04/01/20 20:28: WBC 6.7, RBC 4.25 L, Hgb 9.8 L, Hct 33.6 L, MCV 79.1 L, MCH 23.1 L, MCHC 29.2 L, RDW Std Deviation 51.6 H, RDW Coeff of Jun 18.0 H, Plt Count 217, MPV 9.6, Immature Gran % (Auto) 0.400, Neut % (Auto) 70.8 H, Lymph % (Auto) 16.6 L, [place] % (Auto) 7.9, Eos % (Auto) 3.3, Baso % (Auto) 1.0, Absolute Neuts (auto) 4.7, Absolute Lymphs (auto) 1.11, Nucleated RBC % 0 04/01/20 20:28: D-Dimer Quant (PE/DVT) 0.95 H* 04/01/20 20:28: Sodium 138, Potassium 4.5, Chloride 105, Carbon Dioxide 27.0, Anion Gap 6, BUN 37 H, Creatinine 2.68 H, Estim Creat Clear Calc 25.76, Est GFR (MDRD) Af Amer 30 L, Est GFR (MDRD) Non-Af 25 L, BUN/Creatinine Ratio 13.8, Glucose 352 H, Calcium 8.1 L, Troponin I < 0.015 04/01/20 20:28: B-Natriuretic Peptide 302.3 H 04/02/20 06:26: B-Natriuretic Peptide 432.5 H 04/02/20 06:26: WBC 6.4, RBC 4.26 L, Hgb 9.7 L, Hct 33.6 L, MCV 78.9 L, MCH 22.8 L, MCHC 28.9 L, RDW Std Deviation 50.5 H, RDW Coeff of Jun 18.0 H, Plt Count 210, MPV 9.8, Immature Gran % (Auto) 0.300, Neut % (Auto) 67.2, Lymph % (Auto) 17.3 L, [place] % (Auto) 10.1 H, Eos % (Auto) 3.9, Baso % (Auto) 1.2 H, Absolute Neuts (auto) 4.3, Absolute Lymphs (auto) 1.11, Nucleated RBC % 0 04/02/20 06:26: Sodium 140, Potassium 3.6, Chloride 107, Carbon Dioxide 29.0, Anion Gap 4 L, BUN 37 H, Creatinine 2.25 H, Estim Creat Clear Calc 30.68, Est GFR (MDRD) Af Amer 37 L, Est GFR (MDRD) Non-Af 31 L, BUN/Creatinine Ratio 16.4, Glucose 153 H, Calcium 8.3 L, Triglycerides 80, Cholesterol 115, LDL Cholesterol 60, VLDL Cholesterol 16, HDL Cholesterol 39 L 04/02/20 06:26: PT 16.9 H, INR 1.4 04/02/20 06:35: POC Glucose 145 H 04/02/20 11:39: POC Glucose 256 H Current Medications Amlodipine Besylate (Amlodipine 10 Mg Tablet) 10 mg PO DAILY [facility] Last Admin: 04/02/20 08:57 Dose: 10 mg Documented by: Aspirin ([facility] 325 Mg Tablet) [facility] Last Admin: 04/02/20 08:56 Dose: 325 mg Documented by: Atorvastatin Calcium (Atorvastatin Calcium 80 Mg Tablet) 80 mg PO QHS [facility] Carvedilol (Carvedilol 12.5 Mg Tablet) 12.5 mg PO X1 ONE Stop: 04/02/20 22:52 Last Admin: 04/01/20 23:14 Dose: 12.5 mg Documented by: Carvedilol (Carvedilol 12.5 Mg Tablet) [facility] Last Admin: 04/02/20 08:56 Dose: 12.5 mg Documented by: Furosemide (Furosemide 40 Mg/4 Ml Vial) 40 mg IV Q8 [facility] Glipizide (Glipizide 10 Mg Tablet) [facility] Last Admin: 04/02/20 08:56 Dose: 10 mg Documented by: Hydralazine HCl (Hydralazine 50 Mg Tablet) 50 mg PO TID [facility] Last Admin: 04/02/20 05:31 Dose: 50 mg Documented by: Hydralazine HCl (Hydralazine 20 Mg/Ml Vial) 10 mg IV Q6H PRN PRN PRN Reason: Hypertensive Emergency Sodium Chloride () 250 mls @ 15 mls/hr IV .[id number] PRN PRN Reason: Saline Flush Sodium Chloride () 250 mls @ 15 mls/hr IV .[id number] PRN PRN Reason: Additional IVPB Infusion Insulin Glargine (Insulin Glargine 100 Units/Ml Pen) 60 units SC QHS [facility] Insulin Human Lispro (Insulin Lispro 100 Unit/Ml Insuln.Pen) 0 unit SC ACHS [facility]; Protocol Last Admin: 04/02/20 11:49 Dose: 3 units Documented by: Mirabegron (Mirabegron 25 Mg Tab.Er.24h) 25 mg PO DAILY [facility] Last Admin: 04/02/20 08:57 Dose: 25 mg Documented by: Nitroglycerin (Nitroglycerin (Inpatient Use) 0.4 Mg Tab.Subl) 0.4 mg SUBLINGUAL Q5M PRN PRN Reason: CARDIAC/CHEST PAIN Ondansetron HCl (Ondansetron 4 Mg/2 Ml Vial) 4 mg IV Q8H PRN PRN PRN Reason: NAUSEA/VOMITING Rivaroxaban (Rivaroxaban 15 Mg Tablet) 15 mg PO DAILY@1700 [facility] Sodium Chloride (0.9% Saline Lock 10 Ml Syringe) 10 - 40 ml IV UD PRN PRN Reason: SALINE FLUSH Last Admin: 04/02/20 08:57 Dose: 10 ml Documented by: STROKE Vital Signs/Narrative: Vital Signs Temp Pulse Resp BP Pulse Ox 04/02/20 11:30 98.1 F 64 18 163/96 H 98 Medical Necessity - Tobacco Use Smoking Status: Former smoker Assessment/Plan All Active Problems (Last Reviewed 02/15/20 @ 13:09 by Yoselin Rodriguez) Acute on chronic diastolic (congestive) heart failure (Acute) Cellulitis of left lower extremity (Acute) Diabetes, type 1.5, uncontrolled, managed as type 1 (Acute) Hypoglycemia due to insulin (Acute) Acute on Chronic Hypoxic Respiratory Failure 2/2 AE of HFpEF -has been weaned to 1 L supplemental O2 -baseline is none during the day and 4 L bleed with CPAP at HS -wean further as able -increase Lasix to 40 BID from 40 IVP daily -was given a 1x dose of metolazone -CPAP at HS ordered -ECHO pending -had one 11/2019 with EF 65% but severe RV dilation and PAH -Sees Dr. Sibilia as an outpt HFpEF 2/2 RV dysfunction/Diastolic dysfunction and HTN-decompensated -lasix as above -monitor I&O as able--> pt refusing to use urinal -daily wgts -fluid restriction PAH WHO Group 3 -diuresis -f/u with pulm ANDERSON -home CPAP ordere HTN -BP is up -continue Coreg at current dose -increase Hydralazine to 75 mg TID -continue Norvasc -monitor Chronic Anemia-Microcytic -is on anticoagulation -check guaiac -check Fe Studies -was 12.7 earlier this year and normocytic at that time -may need outpt scope ISAURA on CKD Stage 3-4 -Baseline appears to be about 1.7-2 -trending down -watch closely with diuresis PAF -to see EP soon per pt -cont DOAC -cont BB -currently is NSR DM -continue home regimen -monitor HPL -continue Statin MO -BMI 54.4 -recommend wgt loss DVT Prophylaxis -DOAC Inpatient E&M: 52017 Subs Hosp L3
--- NOTE | 2020-04-02 12:20 | NURSING ---
RN CM Assessment Called patient bedside, no answer. Called patient cell phone listed on demographics and answered. Introduced role of RN CM to patient.? Patient is alert, oriented and able?to participate in RN CM Assessment. ?Patient did express h/o stroke and did appear forgetful on some details of assessment. Care providers, pharmacy, and demographics verified. Admit Dx: CHF Exacerbation Re-Admit: No Barriers/Issues: None PCP: Gutierrez Garces Specialists: Cardio- [facility] (cannot recall name), Pulm- Dr Murray Preferred Pharmacy: [facility] Insurance: [employer] Rx Benefit:?Yes ?LNOK: Dtr Sofy Juliet LW/HPOA: Thinks he has completed both, aware not on file at [facility] and if brought in a copy will be scanned on file. HPOA- Julián Christiansen (Patient's Preacher) Living Arrangements:? Lives alone in a H, 1 step to enter home ADL?s: independent with ambulation and ADLs Transportation: Patient drives. Took a bus to hospital this admission. Upon DC Dtr or Preacher will transport him. DME: Home O2 4lpm bled into CPAP at (Cannot recall DME company and has written down at home, [employer] company in [place]). Has 1 portable O2 tank-full. Has had to use O2 24/7 for the past couple days. Glucometer. HHC: Past when had stroke (Cannot recall agency) SNF: Past ([facility]) Goal: Home and does not think will have any needs. [facility] already has a Home O2 concentrator if oxygen requirements have increased. Denies any other issues or concerns with DC planning at this time. DC PLAN: Home, may possibly need a change in O2 order. No further anticipated needs identified at this time. AZALEA Jones
[2020-04-02] MEDS: hydrALAZINE 25 MG Tablet 75 MG PO ×2 (13:39→22:29)
[2020-04-02] MEDS: Rivaroxaban 15 MG Tablet PO (16:48)
[2020-04-02 17:00] LABS: Bedside Glucose 264 mg/dL (70-110)
[2020-04-02] MEDS: Acetaminophen 325 MG Tablet 650 MG PO (22:29)
[2020-04-02] MEDS: Atorvastatin Calcium 80 MG Tablet PO (22:29)
[2020-04-02 22:41] LABS: Bedside Glucose 280 mg/dL (70-110)
[2020-04-03] VITALS (7 sets, daily range): BP systolic 123–170; BP diastolic 70–90; PULSE 40–78; RESP 18; TEMP 36.4–37; O2SAT 91–96
--- NOTE | 2020-04-03 04:17 | NURSING ---
This RN went to get vitals on the pt. at this time. Pt. states Come back at 0630, I'm trying to get some sleep. Pt. resting in bed on home CPap.
[2020-04-03] MEDS: Furosemide 40 MG/4 ML Vial IV (06:40)
[2020-04-03] MEDS: hydrALAZINE 25 MG Tablet 75 MG PO (06:40)
[2020-04-03] MEDS: 0.9% Saline Lock 10 ML Syringe IV (06:41)
[2020-04-03 06:50] LABS: Bedside Glucose 109 mg/dL (70-110)
[2020-04-03 07:09] LABS: Absolute Lymphocyte Count 1.07 X10^3/uL (0.83-4.51); Absolute Neutrophil Count 4.6 X10^3/uL (2.0-7.7); Basophil# 0.07 X10^3/uL; Eosinophil# 0.24 X10^3/uL; Eosinophils% 3.5 % (0-5); Hematocrit 35.6 % (40-54); Hemoglobin 10.8 g/dL (13.0-16.5); Lymphocyte # 1.07 X10^3/ul (4.0); Lymphocyte % 15.6 % (19-41); Mean Corp Hgb Conc 30.3 g/dL (32-36); Mean Corpuscular Hgb 23.9 pg (27.0-32.0); Mean Corpuscular Volume 78.9 fL (80-94); Mean Platelet Vol. 10.1 fl (6.2-12.0); Monocyte# 0.83 X10^3/uL; Monocyte% 12.1 % (0-10); NRBC Flagged by Analyzer 0 % (0-5); Neutrophil # 4.64 X10^3/uL (2.7-7.7); Neutrophil % 67.4 % (47-70); Platelet Count 238 K/mm3 (150-450); RET-HE 26.6 pg (30-35); Red Blood Count 4.51 M/mm3 (4.6-6.2); Reticulocyte Count 1.74 % (0.5-1.5); White Blood Count 6.9 K/mm3 (4.4-11.0)
[2020-04-03 07:48] LABS: Anion Gap 4 (5-15); BUN 33 mg/dL (7-18); BUN/Creat Ratio 18.2 RATIO (10-20); Calcium,Total 8.7 mg/dL (8.5-10.1); Chloride 102 mmol/L (98-107); Creatinine, Serum 1.81 mg/dL (0.70-1.30); EST Glomerular Filtration Rate 39 mL/min (>60); Est Glom Filt Rate - Afr Amer 47 mL/min (>60); Estimated Creatinine Clearance 38.14 ml/min; Ferritin 34 ng/mL (26-388); Glucose 102 mg/dL (74-106); Iron 34 ug/dL (65-175); Iron Binding Capacity,Total 285 ug/dL (250-450); PERCENT IRON SATURATION 11.9 % (15.0-55.0); Potassium 3.4 mmol/L (3.5-5.1); Sodium Level 138 mmol/L (136-145)
--- NOTE | 2020-04-03 08:22 | PCM.DC ---
- Discharge Diagnoses Current Active Problems: Current Active and Chronic Problems (Last Reviewed 02/15/20 @ 13:09 by Yoselin Rodriguez) Pure hypercholesterolemia (Chronic) Essential hypertension (Chronic) Venous insufficiency (Chronic) Edema, lower extremity (Chronic) Acute on chronic diastolic (congestive) heart failure (Acute) Chronic kidney disease, stage 3 (moderate) (Chronic) Stasis dermatitis (Chronic) Paroxysmal atrial fibrillation (Chronic) Obstructive sleep apnea of adult (Chronic) cpap at night Morbid obesity with body mass index of 50.0-59.9 in adult (Chronic) referrend to bariatric surgery [facility] You will use the following diet at home:: Calorie/Carbohydrate Controlled (specify 1200, 1400, etc), Cardiac, Fluid restricted (specify 2000 mls, 1500 mls) - 2000 cc per day Your food should be the consistency of: Regular Your liquids should be the consistency of: Regular/Thin Discharge Activity: Return to Normal Activity, No Restrictions, May Drive Call your doctor if you observe: Shortness of breath, Swelling in the ankles, Chest pain Allergies/Adverse Reactions: Allergies No Known Allergies Allergy (Verified 04/02/20 00:10) Medications to take at Discharge atorvastatin 80 mg tablet 80 mg PO QHS 09/19/18 carvedilol 12.5 mg tablet 12.5 mg PO BID 09/19/18 mirabegron 25 mg tablet,extended release 24 hr 25 mg PO DAILY 10/31/18 aspirin 325 mg tablet 325 mg PO DAILY 05/04/19 Amlodipine [Norvasc] 10 mg PO DAILY 05/15/19 Insulin Glargine,Hum.rec.anlog [Basaglar Kwikpen U-100] 60 unit SQ QHS 05/15/19 Rivaroxaban [Xarelto] 15 mg PO DAILY@1700 05/15/19 furosemide 80 mg tablet 80 mg PO DAILY tab 02/15/20 glipizide 10 mg tablet 10 mg PO DAILY 02/15/20 Fluticasone Furoate [Arnuity Ellipta] 200 mcg INHALATION PRN PRN 04/01/20 hydrALAZINE [Apresoline] 75 mg PO TID #90 tab 04/03/20 The following prescriptions were given: hydrALAZINE [Apresoline] 75 mg PO TID #90 tab Transmission Status: Pending to [facility]/pharmacy #[id number] Primary Care Physician: Gutierrez Garces DO [Primary Care Provider] - Please follow up with your Primary Care Physician in: f/u for BP in 1 week and PCP hospital followup in 1-2 weeks Test Results: Test results from this visit will be discussed in further detail at your follow-up appointment, if applicable. Please Follow Up With: Al Murray MD When: as scheduled Please Follow Up With: Anderson Tan MD When: as scheduled
--- NOTE | 2020-04-03 08:25 | DS.PCM_ITS ---
Discharge Date and Diagnosis - Problem List Patient Problems: Active and Suspected Problems (Last Reviewed 02/15/20 @ 13:09 by Yoselin Rodriguez) Acute on chronic diastolic (congestive) heart failure (Acute) Date of Admission: 04/01/20 Date of Discharge: 04/03/20 - Primary Discharge Diagnosis Acute Problems: Active Problems (Last Reviewed 02/15/20 @ 13:09 by Yoselin Rodriguez) Acute on chronic diastolic (congestive) heart failure (Acute) - Secondary Discharge Diagnosis Chronic Problems: Chronic Problems (Last Reviewed 02/15/20 @ 13:09 by Yoselin Rodriguez) Pure hypercholesterolemia (Chronic) Essential hypertension (Chronic) Venous insufficiency (Chronic) Edema, lower extremity (Chronic) Tubulovillous adenoma polyp of colon (Chronic) Chronic kidney disease, stage 3 (moderate) (Chronic) Kidney stones (Chronic) Stasis dermatitis (Chronic) Chronic diastolic (congestive) heart failure (Chronic) Severe concentric left ventricular hypertrophy (Chronic) Paroxysmal atrial fibrillation (Chronic) retirement (current) use of anticoagulants (Chronic) Moderate to severe pulmonary hypertension (Chronic) due to sleep apnea and extrisic restrictive lung disease (obesity) Obstructive sleep apnea of adult (Chronic) cpap at night Morbid obesity with body mass index of 50.0-59.9 in adult (Chronic) referrend to bariatric surgery [facility] Course and Treatment Imaging Results: ECHO 04/02/2020 -EF 65% -Severe Concentric LVH -GRACIELA--> L mod and R mild None Operations: None Procedures: 2-D Echocardiogram Summary of Care Provided: Mr Chung is a 75 year old WM who presented to the ED on 04/01/2020 with acute onset SOB. His sx started about 1 week prior and had been getting progressively worse. In the ED the pt was found to be SOB and hypertensive. His BNP was elevated and his sCr was elevated as compared to baseline. His CXR showed pul monary venous congestion. COVID was neg in the ED. He was diuresed aggressively and his sCr improved with diuresis. His hydralazine was also increased from 50 mg to 75 mg TID. He states that the dose was recently decreased but couldn't recall why. An ECHO was done and showed a stable EF at 65% with severe concentric LVH. I suspect with his elevated BP and stiff ventricle related to LVH he suffered from acute CHF as well as the pt admits to drinking a lot of water and not monitoring his fluid intake very carefully. He was able to be weaned to RA during the day and wore his CPAP at HS with his normal O2 bleed. His ambulatory SpO2 was assessed and showed stable O2 saturations. He was instructed to watch his sodium intake and limit his fluid intake to no more than 2000 cc/day. A script was sent for the increase in hydralazine to his pharmacy. He will f/u for BP check in 1 week with his PCP and then 1-2 weeks for a hospital f/u. 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 Was off supplemental O2 yesterday afternoon and did fine. Just came off CPAP and is eating breakfast. Admits that he has been drinking a lot of water lately. - Physical Exam Vitals/I&O's: Vital Signs Temp Pulse Resp BP Pulse Ox 98.6 F 61 18 170/90 H 95 04/03/20 05:49 04/03/20 06:59 04/03/20 05:49 04/03/20 06:40 04/03/20 05:49 Oxygen Flow Rate (L/min) 1 Oxygen Delivery Method Room Air Weight: 171.9 kg Body Mass Index (BMI) 55.2 Finger Stick Blood Glucose 116 Intake and Output for Last 24 Hours 04/01/20 04/02/20 04/03/20 23:59 23:59 23:59 Intake Total 990 / 990 0 / 0 Output Total 3800 / 3800 1150 / 1150 Balance -2810 / -2810 -1150 / -1150 General: Alert, Oriented x3, Cooperative, No apparent distress, Well developed, Well nourished, - - obese WM sitting up in a chair eating breakfast HEENT: Atraumatic, PERRLA, EOMI, EAC Clear Oral: Moist Mucosa, No Gingival or Mucosal Lesions/ Ulcerations Neck: Supple, Trachea Midline, Thyroid Normal Size and Texture Lungs: Clear to auscultation, Normal air movement, No rhonchi, No wheeze, No rales, - - distant 2/2 body habitus Cardiovascular: Regular rate, Regular Rhythm, Normal S1, Normal S2, No murmurs, No rub noted, No Gallop Abdomen: Bowel Sounds Present, Soft, Non Tender, Non-Distended, No Hepato- splenomegaly, No hernias noted Extremities: No clubbing, No cyanosis, Capillary Refill Less than 3 Seconds, Edema - at baseline, Peripheral Pulses Normal Skin: No rashes, - - B LE venous stasis changes Musculoskeletal: No Tenderness to Palpation of Joints or Extremities, No Muscle Wasting, Arthritic Changes Lymphatic: No Cervical, Supraclavicular, or Inguinal Adenopathy Neurological: Cranial nerves II-XII grossly intact, Neuro grossly intact, Muscle tone normal, Coordination normal Psych/Mental Status: Normal Affect, Appropriate, Alert and oriented to time, place, person, mood and affect Microbiology Past 72 Hours 04/01/20 20:36 Mucosa - Nose SARS-CoV-2 Antigen (Rapid) - Final Laboratory Results 04/02/20 06:26: B-Natriuretic Peptide 432.5 H 04/02/20 11:39: POC Glucose 256 H 04/02/20 16:42: POC Glucose 264 H 04/02/20 22:25: POC Glucose 280 H 04/03/20 06:38: POC Glucose 109 04/03/20 06:56: Sodium 138, Potassium 3.4 L, Chloride 102, Carbon Dioxide 32.0, Anion Gap 4 L, BUN 33 H, Creatinine 1.81 H, Estim Creat Clear Calc 38.14, Est GFR (MDRD) Af Amer 47 L, Est GFR (MDRD) Non-Af 39 L, BUN/Creatinine Ratio 18.2, Glucose 102, Calcium 8.7, Iron 34 L, TIBC 285, Iron Saturation 11.9 L, Ferritin 34 04/03/20 06:56: WBC 6.9, RBC 4.51 L, Hgb 10.8 L, Hct 35.6 L, MCV 78.9 L, MCH 23.9 L, MCHC 30.3 L, RDW Std Deviation 51.0 H, RDW Coeff of Jun 18.0 H, Plt Count 238, MPV 10.1, Immature Gran % (Auto) 0.400, Neut % (Auto) 67.4, Lymph % (Auto) 15.6 L, [place] % (Auto) 12.1 H, Eos % (Auto) 3.5, Baso % (Auto) 1.0, Absolute Neuts (auto) 4.6, Absolute Lymphs (auto) 1.07, Nucleated RBC % 0, Retic Count 1.74 H, Immature Retic Fraction 25.40 H, Retic Hgb Equivalent 26.6 L Current Medications Acetaminophen (Acetaminophen 325 Mg Tablet) 650 mg PO Q6H PRN PRN PRN Reason: Pain 1-10 or Fever Last Admin: 04/02/20 22:29 Dose: 650 mg Documented by: Amlodipine Besylate (Amlodipine 10 Mg Tablet) 10 mg PO DAILY [facility] Last Admin: 04/02/20 08:57 Dose: 10 mg Documented by: Aspirin (Aspirin 325 Mg Tablet) [facility] Last Admin: 04/02/20 08:56 Dose: 325 mg Documented by: Atorvastatin Calcium (Atorvastatin Calcium 80 Mg Tablet) 80 mg PO QHS [facility] Last Admin: 04/02/20 22:29 Dose: 80 mg Documented by: Carvedilol (Carvedilol 12.5 Mg Tablet) [facility] Last Admin: 04/02/20 16:48 Dose: 12.5 mg Documented by: Furosemide (Furosemide 40 Mg/4 Ml Vial) 40 mg IV Q8 [facility] Last Admin: 04/03/20 06:40 Dose: 40 mg Documented by: Glipizide (Glipizide 10 Mg Tablet) [facility] Last Admin: 04/02/20 08:56 Dose: 10 mg Documented by: Hydralazine HCl (Hydralazine 20 Mg/Ml Vial) 10 mg IV Q6H PRN PRN PRN Reason: Hypertensive Emergency Hydralazine HCl (Hydralazine 25 Mg Tablet) 75 mg PO TID [facility] Last Admin: 04/03/20 06:40 Dose: 75 mg Documented by: Sodium Chloride () 250 mls @ 15 mls/hr IV .[id number] PRN PRN Reason: Saline Flush Sodium Chloride () 250 mls @ 15 mls/hr IV .[id number] PRN PRN Reason: Additional IVPB Infusion Insulin Glargine (Insulin Glargine 100 Units/Ml Pen) 60 units SC QHS [facility] Last Admin: 04/02/20 22:31 Dose: 60 u Documented by: Insulin Human Lispro (Insulin Lispro 100 Unit/Ml Insuln.Pen) 0 unit SC [facility]; Protocol Last Admin: 04/03/20 06:40 Dose: Not Given Documented by: Mirabegron (Mirabegron 25 Mg Tab.Er.24h) 25 mg PO DAILY [facility] Last Admin: 04/02/20 08:57 Dose: 25 mg Documented by: Nitroglycerin (Nitroglycerin (Inpatient Use) 0.4 Mg Tab.Subl) 0.4 mg SUBLINGUAL Q5M PRN PRN Reason: CARDIAC/CHEST PAIN Ondansetron HCl (Ondansetron 4 Mg/2 Ml Vial) 4 mg IV Q8H PRN PRN PRN Reason: NAUSEA/VOMITING Potassium Chloride (Potassium Chloride 20 Meq Tablet) 40 meq PO X1 ONE Stop: 04/03/20 08:11 Rivaroxaban (Rivaroxaban 15 Mg Tablet) 15 mg PO DAILY@1700 [facility] Last Admin: 04/02/20 16:48 Dose: 15 mg Documented by: Sodium Chloride (0.9% Saline Lock 10 Ml Syringe) 10 - 40 ml IV UD PRN PRN Reason: SALINE FLUSH Last Admin: 04/03/20 06:41 Dose: 20 ml Documented by: Discharge Activity: Return to Normal Activity, No Restrictions, May Drive Call your doctor if you observe: Shortness of breath, Swelling in the ankles, Chest pain Home Medications: Medications to take at Discharge atorvastatin 80 mg tablet 80 mg PO QHS 09/19/18 carvedilol 12.5 mg tablet 12.5 mg PO BID 09/19/18 mirabegron 25 mg tablet,extended release 24 hr 25 mg PO DAILY 10/31/18 aspirin 325 mg tablet 325 mg PO DAILY 05/04/19 Amlodipine [Norvasc] 10 mg PO DAILY 05/15/19 Insulin Glargine,Hum.rec.anlog [Remedios Zendejas U-100] 60 unit SQ QHS 05/15/19 Rivaroxaban [Xarelto] 15 mg PO DAILY@1700 05/15/19 furosemide 80 mg tablet 80 mg PO DAILY tab 02/15/20 glipizide 10 mg tablet 10 mg PO DAILY 02/15/20 Fluticasone Furoate [Arnuity Ellipta] 200 mcg INHALATION PRN PRN 04/01/20 hydrALAZINE [Apresoline] 75 mg PO TID #90 tab 04/03/20 Following Prescriptions Were Given to Patient: hydrALAZINE [Apresoline] 75 mg PO TID #90 tab Transmission Status: Pending to [facility]/pharmacy #[id number] Primary Care Physician: Gutierrez Garces DO [Primary Care Provider] - Please follow up with your Primary Care Physician in: f/u for BP in 1 week and PCP hospital followup in 1-2 weeks Please Follow Up With: lA Murray MD When: as scheduled Please Follow Up With: Anderson Tan MD When: as scheduled Medical Necessity - Tobacco Use Smoking Status: Former smoker Meaningful Use Info Meaningful Use Diagnoses (Choose all that apply): CHF - CHF LUCIO/ARB ordered at discharge?: No Reason LUCIO/ARB not ordered?: Worsening renal disease Documented LVEF (%): 65 Inpatient E&M: [id number] Disch Hosp
[2020-04-03] MEDS: Carvedilol 12.5 MG Tablet PO (09:12)
[2020-04-03] MEDS: Aspirin 325 MG Tablet PO (09:12)
[2020-04-03] MEDS: glipiZIDE 10 MG Tablet PO (09:12)
[2020-04-03] MEDS: amLODIPine 10 MG Tablet PO (09:12)
[2020-04-03] MEDS: Mirabegron 25 MG TAB.ER.24H PO (09:12)
--- NOTE | 2020-04-03 09:33 | CASEMGMT ---
JOSE ANTONIO WU NOTE: Pt being discharged home. JOSE ANTONIO WU to room to discuss discharge planning. Pt denies needs/concerns w/going home @ d/c. Denies need for HHC. He was made aware, if in the future he would be interested in HHC, to discuss this with his PCP. He voices understanding. Pt was made aware of [facility] and states is very interested in this program/services. Pt provided w/CCN rac card, order for referral placed, and call placed to Ming @ [facility] and message left re: referral. Pt voices appreciation. Bhupendra MARTINEZ RN CM
--- NOTE | 2020-04-03 09:36 | PHA.DC.MR ---
Pharmacy Service has performed discharge medication reconciliation for this patient. The patient's discharge medication list was reviewed for discrepancies and discrepancies were resolved. Home Medications atorvastatin 80 mg tablet 80 mg PO QHS 09/19/18 carvedilol 12.5 mg tablet 12.5 mg PO BID 09/19/18 mirabegron 25 mg tablet,extended release 24 hr 25 mg PO DAILY 10/31/18 aspirin 325 mg tablet 325 mg PO DAILY 05/04/19 Amlodipine [Norvasc] 10 mg PO DAILY 05/15/19 Insulin Glargine,Hum.rec.anlog [Basaglar Kwikpen U-100] 60 unit SQ QHS 05/15/19 Rivaroxaban [Xarelto] 15 mg PO DAILY@1700 05/15/19 furosemide 80 mg tablet 80 mg PO DAILY tab 02/15/20 glipizide 10 mg tablet 10 mg PO DAILY 02/15/20 Fluticasone Furoate [Arnuity Ellipta] 200 mcg INHALATION PRN PRN 04/01/20 hydrALAZINE [Apresoline] 75 mg PO TID #90 tab 04/03/20
--- NOTE | 2020-04-04 14:34 | CASEMGMT ---
RN CM DC Call Discharge Date: 04/03/2020 Discharge Disposition: Home with CCN Discharge Diagnosis: CHF Attempted x 2 to contact patient via phone. Did not connect. Pt had referral to [facility]. Colby MARTINEZ RN ACM
--- NOTE | 2020-04-08 10:11 | CCN.REFER ---
Patient agreed to CCN, and the consent was signed. CCN to see weekly.
== END 2020-04-03 10:37 | disposition home or self-care (01) | DRG 291 ==
LOC: ED 20:53 → PCU 04-02 00:57
PROVIDERS: Admitting Provider Family Medicine; Emergency Provider Emergency Medicine; PCP Family Medicine; Referring Provider Family Medicine; Visit Provider Internal Medicine
DX: I13.0 Hypertensive heart and chronic kidney disease with heart failure and stage 1 through stage 4 chronic kidney disease, or unspecified chronic kidney disease (principal); I50.33 Acute on chronic diastolic (congestive) heart failure; J96.21 Acute and chronic respiratory failure with hypoxia; N18.4 Chronic kidney disease, stage 4 (severe); D68.9 Coagulation defect, unspecified; N17.9 Acute kidney failure, unspecified; Z68.43 Body mass index [BMI] 50.0-59.9, adult; E13.22 Other specified diabetes mellitus with diabetic chronic kidney disease; G47.33 Obstructive sleep apnea (adult) (pediatric); I87.2 Venous insufficiency (chronic) (peripheral); I48.0 Paroxysmal atrial fibrillation; E66.01 Morbid (severe) obesity due to excess calories; I25.10 Atherosclerotic heart disease of native coronary artery without angina pectoris; I27.20 Pulmonary hypertension, unspecified; D64.9 Anemia, unspecified; E78.5 Hyperlipidemia, unspecified; E87.6 Hypokalemia; Z87.891 Personal history of nicotine dependence
CPT/HCPCS: 36415; 71045; 80048; 80061; 82728; 82962; 83540; 83550; 83880; 84484; 85025; 85045; 85379; 85610; 87426; 93005; 93306; 97802; 99285; Q9957; A4216; C8929; J1940

== ENCOUNTER → 2020-05-14 10:18 | Outpatient (CLI) | payer MEDICARE, MEDICAID, SELFPAY ==
[2020-05-14 09:23] VITALS: BMI 52.8
[2020-05-14 10:59] LABS: Absolute Lymphocyte Count 0.83 X10^3/uL (0.83-4.51); Absolute Neutrophil Count 4.2 X10^3/uL (2.0-7.7); Basophil# 0.06 X10^3/uL; Eosinophil# 0.16 X10^3/uL; Eosinophils% 2.7 % (0-5); Hematocrit 30.4 % (40-54); Hemoglobin 9.1 g/dL (13.0-16.5); Lymphocyte # 0.83 X10^3/ul (4.0); Lymphocyte % 14.1 % (19-41); Mean Corp Hgb Conc 29.9 g/dL (32-36); Mean Corpuscular Hgb 22.7 pg (27.0-32.0); Mean Corpuscular Volume 75.8 fL (80-94); Mean Platelet Vol. 10.4 fl (6.2-12.0); Monocyte# 0.64 X10^3/uL; Monocyte% 10.9 % (0-10); NRBC Flagged by Analyzer 0 % (0-5); Neutrophil # 4.16 X10^3/uL (2.7-7.7); Platelet Count 254 K/mm3 (150-450); RBC Distribution Width CV 18.1 % (11.6-14.6); RBC Distribution Width SD 50.6 fl (35.1-43.9); Red Blood Count 4.01 M/mm3 (4.6-6.2); White Blood Count 5.9 K/mm3 (4.4-11.0)
[2020-05-14 11:42] LABS: Anion Gap 7 (5-15); BUN 26 mg/dL (7-18); BUN/Creat Ratio 13.4 RATIO (10-20); Chloride 105 mmol/L (98-107); Creatinine, Serum 1.94 mg/dL (0.70-1.30); EST Glomerular Filtration Rate 36 mL/min (>60); Est Glom Filt Rate - Afr Amer 44 mL/min (>60); Glucose 275 mg/dL (74-106); Potassium 3.8 mmol/L (3.5-5.1); Sodium Level 138 mmol/L (136-145)
== END ==
PROVIDERS: PCP Family Medicine; Referring Provider Physician Assistant Medical; Visit Provider Physician Assistant Medical
DX: I50.33 Acute on chronic diastolic (congestive) heart failure (principal); I89.0 Lymphedema, not elsewhere classified
CPT/HCPCS: 36415; 80048; 83880; 85025

== ENCOUNTER → 2020-05-22 13:03 | Outpatient (CLI) | payer MEDICARE, MEDICAID, SELFPAY ==
[2020-05-14 09:23] VITALS: BMI 52.8
== END ==
PROVIDERS: PCP Family Medicine; Referring Provider Physician Assistant Medical; Visit Provider Physician Assistant Medical
DX: D64.9 Anemia, unspecified (principal)
CPT/HCPCS: 82274

== ENCOUNTER → 2020-06-11 07:01 | Outpatient (CLI) | payer MEDICARE, MEDICAID, SELFPAY ==
[2020-05-28 12:49] VITALS: BMI 52.8
--- NOTE | 2020-06-11 13:33 | STRESSREP_ITS ---
Stress Test Report Date: 06-11-2020 Procedure: Pharmacologic stress nuclear imaging study Indications: Shortness of breath/dyspnea on exertion; atrial fibrillation; diastolic mediated CHF; pulmonary hypertension Consent: Per the patient Procedure: The patient underwent pharmacologic (Regadenoson 0.4mg ) evaluation with a peak heart rate of 85 beats per minute (58%predicted maximal heart rate) and a peak blood pressure of 138/64 mmHg. The baseline ECG demonstrated atrial fibrillation. The peak pharmacologic ECG demonstrated no obvious ECG changes. There were no cardiac dysrhythmias pretest, during pharmacologic infusion, or recovery. There was no complaint of chest discomfort during pharmacologic infusion or recovery. The examination was discontinued secondary to completion of protocol. Impression: 1. Pharmacologic (Regadenoson) evaluation 2. Peak pharmacologic ECG with no obvious ECG changes. 3. There were no cardiac dysrhythmias pretest, during pharmacologic infusion, or recovery. 4. Nuclear images pending Myocardial perfusion imaging study: Technique: The patient was injected with 15.0 millicuries of technetium 99m Cardiolite and subsequently rest SPECT Cardiolite nuclear imaging was obtained in the horizontal long, vertical long, and short axis views. The patient underwent pharmacologic (Regadenoson) evaluation with a peak heart rate of 85 beats per minute (58% percent predicted maximal heart rate) and a peak blood pressure of 138/64 mmHg. The patient was injected with 44.7 millicuries of technetium 99m Cardiolite and subsequently stress SPECT Cardiolite nuclear imaging was obtained in the horizontal long, vertical long, and short axis views. A gated Cardiolite study at peak stress was obtained. Interpretation: Rest and stress SPECT Cardiolite nuclear imaging status post realignment, normalization, and attenuation correction demonstrates that is post stress a small area of subtle diminished tracer uptake in the mid anterior segments and the apical segments. There is end systolic thickening and brightening. The gated Cardiolite study demonstrates myocardial thickening and inward wall motion. The reported LVEF is 63%. Impression: 1. Rest and stress SPECT Cardiolite nuclear imaging demonstrate post stress a small area of subtle diminished tracer uptake in the mid anterior segments and the apical segments which may be compatible with shifting soft tissue attenuation/artifact and physiologic apical thinning although an area of stress- induced myocardial ischemia cannot necessarily be excluded. 2. The gated Cardiolite study reports an LVEF of 63%. This note was generated with Dragon dictation software. It may contain incorrect words, spelling, and punctuation that were not noted in checking the note before signing.
== END ==
PROVIDERS: PCP Family Medicine; Referring Provider Physician Assistant Medical; Visit Provider Physician Assistant Medical
DX: R06.00 Dyspnea, unspecified (principal); I13.0 Hypertensive heart and chronic kidney disease with heart failure and stage 1 through stage 4 chronic kidney disease, or unspecified chronic kidney disease; I50.33 Acute on chronic diastolic (congestive) heart failure; I50.32 Chronic diastolic (congestive) heart failure; I48.0 Paroxysmal atrial fibrillation; G47.33 Obstructive sleep apnea (adult) (pediatric); E66.01 Morbid (severe) obesity due to excess calories; N18.30 Chronic kidney disease, stage 3 unspecified; Z68.43 Body mass index [BMI] 50.0-59.9, adult
CPT/HCPCS: 78452; 93017; A9500; A4216; J2785

== ENCOUNTER 2020-06-16 07:48 | Inpatient (IN) | payer OTHER, MEDICARE, MEDICAID, SELFPAY ==
[2020-05-28 12:49] VITALS: BMI 52.8
[2020-06-16] VITALS (19 sets, daily range): BP systolic 148–168; BP diastolic 68–97; PULSE 62–87; RESP 16–31; TEMP 36.6–36.9; O2SAT 93–98; BMI 54.7; BMI 52.8; BMI 52.9
--- NOTE | 2020-06-16 07:56 | RAD_ITS ---
STUDY: X-RAY CHEST REASON FOR EXAM: Male, 75 years old. INCREASED SOB X 2 WKS. HX FLUID IN LUNGS. HEART CATH SCHEDULED 06/29 TECHNIQUE: Single AP portable view of the chest. COMPARISON: 04/01/2020 FINDINGS: The lungs are clear and expanded. Elevated right hemidiaphragm which is unchanged. There is moderate cardiac enlargement. Normal mediastinum and duncan. There is prominence of the pulmonary hilar arteries and peripheral pulmonary arteries, consistent with congestive heart failure (CHF). Normal visualized aortic arch and descending thoracic aorta. Normal visualized thoracic spine. Normal visualized ribs, clavicles, and shoulders. There is no demonstrated abnormality of the visualized soft tissue structures of the upper abdomen. RAD/Chest 1 View (Portable) IMPRESSION: Mild congestive heart failure. Electronically Signed: Brian Lucas MD at 9:13 EST Tel , Service support ,
--- NOTE | 2020-06-16 07:56 | EKG12_ITS ---
Test Reason : SOB Blood Pressure : / mmHG Vent. Rate : 072 BPM Atrial Rate : 078 BPM P-R Int : 000 ms QRS Dur : 096 ms QT Int : 416 ms P-R-T Axes : 000 023 040 degrees QTc Int : 455 ms Atrial fibrillation Cannot rule out Anterior infarct , age undetermined Abnormal ECG Confirmed by LANETTE RICNON, PATSY ([id number]), medical transcription editor HALEY NUÑEZ ([id number]) on 06/17/2020 12:24:04 P M Referred By: OCTAVIA Confirmed By:SOCORRO GAMA MD
--- NOTE | 2020-06-16 08:17 | ED.DCSUM_ITS ---
- ER Visit Summary Date of Service: 06/16/20 Chief Complaint: Shortness of breath History of Present Illness: The patient is a [address] Garces and Dr. Henry. He reports his shortness of breath began 1 month ago and is gradually gotten worse. States that it is essentially gone when he is at rest. Severe when he walks around. Is relieved by oxygen. He denies any chest pain, pressure, or tightness. He denies any orthopnea or PND. Patient reports that he had a stress test that was abnormal on June 11 and is scheduled for a heart catheterization June 29. He reports that his shortness of breath has gotten so severe that he is unable to take it anymore. Patient denies fever or chills. He has a chronic cough that is unchanged. Is productive of light brown sputum without blood. He reports that he has a nurse that comes to the home who did get Covid. She wears a mask, but he does not. He has obstructive sleep apnea and wears 4 L of oxygen at night. Over the past few days he has begun wearing this all day. He is on Xarelto for atrial fibrillation. Review of systems: General: No fever, chills, cold sweats. Cardiovascular: No chest pain, palpitations. Gastrointestinal: No abdominal pain, nausea, vomiting, diarrhea, melena, or hematochezia. Genitourinary: No dysuria, frequency, hematuria. Skin: No rash. Neuro: No headache, numbness, weakness. Physical Examination: Vitals: Stable. Afebrile. General: Well-nourished and well-developed. Head: Normocephalic atraumatic. Neck: Supple, no lymphadenopathy. No JVD. Nontender. Cardiovascular: Irregular rhythm. No murmurs. Respiratory: Mild respiratory distress. Clear to auscultation bilaterally. Poor air movement. Abdominal: Soft, nontender, nondistended, normal bowel sounds. No guarding, rebound, or peritoneal signs. Back: Nontender. Extremities: Nontender, 2+ edema lower extremities bilaterally. Skin: Normal color, no rash. Neurologic: Alert and oriented ?3. Cranial nerves II through XII are intact. Normal strength and sensation. Psych: Normal affect. Test Results: EKG shows A. fib at 72 with septal Q waves. This is unchanged from March 2020. Troponin is negative. BNP is 337.8. Chem-7 shows a chloride of 109, BUN of 26, creatinine 1.79, glucose 121. CBC shows an H&H of 8.3 and 28.8, segment neutrophils 82, lymphocytes of nine. Hemoglobin ranged between 9.7?13.9 and 2019 COVID-19 rapid antigen is negative. Clinical Impression(s) from Imaging Studies Chest X-Ray 06/16/20 07:56 IMPRESSION: Mild congestive heart failure. Electronically Signed: Brian Lucas MD at 9:13 EST Tel , Service support , Emergency Department Course and Treatment: Patient was given a dose of aspirin p.o. He was placed on oxygen here. Due to the poor air movement patient was given albuterol and Atrovent aerosol. Ambulatory pulse ox is 88% on room air. Chart review shows the patient had a stress test on June 11 that was indeterminate. Showed mid anterior segment and apical segment changes consistent with artifact or potentially ischemia. While in the emergency department patient had a 13 beat run of ventricular tachycardia. Treatment Plan: The patient was discussed with Dr. Tan. He does not want him placed on amiodarone. He asked that I add a magnesium. He was discussed with Dr. Leon and will be and admitted for further evaluation and treatment. Disposition: Admitted in stable condition. Impression: 1. Dyspnea on exertion. 2. Coagulopathy on Xarelto. 3. Atrial fibrillation. 4. Anemia. 5. Hypoxia. 6. Chronic renal insufficiency. 7. Nonsustained ventricular tachycardia. This note was generated with Palmer Hargreavesation software. It may contain incorrect words, spelling, and punctuation that were not noted in review of the chart prior to signing ED Disposition - Plan for ED Patient: Referrals: Gutierrez Garces DO [Primary Care Provider] -
[2020-06-16 08:21] LABS: Absolute Lymphocyte Count 0.69 X10^3/uL (0.83-4.51); Absolute Neutrophil Count 6.4 X10^3/uL (2.0-7.7); Basophil# 0.07 X10^3/uL; Basophil% 0.9 % (0-1); Eosinophil# 0.19 X10^3/uL; Eosinophils% 2.4 % (0-5); Hematocrit 28.8 % (40-54); Hemoglobin 8.3 g/dL (13.0-16.5); Lymphocyte # 0.69 X10^3/ul (4.0); Lymphocyte % 8.8 % (19-41); Mean Corp Hgb Conc 28.8 g/dL (32-36); Mean Corpuscular Hgb 21.4 pg (27.0-32.0); Mean Corpuscular Volume 74.4 fL (80-94); Mean Platelet Vol. 10.4 fl (6.2-12.0); Monocyte# 0.47 X10^3/uL; NRBC Flagged by Analyzer 0 % (0-5); Neutrophil % 81.5 % (47-70); Platelet Count 258 K/mm3 (150-450); RBC Distribution Width CV 18.7 % (11.6-14.6); RBC Distribution Width SD 50.3 fl (35.1-43.9); Red Blood Count 3.87 M/mm3 (4.6-6.2); White Blood Count 7.9 K/mm3 (4.4-11.0)
[2020-06-16] MEDS: Ipratropium/Albuterol Sulfate 3 ML AMPUL.NEB INHALATION (08:25)
[2020-06-16 08:36] LABS: Anion Gap 8 (5-15); BUN 26 mg/dL (7-18); BUN/Creat Ratio 14.5 RATIO (10-20); Calcium,Total 8.5 mg/dL (8.5-10.1); Chloride 109 mmol/L (98-107); Creatinine, Serum 1.79 mg/dL (0.70-1.30); EST Glomerular Filtration Rate 40 mL/min (>60); Est Glom Filt Rate - Afr Amer 48 mL/min (>60); Estimated Creatinine Clearance 38.56 ml/min; Glucose 121 mg/dL (74-106); Potassium 3.5 mmol/L (3.5-5.1); Sodium Level 142 mmol/L (136-145)
[2020-06-16 08:43] LABS: BNP,B-Type NATRIURETIC PEPTIDE 337.8 pg/mL (0-100)
[2020-06-16 10:39] LABS: Magnesium 2.2 mg/dL (1.6-2.6)
--- NOTE | 2020-06-16 10:49 | HP.PCM_ITS ---
Problem List (1) Exertional dyspnea Status: Acute (2) Abnormal stress test Status: Acute (3) Essential hypertension Status: Chronic (4) Venous insufficiency Status: Chronic (5) Edema, lower extremity Status: Chronic (6) Chronic kidney disease, stage 3 (moderate) Status: Chronic Qualifiers: Chronic kidney disease stage 3 subtype: unspecified whether 3a or 3b Qualified Code(s): N18.30 - Chronic kidney disease, stage 3 unspecified (7) Chronic diastolic (congestive) heart failure Status: Chronic (8) Paroxysmal atrial fibrillation Status: Chronic (9) Moderate to severe pulmonary hypertension Status: Chronic Comment: due to sleep apnea and extrisic restrictive lung disease (obesity) (10) Morbid obesity with body mass index of 50.0-59.9 in adult Status: Chronic Comment: referrend to bariatric surgery [facility] (11) Diabetes, type 1.5, uncontrolled, managed as type 1 Status: Chronic History of Present Illness Date of Admission: 06/16/20 Chief Complaint: Exertional dyspnea, recent abnormal stress testing. The patient is a 75 y/o M w/ PMHx: Morbidly Obese, ANDERSON, HTN, HLD, Chronic AF on eliquis, CKD stage III, Chronic anemia (9-10 most recently), Diabetes mellitus type II, Chronic diastolic CHF, Chronic BL LE Lymphedema/Chronic venous stasis, Hx CVA with L M2 Occlusion, Moderate to severe Pulmonary HTN (Extrinsic and ANDERSON ), GERD who presents to the [facility] ED on 06/16/20 with history of ongoing dyspnea, worse with exertion over the last month with Cardiology evaluation with stress testing 06/11/20 noted to be indeterminant with planned 06/29/20 cardiac catheterization; however, he notes worsening dyspnea with exertion without orthopnea or PND and has been using his chronic q HS 2L NC over the last several days secondary to his dyspnea. He does report a health care transition manager with + COVID but he she had been masked in her presence. He notes not having bloody or black stools but had an outpatient + guiac. Work-up in the ED included T 98.1, heart 72, BP 160/97, respiratory rate 28, 97% on 2 L nasal cannula for ambulatory pulse oximeter noted to be 88% on room air with activity in the ED, CBC with WC 7.9, hemoglobin 8.3, platelet 258 with lymphopenia, MCV 74.4, BMP with chloride 109, BUN/creatinine 26/1.79, glucose 121, troponin less than 0.015, BNP 337.8, rapid Covid antigen negative, chest x-ray with evidence of mild congestion otherwise no acute cardiopulmonary findings, EKG with A. fib with rate 72 with septal Q waves unchanged from 03/2020 however while in the emergency room patient did have a 13 beat run of ventricular tachycardia. ED discussed case with Cardiology who wanted a magnesium and to assess his anemia prior to consideration cardiac catheterization. Past Medical History Past Medical History (Chronic Problems): Chronic Problems (Last Updated 06/14/20 @ 16:06 by Yoselin Rodriguez) Pure hypercholesterolemia (Chronic) Essential hypertension (Chronic) Venous insufficiency (Chronic) Edema, lower extremity (Chronic) Diabetes, type 1.5, uncontrolled, managed as type 1 (Chronic) Tubulovillous adenoma polyp of colon (Chronic) Chronic kidney disease, stage 3 (moderate) (Chronic) Kidney stones (Chronic) Stasis dermatitis (Chronic) Chronic diastolic (congestive) heart failure (Chronic) Severe concentric left ventricular hypertrophy (Chronic) Paroxysmal atrial fibrillation (Chronic) 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 (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) Moderate to severe pulmonary hypertension (Chronic) due to sleep apnea and extrisic restrictive lung disease (obesity) Obstructive sleep apnea of adult (Chronic) cpap at night Morbid obesity with body mass index of 50.0-59.9 in adult (Chronic) referrend to bariatric surgery [facility] Medical History: Medical History (Last Updated 06/14/20 @ 16:06 by Yoselin Rodriguez) Abnormal stress test (Acute) R94.39 Pure hypercholesterolemia (Chronic) E78.00 Essential hypertension (Chronic) I10 Venous insufficiency (Chronic) I87.2 Edema, lower extremity (Chronic) R60.0 Acute on chronic diastolic (congestive) heart failure (Acute) I50.33 Cellulitis of left lower extremity (Acute) L03.116 Diabetes, type 1.5, uncontrolled, managed as type 1 (Acute) E13.65 Hypoglycemia due to insulin (Acute) E16.0, T38.3X5A Tubulovillous adenoma polyp of colon (Chronic) D12.6 Chronic kidney disease, stage 3 (moderate) (Chronic) N18.3 Kidney stones (Chronic) N20.0 Stasis dermatitis (Chronic) I87.2 Chronic diastolic (congestive) heart failure (Chronic) I50.32 Severe concentric left ventricular hypertrophy (Chronic) I51.7 Paroxysmal atrial fibrillation (Chronic) I48.0 nursing home (current) use of anticoagulants (Chronic) Z79.01 Moderate to severe pulmonary hypertension (Chronic) I27.2 due to sleep apnea and extrisic restrictive lung disease (obesity) Obstructive sleep apnea of adult (Chronic) G47.33 cpap at night Morbid obesity with body mass index of 50.0-59.9 in adult (Chronic) E66.01, Z68.43 referrend to bariatric surgery [facility] Failure to thrive Ischemic stroke Onset Date: 08/20/18 I63.9 D/T left M2 occlusion per CTA done @ [facility] ER Recent cerebrovascular accident (CVA) Z86.73 Allergies No Known Allergies Allergy (Verified 06/16/20 07:50) Home Medications: Ambulatory Orders Medication Instructions Recorded atorvastatin 80 mg tablet 80 mg PO DAILY 09/19/18 carvedilol 12.5 mg tablet 12.5 mg PO BID 09/19/18 mirabegron 25 mg tablet,extended 25 mg PO DAILY 10/31/18 release 24 hr RX: Amlodipine [Norvasc] 10 mg PO DAILY 05/15/19 RX: Insulin Glargine,Hum.rec.anlog 60 unit SQ QHS 05/15/19 [Remedios Zendejas U-100] rivaroxaban 15 mg tablet 15 mg PO DAILY@1700 05/15/19 furosemide 80 mg tablet 80 mg PO DAILY tab 02/15/20 glipizide 10 mg tablet 10 mg PO DAILY 02/15/20 RX: Fluticasone Furoate [Arnuity 200 mcg INHALATION PRN PRN 04/01/20 Ellipta] hydralazine 25 mg tablet 50 mg PO TID tab 05/14/20 aspirin 81 mg tablet,delayed 325 mg PO DAILY 06/03/20 release Surgical History: Surgical History (Last Reviewed 05/28/20 @ 12:37 by Mamta Bonner) History of cardioversion Onset Date: 08/23/15 Z98.890 03/23/14, 02/13/15, 08/23/2015 History of right and left heart catheterization Onset Date: ~2008 Z98.8[facility] History of right heart catheterization Onset Date: 05/19/13 Z98.890 Surgical History: appendectomy Psychiatric History: No pertinent psych hx Lives: Alone Smoking Status: Former smoker - Smoked 1 ppd cigarette tobacco age [age]. Tobacco Use: Non-smoker Alcohol: None Drugs: None - *Family History Maternal Family History: Family History (Last Reviewed 05/28/20 @ 12:37 by Mamta Bonner) Father Colon cancer History Items: - - Denies any marked maternal family history including heart disease, cancer, CVA, DM. Paternal Family History: Family History (Last Reviewed 05/28/20 @ 12:37 by Mamta Bonner) Father Colon cancer History Items: Cancer - Father with history of colon CA. Review of Systems Constitutional: Reports: Weakness, Fatigue. Denies: Anorexia, Chills, Fever, Malaise, Weight Change HEENT: Denies: Head Aches, Sinus Congestion, Sinus Drainage Cardiovascular: Reports: Edema. Denies: Chest Pain, Chest Pressure, Chest Tightness, Light Headedness, Orthopnea, Palpitations, Syncope Respiratory: Reports: Shortness of Breath, Shortness of breath upon exertion. Denies: Cough, Shortness of breath at rest, Sputum production, Wheezing Gastrointestinal: Denies: Abdominal Pain, Nausea, Vomiting Genitourinary: Denies: Dysuria Musculoskeletal: Reports: Back Pain, Joint Pain, Leg Pain. Denies: Joint Tenderness Skin: Reports: Skin Changes. Denies: Rash, Wounds Neurological: Denies: Numbness, Tingling, Focal weakness Psychiatric: Denies: Anxiety, Depression, Homicidal Ideations, Suicidal Ideations Hematologic/ Lymphatic: Reports: Anemia. Denies: Easy Bruising, Easy Bleeding VTE Information - Inpt Only VTE Present on Admission: No VTE Mechan Device Prophylaxis: SCD's VTE Pharm Prophylaxis ordered?: No Reason prophylaxis not ordered:: Medical Contraindication Subjective: Seated upright in the PCU bedside chair, patient transferred from ED bed, walked across room and was very dyspneic and did improve clinically by the end of exam and notes this is similar to how it has been for him at home recently. Objective: Physical Examination: General: awake, alert, oriented x 3 and cooperative, seated upright in the PCU bedside chair, recently walked from ED cot and had significant dyspnea with exertion but following rest toward the end of examination appeared comfortable. Skin: normal color, turgor, no icterus, cyanosis but notable bilateral lower extremity stasis disease and skin changes. HEENT: AT/NC, EOMI, PERRLA, MMM, no carotid bruits or JVD however thickened neck makes examination difficult. Lungs: Diminished, greater bases, initially increased work of breathing accessory muscle usage following walk from cot to bedside chair, clinically improved and by the end of examination had normalized with no obvious distress, no rales, ronchi or wheezing. Heart: Irregular, rate controlled; no gallop, rub audible. Abdomen: soft, morbidly obese, NTTP, ND, distant normal BS, unable to discern HSM secondary to habitus. Extremities: no cyanosis or clubbing, see skin with noted stasis skin changes/disease, chronic bilateral lower extremity lymphedema. Neurological: patient awake, alert, oriented x 3; cognitive function intact; pupils equally reactive to light and accomodation; cranial nerves II-XII grossly normal, moving all 4 extremities, no focal deficits, strength severely globally decreased secondary to acute presentation as noted. Psychiatric: affect appears improved following rest after walk from cot, initially evident distress, at end of exam had normalized, calm, no obvious distress, no acute evidence of depressive or anxiety feelings. - Physical Exam Vitals/I&O's: Vital Signs Temp Pulse Resp BP Pulse Ox 98.2 F 62 19 H 168/68 H 94 06/16/20 09:13 06/16/20 09:58 06/16/20 09:58 06/16/20 09:58 06/16/20 09:58 Oxygen Flow Rate (L/min) 2 Oxygen Delivery Method Nasal Cannula Weight: 392 lb 6.765 oz Body Mass Index (BMI) 54.7 Finger Stick Blood Glucose 116 Microbiology Past 72 Hours 06/16/20 08:15 Mucosa - Nose SARS-CoV-2 Antigen (Rapid) - Final Laboratory Results 06/16/20 08:07: WBC 7.9, RBC 3.87 L, Hgb 8.3 L, Hct 28.8 L, MCV 74.4 L, MCH 21.4 L, MCHC 28.8 L, RDW Std Deviation 50.3 H, RDW Coeff of Jun 18.7 H, Plt Count 258, MPV 10.4, Immature Gran % (Auto) 0.400, Neut % (Auto) 81.5 H, Lymph % (Auto) 8.8 L, [place] % (Auto) 6.0, Eos % (Auto) 2.4, Baso % (Auto) 0.9, Absolute Neuts (auto) 6.4, Absolute Lymphs (auto) 0.69 L, Nucleated RBC % 0 06/16/20 08:07: Sodium 142, Potassium 3.5, Chloride 109 H, Carbon Dioxide 25.0, Anion Gap 8, BUN 26 H, Creatinine 1.79 H, Estim Creat Clear Calc 38.56, Est GFR (MDRD) Af Amer 48 L, Est GFR (MDRD) Non-Af 40 L, BUN/Creatinine Ratio 14.5, Glucose 121 H, Calcium 8.5, Troponin I < 0.015 06/16/20 08:07: B-Natriuretic Peptide 337.8 H 06/16/20 08:07: Magnesium 2.2 Assessment/Plan All Active Problems (Last Updated 06/14/20 @ 16:06 by Yoselin Rodriguez) Exertional dyspnea (Acute) Abnormal stress test (Acute) Acute on chronic diastolic (congestive) heart failure (Acute) Cellulitis of left lower extremity (Acute) Hypoglycemia due to insulin (Acute) The patient is a 75 y/o M w/ PMHx: Morbidly Obese, ANDERSON, HTN, HLD, Chronic AF on eliquis, CKD stage III, Chronic anemia (9-10 most recently), Diabetes mellitus type II, Chronic diastolic CHF, Chronic BL LE Lymphedema/Chronic venous stasis, Hx CVA with L M2 Occlusion, Moderate to severe Pulmonary HTN (Extrinsic and ANDERSON), GERD who presents to the [facility] ED on 06/16/20 with history of ongoing dyspnea, worse with exertion over the last month with Cardiology evaluation with stress testing 06/11/20 noted to be indeterminant with planned 06/29/20 cardiac catheterization; however, he notes worsening dyspnea with exertion without or thopnea or PND and has been using his chronic q HS 2L NC over the last several days secondary to his dyspnea. 1. Exertional dyspnea, worsening with hypoxia with NSVT: ED 97% on 2 L nasal cannula for ambulatory pulse oximeter noted to be 88% on room air with activity in the ED, troponin less than 0.015, BNP 337.8, rapid Covid antigen negative, chest x-ray with evidence of mild congestion but suspect likely moreso poor film given habitus with no orthopnea or PND noted, otherwise no acute cardiopulmonary findings, EKG with A. fib with rate 72 with septal Q waves unchanged from 03/2020 however while in the emergency room patient did have a 13 beat run of ventricular tachycardia. Will admit to PCU, place on a monitored bed to assure no acute myocardial infarction with serial cardiac enzymes and EKGs. Mag 2.2. Will continue amenia evaluation and if stable Hgb per discussion with Cardiology would consider Cardiac catheterization potentially Wednesday given hold on xarelto start 06/16/20. ASA, NG, morphine. 2. Acute on Chronic Microcytic anemia: Admission hemoglobin 8.3, previously noted 9-10 range, patient with outpatient guaiac reportedly positive but no obvious black dark stools or bright red blood per rectum, per discussion with cardiology will continue to cycle H&H's, maintain on high-dose Protonix, repeat guaiac and if hemoglobins remained stable would benefit from endoscopy but likely would need cardiac cath prior per discussions with cardiology. 3. Chronic Diastolic CHF: 04/02/20 ECHO w/ no LV systolic function, EF 65%, severe concentric LVH, moderately large LA, mild enlarged RA, mild diffuse MV thickening, trivial MVI, trivial TVI, mild diffuse AV calcification, unable to assess diastolic dysfunction. Patient with significantly morbidly obese habitus, no worsened lower extremity edema, dyspnea only with exertion, no specific PND, weight gain or orthopnea per discussions, do believe that chest x- ray is primarily secondary to habitus and no overt failure, we will continue patient aspirin, statin, Coreg, hydralazine, Lasix regimen, holding patient Xarelto as noted given planned cardiac catheterization potentially. 4. Chronic atrial fibrillation: EKG with A. fib, rate controlled, will continue aspirin, holding Xarelto given potential cardiac catheterization as noted, continue home Coreg regimen, maintain on telemetry monitoring as noted. 5. Hypertension: Continue home regimen including amlodipine, Coreg, Lasix, hydralazine with hold parameters as needed, PRN hydralazine. 6. History of CVA: Holding Xarelto as noted temporarily for cardiac catheterization, continue aspirin, statin, hypertensive regimen, diabetic regimen. 7. Hyperlipidemia: Continue home statin regimen. 8. Diabetes mellitus type II: Hold oral home regimen, continue home insulin re gimen, ADA diet, accu checks w/ ISS. 9. Chronic kidney disease stage III: Admission BUN/creatinine 26/1.79, baseline appears 1.6-1.9, stable, trend. 10. Morbid Obesity: Weight loss and lifestyle changes encouraged, nutrition consulted. 11. GERD: We will maintain on Protonix high-dose twice daily given anemia evaluation as noted. 12. Chronic stasis disease, lymphedema: We will encourage bilateral lower extremity elevation, snug wraps, continue patient diuretic regimen. 13. ANDERSON: CPAP q HS, he notes will attempt to have his own brought in. 14. DVT prophylaxis: SCDs, holding patient home Xarelto for possible cardiac catheterization as noted. 15. 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 Discussed CODE status at length including difference between FULL code, DNR-CCA and DNR-CC status. Following discussions about the differences in these status, requested DNR-CCA, no intubation status. Advanced Care Planning Face to Face Time: 16 minutes. OBSV E&M: 55909 Initial observation care L3 Procedures: 82445 Advncd Care Plan 30 Min
[2020-06-16 12:15] LABS: Bedside Glucose 122 mg/dL (70-110)
[2020-06-16 12:31] LABS: Ferritin 28 ng/mL (26-388); Iron 29 ug/dL (65-175); Iron Binding Capacity,Total 329 ug/dL (250-450); PERCENT IRON SATURATION 8.8 % (15.0-55.0)
[2020-06-16] MEDS: hydrALAZINE 50 MG Tablet PO ×2 (13:55→22:06)
[2020-06-16] MEDS: Albuterol 2.5 MG/3 ML VIAL.NEB. INHALATION ×2 (14:23→21:43)
[2020-06-16 15:16] LABS: Hematocrit 30.4 % (40-54); Hemoglobin 8.7 g/dL (13.0-16.5); POSITIVE COUNT YES
[2020-06-16 16:51] LABS: Bedside Glucose 144 mg/dL (70-110)
[2020-06-16] MEDS: CLARIFY ORDER NOTE (17:23)
[2020-06-16] MEDS: Lidocaine 5% Patch 2 PATCH TOPICAL (17:23)
--- NOTE | 2020-06-16 18:03 | CON.PCM_ITS ---
Reason for Consult Date of Consultation: 06/16/20 Reason for Consultation: Shortness of breath, nonsustained V. tach History of Present Illness: The patient is a 75 year old M [past medical history of atrial fibrillation, CHF with preserved EF, pulmonary hypertension, chronic lymphedema, obesity presenting to [facility] because of worsening shortness of breath. He was seen in the cardiology office recently and was scheduled to undergo coronary angiography later this month. In the emergency room patient was also found to have a 13 beat run of nonsustained V. tach. Patient has anemia and was found to be guaiac positive as well. He denies any orthopnea. His shortness of breath is mainly with exertion. He denies any chest pain. Review of systems: All systems reviewed. All else is negative except that in HPI. ] Past Medical History Allergies/Adverse Reactions: Allergies No Known Allergies Allergy (Verified 06/16/20 07:50) Home Medications: Ambulatory Orders Medication Instructions Recorded atorvastatin 80 mg tablet 80 mg PO DAILY 09/19/18 carvedilol 12.5 mg tablet 12.5 mg PO BID 09/19/18 mirabegron 25 mg tablet,extended 25 mg PO DAILY 10/31/18 release 24 hr Amlodipine [Norvasc] 10 mg PO DAILY 05/15/19 Insulin Glargine,Hum.rec.anlog 60 unit SQ QHS 05/15/19 [Remedios Zendejas U-100] rivaroxaban 15 mg tablet 15 mg PO DAILY@1700 05/15/19 furosemide 80 mg tablet 80 mg PO DAILY tab 02/15/20 glipizide 10 mg tablet 10 mg PO DAILY 02/15/20 Fluticasone Furoate [Arnuity 200 mcg INHALATION DAILY 04/01/20 Ellipta] hydralazine 25 mg tablet 50 mg PO TID tab 05/14/20 aspirin 81 mg tablet,delayed 325 mg PO DAILY 06/03/20 release Past Medical History (Chronic Problems): Chronic Problems (Last Updated 06/14/20 @ 16:06 by Yoselin Rodriguez) Pure hypercholesterolemia (Chronic) Essential hypertension (Chronic) Venous insufficiency (Chronic) Edema, lower extremity (Chronic) Diabetes, type 1.5, uncontrolled, managed as type 1 (Chronic) Tubulovillous adenoma polyp of colon (Chronic) Chronic kidney disease, stage 3 (moderate) (Chronic) Kidney stones (Chronic) Stasis dermatitis (Chronic) Chronic diastolic (congestive) heart failure (Chronic) Severe concentric left ventricular hypertrophy (Chronic) Paroxysmal atrial fibrillation (Chronic) nursing home (current) use of anticoagulants (Chronic) Moderate to severe pulmonary hypertension (Chronic) due to sleep apnea and extrisic restrictive lung disease (obesity) Obstructive sleep apnea of adult (Chronic) cpap at night Morbid obesity with body mass index of 50.0-59.9 in adult (Chronic) referrend to bariatric surgery Count includes the [facility] Surgical History: appendectomy Psychiatric History: No pertinent psych hx - *Family History Maternal Family History: Family History (Last Reviewed 05/28/20 @ 12:37 by Mamta Bonner) Father Colon cancer History Items: - - Denies any marked maternal family history including heart disease, cancer, CVA, DM. Paternal Family History: Family History (Last Reviewed 05/28/20 @ 12:37 by Mamta Bonner) Father Colon cancer History Items: Cancer - Father with history of colon CA. Lives: Alone Smoking Status: Former smoker - Smoked 1 ppd cigarette tobacco age [age]. Tobacco Use: Non-smoker Alcohol: None Drugs: None Objective: Vital Signs Temp Pulse Resp BP Pulse Ox 97.9 F 74 22 H 156/91 H 96 06/16/20 16:51 06/16/20 16:51 06/16/20 16:51 06/16/20 16:51 06/16/20 16:51 Oxygen Flow Rate (L/min) 2 Oxygen Delivery Method Nasal Cannula Weight: 378 lb 15.594 oz Body Mass Index (BMI) 52.8 Finger Stick Blood Glucose 116 Intake and Output for Last 24 Hours 06/14/20 06/15/20 06/16/20 23:59 23:59 23:59 Intake Total 350 / 350 Balance 350 / 350 General: Awake, Alert, Oriented x 3 HEENT: Atraumatic Oral: Moist Mucosa Neck: Supple Lungs: Clear to auscultation Cardiovascular: Irregular Rhythm Abdomen: Obese Psych/Mental Status: Appropriate 06/16/20 08:07: WBC 7.9, RBC 3.87 L, Hgb 8.3 L, Hct 28.8 L, MCV 74.4 L, MCH 21.4 L, MCHC 28.8 L, Plt Count 258, MPV 10.4, Immature Gran % (Auto) 0.400, Neut % (Auto) 81.5 H, Lymph % (Auto) 8.8 L, [place] % (Auto) 6.0, Eos % (Auto) 2.4, Baso % (Auto) 0.9, Absolute Neuts (auto) 6.4, Nucleated RBC % 0 06/16/20 08:07: Sodium 142, Potassium 3.5, Chloride 109 H, Carbon Dioxide 25.0, Anion Gap 8, BUN 26 H, Creatinine 1.79 H, Est GFR (MDRD) Af Amer 48 L, Est GFR (MDRD) Non-Af 40 L, BUN/Creatinine Ratio 14.5, Glucose 121 H, Calcium 8.5, Troponin I < 0.015 06/16/20 08:07: B-Natriuretic Peptide 337.8 H 06/16/20 08:07: Magnesium 2.2 06/16/20 11:40: Iron 29 L, TIBC 329, Iron Saturation 8.8 L, Ferritin 28 06/16/20 11:40: Troponin I < 0.015 06/16/20 14:55: Hgb 8.7 L, Hct 30.4 L 06/16/20 14:55: Troponin I < 0.015 Rhythm: EKG: ECHO: Stress Test: Cardiac Cath: PCI: CT Surgery: Holter monitor: EPS: PPM: CXR: Chest CT Scan: Assessment/Plan 1. Atrial fibrillation: Continue present management. Eliquis will be held in anticipation of coronary angiography. 2. Nonsustained ventricular tachycardia: Potassium is on the low side. Consider maintaining a potassium of 4. Magnesium is within normal limits. Patient has preserved EF by prior echo. He is scheduled to undergo coronary angiography. We will hold his Eliquis. He does have anemia and his stool is positive for occult blood. There should be taken into consideration when proceeding with coronary angiography and revascularization if required. Patient has CKD as well but this appears to be at baseline. 3. Shortness of breath: Appears to be multifactorial secondary to obesity, anemia, atrial fibrillation, CHF with preserved EF. At this time patient appears to be compensated from a CHF standpoint. We will monitor this closely.
[2020-06-16 21:39] LABS: Hematocrit 29.6 % (40-54); Hemoglobin 8.5 g/dL (13.0-16.5)
[2020-06-16] MEDS: Budesonide Respules 0.5 MG/2 ML AMPUL.NEB. INHALATION (21:43)
[2020-06-16] MEDS: Atorvastatin Calcium 80 MG Tablet PO (22:02)
[2020-06-16] MEDS: oxyCODONE 5 MG Tablet PO (22:02)
[2020-06-16] MEDS: MELATONIN 3 MG TABLET PO (22:03)
[2020-06-16] MEDS: Carvedilol 12.5 MG Tablet PO (22:06)
[2020-06-16 22:15] LABS: Bedside Glucose 244 mg/dL (70-110)
[2020-06-16] MEDS: Insulin Lispro 100 UNIT/ML INSULN.PEN SC (22:17)
[2020-06-17] VITALS (14 sets, daily range): BP systolic 143–160; BP diastolic 52–99; PULSE 47–83; RESP 16–26; TEMP 36.2–36.7; O2SAT 91–98
--- NOTE | 2020-06-17 05:55 | EKG12_ITS ---
Test Reason : PRE PROCEDURE Blood Pressure : / mmHG Vent. Rate : 067 BPM Atrial Rate : 416 BPM P-R Int : 000 ms QRS Dur : 094 ms QT Int : 432 ms P-R-T Axes : 000 194 152 degrees QTc Int : 456 ms Atrial fibrillation Abnormal ECG When compared with ECG of 16-JUN-2020 07:58, MANUAL COMPARISON REQUIRED, DATA IS UNCONFIRMED Confirmed by ROSANGELA RINCON, RIGO ([id number]), editorial specialist HALEY NUÑEZ ([id number]) on 06/18/2020 10:57:15 AM Referred By: LANETTE Confirmed By:RIGO ADAMES MD
[2020-06-17] MEDS: Insulin Lispro 100 UNIT/ML INSULN.PEN SC ×4 (06:30→21:08)
[2020-06-17] MEDS: hydrALAZINE 50 MG Tablet PO (06:30)
[2020-06-17 06:46] LABS: Bedside Glucose 182 mg/dL (70-110)
[2020-06-17] MEDS: Budesonide Respules 0.5 MG/2 ML AMPUL.NEB. INHALATION ×2 (07:01→19:20)
[2020-06-17] MEDS: Albuterol 2.5 MG/3 ML VIAL.NEB. INHALATION ×2 (07:03→19:19)
[2020-06-17 07:09] LABS: Absolute Lymphocyte Count 0.85 X10^3/uL (0.83-4.51); Absolute Neutrophil Count 7.3 X10^3/uL (2.0-7.7); Basophil# 0.04 X10^3/uL; Basophil% 0.5 % (0-1); Eosinophil# 0.13 X10^3/uL; Eosinophils% 1.5 % (0-5); Hematocrit 29.8 % (40-54); Hemoglobin 8.3 g/dL (13.0-16.5); Lymphocyte # 0.85 X10^3/ul (4.0); Lymphocyte % 9.6 % (19-41); Mean Corp Hgb Conc 27.9 g/dL (32-36); Mean Corpuscular Hgb 21.1 pg (27.0-32.0); Mean Corpuscular Volume 75.8 fL (80-94); Monocyte# 0.49 X10^3/uL; Monocyte% 5.6 % (0-10); NRBC Flagged by Analyzer 0 % (0-5); Neutrophil # 7.27 X10^3/uL (2.7-7.7); Neutrophil % 82.5 % (47-70); Platelet Count 264 K/mm3 (150-450); RBC Distribution Width CV 18.6 % (11.6-14.6); RBC Distribution Width SD 51.6 fl (35.1-43.9); Red Blood Count 3.93 M/mm3 (4.6-6.2); White Blood Count 8.8 K/mm3 (4.4-11.0)
[2020-06-17 07:37] LABS: ALB/GLOB Ratio 0.8 RATIO (0.9-2.4); AST(SGOT) 18 U/L (15-37); Alanine Aminotransfer ALT/SGPT 21 U/L (16-61); Albumin, Serum 3.3 g/dL (3.2-5.0); Alkaline Phosphatase 86 U/L (45-117); Anion Gap 5 (5-15); BUN 28 mg/dL (7-18); BUN/Creat Ratio 14.8 RATIO (10-20); Calcium,Total 8.7 mg/dL (8.5-10.1); Chloride 107 mmol/L (98-107); Creatinine, Serum 1.89 mg/dL (0.70-1.30); EST Glomerular Filtration Rate 37 mL/min (>60); Est Glom Filt Rate - Afr Amer 45 mL/min (>60); Estimated Creatinine Clearance 36.52 ml/min; Globulin 4.3 g/dL (2.2-4.2); Glucose 189 mg/dL (74-106); Potassium 3.8 mmol/L (3.5-5.1); Protein, Total 7.6 g/dL (6.4-8.2); Sodium Level 140 mmol/L (136-145)
[2020-06-17 08:18] LABS: Vitamin B12 477 pg/mL (211-911)
[2020-06-17] MEDS: Mirabegron 25 MG TAB.ER.24H PO (09:24)
[2020-06-17] MEDS: amLODIPine 10 MG Tablet PO (09:24)
[2020-06-17] MEDS: Aspirin E.C. 325 MG Tablet PO (09:25)
[2020-06-17] MEDS: Carvedilol 12.5 MG Tablet PO ×2 (09:25→21:03)
[2020-06-17] MEDS: 0.9% Saline Lock 10 ML Syringe IV ×3 (09:31→21:04)
--- NOTE | 2020-06-17 10:20 | CASEMGMT ---
Patient has a Healthcare Power of Shift Mgr (HCPOA) and a Healthcare Living Will on file at [facility]. His preacher, Aly Christiansen is his HCPOA. Nicolasa TAPIA MSW
--- NOTE | 2020-06-17 10:36 | CASEMGMT ---
Intro role of CM to patient and FU form explained re: Observation status for treatment of shortness of breath. Explained hospitalization will be paid per? insurance policy for Outpatient billing?and condition will continue to be evaluated for Inpt necessity. The patient stated just where do I sign. Patient signed form and did not wish further explanation and refused a copy. Original to chart and RN CM let pt know to contact cm if questions. RN CM to leave copy, but [facility] VICE PRESIDENT [employer]ARMAC[employer] CM
[2020-06-17 11:36] LABS: Bedside Glucose 262 mg/dL (70-110)
--- NOTE | 2020-06-17 12:58 | PCM.PN.CARD ---
Subjectve: Shunt is awake and alert. He states his main problem has been his progressive shortness of breath and dyspnea. Objective: Vital Signs Temp Pulse Resp BP Pulse Ox 97.6 F L 71 19 H 151/52 H 98 06/17/20 09:15 06/17/20 09:15 06/17/20 09:15 06/17/20 09:15 06/17/20 09:15 Oxygen Flow Rate (L/min) 4 Oxygen Delivery Method Nasal Cannula Weight: 383 lb 2.614 oz Body Mass Index (BMI) 52.8 Finger Stick Blood Glucose 116 Intake and Output for Last 24 Hours 06/15/20 06/16/20 06/17/20 23:59 23:59 23:59 Intake Total 940 / 940 230 / 230 Balance 940 / 940 230 / 230 General: Awake, Alert, Oriented x 3, Cooperative, No Acute Distress, Obese HEENT: Atraumatic, Normocephalic, PERRL, EOMI, Sclera Non Icteric Neck: Supple, Good ROM, No JVD Lungs: Diminished Toro Bases Cardiovascular: Irregular Rhythm, Normal S1, Normal S2 Abdomen: Bowel Sounds Present, Soft Extremities: Moderate RLE Edema, Moderate LLE Edema Neurological: No Focal Motor or Sensory Deficit Psych/Mental Status: Appropriate 06/16/20 14:55: Hgb 8.7 L, Hct 30.4 L 06/16/20 14:55: Troponin I < 0.015 06/16/20 21:05: Hgb 8.5 L, Hct 29.6 L 06/17/20 06:50: WBC 8.8, RBC 3.93 L, Hgb 8.3 L, Hct 29.8 L, MCV 75.8 L, MCH 21.1 L, MCHC 27.9 L, Plt Count 264, MPV 10.0, Immature Gran % (Auto) 0.300, Neut % (Auto) 82.5 H, Lymph % (Auto) 9.6 L, [place] % (Auto) 5.6, Eos % (Auto) 1.5, Baso % (Auto) 0.5, Absolute Neuts (auto) 7.3, Nucleated RBC % 0 06/17/20 06:50: Sodium 140, Potassium 3.8, Chloride 107, Carbon Dioxide 28.0, Anion Gap 5, BUN 28 H, Creatinine 1.89 H, Est GFR (MDRD) Af Amer 45 L, Est GFR (MDRD) Non-Af 37 L, BUN/Creatinine Ratio 14.8, Glucose 189 H, Calcium 8.7, Total Bilirubin 0.90 Rhythm: Atrial fibrillation; PVCs EKG: Atrial fibrillation ECHO:04/02/2020 Interpretation Summary The study was technically difficult. Contrast injection was performed. Left ventricular systolic function is normal. The estimated ejection fraction is 65 %. Severe concentric left ventricular hypertrophy. The left atrium is moderately enlarged. The right atrium is mildly enlarged. There is mild mitral annular calcification. Mild diffuse mitral valve thickening. Trivial mitral valve insufficiency. Trivial tricuspid valve insufficiency. Mild diffuse aortic valve calcification. Unable to estimate RV systolic pressure/pulmonary artery pressure due to technically difficult study. Unable to assess diastolic dysfunction. Stress Test: Stress Test Report Date: 06-11-2020 Procedure: Pharmacologic stress nuclear imaging study Indications: Shortness of breath/dyspnea on exertion; atrial fibrillation; diastolic mediated CHF; pulmonary hypertension Consent: Per the patient Procedure: The patient underwent pharmacologic (Regadenoson 0.4mg ) evaluation with a peak heart rate of 85 beats per minute (58%predicted maximal heart rate) and a peak blood pressure of 138/64 mmHg. The baseline ECG demonstrated atrial fibrillation. The peak pharmacologic ECG demonstrated no obvious ECG changes. There were no cardiac dysrhythmias pretest, during pharmacologic infusion, or recovery. There was no complaint of chest discomfort during pharmacologic infusion or recovery. The examination was discontinued secondary to completion of protocol. Impression: 1. Pharmacologic (Regadenoson) evaluation 2. Peak pharmacologic ECG with no obvious ECG changes. 3. There were no cardiac dysrhythmias pretest, during pharmacologic infusion, or recovery. 4. Nuclear images pending Myocardial perfusion imaging study: Technique: The patient was injected with 15.0 millicuries of technetium 99m Cardiolite and subsequently rest SPECT Cardiolite nuclear imaging was obtained in the horizontal long, vertical long, and short axis views. The patient underwent pharmacologic (Regadenoson) evaluation with a peak heart rate of 85 beats per minute (58% percent predicted maximal heart rate) and a peak blood pressure of 138/64 mmHg. The patient was injected with 44.7 millicuries of technetium 99m Cardiolite and subsequently stress SPECT Cardiolite nuclear imaging was obtained in the horizontal long, vertical long, and short axis views. A gated Cardiolite study at peak stress was obtained. Interpretation: Rest and stress SPECT Cardiolite nuclear imaging status post realignment, normalization, and attenuation correction demonstrates that is post stress a small area of subtle diminished tracer uptake in the mid anterior segments and the apical segments. There is end systolic thickening and brightening. The gated Cardiolite study demonstrates myocardial thickening and inward wall motion. The reported LVEF is 63%. Impression: 1. Rest and stress SPECT Cardiolite nuclear imaging demonstrate post stress a small area of subtle diminished tracer uptake in the mid anterior segments and the apical segments which may be compatible with shifting soft tissue attenuation/artifact and physiologic apical thinning although an area of stress-induced myocardial ischemia cannot necessarily be excluded. 2. The gated Cardiolite study reports an LVEF of 63%. CXR: Medical Necessity - Tobacco Use Smoking Status: Former smoker - Smoked 1 ppd cigarette tobacco age [age]. Tobacco Use: Non-smoker Assessment/Plan 1. Shortness of breath/dyspnea The patient has progressive shortness of breath/dyspnea. The etiology may be multifactorial including his unfortunate obesity, his underlying pulmonary disease process, and any potential cardiovascular disease. From a cardiac standpoint he will continue to be monitored. Based upon his recent noninvasive studies/stress test consideration will be given to further evaluation with diagnostic cardiac catheterization as his anticoagulation coverage diminishes. Depending upon the findings he may or may not need further cardiac versus noncardiac care. 2. Atrial fibrillation He does have a history of atrial fibrillation. He will continue to be monitored. He will continue rate control therapy. His anticoagulation is being temporarily interrupted to allow for an upcoming diagnostic cardiac catheterization. 3. Diastolic mediated CHF There is been concern the past the patient may have chronic diastolic CHF. At the moment he is being followed. He will continue medical therapy as deemed appropriate. He will continue his cardiovascular evaluation as noted. 4. Hyperlipidemia He will continue medical management with adjustment as needed. 5. Hypertension He does have history of hypertension. His medications will be adjusted as needed. 6. Pulmonary hypertension with cor pulmonale and right heart failure He has a history of pulmonary hypertension thought secondary to his underlying pulmonary disease process. Comment: Based upon previous medical records there is been a comment as to whether or not the patient has had any obvious intracardiac shunting phenomena. Based upon a previous [facility] echocardiogram there was a comment that no PFO was detected color-flow Doppler or agitated saline contrast study. From a cardiac standpoint he will continue medical therapy. His diagnostic studies such as his BMP will be followed as his renal function is important with respect to additional evaluation and care especially considering cardiac catheterization and use of IV contrast related agents. As his anticoagulation decreases, if he remains otherwise stable and his renal function appears to be acceptable, then he will proceed with further evaluation with diagnostic cardiac catheterization. This note was generated using a voice recognition system and there may be incorrect words, spelling or punctuation that were not noted when reviewing the office note prior to saving.
[2020-06-17] MEDS: hydrALAZINE 50 MG Tablet 100 MG PO ×2 (15:02→21:03)
[2020-06-17] MEDS: Isosorbide Mononitrate 30 MG Tablet PO (15:02)
--- NOTE | 2020-06-17 15:35 | PN_ITS ---
Patient Problems: Active and Suspected Problems (Last Updated 06/14/20 @ 16:06 by Yoselin Rodriguez) Exertional dyspnea (Acute) Abnormal stress test (Acute) Subjective: Still with GAVIRIA with just grabbing something off a shelf. Vitals/I&O's: Vital Signs Temp Pulse Resp BP Pulse Ox 36.2 C L 66 18 143/70 H 95 06/17/20 15:05 06/17/20 15:05 06/17/20 15:05 06/17/20 15:05 06/17/20 15:05 Oxygen Flow Rate (L/min) 4 Oxygen Delivery Method Nasal Cannula Weight: 173.8 kg Body Mass Index (BMI) 52.8 Finger Stick Blood Glucose 116 Intake and Output for Last 24 Hours 06/15/20 06/16/20 06/17/20 23:59 23:59 23:59 Intake Total 940 / 940 710 / 710 Balance 940 / 940 710 / 710 General: Alert, No apparent distress HEENT: Atraumatic, Normocephalic Oral: Moist Mucosa, No Gingival or Mucosal Lesions/ Ulcerations Neck: No Nodes, Thyroid Normal Size and Texture Lungs: Clear to auscultation, Diminished Cardiovascular: Regular rate, Regular Rhythm, Normal S1, Normal S2, No murmurs Abdomen: Bowel Sounds Present, Soft, Non Tender, Non-Distended, No Hepato- splenomegaly Extremities: No edema, No Calf Tenderness Skin: No rashes, No breakdown Psych/Mental Status: Normal Affect, Appropriate Microbiology Past 72 Hours 06/16/20 12:00 Stool Stool Occult Blood (IVAN) - Final Occult Blood Positive 06/16/20 08:15 Mucosa - Nose SARS-CoV-2 Antigen (Rapid) - Final Laboratory Results 06/16/20 11:40: Vitamin B12 477 06/16/20 16:45: POC Glucose 144 H 06/16/20 21:05: Hgb 8.5 L, Hct 29.6 L 06/16/20 22:05: POC Glucose 244 H 06/17/20 06:29: POC Glucose 182 H 06/17/20 06:50: WBC 8.8, RBC 3.93 L, Hgb 8.3 L, Hct 29.8 L, MCV 75.8 L, MCH 21.1 L, MCHC 27.9 L, RDW Std Deviation 51.6 H, RDW Coeff of Jun 18.6 H, Plt Count 264, MPV 10.0, Immature Gran % (Auto) 0.300, Neut % (Auto) 82.5 H, Lymph % (Auto) 9.6 L, [place] % (Auto) 5.6, Eos % (Auto) 1.5, Baso % (Auto) 0.5, Absolute Neuts (auto) 7.3, Absolute Lymphs (auto) 0.85, Nucleated RBC % 0 06/17/20 06:50: Sodium 140, Potassium 3.8, Chloride 107, Carbon Dioxide 28.0, Anion Gap 5, BUN 28 H, Creatinine 1.89 H, Estim Creat Clear Calc 36.52, Est GFR (MDRD) Af Amer 45 L, Est GFR (MDRD) Non-Af 37 L, BUN/Creatinine Ratio 14.8, Glucose 189 H, Calcium 8.7, Total Bilirubin 0.90, AST 18, ALT 21, Alkaline Phosp hatase 86, Total Protein 7.6, Albumin 3.3, Globulin 4.3 H, Albumin/Globulin Ratio 0.8 L 06/17/20 11:27: POC Glucose 262 H Current Medications Acetaminophen (Acetaminophen 325 Mg Tablet) 650 mg PO Q6H PRN PRN PRN Reason: Pain Score 1-10/Temp > 100.7 F Al Hydroxide/Mg Hydroxide (Mag Hydrox/Al Hydrox/Simeth 30 Ml Udc) 30 ml PO Q6H PRN PRN PRN Reason: Gastric Burning Albuterol Sulfate (Albuterol 2.5 Mg/3 Ml Vial.Neb.) 2.5 mg INHALATION Q2H PRN PRN PRN Reason: Dyspnea, wheezing Last Admin: 06/17/20 07:03 Dose: 2.5 mg Documented by: Amlodipine Besylate (Amlodipine 10 Mg Tablet) 10 mg PO DAILY [facility] Last Admin: 06/17/20 09:24 Dose: 10 mg Documented by: Aspirin (Aspirin E.C. 325 Mg Tablet) 325 mg PO DAILY@0800 [facility] Last Admin: 06/17/20 09:25 Dose: 325 mg Documented by: Atorvastatin Calcium (Atorvastatin Calcium 80 Mg Tablet) 80 mg PO DAILY@2200 [facility] Last Admin: 06/16/20 22:02 Dose: 80 mg Documented by: Budesonide (Budesonide Respules 0.5 Mg/2 Ml Ampul.Neb.) 0.5 mg INHALATION Q12H.RT [facility] Last Admin: 06/17/20 07:01 Dose: 0.5 mg Documented by: Carvedilol (Carvedilol 12.5 Mg Tablet) 12.5 mg PO BID [facility] Last Admin: 06/17/20 09:25 Dose: 12.5 mg Documented by: Clopidogrel Bisulfate (Clopidogrel Bisulfate 75 Mg Tablet) 75 mg PO DAILY [facility] Dextrose (Dextrose 50%-Water 25 Gm/50 Ml Disp.Syrin) 0 gm IV X1 PRN; Protocol PRN Reason: Hypoglycemia Glucagon (Glucagon 1 Mg/Ml Syringe) 1 mg IM .X1 PRN PRN Reason: Hypoglycemia Guaifenesin (Guaifenesin 10 Ml Udc (200mg/10ml)) 20 ml PO Q4H PRN PRN PRN Reason: COUGH Hydralazine HCl (Hydralazine 20 Mg/Ml Vial) 10 mg IV Q4H PRN PRN PRN Reason: SBP > 160 Hydralazine HCl (Hydralazine 50 Mg Tablet) 100 mg PO TID [facility] Last Admin: 06/17/20 15:02 Dose: 100 mg Documented by: Pantoprazole Sodium 40 mg/ (Sodium Chloride) 110 mls @ 330 mls/hr IV Q12 [facility] Last Infusion: 06/17/20 09:51 Dose: Infused Documented by: Sodium Chloride () 250 mls @ 15 mls/hr IV .[id number] PRN PRN Reason: Saline Flush Sodium Chloride () 250 mls @ 15 mls/hr IV .[id number] PRN PRN Reason: Additional IVPB Infusion Sodium Chloride () 1,000 mls @ 0 mls/hr IV .Q0M [facility] Insulin Glargine (Insulin Glargine 100 Units/Ml Pen) 60 units SC QHS [facility] Last Admin: 06/16/20 22:03 Dose: 60 u Documented by: Insulin Human Lispro (Insulin Lispro 100 Unit/Ml Insuln.Pen) 0 unit SC ACHS [facility]; Protocol Last Admin: 06/17/20 11:28 Dose: 3 u Documented by: Isosorbide Mononitrate (Isosorbide Mononitrate 30 Mg Tablet) 30 mg PO DAILY [facility] Last Admin: 06/17/20 15:02 Dose: 30 mg Documented by: Lidocaine (Lidocaine 5% Patch) 2 patch TOPICAL DAILY [facility]; Protocol Last Admin: 06/17/20 09:23 Dose: Not Given Documented by: Magnesium Hydroxide (Magnesium Hydroxide 30 Ml Udc) 30 ml PO DAILY PRN PRN PRN Reason: Constipation Melatonin (Melatonin 3 Mg Tablet) 3 mg PO QHS PRN PRN PRN Reason: INSOMNIA Last Admin: 06/16/20 22:03 Dose: 3 mg Documented by: Mirabegron (Mirabegron 25 Mg Tab.Er.24h) 25 mg PO DAILY [facility] Last Admin: 06/17/20 09:24 Dose: 25 mg Documented by: Morphine Sulfate (Morphine 2 Mg/Ml Syringe) 2 mg IV Q3H PRN PRN PRN Reason: Pain Score 6-10 Nitroglycerin (Nitroglycerin (Inpatient Use) 0.4 Mg Tab.Subl) 0.4 mg SUBLINGUAL Q5M PRN PRN Reason: CARDIAC/CHEST PAIN Ondansetron HCl (Ondansetron 4 Mg/2 Ml Vial) 4 mg IV Q8H PRN PRN PRN Reason: NAUSEA/VOMITING Oxycodone HCl (Oxycodone 5 Mg Tablet) 5 mg PO Q4H PRN PRN PRN Reason: Pain Score 4-5 Last Admin: 06/16/20 22:02 Dose: 5 mg Documented by: Prochlorperazine Edisylate (Prochlorperazine 10 Mg/2 Ml Vial) 5 mg IV Q4H PRN PRN PRN Reason: Breakthrough Nausea/Vomiting Psyllium Hydrophilic Mucilloid (Psyllium 1 Packet) 1 packet PO DAILY PRN PRN PRN Reason: Constipation Senna/Docusate Sodium (Senna/Docusate Sodium 1 Tablet) 2 tablet PO BID PRN PRN PRN Reason: Constipation Sodium Chloride (0.9% Saline Lock 10 Ml Syringe) 10 - 40 ml IV UD PRN PRN Reason: SALINE FLUSH Last Admin: 06/17/20 09:31 Dose: 10 ml Documented by: Throat Lozenges (Benzocaine/Menthol 1 Lozenge) 1 lozenge MUCOUS MEM Q2H PRN PRN PRN Reason: SORE THROAT STROKE Vital Signs/Narrative: Vital Signs Temp Pulse Resp BP Pulse Ox 06/17/20 15:05 36.2 C L 66 18 143/70 H 95 06/17/20 15:02 66 143/70 H Medical Necessity - Tobacco Use Smoking Status: Former smoker - Smoked 1 ppd cigarette tobacco age [age]. Tobacco Use: Non-smoker Assessment/Plan All Active Problems (Last Updated 06/14/20 @ 16:06 by Yoselin Rodriguez) Exertional dyspnea (Acute) Abnormal stress test (Acute) Acute on chronic diastolic (congestive) heart failure (Acute) Cellulitis of left lower extremity (Acute) Hypoglycemia due to insulin (Acute) 1. Exertional dyspnea, * worsening with hypoxia with NSVT: ED 97% on 2 L nasal cannula for ambulatory pulse oximeter noted to be 88% on room air with activity in the ED, * troponin negative x 3 * cardiology following. tentatively planning on [facility] on 06/18 * weight has been stable since 02/2020, however, up since June of 2019. * furosemide 2. Acute on Chronic Microcytic anemia: * iron-deficient * Admission hemoglobin 8.3, previously noted 9-10 range, * patient with outpatient guaiac reportedly positive but no obvious black dark stools or bright red blood per rectum, per discussion with cardiology will continue to cycle H&H's, maintain on high-dose Protonix, repeat guaiac and if hemoglobins remained stable would benefit from endoscopy but likely would need cardiac cath prior per discussions with cardiology. * will give IV iron * no transfusion for Hg above 8 3. Chronic HFpEF: * 04/02/20 ECHO w/ no LV systolic function, EF 65%, severe concentric LVH, moderately large LA, mild enlarged RA, mild diffuse MV thickening, trivial MVI, trivial TVI, mild diffuse AV calcification, unable to assess diastolic dysfunction. * see #1 for further details 4. Chronic atrial fibrillation: * EKG with A. fib, rate controlled, will continue aspirin, holding Xarelto given potential cardiac catheterization as noted, continue home Coreg regimen, maintain on telemetry monitoring as noted. 5. Hypertension: * stable * Continue home regimen including amlodipine, Coreg, Lasix, hydralazine with hold parameters as needed, PRN hydralazine. 6. History of CVA: * Holding Xarelto as noted temporarily for cardiac catheterization, continue aspirin, statin, hypertensive regimen, diabetic regimen. 7. Hyperlipidemia: Continue home statin regimen. 8. Diabetes mellitus type II: * fair control * Hold oral home regimen, continue home insulin regimen, ADA diet, accu checks w/ ISS. 9. Chronic kidney disease stage III: Admission BUN/creatinine 26/1.79, baseline appears 1.6-1.9, stable, trend. 10. Morbid Obesity: Weight loss and lifestyle changes encouraged, nutrition consulted. 11. GERD: We will maintain on Protonix high-dose twice daily given anemia evaluation as noted. 12. Chronic stasis disease, lymphedema: We will encourage bilateral lower extremity elevation, snug wraps, continue patient diuretic regimen. 13. ANDERSON: CPAP q HS, he notes will attempt to have his own brought in. 14. DVT prophylaxis: SCDs, holding patient home Xarelto for possible cardiac catheterization as noted. Inpatient E&M: [id number] Subs Hosp L2
[2020-06-17] MEDS: Clopidogrel Bisulfate 300 MG Tablet PO (16:26)
[2020-06-17 16:55] LABS: Bedside Glucose 189 mg/dL (70-110)
[2020-06-17] MEDS: MELATONIN 3 MG TABLET PO (21:03)
[2020-06-17] MEDS: oxyCODONE 5 MG Tablet PO (21:03)
[2020-06-17] MEDS: Atorvastatin Calcium 80 MG Tablet PO (21:04)
[2020-06-17 21:20] LABS: Bedside Glucose 226 mg/dL (70-110)
--- NOTE | 2020-06-17 23:24 | NURSING ---
This RN attempted to obtain vitals at 2300 per VSA. Pt. declines, stating I want you to leave me alone until 5 in the morning. HR 63 on tele. Home CPap in use.
--- NOTE | 2020-06-17 23:37 | PCS.PANDOC ---
PANDEMIC DOCUMENTATION INITIATED: Date: 06/16/20 Time: 11:29
[2020-06-18] VITALS (25 sets, daily range): BP systolic 114–155; BP diastolic 60–85; PULSE 48–92; RESP 18–20; TEMP 36.3–36.7; O2SAT 92–99
[2020-06-18] MEDS: Isosorbide Mononitrate 30 MG Tablet PO (06:16)
[2020-06-18] MEDS: oxyCODONE 5 MG Tablet PO ×3 (06:16→18:42)
[2020-06-18] MEDS: Aspirin E.C. 325 MG Tablet PO (06:16)
[2020-06-18] MEDS: Clopidogrel Bisulfate 75 MG Tablet PO (06:16)
[2020-06-18] MEDS: amLODIPine 10 MG Tablet PO (06:16)
[2020-06-18] MEDS: Carvedilol 12.5 MG Tablet PO (06:16)
[2020-06-18] MEDS: hydrALAZINE 50 MG Tablet 100 MG PO ×3 (06:17→21:36)
[2020-06-18 06:30] LABS: Bedside Glucose 118 mg/dL (70-110)
[2020-06-18 07:18] LABS: Absolute Lymphocyte Count 0.88 X10^3/uL (0.83-4.51); Absolute Neutrophil Count 6.6 X10^3/uL (2.0-7.7); Basophil# 0.06 X10^3/uL; Basophil% 0.7 % (0-1); Eosinophil# 0.16 X10^3/uL; Eosinophils% 1.9 % (0-5); Hemoglobin 7.2 g/dL (13.0-16.5); Lymphocyte # 0.88 X10^3/ul (4.0); Lymphocyte % 10.4 % (19-41); Mean Corp Hgb Conc 27.7 g/dL (32-36); Mean Corpuscular Hgb 21.1 pg (27.0-32.0); Mean Corpuscular Volume 76.2 fL (80-94); Mean Platelet Vol. 9.6 fl (6.2-12.0); Monocyte# 0.73 X10^3/uL; Monocyte% 8.6 % (0-10); NRBC Flagged by Analyzer 0 % (0-5); Neutrophil # 6.61 X10^3/uL (2.7-7.7); Neutrophil % 77.7 % (47-70); Platelet Count 215 K/mm3 (150-450); RBC Distribution Width CV 18.9 % (11.6-14.6); RBC Distribution Width SD 52.4 fl (35.1-43.9); Red Blood Count 3.41 M/mm3 (4.6-6.2); White Blood Count 8.5 K/mm3 (4.4-11.0)
[2020-06-18 07:45] LABS: Anion Gap 4 (5-15); BUN 36 mg/dL (7-18); BUN/Creat Ratio 18.5 RATIO (10-20); Calcium,Total 8.3 mg/dL (8.5-10.1); Chloride 111 mmol/L (98-107); Creatinine, Serum 1.95 mg/dL (0.70-1.30); EST Glomerular Filtration Rate 36 mL/min (>60); Est Glom Filt Rate - Afr Amer 43 mL/min (>60); Glucose 120 mg/dL (74-106); Potassium 3.8 mmol/L (3.5-5.1); Sodium Level 141 mmol/L (136-145); Thyroid Stim Hormone (TSH) 1.17 uIU/mL (0.358-3.74)
[2020-06-18 08:21] LABS: Base Excess 3 mmol/L (-2 to +2); Bicarbonate 27.7 mmol/L (22-26); Blood Gas Specimen Type ART; PO2 45 mmHG (75-100); SO2 79 % (95-99); Total Carbon Dioxide 29 mmol/L; pCO2 46.8 mmHg (35-45); pH 7.38 (7.35-7.45)
[2020-06-18 08:36] LABS: Blood Gas Specimen Type VEN; VBG BASE EXCESS 2 mmol/L (-1.0-3.5); VBG Bicarbonate 28 mmol/L (22-26); VBG PO2 28 mmHg (25-40); VBG SO2 47 % (50-70); VBG TCO2 29 mmol/L (23-33); VBG pCO2 50.7 mmHg (41-51); VBG pH 7.35 (7.32-7.42)
[2020-06-18 08:40] LABS: Blood Gas Specimen Type VEN; VBG BASE EXCESS 1 mmol/L (-1.0-3.5); VBG Bicarbonate 27 mmol/L (22-26); VBG PO2 29 mmHg (25-40); VBG SO2 49 % (50-70); VBG TCO2 28 mmol/L (23-33); VBG pCO2 49.7 mmHg (41-51); VBG pH 7.34 (7.32-7.42)
--- NOTE | 2020-06-18 09:30 | CL.D_ITS ---
Patient Name: REGGIE MOHR Study Date: 06/18/2020 Performing: Sergey Henry MD Ht: 71 inches 180 cm : 1945 Wt: 381.9 lbs 173 kg Age: 75 Gender: male BSA: 2.77 PROCEDURE(S) PERFORMED JS12-OMB/LHC/COR/LV CLINICAL PROFILE AND INDICATIONS Indications: Suspected CAD Heart Failure: NYHA Class: 4, Newly Diagnosed: No, Heart Failure Type: Diastolic Stress/Imaging Date: 06/11/2020tress Test with SPECT MPI: Positive Intermediate Risk Angina Classification Anginal Classification w/in 2 Weeks: Anginal Equivalent Dyspnea CAD Presentations: Other: dyspnea CONCLUSIONS Right heart pressures - severely elevated The patient has pulmonary hypertension which is severe. Intracardiac shunting: None Elevated Left Ventricular End Diastolic Pressure Normal LV size, wall motion,and systolic function LVEF: by LV gram 65 % RECOMMENDATIONS Risk factor modification Medical therapy Consider pulmonology consultation for additional evaluation / care DESCRIPTION OF PROCEDURE The patient arrived to the procedure lab. The risks and benefits of the procedure as well as a full d escription of our services here and current unavailability of surgical backup were fully explained to the patient and/or their significant other prior to the catheterization. The Timeout was completed, verifying the correct patient and procedure. The patient's procedural site was prepped and draped in the usual fashion. Local anesthetic was given subcutaneously to right radial region with Lidocaine 2% . Using a modified Seldinger technique, arterial access was obtained via the right radial artery, a 6 Fr sheath was inserted. Venous access was obtained via the right brachiocephalic vein, a 5Fr sheath w as inserted. O2 saturations were then obtained. Left Ventriculography was performed in PHILLIPS projection using a 5 Fr. Pigtail catheter. LV to AO pullback pressures were then recorded. Left Coronary Artery selective angiography was performed in multiple views using a 5 Fr. 4.0 Brewster catheter. Right Coronary Artery selective angiography was then performed in multiple views using a 5 Fr. JR 4 c atheter.The venous sheath was then pulled and manual compression applied until hemostasis achieved. T he arterial sheath was pulled and a TR Band was applied for hemostasis w/ 12ml air CORONARY ANGIOGRAPHY DOMINANCE: Co- Dominant LEFT HEART ASSESSMENT Left Ventricular Ejection Fraction: by LV Gram 65 % Normal LV wall motion Elevated Left Ventricular End Diastolic Pressure LVEDP: 34 mmHg RIGHT HEART ASSESSMENT Kaci CO: 11.76 Kaci CI: 4.25 PW: /57 30 PA: 77/22 43 RV: 82/1 23 RA: / PVR: 69 SVR: 504 Right Heart pressures - elevated Pulmonary Hypertension Severe Intracardiac shunting: None LEFT MAIN: Angiographically normal LEFT ANTERIOR DESCENDING ARTERY: PROX LAD: Mild calcification, Mild luminal irregularities CIRCUMFLEX ARTERY: Angiographically normal RIGHT CORONARY ARTERY: PROX RCA: Mild luminal irregularities AORTIC ROOT: Angiographically normal COMPLICATIONS No Complications PROCEDURE MEDICATIONS Versed 1 mg IV Fentanyl 50 mcg IV Oxygen: 6 L/min via nasal cannula SUMMARY OF HEMODYNAMIC DATA Time AIR REST ECG 07:43:57 RA /25 (23) SV 08:28:49 RV 82/1, 23 08:31:22 PA 77/22 (43) PA 08:31:51 PW /57 (30) PV 08:33:26 LV 144/9, 30 08:39:48 PW /55 (32) 08:39:48 LV 137/6, 31 08:39:54 PW /44 (27) 08:39:54 LV 141/11, 34 08:41:12 LV 144/5, 32 08:41:24 PW /53 (32) 08:41:24 LVp 139/7, 31 08:41:31 AOp 131/69 (91) 08:41:36 AO 139/62 (97) SA 08:45:27 PA 87/27 (47) 08:50:39 RV 67/13, 27 08:50:58 RA /29 (26) 08:51:13 Type SV CO (l/m) CI (l/m/ HR Time AIR REST Kaci 206.30 11.76 4.25 57 07:43:57 Label % O2 Pres/Loc Time AIR REST AO 79 PV 08:56:27 PA 54 PA 08:56:32 SVC 49 08:56:37 RA 47 SV 08:56:42 Signed By Sergey Henry MD On 06/18/2020 09:29:21 Sergey Henry MD
[2020-06-18] MEDS: 0.9% Normal Saline 1,000 ML 50 ML IV (10:00)
[2020-06-18] MEDS: Mirabegron 25 MG TAB.ER.24H PO (10:03)
[2020-06-18] MEDS: Furosemide 40 MG/4 ML Vial IV (10:10)
[2020-06-18 10:17] LABS: Hematocrit 26.6 % (40-54); Hemoglobin 7.5 g/dL (13.0-16.5)
[2020-06-18 11:16] LABS: Bedside Glucose 137 mg/dL (70-110)
--- NOTE | 2020-06-18 12:09 | CASEMGMT ---
JOSE ANTONIO WU Assessment Note Introduced role of CM to patient in room. the patient is surly, and short with answers but agreed to assist with assessment questions. Demographics, PCP verified. Pt states he has been independent @ home and does not use ambulatory DME. He states he cares for himself, but does have nurse come in from the [facility] ([facility]) -Discussed VA benefits. The patient does not wish to treansfer to the [place]. Reviewed the Declination for Transfer to [place] form. Pt signed that he would like to remain @ [facility] under his [facility]. Clinicals and form faxed to [place], copy to chart Presentation: shortness of breath Diagnosis: exertional dyspnea. CHF PCP: Dr. Gutierrez Garces Specialists: Dr. Henry Insurance: [place], [place] Medical Preferred Pharmacy: [facility] Pharm[facility], [place] Prescription Benefit: yes LNOK: Daughter, Sofy Chung Living Arrangements: Lives alone in one story home, 1 step to enter Tranportation: drives, however DME: states no ambulatory DME at home. Has oxygen through [facility]. Per their records, the patient has a concentrator and 2L NC @ HS. No portable tanks. If patient requires continuous oxygen- will need new script faxed to [facility]. HHC: no SNF: states in past, but does not know name CCN: active with patient Patient DC Goals: Home on discharge DC Plan: anticipate Home on dc. PT/OT evaluations were ordered, however patient stated he was independent and did not need. CM available for discharge planning coordination. RN JAZMIN let patient know to contact CM for any concerns/needs that may arise. Colby MARTINEZ RN ACM
--- NOTE | 2020-06-18 13:01 | PN.CARD_ITS ---
Subjectve: The patient underwent diagnostic cardiac catheterization earlier this day. He appeared to have no obvious post procedure adverse event. He continues with shortness of breath/dyspnea. Objective: Vital Signs Temp Pulse Resp BP Pulse Ox 97.8 F 55 L 18 155/84 H 92 06/18/20 12:53 06/18/20 12:53 06/18/20 12:53 06/18/20 12:53 06/18/20 12:53 Oxygen Flow Rate (L/min) 6 Oxygen Delivery Method Nasal Cannula Weight: 382 lb Body Mass Index (BMI) 52.8 Finger Stick Blood Glucose 116 Intake and Output for Last 24 Hours 06/16/20 06/17/20 06/18/20 23:59 23:59 23:59 Intake Total 940 / 940 1790 / 1790 410 / 410 Balance 940 / 940 1790 / 1790 410 / 410 General: Awake, Alert, Oriented x 3, Cooperative, Obese HEENT: Atraumatic, Normocephalic, PERRL, EOMI, Sclera Non Icteric Neck: Supple, Good ROM, No JVD Lungs: Diminished Toro Bases Cardiovascular: Irregular Rhythm, Normal S1, Normal S2 Vascular: Normal Radial Pulses Abdomen: Bowel Sounds Present, Soft Extremities: No edema Neurological: No Focal Motor or Sensory Deficit Psych/Mental Status: Appropriate 06/18/20 07:00: WBC 8.5, RBC 3.41 L, Hgb 7.2 L, Hct 26.0 L, MCV 76.2 L, MCH 21.1 L, MCHC 27.7 L, Plt Count 215, MPV 9.6, Immature Gran % (Auto) 0.700, Neut % (Auto) 77.7 H, Lymph % (Auto) 10.4 L, [place] % (Auto) 8.6, Eos % (Auto) 1.9, Baso % (Auto) 0.7, Absolute Neuts (auto) 6.6, Nucleated RBC % 0 06/18/20 07:00: Sodium 141, Potassium 3.8, Chloride 111 H, Carbon Dioxide 26.0, Anion Gap 4 L, BUN 36 H, Creatinine 1.95 H, Est GFR (MDRD) Af Amer 43 L, Est GFR (MDRD) Non-Af 36 L, BUN/Creatinine Ratio 18.5, Glucose 120 H, Calcium 8.3 L 06/18/20 08:13: pH Cancelled, Bicarbonate Actual Cancelled, Base Excess Cancelled, O2 Saturation Cancelled, ABG pCO2 Cancelled, ABG pO2 Cancelled, Chung Test Cancelled 06/18/20 08:15: pH 7.38, Bicarbonate Actual 27.7 H, Base Excess 3 H, O2 Saturation 79 L, ABG pCO2 46.8 H, ABG pO2 45 L 06/18/20 08:30: VBG pH 7.35, VBG pO2 28, VBG HCO3 28 H, VBG O2 Sat (Calc) 47 L, VBG Base Excess 2 06/18/20 08:33: VBG pH 7.34, VBG pO2 29, VBG HCO3 27 H, VBG O2 Sat (Calc) 49 L, VBG Base Excess 1 06/18/20 08:37: VBG pH Cancelled, VBG pO2 Cancelled, VBG HCO3 Cancelled, VBG O2 Sat (Calc) Cancelled, VBG Base Excess Cancelled 06/18/20 09:50: Hgb 7.5 L, Hct 26.6 L Rhythm: Atrial fibrillation Cardiac Cath: CONCLUSIONS Right heart pressures - severely elevated The patient has pulmonary hypertension which is severe. Intracardiac shunting: None Elevated Left Ventricular End Diastolic Pressure Normal LV size, wall motion,and systolic function LVEF: by LV gram 65 % RECOMMENDATIONS Risk factor modification Medical therapy Consider pulmonology consultation for additional evaluation / care DESCRIPTION OF PROCEDURE The patient arrived to the procedure lab. The risks and benefits of the procedu re as well as a full description of our services here and current unavailability of surgical backup were fully explained to the patient and/or their significant other prior to the catheterization. The Timeout was completed, verifying the correct patient and procedure. The patient's procedural site was prepped and draped in the usual fashion. Local anesthetic was given subcutaneously to right radial region with Lidocaine 2%. Using a modified Seldinger technique, arterial access was obtained via the right radial artery, a 6Fr sheath was inserted. Venous access was obtained via the right brachiocephalic vein, a 5Fr sheath was inserted. O2 saturations were then obtained. Left Ventriculography was performed in PHILLIPS projection using a 5 Fr. Pigtail catheter. LV to AO pullback pressures were then recorded. Left Coronary Artery selective angiography was performed in multiple views using a 5 Fr. 4.0 Hungerford catheter. Right Coronary Artery selective angiography was then performed in multiple views using a 5 Fr. JR 4 catheter.The venous sheath was then pulled and manual compression applied until hemostasis achieved. The arterial sheath was pulled and a TR Band was applied for hemostasis w/ 12ml air CORONARY ANGIOGRAPHY DOMINANCE: Co- Dominant LEFT HEART ASSESSMENT Left Ventricular Ejection Fraction: by LV Gram 65 % Normal LV wall motion Elevated Left Ventricular End Diastolic Pressure LVEDP: 34 mmHg RIGHT HEART ASSESSMENT Kaci CO: 11.76 Kaci CI: 4.25 PW: /57 30 PA: 77/22 43 RV: 82/1 23 RA: / 23 PVR: 69 SVR: 504 Right Heart pressures - elevated Pulmonary Hypertension Severe Intracardiac shunting: None LEFT MAIN: Angiographically normal LEFT ANTERIOR DESCENDING ARTERY: PROX LAD: Mild calcification, Mild luminal irregularities CIRCUMFLEX ARTERY: Angiographically normal RIGHT CORONARY ARTERY: PROX RCA: Mild luminal irregularities AORTIC ROOT: Angiographically normal Medical Necessity - Tobacco Use Smoking Status: Former smoker - Smoked 1 ppd cigarette tobacco age [age]. Tobacco Use: Non-smoker Assessment/Plan 1. Shortness of breath/dyspnea The patient has progressive shortness of breath/dyspnea. The etiology may be multifactorial including his unfortunate obesity and his underlying pulmonary disease process. He has undergone further evaluation with diagnostic cardiac catheterization. The results are as noted. They demonstrate findings compatible with pulmonary hypertension, overall preserved LV systolic function/LVEF, and no angiographically significant appearing CAD. He will need continued medical therapy of his noncardiovascular issues with respect to his pulmonary disease process and his underlying anemia. 2. Atrial fibrillation He does have a history of atrial fibrillation. He will continue to be monitored. He will continue rate control therapy. His anticoagulation is on hold secondary to concerns of his declining hemoglobin levels. 3. Diastolic mediated CHF There is been concern the past the patient may have chronic diastolic CHF. However at the present time it appears there is a concern the patient also has pulmonary hypertension with cor pulmonale and right heart failure. He will need continued medical therapy as best as possible. Should also include continued pulmonary evaluation and care. 4. Hyperlipidemia He will continue medical management with adjustment as needed. 5. Hypertension He does have history of hypertension. His medications will be adjusted as needed. 6. Pulmonary hypertension with cor pulmonale and right heart failure He does demonstrate evidence of severe pulmonary hypertension. This may be related to his significant underlying pulmonary disease process with cor pulmonale and right heart failure. He will need to continue medical management as best as possible. He does need to continue with input from pulmonology as to whether or not he may be a candidate for any type of vasodilator therapy. 7. Anemia His H&H has declined again. From a cardiac standpoint it is thought that he would benefit from PRBC transf usion to assist with his oxygen carrying capacity. However he should be reassessed from a gastrointestinal standpoint for any further evidence of hemorrhagic issues. In the meantime his antiplatelet therapy and anticoagulant therapy will remain on hold. This note was generated using a voice recognition system and there may be incorrect words, spelling or punctuation that were not noted when reviewing the office note prior to saving.
--- NOTE | 2020-06-18 15:44 | PN_ITS ---
Patient Problems: Active and Suspected Problems (Last Updated 06/14/20 @ 16:06 by Yoselin Rodriguez) Exertional dyspnea (Acute) Abnormal stress test (Acute) Subjective: still with GAVIRIA. Upset the [facility] didn't find a coronary lesions. Vitals/I&O's: Vital Signs Temp Pulse Resp BP Pulse Ox 36.4 C L 58 L 18 129/62 H 96 06/18/20 13:00 06/18/20 15:00 06/18/20 13:00 06/18/20 13:06 06/18/20 13:00 Oxygen Flow Rate (L/min) 6 Oxygen Delivery Method Nasal Cannula Weight: 173.272 kg Body Mass Index (BMI) 52.8 Finger Stick Blood Glucose 116 Intake and Output for Last 24 Hours 06/16/20 06/17/20 06/18/20 23:59 23:59 23:59 Intake Total 940 / 940 1790 / 1790 410 / 410 Balance 940 / 940 1790 / 1790 410 / 410 General: Alert, No apparent distress HEENT: Atraumatic, Normocephalic Oral: Moist Mucosa, No Gingival or Mucosal Lesions/ Ulcerations Neck: No Nodes, Thyroid Normal Size and Texture Lungs: Clear to auscultation, Normal air movement, No rhonchi, No wheeze Cardiovascular: Regular rate, Regular Rhythm, Normal S1, Normal S2, No murmurs Abdomen: Bowel Sounds Present, Soft, Non Tender, Non-Distended, Obese Extremities: No Calf Tenderness, Edema Skin: - - venous stasis changes Musculoskeletal: No Tenderness to Palpation of Joints or Extremities, No Muscle Wasting Neurological: Muscle tone normal, Sensory exam intact to light touch and pain Psych/Mental Status: Appropriate, Anxious Microbiology Past 72 Hours 06/16/20 12:00 Stool Stool Occult Blood (IVAN) - Final Occult Blood Positive 06/16/20 08:15 Mucosa - Nose SARS-CoV-2 Antigen (Rapid) - Final Laboratory Results 06/17/20 16:49: POC Glucose 189 H 06/17/20 21:07: POC Glucose 226 H 06/18/20 06:21: POC Glucose 118 H 06/18/20 07:00: WBC 8.5, RBC 3.41 L, Hgb 7.2 L, Hct 26.0 L, MCV 76.2 L, MCH 21.1 L, MCHC 27.7 L, RDW Std Deviation 52.4 H, RDW Coeff of Jun 18.9 H, Plt Count 215, MPV 9.6, Immature Gran % (Auto) 0.700, Neut % (Auto) 77.7 H, Lymph % (Auto) 10.4 L, [place] % (Auto) 8.6, Eos % (Auto) 1.9, Baso % (Auto) 0.7, Absolute Neuts (auto) 6.6, Absolute Lymphs (auto) 0.88, Nucleated RBC % 0 06/18/20 07:00: Sodium 141, Potassium 3.8, Chloride 111 H, Carbon Dioxide 26.0, Anion Gap 4 L, BUN 36 H, Creatinine 1.95 H, Estim Creat Clear Calc 35.40, Est GFR (MDRD) Af Amer 43 L, Est GFR (MDRD) Non-Af 36 L, BUN/Creatinine Ratio 18.5, Glucose 120 H, Calcium 8.3 L, TSH 1.17 06/18/20 08:13: Specimen Type Cancelled, Sample Site Cancelled, pH Cancelled, Bicarbonate Actual Cancelled, Total CO2 Cancelled, Base Excess Cancelled, O2 Saturation Cancelled, O2 % Cancelled, ABG pCO2 Cancelled, ABG pO2 Cancelled, Chung Test Cancelled, Respiration Rate Cancelled, O2 Delivery Device Cancelled, Liter Flow Cancelled, Minute Volume Cancelled, Vent Mode Cancelled, Inspiratory Time Cancelled, Expiratory Time Cancelled, Tidal Volume Cancelled, POC PEEP Cancelled, POC Pressure Suppt Cancelled, Pressure Control Cancelled, Pressure High Cancelled, Pressure Low Cancelled, Time High Cancelled, Time Low Cancelled, EPAP Cancelled, IPAP Cancelled, Blood Gas Comments Cancelled, Blood Gas Notified Whom Cancelled, Blood Gas Notified Time Cancelled 06/18/20 08:15: Specimen Type ART, pH 7.38, Bicarbonate Actual 27.7 H, Total CO2 29, Base Excess 3 H, O2 Saturation 79 L, ABG pCO2 46.8 H, ABG pO2 45 L 06/18/20 08:30: Specimen Type JUAN DANIEL, VBG pH 7.35, VBG pO2 28, VBG HCO3 28 H, VBG Total CO2 29, VBG O2 Sat (Calc) 47 L, VBG Base Excess 2, POC Mix VBG pCO2 Pt Tmp 50.7 06/18/20 08:33: Specimen Type JUAN DANIEL, VBG pH 7.34, VBG pO2 29, VBG HCO3 27 H, VBG Total CO2 28, VBG O2 Sat (Calc) 49 L, VBG Base Excess 1, POC Mix VBG pCO2 Pt Tmp 49.7 06/18/20 08:37: Specimen Type Cancelled, Sample Site Cancelled, O2 % Cancelled, VBG pH Cancelled, VBG pH (Temp Correct) Cancelled, VBG pCO2 (Temp Corrct Cancelled, VBG pO2 Cancelled, VBG HCO3 Cancelled, VBG Total CO2 Cancelled, VBG O2 Sat (Calc) Cancelled, VBG Base Excess Cancelled, POC Mix VBG pCO2 Pt Tmp Cancelled, Respiration Rate Cancelled, O2 Delivery Device Cancelled, Liter Flow Cancelled, Minute Volume Cancelled, Inspiratory Time Cancelled, Expiratory Time Cancelled, Tidal Volume Cancelled, POC PEEP Cancelled, POC Pressure Suppt Cancelled, Pressure Control Cancelled, EPAP Cancelled, IPAP Cancelled, Blood Gas Comments Cancelled, Blood Gas Notified Whom Cancelled, Blood Gas Notified Time Cancelled 06/18/20 09:50: Blood Type A POSITIVE, Antibody Screen NEGATIVE, Crossmatch See Detail 06/18/20 09:50: Hgb 7.5 L, Hct 26.6 L 06/18/20 10:59: POC Glucose 137 H Current Medications Acetaminophen (Acetaminophen 325 Mg Tablet) 650 mg PO Q6H PRN PRN PRN Reason: Pain Score 1-10/Temp > 100.7 F Al Hydroxide/Mg Hydroxide (Mag Hydrox/Al Hydrox/Simeth 30 Ml Udc) 30 ml PO Q6H PRN PRN PRN Reason: Gastric Burning Albuterol Sulfate (Albuterol 2.5 Mg/3 Ml Vial.Neb.) 2.5 mg INHALATION Q2H PRN PRN PRN Reason: Dyspnea, wheezing Last Admin: 06/17/20 19:19 Dose: 2.5 mg Documented by: Amlodipine Besylate (Amlodipine 10 Mg Tablet) 10 mg PO DAILY [facility] Last Admin: 06/18/20 06:16 Dose: 10 mg Documented by: Aspirin (Aspirin E.C. 325 Mg Tablet) 325 mg PO DAILY@0800 [facility] Last Admin: 06/18/20 06:16 Dose: 325 mg Documented by: Atorvastatin Calcium (Atorvastatin Calcium 80 Mg Tablet) 80 mg PO DAILY@2200 [facility] Last Admin: 06/17/20 21:04 Dose: 80 mg Documented by: Budesonide (Budesonide Respules 0.5 Mg/2 Ml Ampul.Neb.) 0.5 mg INHALATION Q12H.RT [facility] Last Admin: 06/17/20 19:20 Dose: 0.5 mg Documented by: Carvedilol (Carvedilol 6.25 Mg Tablet) 6.25 mg PO BID [facility] Dextrose (Dextrose 50%-Water 25 Gm/50 Ml Disp.Syrin) 0 gm IV X1 PRN; Protocol PRN Reason: Hypoglycemia Furosemide (Furosemide 100 Mg/10 Ml Vial) 60 mg IV 0800,1400 [facility] Glucagon (Glucagon 1 Mg/Ml Syringe) 1 mg IM .X1 PRN PRN Reason: Hypoglycemia Guaifenesin (Guaifenesin 10 Ml Udc (200mg/10ml)) 20 ml PO Q4H PRN PRN PRN Reason: COUGH Hydralazine HCl (Hydralazine 20 Mg/Ml Vial) 10 mg IV Q4H PRN PRN PRN Reason: SBP > 160 Hydralazine HCl (Hydralazine 50 Mg Tablet) 100 mg PO TID [facility] Last Admin: 06/18/20 13:06 Dose: 100 mg Documented by: Sodium Chloride () 250 mls @ 15 mls/hr IV .[id number] PRN PRN Reason: Saline Flush Sodium Chloride () 250 mls @ 15 mls/hr IV .[id number] PRN PRN Reason: Additional IVPB Infusion Sodium Chloride () 1,000 mls @ 0 mls/hr IV .Q0M ALEISHA Insulin Glargine (Insulin Glargine 100 Units/Ml Pen) 60 units SC QHS [facility] Last Admin: 06/17/20 21:08 Dose: 60 u Documented by: Insulin Human Lispro (Insulin Lispro 100 Unit/Ml Insuln.Pen) 0 unit SC ACHS [facility]; Protocol Last Admin: 06/18/20 11:15 Dose: Not Given Documented by: Isosorbide Mononitrate (Isosorbide Mononitrate 30 Mg Tablet) 30 mg PO DAILY [facility] Last Admin: 06/18/20 06:16 Dose: 30 mg Documented by: Lidocaine (Lidocaine 5% Patch) 2 patch TOPICAL DAILY [facility]; Protocol Last Admin: 06/18/20 10:02 Dose: Not Given Documented by: Magnesium Hydroxide (Magnesium Hydroxide 30 Ml Udc) 30 ml PO DAILY PRN PRN PRN Reason: Constipation Melatonin (Melatonin 3 Mg Tablet) 3 mg PO QHS PRN PRN PRN Reason: INSOMNIA Last Admin: 06/17/20 21:03 Dose: 3 mg Documented by: Mirabegron (Mirabegron 25 Mg Tab.Er.24h) 25 mg PO DAILY [facility] Last Admin: 06/18/20 10:03 Dose: 25 mg Documented by: Nitroglycerin (Nitroglycerin (Inpatient Use) 0.4 Mg Tab.Subl) 0.4 mg SUBLINGUAL Q5M PRN PRN Reason: CARDIAC/CHEST PAIN Ondansetron HCl (Ondansetron 4 Mg/2 Ml Vial) 4 mg IV Q8H PRN PRN PRN Reason: NAUSEA/VOMITING Oxycodone HCl (Oxycodone 5 Mg Tablet) 5 mg PO Q4H PRN PRN PRN Reason: Pain Score 4-5 Last Admin: 06/18/20 12:49 Dose: 5 mg Documented by: Pantoprazole Sodium (Pantoprazole Sodium 40 Mg Tablet) 40 mg PO BID [facility] Prochlorperazine Edisylate (Prochlorperazine 10 Mg/2 Ml Vial) 5 mg IV Q4H PRN PRN PRN Reason: Breakthrough Nausea/Vomiting Psyllium Hydrophilic Mucilloid (Psyllium 1 Packet) 1 packet PO DAILY PRN PRN PRN Reason: Constipation Senna/Docusate Sodium (Senna/Docusate Sodium 1 Tablet) 2 tablet PO BID PRN PRN PRN Reason: Constipation Sodium Chloride (0.9% Saline Lock 10 Ml Syringe) 10 - 40 ml IV UD PRN PRN Reason: SALINE FLUSH Last Admin: 06/17/20 21:04 Dose: 20 ml Documented by: Throat Lozenges (Benzocaine/Menthol 1 Lozenge) 1 lozenge MUCOUS MEM Q2H PRN PRN PRN Reason: SORE THROAT STROKE Vital Signs/Narrative: Vital Signs Temp Pulse Resp BP Pulse Ox 06/18/20 15:00 58 L 06/18/20 13:06 70 129/62 H 06/18/20 13:00 36.4 C L 70 18 129/62 H 96 06/18/20 12:53 36.6 C 55 L 18 155/84 H 92 06/18/20 12:45 36.6 C 92 18 155/84 H 94 06/18/20 12:05 61 18 133/68 H 94 Medical Necessity - Tobacco Use Smoking Status: Former smoker - Smoked 1 ppd cigarette tobacco age [age]. Tobacco Use: Non-smoker Assessment/Plan All Active Problems (Last Updated 06/14/20 @ 16:06 by Yoselin Rodriguez) Exertional dyspnea (Acute) Abnormal stress test (Acute) Acute on chronic diastolic (congestive) heart failure (Acute) Cellulitis of left lower extremity (Acute) Hypoglycemia due to insulin (Acute) 1. Exertional dyspnea, * 2/2 ongoing with hypoxia with NSVT: ED 97% on 2 L nasal cannula for ambulatory pulse oximeter noted to be 88% on room air with activity in the ED, * troponin negative x 3 * cardiology following. * LHC showed no significant CAD. RHC showed severely elevated right heart pressures. * weight has been stable since 02/2020, however, up since June of 2019. * furosemide 2. Acute on Chronic Microcytic anemia: * iron-deficient * Admission hemoglobin 8.3, previously noted 9-10 range, * patient with outpatient guaiac reportedly positive but no obvious black dark stools or bright red blood per rectum, per discussion with cardiology will continue to cycle H&H's, maintain on high-dose Protonix, repeat guaiac and if hemoglobins remained stable would benefit from endoscopy but likely would need cardiac cath prior per discussions with cardiology. * IV iron on 06/17 * transfused 1 unit PRBC prior to result of LHC. Given no significant CAD, transfuse to keep Hg greater than 7, instead of 8. [place] transfusions strategies carry higher risks (i.e., TRALI, volume overload) * DW Dr. Merritt, plan is for conservative measures at this point time. Given the patient's profound dyspnea, patient would be extremely high risk for EGD and colonoscopy for anesthesia. He would want that optimized before consideration for these procedures. Continue with PPI therapy. 3. Chronic HFpEF: * 04/02/20 ECHO w/ no LV systolic function, EF 65%, severe concentric LVH, moderately large LA, mild enlarged RA, mild diffuse MV thickening, trivial MVI, trivial TVI, mild diffuse AV calcification, unable to assess diastolic dysfunction. * see #1 for further details * IV furosemide 4. severe pulmonary hypertension * probably a combination of Group 2 and 3. * Treat the underlying processes * known ANDERSON on CPAP. Advised pt to follow up with Dr. Murray for further optimization (i.e., BiPAP). * But given severity, referral to Pulmonary HTN center would be recommended. Typically, pulmonary arterieal hypertension-directed therapy is reserved for group 1 PAH, but can be used in rare cases of Group 3 PAH. * Patient has been on the same CPAP for 4 to [address] Murray about 3 months ago. 5. Chronic atrial fibrillation: * EKG with Gabrielle blevins, rate controlled, will continue aspirin, holding Xarelto given potential cardiac catheterization as noted, continue home Coreg regimen, maintain on telemetry monitoring as noted. 6. Hypertension: * stable * Continue home regimen including amlodipine, Coreg, Lasix, hydralazine with hold parameters as needed, PRN hydralazine. 7. History of CVA: * Holding Xarelto as noted temporarily for cardiac catheterization, continue aspirin, statin, hypertensive regimen, diabetic regimen. 8. Hyperlipidemia: Continue home statin regimen. 9. Diabetes mellitus type II: * fair control * Hold oral home regimen, continue home insulin regimen, ADA diet, accu checks w/ ISS. 10. Chronic kidney disease stage III: Admission BUN/creatinine 26/1.79, baseline appears 1.6-1.9, stable, trend. 11. Morbid Obesity: Weight loss and lifestyle changes encouraged, nutrition consulted. 12. GERD: We will maintain on Protonix high-dose twice daily given anemia evaluation as noted. 13. Chronic stasis disease, lymphedema: We will encourage bilateral lower extremity elevation, snug wraps, continue patient diuretic regimen. 14. ANDERSON: CPAP q HS, he notes will attempt to have his own brought in. 14. DVT prophylaxis: SCDs, rivaroxaban held given ongoing anemia. Inpatient E&M: [id number] [facility] L3
[2020-06-18] MEDS: Insulin Lispro 100 UNIT/ML INSULN.PEN SC ×2 (16:25→21:37)
[2020-06-18] MEDS: Furosemide 100 MG/10 ML Vial 60 MG IV (16:33)
[2020-06-18 16:35] LABS: Bedside Glucose 198 mg/dL (70-110)
[2020-06-18] MEDS: Fluticasone 0.05% 1 SPRAY NASAL.SRY NASAL (20:29)
[2020-06-18] MEDS: Pantoprazole Sodium 40 MG Tablet PO (21:36)
[2020-06-18] MEDS: Atorvastatin Calcium 80 MG Tablet PO (21:36)
[2020-06-18] MEDS: MELATONIN 3 MG TABLET PO (21:36)
[2020-06-18] MEDS: Acetaminophen 325 MG Tablet 650 MG PO (21:36)
[2020-06-18] MEDS: Carvedilol 6.25 MG Tablet PO (21:36)
[2020-06-18 21:45] LABS: Bedside Glucose 186 mg/dL (70-110)
[2020-06-19] VITALS (14 sets, daily range): BP systolic 132–168; BP diastolic 63–86; PULSE 55–80; RESP 16–18; TEMP 36.3–37.1; O2SAT 95–98
[2020-06-19] MEDS: hydrALAZINE 50 MG Tablet 100 MG PO ×3 (06:44→21:43)
[2020-06-19] MEDS: Acetaminophen 325 MG Tablet 650 MG PO (06:45)
[2020-06-19 07:00] LABS: Bedside Glucose 85 mg/dL (70-110)
[2020-06-19 07:27] LABS: Absolute Lymphocyte Count 1.21 X10^3/uL (0.83-4.51); Absolute Neutrophil Count 7.6 X10^3/uL (2.0-7.7); Basophil# 0.09 X10^3/uL; Basophil% 0.9 % (0-1); Eosinophil# 0.25 X10^3/uL; Eosinophils% 2.5 % (0-5); Hematocrit 32.3 % (40-54); Hemoglobin 9.1 g/dL (13.0-16.5); Lymphocyte # 1.21 X10^3/ul (4.0); Lymphocyte % 12.2 % (19-41); Mean Corp Hgb Conc 28.2 g/dL (32-36); Mean Corpuscular Hgb 21.9 pg (27.0-32.0); Mean Corpuscular Volume 77.8 fL (80-94); Mean Platelet Vol. 10.3 fl (6.2-12.0); Monocyte# 0.73 X10^3/uL; Monocyte% 7.4 % (0-10); NRBC Flagged by Analyzer 0.2 % (0-5); Neutrophil # 7.55 X10^3/uL (2.7-7.7); Platelet Count 277 K/mm3 (150-450); RBC Distribution Width CV 19.4 % (11.6-14.6); RBC Distribution Width SD 53.4 fl (35.1-43.9); Red Blood Count 4.15 M/mm3 (4.6-6.2); White Blood Count 9.9 K/mm3 (4.4-11.0)
[2020-06-19 07:51] LABS: Anion Gap 6 (5-15); BUN 35 mg/dL (7-18); BUN/Creat Ratio 16.9 RATIO (10-20); Calcium,Total 8.7 mg/dL (8.5-10.1); Chloride 108 mmol/L (98-107); Creatinine, Serum 2.07 mg/dL (0.70-1.30); EST Glomerular Filtration Rate 34 mL/min (>60); Est Glom Filt Rate - Afr Amer 41 mL/min (>60); Estimated Creatinine Clearance 33.35 ml/min; Glucose 90 mg/dL (74-106); Potassium 3.8 mmol/L (3.5-5.1); Sodium Level 141 mmol/L (136-145)
[2020-06-19] MEDS: Mirabegron 25 MG TAB.ER.24H PO (08:12)
[2020-06-19] MEDS: amLODIPine 10 MG Tablet PO (08:12)
[2020-06-19] MEDS: Fluticasone 0.05% 1 SPRAY NASAL.SRY NASAL ×2 (08:12→21:47)
[2020-06-19] MEDS: Isosorbide Mononitrate 30 MG Tablet PO (08:13)
[2020-06-19] MEDS: Aspirin E.C. 325 MG Tablet PO (08:13)
[2020-06-19] MEDS: Pantoprazole Sodium 40 MG Tablet PO ×2 (08:13→21:43)
[2020-06-19] MEDS: Carvedilol 6.25 MG Tablet PO ×2 (08:13→21:43)
[2020-06-19] MEDS: Furosemide 100 MG/10 ML Vial 60 MG IV ×2 (08:13→14:39)
[2020-06-19] MEDS: Insulin Lispro 100 UNIT/ML INSULN.PEN SC ×3 (11:06→21:44)
--- NOTE | 2020-06-19 11:10 | CASEMGMT ---
Social Work Staff reporting to SW that pt is requesting to go to [facility] at time of discharge. VM left with [facility] requesting bed availability. Pt was provided list of SNF providers including quality and resource use data and consistent with the patient's preferred geographic region, medical needs, and insurance network. SW later entered room to speak with pt and pt is now requesting to go to [facility]. SW spoke with [facility] and they have beds available. Referral faxed. will await acceptance determination. Pt is aware. Plan: [facility], pending acceptance IVONE Ann
[2020-06-19 11:25] LABS: Bedside Glucose 222 mg/dL (70-110)
--- NOTE | 2020-06-19 14:38 | CASEMGMT ---
Per Siena at [facility], they are able to accept pt at this time and [facility] is still not requiring precerts at this time. Siena is aware that pt is not planned for discharge today and will f/u in the am, voices understanding. Josué BRADY CM
--- NOTE | 2020-06-19 15:34 | PN_ITS ---
Patient Problems: Active and Suspected Problems (Last Updated 06/14/20 @ 16:06 by Yoselin Rodriguez) Exertional dyspnea (Acute) Abnormal stress test (Acute) Subjective: Breathing somewhat better. Vitals/I&O's: Vital Signs Temp Pulse Resp BP Pulse Ox 36.3 C L 69 18 132/63 H 97 06/19/20 14:37 06/19/20 14:39 06/19/20 14:37 06/19/20 14:39 06/19/20 14:37 Oxygen Flow Rate (L/min) 3 Oxygen Delivery Method Nasal Cannula Weight: 173.272 kg Body Mass Index (BMI) 52.8 Finger Stick Blood Glucose 116 Intake and Output for Last 24 Hours 06/17/20 06/18/20 06/19/20 23:59 23:59 23:59 Intake Total 1790 / 1790 1781.67 / 1781.67 240 / 240 Balance 1790 / 1790 1781.67 / 1781.67 240 / 240 General: Alert, No apparent distress HEENT: Atraumatic, Normocephalic Oral: Moist Mucosa, No Gingival or Mucosal Lesions/ Ulcerations Neck: No Nodes, Thyroid Normal Size and Texture Lungs: Normal air movement, - - bibasilar crackles Cardiovascular: Regular rate, Regular Rhythm, Normal S1, Normal S2, No murmurs Abdomen: Bowel Sounds Present, Soft, Non Tender, Non-Distended, No Hepato- splenomegaly Extremities: No Calf Tenderness, Edema - less taut today Skin: No rashes, No breakdown Psych/Mental Status: Normal Affect, Appropriate Microbiology Past 72 Hours 06/16/20 12:00 Stool Stool Occult Blood (IVAN) - Final Occult Blood Positive Laboratory Results 06/18/20 09:50: Crossmatch See Detail 06/18/20 16:24: POC Glucose 198 H 06/18/20 21:35: POC Glucose 186 H 06/19/20 06:10: Sodium 141, Potassium 3.8, Chloride 108 H, Carbon Dioxide 27.0, Anion Gap 6, BUN 35 H, Creatinine 2.07 H, Estim Creat Clear Calc 33.35, Est GFR (MDRD) Af Amer 41 L, Est GFR (MDRD) Non-Af 34 L, BUN/Creatinine Ratio 16.9, Glucose 90, Calcium 8.7 06/19/20 06:10: WBC 9.9, RBC 4.15 L, Hgb 9.1 L, Hct 32.3 L, MCV 77.8 L, MCH 21.9 L, MCHC 28.2 L, RDW Std Deviation 53.4 H, RDW Coeff of Jun 19.4 H, Plt Count 277, MPV 10.3, Immature Gran % (Auto) 1.000 H, Neut % (Auto) 76.0 H, Lymph % (Auto) 12.2 L, [place] % (Auto) 7.4, Eos % (Auto) 2.5, Baso % (Auto) 0.9, Absolute Neuts (auto) 7.6, Absolute Lymphs (auto) 1.21, Nucleated RBC % 0.2 06/19/20 06:44: POC Glucose 85 06/19/20 11:05: POC Glucose 222 H Current Medications Acetaminophen (Acetaminophen 325 Mg Tablet) 650 mg PO Q6H PRN PRN PRN Reason: Pain Score 1-10/Temp > 100.7 F Last Admin: 06/19/20 06:45 Dose: 650 mg Documented by: Al Hydroxide/Mg Hydroxide (Mag Hydrox/Al Hydrox/Simeth 30 Ml Udc) 30 ml PO Q6H PRN PRN PRN Reason: Gastric Burning Albuterol Sulfate (Albuterol 2.5 Mg/3 Ml Vial.Neb.) 2.5 mg INHALATION Q2H PRN PRN PRN Reason: Dyspnea, wheezing Last Admin: 06/17/20 19:19 Dose: 2.5 mg Documented by: Amlodipine Besylate (Amlodipine 10 Mg Tablet) 10 mg PO DAILY [facility] Last Admin: 06/19/20 08:12 Dose: 10 mg Documented by: Aspirin (Aspirin E.C. 325 Mg Tablet) 325 mg PO DAILY@0800 [facility] Last Admin: 06/19/20 08:13 Dose: 325 mg Documented by: Atorvastatin Calcium (Atorvastatin Calcium 80 Mg Tablet) 80 mg PO DAILY@2200 [facility] Last Admin: 06/18/20 21:36 Dose: 80 mg Documented by: Budesonide (Budesonide Respules 0.5 Mg/2 Ml Ampul.Neb.) 0.5 mg INHALATION Q12H.RT [facility] Last Admin: 06/17/20 19:20 Dose: 0.5 mg Documented by: Carvedilol (Carvedilol 6.25 Mg Tablet) 6.25 mg PO BID [facility] Last Admin: 06/19/20 08:13 Dose: 6.25 mg Documented by: Dextrose (Dextrose 50%-Water 25 Gm/50 Ml Disp.Syrin) 0 gm IV X1 PRN; Protocol PRN Reason: Hypoglycemia Fluticasone Propionate (Fluticasone 0.05% 1 [place] Nasal.Sry) 1 spray NASAL BID [facility] Last Admin: 06/19/20 08:12 Dose: 1 spray Documented by: Furosemide (Furosemide 100 Mg/10 Ml Vial) 60 mg IV 0800,1400 [facility] Last Admin: 06/19/20 14:39 Dose: 60 mg Documented by: Glucagon (Glucagon 1 Mg/Ml Syringe) 1 mg IM .X1 PRN PRN Reason: Hypoglycemia Guaifenesin (Guaifenesin 10 Ml Udc (200mg/10ml)) 20 ml PO Q4H PRN PRN PRN Reason: COUGH Hydralazine HCl (Hydralazine 20 Mg/Ml Vial) 10 mg IV Q4H PRN PRN PRN Reason: SBP > 160 Hydralazine HCl (Hydralazine 50 Mg Tablet) 100 mg PO TID [facility] Last Admin: 06/19/20 14:39 Dose: 100 mg Documented by: Sodium Chloride () 250 mls @ 15 mls/hr IV .[id number] PRN PRN Reason: Saline Flush Sodium Chloride () 250 mls @ 15 mls/hr IV .[id number] PRN PRN Reason: Additional IVPB Infusion Sodium Chloride () 1,000 mls @ 0 mls/hr IV .Q0M [facility] Insulin Glargine (Insulin Glargine 100 Units/Ml Pen) 60 units SC QHS [facility] Last Admin: 06/18/20 21:37 Dose: 60 u Documented by: Insulin Human Lispro (Insulin Lispro 100 Unit/Ml Insuln.Pen) 0 unit SC ACHS [facility]; Protocol Last Admin: 06/19/20 11:06 Dose: 2 u Documented by: Isosorbide Mononitrate (Isosorbide Mononitrate 30 Mg Tablet) 30 mg PO DAILY [facility] Last Admin: 06/19/20 08:13 Dose: 30 mg Documented by: Lidocaine (Lidocaine 5% Patch) 2 patch TOPICAL DAILY [facility]; Protocol Last Admin: 06/19/20 10:33 Dose: Not Given Documented by: Magnesium Hydroxide (Magnesium Hydroxide 30 Ml Udc) 30 ml PO DAILY PRN PRN PRN Reason: Constipation Melatonin (Melatonin 3 Mg Tablet) 3 mg PO QHS PRN PRN PRN Reason: INSOMNIA Last Admin: 06/18/20 21:36 Dose: 3 mg Documented by: Mirabegron (Mirabegron 25 Mg Tab.Er.24h) 25 mg PO DAILY [facility] Last Admin: 06/19/20 08:12 Dose: 25 mg Documented by: Nitroglycerin (Nitroglycerin (Inpatient Use) 0.4 Mg Tab.Subl) 0.4 mg SUBLINGUAL Q5M PRN PRN Reason: CARDIAC/CHEST PAIN Ondansetron HCl (Ondansetron 4 Mg/2 Ml Vial) 4 mg IV Q8H PRN PRN PRN Reason: NAUSEA/VOMITING Oxycodone HCl (Oxycodone 5 Mg Tablet) 5 mg PO Q4H PRN PRN PRN Reason: Pain Score 4-5 Last Admin: 06/18/20 18:42 Dose: 5 mg Documented by: Pantoprazole Sodium (Pantoprazole Sodium 40 Mg Tablet) 40 mg PO BID [facility] Last Admin: 06/19/20 08:13 Dose: 40 mg Documented by: Prochlorperazine Edisylate (Prochlorperazine 10 Mg/2 Ml Vial) 5 mg IV Q4H PRN PRN PRN Reason: Breakthrough Nausea/Vomiting Psyllium Hydrophilic Mucilloid (Psyllium 1 Packet) 1 packet PO DAILY PRN PRN PRN Reason: Constipation Senna/Docusate Sodium (Senna/Docusate Sodium 1 Tablet) 2 tablet PO BID PRN PRN PRN Reason: Constipation Sodium Chloride (0.9% Saline Lock 10 Ml Syringe) 10 - 40 ml IV UD PRN PRN Reason: SALINE FLUSH Last Admin: 06/17/20 21:04 Dose: 20 ml Documented by: Throat Lozenges (Benzocaine/Menthol 1 Lozenge) 1 lozenge MUCOUS MEM Q2H PRN PRN PRN Reason: SORE THROAT STROKE Vital Signs/Narrative: Vital Signs Temp Pulse Resp BP Pulse Ox 06/19/20 14:39 69 132/63 H 06/19/20 14:37 36.3 C L 69 18 132/63 H 97 Medical Necessity - Tobacco Use Smoking Status: Former smoker - Smoked 1 ppd cigarette tobacco age [age]. Tobacco Use: Non-smoker Assessment/Plan All Active Problems (Last Updated 06/14/20 @ 16:06 by Yoselin Rodriguez) Exertional dyspnea (Acute) Abnormal stress test (Acute) Acute on chronic diastolic (congestive) heart failure (Acute) Cellulitis of left lower extremity (Acute) Hypoglycemia due to insulin (Acute) 1. Exertional dyspnea, * 2/2 ongoing with hypoxia with NSVT: ED 97% on 2 L nasal cannula for ambulatory pulse oximeter noted to be 88% on room air with activity in the ED, * troponin negative x 3 * cardiology following. * LHC showed no significant CAD. RHC showed severely elevated right heart pressures. * weight has been stable since 02/2020, however, up since June of 2019. * furosemide 2. Acute on Chronic Microcytic anemia: * iron-deficient * Admission hemoglobin 8.3, previously noted 9-10 range, * patient with outpatient guaiac reportedly positive but no obvious black dark stools or bright red blood per rectum, per discussion with cardiology will continue to cycle H&H's, maintain on high-dose Protonix, repeat guaiac and if hemoglobins remained stable would benefit from endoscopy but likely would need cardiac cath prior per discussions with cardiology. * IV iron on 06/17 * transfused 1 unit PRBC prior to result of LHC. Given no significant CAD, transfuse to keep Hg greater than 7, instead of 8. [place] transfusions strategies carry higher risks (i.e., TRALI, volume overload) * DW Dr. Merritt, plan is for conservative measures at this point time. Given the patient's profound dyspnea, patient would be extremely high risk for EGD and colonoscopy for anesthesia. He would want that optimized before consideration for these procedures. Continue with PPI therapy. 3. Chronic HFpEF: * 04/02/20 ECHO w/ no LV systolic function, EF 65%, severe concentric LVH, moderately large LA, mild enlarged RA, mild diffuse MV thickening, trivial MVI, trivial TVI, mild diffuse AV calcification, unable to assess diastolic dysfunction. * see #1 for further details * IV furosemide * weight overall up 50# from 1 year ago. * Weight down 5kg so far. Continue IV furosemide. 4. severe pulmonary hypertension * probably a combination of Group 2 and 3. * Treat the underlying processes * known ANDERSON on CPAP. Advised pt to follow up with Dr. Murray for further optimization (i.e., BiPAP). * But given severity, referral to Pulmonary HTN center would be recommended. Typically, pulmonary arterieal hypertension-directed therapy is reserved for group 1 PAH, but can be used in rare cases of Group 3 PAH. * Patient has been on the same CPAP for 4 to [address] Murray about 3 months ago. 5. Chronic atrial fibrillation: * EKG with A. fib, rate controlled, will continue aspirin, holding Xarelto given potential cardiac catheterization as noted, continue home Coreg regimen, maintain on telemetry monitoring as noted. 6. Hypertension: * stable * Continue home regimen including amlodipine, Coreg, Lasix, hydralazine with hold parameters as needed, PRN hydralazine. 7. History of CVA: * Holding Xarelto as noted temporarily for cardiac catheterization, continue aspirin, statin, hypertensive regimen, diabetic regimen. 8. Hyperlipidemia: Continue home statin regimen. 9. Diabetes mellitus type II: * fair control * Hold oral home regimen, continue home insulin regimen, ADA diet, accu checks w/ ISS. 10. Chronic kidney disease stage III: Admission BUN/creatinine 26/1.79, baseline appears 1.6-1.9, stable, trend. 11. Morbid Obesity: Weight loss and lifestyle changes encouraged, nutrition consulted. 12. GERD: We will maintain on Protonix high-dose twice daily given anemia evaluation as noted. 13. Chronic stasis disease, lymphedema: We will encourage bilateral lower extremity elevation, snug wraps, continue patient diuretic regimen. 14. ANDERSON: CPAP q HS, he notes will attempt to have his own brought in. 15. DVT prophylaxis: SCDs, rivaroxaban held given ongoing anemia. 16. Debility: anticipate SHF upon discharge. Inpatient E&M: 58068 Subs Hosp L2
[2020-06-19 17:00] LABS: Bedside Glucose 190 mg/dL (70-110)
--- NOTE | 2020-06-19 17:17 | PCM.PN.CARD ---
Subjectve: The patient appears to be doing reasonably well at this time status post his diagnostic cardiac catheterization and his PRBCs. He has had no new acute complaints. He has stated that he wants to go from [facility] to an [facility] for period of time before returning home. Objective: Vital Signs Temp Pulse Resp BP Pulse Ox 97.3 F L 69 18 132/63 H 97 06/19/20 14:37 06/19/20 14:39 06/19/20 14:37 06/19/20 14:39 06/19/20 14:37 Oxygen Flow Rate (L/min) 3 Oxygen Delivery Method Nasal Cannula Weight: 382 lb Body Mass Index (BMI) 52.8 Finger Stick Blood Glucose 116 Intake and Output for Last 24 Hours 06/17/20 06/18/20 06/19/20 23:59 23:59 23:59 Intake Total 1790 / 1790 1781.67 / 1781.67 240 / 240 Balance 1790 / 1790 1781.67 / 1781.67 240 / 240 General: Awake, Alert, Oriented x 3, Cooperative, No Acute Distress, Obese HEENT: Atraumatic, Normocephalic, PERRL, EOMI, Sclera Non Icteric Neck: No JVD Lungs: Diminished Toro Bases Cardiovascular: Irregular Rhythm, Normal S1, Normal S2 Vascular: Normal Radial Pulses Abdomen: Bowel Sounds Present, Soft Extremities: Mild RLE Edema, Mild LLE Edema Neurological: No Focal Motor or Sensory Deficit Psych/Mental Status: Appropriate 06/19/20 06:10: Sodium 141, Potassium 3.8, Chloride 108 H, Carbon Dioxide 27.0, Anion Gap 6, BUN 35 H, Creatinine 2.07 H, Est GFR (MDRD) Af Amer 41 L, Est GFR (MDRD) Non-Af 34 L, BUN/Creatinine Ratio 16.9, Glucose 90, Calcium 8.7 06/19/20 06:10: WBC 9.9, RBC 4.15 L, Hgb 9.1 L, Hct 32.3 L, MCV 77.8 L, MCH 21.9 L, MCHC 28.2 L, Plt Count 277, MPV 10.3, Immature Gran % (Auto) 1.000 H, Neut % (Auto) 76.0 H, Lymph % (Auto) 12.2 L, [place] % (Auto) 7.4, Eos % (Auto) 2.5, Baso % (Auto) 0.9, Absolute Neuts (auto) 7.6, Nucleated RBC % 0.2 Rhythm: Atrial fibrillation; PVCs Medical Necessity - Tobacco Use Smoking Status: Former smoker - Smoked 1 ppd cigarette tobacco age [age]. Tobacco Use: Non-smoker Assessment/Plan 1. Shortness of breath/dyspnea The patient has progressive shortness of breath/dyspnea. The etiology may be multifactorial including his unfortunate obesity and his underlying pulmonary disease process. He has undergone further evaluation with diagnostic cardiac catheterization. This demonstrate findings compatible with pulmonary hypertension, overall preserved LV systolic function/LVEF, and no angiographically significant appearing CAD. He will need continued medical therapy of his noncardiovascular issues with respect to his pulmonary disease process and his underlying anemia. 2. Atrial fibrillation He does have a history of atrial fibrillation. He will continue to be monitored. He will continue rate control therapy. His anticoagulation is on hold secondary to concerns of his declining hemoglobin levels. 3. Diastolic mediated CHF There is been concern the past the patient may have chronic diastolic CHF. However at the present time it appears there is a concern the patient also has pulmonary hypertension with cor pulmonale and right heart failure. He will need continued medical therapy as best as possible. Should also include continued pulmonary evaluation and care. 4. Hyperlipidemia He will continue medical management with adjustment as needed. 5. Hypertension He does have history of hypertension. His medications will be adjusted as needed. 6. Pulmonary hypertension with cor pulmonale and right heart failure He does demonstrate evidence of severe pulmonary hypertension. This may be related to his significant underlying pulmonary disease process with cor pulmonale and right heart failure. He will need to continue medical management as best as possible. He does need to continue with input from pulmonology as to whether or not he may be a candidate for any type of vasodilator therapy. 7. Anemia He did receive PRBCs. His H&H has improved. Hopefully this will help with his overall symptoms-at least for period of time. Again his antiplatelet and anticoagulants are on hold based upon his anemia. It appears that Dr. Merritt, based upon the medical records available for review, has not wanted to proceed with additional endoscopy procedures at this time. Overall at this time the patient will continue medical therapy. His medicine should be adjusted to avoid volume overload while monitoring his renal function, etc. Again he should follow-up with his solutions development analyst and his general surgeon regarding his concerns of underlying pulmonary disease and his anemia. In the meantime he states he expresses a wish to eventually be transferred from [facility] to an F prior to returning directly home. This note was generated using a voice recognition system and there may be incorrect words, spelling or punctuation that were not noted when reviewing the office note prior to saving.
[2020-06-19] MEDS: Atorvastatin Calcium 80 MG Tablet PO (21:43)
[2020-06-19] MEDS: oxyCODONE 5 MG Tablet PO (21:44)
[2020-06-19] MEDS: MELATONIN 3 MG TABLET PO (21:47)
[2020-06-19 22:41] LABS: Bedside Glucose 192 mg/dL (70-110)
[2020-06-20] VITALS (10 sets, daily range): BP systolic 136–155; BP diastolic 74–78; PULSE 48–76; RESP 16–18; TEMP 36.6–36.9; O2SAT 93–97
--- NOTE | 2020-06-20 04:18 | NURSING ---
When this RN was passing medications and obtaining VS at 2130, the patient stated do not wake me up before 5 am, I will refuse all care.
[2020-06-20] MEDS: hydrALAZINE 50 MG Tablet 100 MG PO ×2 (05:43→13:19)
[2020-06-20 06:07] LABS: Absolute Lymphocyte Count 1.26 X10^3/uL (0.83-4.51); Absolute Neutrophil Count 6.4 X10^3/uL (2.0-7.7); Basophil# 0.08 X10^3/uL; Basophil% 0.9 % (0-1); Eosinophil# 0.17 X10^3/uL; Hematocrit 30.8 % (40-54); Hemoglobin 8.9 g/dL (13.0-16.5); Lymphocyte # 1.26 X10^3/ul (4.0); Lymphocyte % 14.6 % (19-41); Mean Corp Hgb Conc 28.9 g/dL (32-36); Mean Corpuscular Hgb 22.3 pg (27.0-32.0); Mean Platelet Vol. 10.3 fl (6.2-12.0); Monocyte# 0.74 X10^3/uL; Monocyte% 8.6 % (0-10); NRBC Flagged by Analyzer 0 % (0-5); Neutrophil # 6.35 X10^3/uL (2.7-7.7); Neutrophil % 73.3 % (47-70); POSITIVE MORPHOLOGY YES; Platelet Count 252 K/mm3 (150-450); RBC Distribution Width CV 20.2 % (11.6-14.6); RBC Distribution Width SD 53.1 fl (35.1-43.9); White Blood Count 8.7 K/mm3 (4.4-11.0)
[2020-06-20 06:23] LABS: Differential Indicated SCAN CRITERIA MET
[2020-06-20 06:35] LABS: Anion Gap 6 (5-15); BUN 38 mg/dL (7-18); BUN/Creat Ratio 16.2 RATIO (10-20); Calcium,Total 8.5 mg/dL (8.5-10.1); Chloride 107 mmol/L (98-107); Creatinine, Serum 2.35 mg/dL (0.70-1.30); Differential Comment SCANNED; EST Glomerular Filtration Rate 29 mL/min (>60); Est Glom Filt Rate - Afr Amer 35 mL/min (>60); Estimated Creatinine Clearance 29.37 ml/min; Glucose 119 mg/dL (74-106); Potassium 3.7 mmol/L (3.5-5.1); Sodium Level 140 mmol/L (136-145)
[2020-06-20 06:36] LABS: Anisocytosis 1+; Hypochromasia RARE; Macrocytosis RARE; Microcytosis RARE; Ovalocyte RARE
[2020-06-20 07:00] LABS: Bedside Glucose 125 mg/dL (70-110)
[2020-06-20] MEDS: Aspirin E.C. 325 MG Tablet PO (08:29)
--- NOTE | 2020-06-20 09:36 | PCM.TXEXTCAR ---
- Diet 06/18/20 09:08 Diet: Cardiac: Calorie-Controlled Dietary Modifications:: Consistent Carbohydrate Sodium Restricted Is pt able to select menu?: Yes How many daily calories?: 2200 calorie 1500cc fluid/day - Routine Orders/Code Status O2 Liters per Minute: 3 O2 Frequency: Continuous Routine Lab Work: CBC, BMP Code Status: DNRCC-A - no intubation - Wound(s) R Wrist Wound Type: Puncture - Therapies Physical Therapy: Eval and Treat Occupational Therapy: Eval and Treat - Allergies/Procedures Done in Hospital Allergies/Adverse Reactions: Allergies No Known Allergies Allergy (Verified 06/16/20 07:50) Procedures: Cardiac catheterization - Type of Care/Length of Stay Estimated LOS: Convalescent Care Less Than 30 days Type of Care Needed: Skilled Rehab Potential: Fair Prognosis: Fair - Additional Orders/Day of Discharge Additional Orders: Daily weights. Day of Discharge: 06/20/20 - Dietary and Speech Recommendations Dietitian Recommendations/Changes: Will continue 2200 calorie/cardiac with sodium-restriction diet as ordered. - Follow Up Care Primary Care Physician: Gutierrez Garces DO [Primary Care Provider] - Within 2 Weeks Please Follow Up With: Yoselin Peres, PA When: 07/10/2020, already scheduled.
--- NOTE | 2020-06-20 09:40 | PCM.DC.SUM ---
Discharge Date and Diagnosis - Problem List Patient Problems: Active and Suspected Problems (Last Updated 06/14/20 @ 16:06 by Yoselin Rodriguez) Exertional dyspnea (Acute) Abnormal stress test (Acute) Date of Admission: 06/16/20 Date of Discharge: 06/20/20 - Primary Discharge Diagnosis Acute Problems: Active Problems (Last Updated 06/14/20 @ 16:06 by Yoselin Rodriguez) 1. Exertional dyspnea, sujectively improved 2/2 ongoing with hypoxia with NSVT: ED 97% on 2 L nasal cannula for ambulatory pulse oximeter noted to be 88% on room air with activity in the ED, troponin negative x 3 cardiology following. LHC showed no significant CAD. RHC showed severely elevated right heart pressures. weight has been stable since 02/2020, however, up since June of 2019. furosemide will require oxygen 3l/m upon discharge 2. Acute on Chronic Microcytic anemia: iron-deficient Admission hemoglobin 8.3, previously noted 9-10 range, patient with outpatient guaiac reportedly positive but no obvious black dark stools or bright red blood per rectum, per discussion with cardiology will continue to cycle H&H's, maintain on high-dose Protonix, repeat guaiac and if hemoglobins remained stable would benefit from endoscopy but likely would need cardiac cath prior per discussions with cardiology. IV iron on 06/17 transfused 1 unit PRBC prior to result of LHC. Given no significant CAD, transfuse to keep Hg greater than 7, instead of 8. [place] transfusions strategies carry higher risks (i.e., TRALI, volume overload) DW Dr. Merritt, plan is for conservative measures at this point time. Given the patient's profound dyspnea, patient would be extremely high risk for EGD and colonoscopy for anesthesia. He would want that optimized before consideration for these procedures. Continue with PPI therapy. Ferrous sulfate 325 every other day 3. Chronic HFpEF: 04/02/20 ECHO w/ no LV systolic function, EF 65%, severe concentric LVH, moderately large LA, mild enlarged RA, mild diffuse MV thickening, trivial MVI, trivial TVI, mild diffuse AV calcification, unable to assess diastolic dysfunction. see #1 for further details furosemide weight overall up 50# from 1 year ago. Weight down 5kg so far. Continue IV furosemide. Fluid restrict 4. severe pulmonary hypertension probably a combination of Group 2 and 3. Treat the underlying processes known ANDERSON on CPAP. Advised pt to follow up with Dr. Murray for further optimization (i.e., BiPAP). But given severity, referral to Pulmonary HTN center would be recommended. Typically, pulmonary arterial hypertension-directed therapy is reserved for group 1 PAH, but can be used in rare cases of Group 3 PAH. Patient has been on the same CPAP for 4 to [address] Murray about 3 months ago. 5. Chronic atrial fibrillation: EKG with A. fib, rate controlled, will continue aspirin, apixaban 2.5 BID, rivaroxaban being held. [id number] score of 4. Continue to monitor hemoglobin, patient continues to have a drop in hemoglobin then would need to stop apixaban. 6. Hypertension: stable Continue home regimen including amlodipine, Coreg, Lasix, hydralazine with hold parameters as needed, PRN hydralazine. 7. History of CVA: apixaban 8. Hyperlipidemia: Continue home statin regimen. 9. Diabetes mellitus type II: fair control Hold oral home regimen, continue home insulin regimen, ADA diet, accu checks w/ ISS. 10. ISAURA onb Chronic kidney disease stage III: Admission BUN/creatinine 26/1.79, baseline appears 1.6-1.9, Creatinine up to 2.35, likely from overdiuresis. Furosemide changed back to PO. 11. Morbid Obesity: Weight loss and lifestyle changes encouraged, nutrition consulted. 12. GERD: We will maintain on Protonix high-dose twice daily given anemia evaluation as noted. GI/gen surg eval when optimized. 13. Chronic stasis disease, lymphedema: We will encourage bilateral lower extremity elevation, snug wraps, continue patient diuretic regimen. 14. ANDERSON: CPAP q HS, he notes will attempt to have his own brought in. Follow up with pulmonology for further optimization.. 15. 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) Chronic kidney disease, stage 3 (moderate) (Chronic) Kidney stones (Chronic) Stasis dermatitis (Chronic) Chronic diastolic (congestive) heart failure (Chronic) Severe concentric left ventricular hypertrophy (Chronic) Paroxysmal atrial fibrillation (Chronic) 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 Electronically Signed: Brian Lucas MD at 9:13 EST Tel , Service support , Operations: None Procedures: Cardiac catheterization Summary of Care Provided: The patient is a 75 year old M presents with dyspnea. Patient underwent left heart catheterization that showed normal coronaries. Patient has known severe pulmonary arterial hypertension likely group 3 delay with the patient's underlying sleep apnea but may also be a component of group to the patient's underlying CHF. Patient was diuresed and subjectively felt better. Weight is down 6 kg during this hospitalization. Patient's weight is up overall around 50 pounds from this time last year. Patient required further diuresis but additional aggressive diuresis had to be held given increasing creatinine. Patient will be put back on furosemide but at 40 mg twice daily. Patient was on 80 mg daily previously. The patient was also not following proper fluid restriction so that will also be an important component to diuresis. Patient does have anemia which was to be evaluated by general surgery, however the patient's severe dyspnea precluded any additional work-up at this time. Patient will need to have further optimization with diuresis as well as pulmonology in regards to the patient's sleep apnea and pulmonary hypertension. He will need to have this before any GI evaluation can be performed given the high risk of respiratory decompensation during an elective procedure such as an EGD or colonoscopy. Given absence of coronary artery disease, conservative transfusion regimen will need to be performed moving forward. Goal is to keep hemoglobin greater than 7. Patient did receive IV iron here. Patient will continue with every other day dosing of ferrous sulfate. [] Patient Problems: Active and Suspected Problems (Last Updated 06/14/20 @ 16:06 by Yoselin Rodriguez) Exertional dyspnea (Acute) Abnormal stress test (Acute) - Physical Exam Vitals/I&O's: Vital Signs Temp Pulse Resp BP Pulse Ox 36.7 C 48 L 16 155/78 H 97 06/20/20 05:40 06/20/20 07:00 06/20/20 05:40 06/20/20 05:43 06/20/20 05:40 Oxygen Flow Rate (L/min) 3 Oxygen Delivery Method Nasal Cannula Weight: 172 kg Body Mass Index (BMI) 52.8 Finger Stick Blood Glucose 116 Intake and Output for Last 24 Hours 06/18/20 06/19/20 06/20/20 23:59 23:59 23:59 Intake Total 1781.67 / 1781.67 240 / 360 240 / 240 Output Total 0 / 0 Balance 1781.67 / 1781.67 240 / 360 240 / 240 General: Alert, No apparent distress HEENT: Atraumatic, Normocephalic Oral: Moist Mucosa, No Gingival or Mucosal Lesions/ Ulcerations Neck: No Nodes, Thyroid Normal Size and Texture Lungs: Clear to auscultation, Normal air movement, No rhonchi, No wheeze, No rales Cardiovascular: Regular rate, Regular Rhythm, Normal S1, Normal S2, No murmurs Abdomen: Bowel Sounds Present, Soft, Non Tender, Non-Distended, No Hepato-splenomegaly Extremities: No Calf Tenderness, Edema Psych/Mental Status: Normal Affect, Appropriate Laboratory Results 06/19/20 11:05: POC Glucose 222 H 06/19/20 16:07: POC Glucose 190 H 06/19/20 21:36: POC Glucose 192 H 06/20/20 05:25: WBC 8.7, RBC 4.00 L, Hgb 8.9 L, Hct 30.8 L, MCV 77.0 L, MCH 22.3 L, MCHC 28.9 L, RDW Std Deviation 53.1 H, RDW Coeff of Jun 20.2 H, Plt Count 252, MPV 10.3, Immature Gran % (Auto) 0.600, Neut % (Auto) 73.3 H, Lymph % (Auto) 14.6 L, [place] % (Auto) 8.6, Eos % (Auto) 2.0, Baso % (Auto) 0.9, Absolute Neuts (auto) 6.4, Absolute Lymphs (auto) 1.26, Nucleated RBC % 0, Differential Comment SCANNED, Hypochromasia RARE, Anisocytosis 1+, Microcytosis RARE, Macrocytosis RARE, Ovalocytes RARE 06/20/20 05:25: Sodium 140, Potassium 3.7, Chloride 107, Carbon Dioxide 27.0, Anion Gap 6, BUN 38 H, Creatinine 2.35 H, Estim Creat Clear Calc 29.37, Est GFR (MDRD) Af Amer 35 L, Est GFR (MDRD) Non-Af 29 L, BUN/Creatinine Ratio 16.2, Glucose 119 H, Calcium 8.5 06/20/20 06:40: POC Glucose 125 H Current Medications Acetaminophen (Acetaminophen 325 Mg Tablet) 650 mg PO Q6H PRN PRN PRN Reason: Pain Score 1-10/Temp > 100.7 F Last Admin: 06/19/20 06:45 Dose: 650 mg Documented by: Al Hydroxide/Mg Hydroxide (Mag Hydrox/Al Hydrox/Simeth 30 Ml Udc) 30 ml PO Q6H PRN PRN PRN Reason: Gastric Burning Albuterol Sulfate (Albuterol 2.5 Mg/3 Ml Vial.Neb.) 2.5 mg INHALATION Q2H PRN PRN PRN Reason: Dyspnea, wheezing Last Admin: 06/17/20 19:19 Dose: 2.5 mg Documented by: Amlodipine Besylate (Amlodipine 10 Mg Tablet) 10 mg PO DAILY [facility] Last Admin: 06/19/20 08:12 Dose: 10 mg Documented by: Aspirin (Aspirin E.C. 325 Mg Tablet) 325 mg PO DAILY@0800 [facility] Last Admin: 06/20/20 08:29 Dose: 325 mg Documented by: Atorvastatin Calcium (Atorvastatin Calcium 80 Mg Tablet) 80 mg PO DAILY@2200 [facility] Last Admin: 06/19/20 21:43 Dose: 80 mg Documented by: Budesonide (Budesonide Respules 0.5 Mg/2 Ml Ampul.Neb.) 0.5 mg INHALATION Q12H.RT [facility] Last Admin: 06/17/20 19:20 Dose: 0.5 mg Documented by: Carvedilol (Carvedilol 6.25 Mg Tablet) 6.25 mg PO BID [facility] Last Admin: 06/19/20 21:43 Dose: 6.25 mg Documented by: Dextrose (Dextrose 50%-Water 25 Gm/50 Ml Disp.Syrin) 0 gm IV X1 PRN; Protocol PRN Reason: Hypoglycemia Fluticasone Propionate (Fluticasone 0.05% 1 [place] Nasal.Sry) 1 spray NASAL BID [facility] Last Admin: 06/19/20 21:47 Dose: 1 spray Documented by: Furosemide (Furosemide 40 Mg Tablet) 40 mg PO BIDLX [facility] Glucagon (Glucagon 1 Mg/Ml Syringe) 1 mg IM .X1 PRN PRN Reason: Hypoglycemia Guaifenesin (Guaifenesin 10 Ml Udc (200mg/10ml)) 20 ml PO Q4H PRN PRN PRN Reason: COUGH Hydralazine HCl (Hydralazine 20 Mg/Ml Vial) 10 mg IV Q4H PRN PRN PRN Reason: SBP > 160 Hydralazine HCl (Hydralazine 50 Mg Tablet) 100 mg PO TID [facility] Last Admin: 06/20/20 05:43 Dose: 100 mg Documented by: Sodium Chloride () 250 mls @ 15 mls/hr IV .[id number] PRN PRN Reason: Saline Flush Sodium Chloride () 250 mls @ 15 mls/hr IV .[id number] PRN PRN Reason: Additional IVPB Infusion Sodium Chloride () 1,000 mls @ 0 mls/hr IV .Q0M [facility] Insulin Glargine (Insulin Glargine 100 Units/Ml Pen) 60 units SC QHS [facility] Last Admin: 06/19/20 21:46 Dose: 60 u Documented by: Insulin Human Lispro (Insulin Lispro 100 Unit/Ml Insuln.Pen) 0 unit SC ACHS [facility]; Protocol Last Admin: 06/20/20 06:41 Dose: Not Given Documented by: Isosorbide Mononitrate (Isosorbide Mononitrate 30 Mg Tablet) 30 mg PO DAILY [facility] Last Admin: 06/19/20 08:13 Dose: 30 mg Documented by: Lidocaine (Lidocaine 5% Patch) 2 patch TOPICAL DAILY [facility]; Protocol Last Admin: 06/19/20 10:33 Dose: Not Given Documented by: Magnesium Hydroxide (Magnesium Hydroxide 30 Ml Udc) 30 ml PO DAILY PRN PRN PRN Reason: Constipation Melatonin (Melatonin 3 Mg Tablet) 3 mg PO QHS PRN PRN PRN Reason: INSOMNIA Last Admin: 06/19/20 21:47 Dose: 3 mg Documented by: Mirabegron (Mirabegron 25 Mg Tab.Er.24h) 25 mg PO DAILY [facility] Last Admin: 06/19/20 08:12 Dose: 25 mg Documented by: Nitroglycerin (Nitroglycerin (Inpatient Use) 0.4 Mg Tab.Subl) 0.4 mg SUBLINGUAL Q5M PRN PRN Reason: CARDIAC/CHEST PAIN Ondansetron HCl (Ondansetron 4 Mg/2 Ml Vial) 4 mg IV Q8H PRN PRN PRN Reason: NAUSEA/VOMITING Oxycodone HCl (Oxycodone 5 Mg Tablet) 5 mg PO Q4H PRN PRN PRN Reason: Pain Score 4-5 Last Admin: 06/19/20 21:44 Dose: 5 mg Documented by: Pantoprazole Sodium (Pantoprazole Sodium 40 Mg Tablet) 40 mg PO BID [facility] Last Admin: 06/19/20 21:43 Dose: 40 mg Documented by: Prochlorperazine Edisylate (Prochlorperazine 10 Mg/2 Ml Vial) 5 mg IV Q4H PRN PRN PRN Reason: Breakthrough Nausea/Vomiting Psyllium Hydrophilic Mucilloid (Psyllium 1 Packet) 1 packet PO DAILY PRN PRN PRN Reason: Constipation Senna/Docusate Sodium (Senna/Docusate Sodium 1 Tablet) 2 tablet PO BID PRN PRN PRN Reason: Constipation Sodium Chloride (0.9% Saline Lock 10 Ml Syringe) 10 - 40 ml IV UD PRN PRN Reason: SALINE FLUSH Last Admin: 06/17/20 21:04 Dose: 20 ml Documented by: Throat Lozenges (Benzocaine/Menthol 1 Lozenge) 1 lozenge MUCOUS MEM Q2H PRN PRN PRN Reason: SORE THROAT Discharge Activity: Return to Normal Activity Call your doctor if you observe: Fever of 101 or Higher, Shortness of breath Home Medications: Medications to take at Discharge atorvastatin 80 mg tablet 80 mg PO DAILY 09/19/18 carvedilol 12.5 mg tablet 12.5 mg PO BID 09/19/18 mirabegron 25 mg tablet,extended release 24 hr 25 mg PO DAILY 10/31/18 Amlodipine [Norvasc] 10 mg PO DAILY 05/15/19 Insulin Glargine,Hum.rec.anlog [Basaglar Kwikpen U-100] 60 unit SQ QHS 05/15/19 glipizide 10 mg tablet 10 mg PO DAILY 02/15/20 Fluticasone Furoate [Arnuity Ellipta] 200 mcg INHALATION DAILY 04/01/20 hydralazine 25 mg tablet 50 mg PO TID tab 05/14/20 aspirin 81 mg tablet,delayed release 325 mg PO DAILY 06/03/20 Acetaminophen [Tylenol Tablet] 650 mg PO Q6H PRN PRN tab 06/20/20 Albuterol Aerosols [Ventolin Aerosols] 2.5 mg INHALATION Q2H PRN PRN vial.neb. 06/20/20 Apixaban [Eliquis] 2.5 mg PO BID #1 tab 06/20/20 Furosemide [Lasix] 40 mg PO BIDLX tab 06/20/20 Potassium Chloride Oral Tablet [K-Dur] 20 meq PO DAILY #1 tablet 06/20/20 Following Prescriptions Were Given to Patient: Apixaban [Eliquis] 2.5 mg PO BID #1 tab Potassium Chloride Oral Tablet [K-Dur] 20 meq PO DAILY #1 tablet Primary Care Physician: Gutierrez Garces DO [Primary Care Provider] - Within 2 Weeks Please Follow Up With: Yoselin Peres, PA When: 07/10/2020, already scheduled. [facility]position[facility] Minutes spent on discharge:: 45 Patient Condition:: Fair Medical Necessity - Tobacco Use Smoking Status: Former smoker - Smoked 1 ppd cigarette tobacco age [age]. Tobacco Use: Non-smoker Meaningful Use Info Meaningful Use Diagnoses (Choose all that apply): CHF - CHF LUCIO/ARB ordered at discharge?: No Reason LUCIO/ARB not ordered?: Worsening renal disease Documented LVEF (%): 65 Inpatient E&M: 08417 Disch Hosp
[2020-06-20] MEDS: Isosorbide Mononitrate 30 MG Tablet PO (09:48)
[2020-06-20] MEDS: Pantoprazole Sodium 40 MG Tablet PO (09:48)
[2020-06-20] MEDS: Furosemide 40 MG Tablet PO (09:48)
[2020-06-20] MEDS: Carvedilol 6.25 MG Tablet PO (09:48)
[2020-06-20] MEDS: Fluticasone 0.05% 1 SPRAY NASAL.SRY NASAL (09:48)
[2020-06-20] MEDS: amLODIPine 10 MG Tablet PO (09:48)
[2020-06-20] MEDS: Mirabegron 25 MG TAB.ER.24H PO (09:48)
--- NOTE | 2020-06-20 10:13 | PHA.DC.MR ---
Pharmacy Service has performed discharge medication reconciliation for this patient upon transfer to [facility]. Home Medications atorvastatin 80 mg tablet 80 mg PO DAILY 09/19/18 carvedilol 12.5 mg tablet 12.5 mg PO BID 09/19/18 mirabegron 25 mg tablet,extended release 24 hr 25 mg PO DAILY 10/31/18 Amlodipine [Norvasc] 10 mg PO DAILY 05/15/19 Insulin Glargine,Hum.rec.anlog [Basaglar Pedroikpen U-100] 60 unit SQ QHS 05/15/19 glipizide 10 mg tablet 10 mg PO DAILY 02/15/20 Fluticasone Furoate [Arnuity Ellipta] 200 mcg INHALATION DAILY 04/01/20 hydralazine 25 mg tablet 50 mg PO TID tab 05/14/20 aspirin 81 mg tablet,delayed release 325 mg PO DAILY 06/03/20 Acetaminophen [Tylenol Tablet] 650 mg PO Q6H PRN PRN tab 06/20/20 Albuterol Aerosols [Ventolin Aerosols] 2.5 mg INHALATION Q2H PRN PRN vial.neb. 06/20/20 Apixaban [Eliquis] 2.5 mg PO BID #1 tab 06/20/20 Ferrous Sulfate 325 mg PO QODAY #1 tab 06/20/20 Furosemide [Lasix] 40 mg PO BIDLX tab 06/20/20 Pantoprazole Sodium [Protonix] 40 mg PO BID tab 06/20/20 Potassium Chloride Oral Tablet [K-Dur] 20 meq PO DAILY #1 tab 06/20/20 The patient's discharge medication list was reviewed for discrepancies and discrepancies were resolved.
[2020-06-20] MEDS: Insulin Lispro 100 UNIT/ML INSULN.PEN SC (11:01)
[2020-06-20 11:36] LABS: Bedside Glucose 227 mg/dL (70-110)
--- NOTE | 2020-06-20 12:20 | CASEMGMT ---
REBECA called [facility] and let them know patient is ready today. He had a COVID test 06-16-20 and this was fine for [facility]. REBECA faxed orders to [facility]. REBECA arranged transport via [facility] van for 1400.. SW did notify them that he is bariatric. 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 REBECA also notified patient. He did not need any family called as he already did this. REBECA also notified family therapist, RN, and Odessa barrientos [place]. Plan: d/c to [facility] under skilled level of care on a convalescent stay. [facility] transported via [employer] van. Nicoalsa TAPIA MSW
--- NOTE | 2020-06-20 13:36 | NURSING ---
Report called to Maren REYNA at [facility].
[2020-06-21 09:06] LABS: Blood Gas Specimen Type VEN; VBG BASE EXCESS 2 mmol/L (-1.0-3.5); VBG Bicarbonate 27 mmol/L (22-26); VBG PO2 31 mmHg (25-40); VBG SO2 55 % (50-70); VBG TCO2 29 mmol/L (23-33); VBG pH 7.35 (7.32-7.42)
== END 2020-06-20 14:36 | disposition skilled nursing facility (03) | DRG 287 ==
LOC: ED 10:27 → PCU 10:35
PROVIDERS: Internal Medicine Cardiovascular Disease; Admitting Provider Family Medicine; Emergency Provider Emergency Medicine; PCP Family Medicine
DX: I47.2 Ventricular tachycardia (principal); I13.0 Hypertensive heart and chronic kidney disease with heart failure and stage 1 through stage 4 chronic kidney disease, or unspecified chronic kidney disease; Z68.43 Body mass index [BMI] 50.0-59.9, adult; I50.32 Chronic diastolic (congestive) heart failure; N17.9 Acute kidney failure, unspecified; R09.02 Hypoxemia; E11.22 Type 2 diabetes mellitus with diabetic chronic kidney disease; D50.9 Iron deficiency anemia, unspecified; G47.33 Obstructive sleep apnea (adult) (pediatric); I48.0 Paroxysmal atrial fibrillation; N18.30 Chronic kidney disease, stage 3 unspecified; I87.2 Venous insufficiency (chronic) (peripheral); I27.21 Secondary pulmonary arterial hypertension; E66.01 Morbid (severe) obesity due to excess calories; E78.5 Hyperlipidemia, unspecified; I89.0 Lymphedema, not elsewhere classified; I27.81 Cor pulmonale (chronic); I50.82 Biventricular heart failure; K21.9 Gastro-esophageal reflux disease without esophagitis; T50.2X5A Adverse effect of carbonic-anhydrase inhibitors, benzothiadiazides and other diuretics, initial encounter; Z86.73 Personal history of transient ischemic attack (TIA), and cerebral infarction without residual deficits; Z87.891 Personal history of nicotine dependence
CPT/HCPCS: 36415; 71045; 80048; 80053; 82274; 82607; 82728; 82746; 82803; 82962; 83540; 83550; 83735; 83880; 84443; 84484; 85014; 85018; 85025; 86850; 86900; 86901; 86920; 86922; 87426; 93005; 93460; 94640; 97110; 97162; 97166; 97535; 97802; 99152; 99153; 99251; 99285; C1751; J7030; J7040; J7050; P9016; Q9967; A4216; C1769; C1894; G0463; J1940; J2916

== ENCOUNTER → 2020-07-11 11:04 | Outpatient (CLI) | payer MEDICARE, SELFPAY ==
[2020-06-16 11:37] VITALS: BMI 52.8
[2020-07-11 15:08] LABS: Absolute Lymphocyte Count 0.94 X10^3/uL (0.83-4.51); Absolute Neutrophil Count 4.7 X10^3/uL (2.0-7.7); Basophil# 0.07 X10^3/uL; Basophil% 1.1 % (0-1); Eosinophil# 0.18 X10^3/uL; Eosinophils% 2.7 % (0-5); Hematocrit 34.6 % (40-54); Hemoglobin 9.8 g/dL (13.0-16.5); Lymphocyte # 0.94 X10^3/ul (4.0); Lymphocyte % 14.2 % (19-41); Mean Corp Hgb Conc 28.3 g/dL (32-36); Mean Corpuscular Hgb 21.9 pg (27.0-32.0); Mean Corpuscular Volume 77.2 fL (80-94); Mean Platelet Vol. 10.5 fl (6.2-12.0); Monocyte% 10.6 % (0-10); NRBC Flagged by Analyzer 0 % (0-5); Neutrophil # 4.72 X10^3/uL (2.7-7.7); Neutrophil % 71.1 % (47-70); POSITIVE MORPHOLOGY YES; Platelet Count 277 K/mm3 (150-450); RBC Distribution Width CV 20.1 % (11.6-14.6); RBC Distribution Width SD 56.2 fl (35.1-43.9); Red Blood Count 4.48 M/mm3 (4.6-6.2); White Blood Count 6.6 K/mm3 (4.4-11.0)
[2020-07-11 15:11] LABS: Differential Indicated SCAN CRITERIA MET
[2020-07-11 15:44] LABS: Anion Gap 9 (5-15); BUN 26 mg/dL (7-18); BUN/Creat Ratio 12.5 RATIO (10-20); Calcium,Total 8.7 mg/dL (8.5-10.1); Chloride 104 mmol/L (98-107); Creatinine, Serum 2.08 mg/dL (0.70-1.30); EST Glomerular Filtration Rate 33 mL/min (>60); Est Glom Filt Rate - Afr Amer 40 mL/min (>60); Glucose 245 mg/dL (74-106); Sodium Level 138 mmol/L (136-145)
[2020-07-11 15:52] LABS: Anisocytosis 1+
== END ==
PROVIDERS: PCP Family Medicine; Visit Provider Family Medicine
DX: D64.9 Anemia, unspecified (principal); N18.32 Chronic kidney disease, stage 3b
CPT/HCPCS: 36415; 80048; 85025

== ENCOUNTER 2020-08-02 08:13 | Day surgery (SDC) | payer MEDICARE, MEDICAID, SELFPAY ==
[2020-07-18 09:11] VITALS: BMI 51.8
[2020-07-31 14:12] VITALS: BMI 51.4
[2020-08-02] VITALS (7 sets, daily range): BP systolic 132–180; BP diastolic 73–96; PULSE 64–78; RESP 18–20; TEMP 36.6–37.1; O2SAT 95–99; BMI 52.3
[2020-08-02 09:06] LABS: Bedside Glucose 107 mg/dL (70-110)
--- NOTE | 2020-08-02 09:07 | HP.PCM_ITS ---
Problem List (1) Anemia Status: Acute History and Physical Date of Admission: 08/02/20 Intake Vital Signs 07/18/20 Height 5 ft 11 in 07/18/20 Weight: 372 lb 07/18/20 BMI 51.8 07/18/20 BP 134/82 H 07/18/20 Blood Pressure Location Rt brachial 07/18/20 Position Sitting 07/18/20 Respiration 18 07/18/20 Pulse 69 07/18/20 Pulse Source Monitor 07/18/20 Temp 98.1 F 07/18/20 Temp Source Temporal 07/18/20 Pulse Oximetry (%) 99 07/18/20 Oxygen Delivery Method room air Intake Visit Reasons: F/U Medication & Discuss Procedure Chief Complaint: Discuss procedure Motor Polarizer Required: No Is patient in pain?: No Allergies No Known Allergies Allergy (Verified 07/18/20 09:12) Medications atorvastatin 80 mg tablet 80 mg PO DAILY 09/19/18 [History Confirmed 07/18/20] carvedilol 12.5 mg tablet 12.5 mg PO BID 09/19/18 [History Confirmed 07/18/20] mirabegron 25 mg tablet,extended release 24 hr 25 mg PO DAILY 10/31/18 [History Confirmed 07/18/20] Amlodipine [Norvasc] 10 mg PO DAILY 05/15/19 [History Confirmed 07/18/20] Insulin Glargine,Hum.rec.anlog [Basaglar Kwikpen U-100] 60 unit SQ QHS 05/15/19 [History Confirmed 07/18/20] glipizide 10 mg tablet 10 mg PO DAILY 02/15/20 [History Confirmed 07/18/20] Fluticasone Furoate [Arnuity Ellipta] 200 mcg INHALATION DAILY 04/01/20 [History Confirmed 07/18/20] hydralazine 25 mg tablet 50 mg PO TID tab 05/14/20 [History Confirmed 07/18/20] aspirin 81 mg tablet,delayed release 81 mg PO DAILY 06/03/20 [History Confirmed 07/18/20] Acetaminophen [Tylenol Tablet] 650 mg PO Q6H PRN PRN tab 06/20/20 [Rx Confirmed 07/18/20] Albuterol Aerosols [Ventolin Aerosols] 2.5 mg INHALATION Q2H PRN PRN vial.neb. 06/20/20 [Rx Confirmed 07/18/20] Apixaban [Eliquis] 2.5 mg PO BID #1 tab 06/20/20 [Rx Confirmed 07/18/20] Ferrous Sulfate 325 mg PO QODAY #1 tab 06/20/20 [Rx Confirmed 07/18/20] Furosemide [Lasix] 40 mg PO BIDLX tab 06/20/20 [Rx Confirmed 07/18/20] Pantoprazole Sodium [Protonix] 40 mg PO BID tab 06/20/20 [Rx Confirmed 07/18/20] Potassium Chloride Oral Tablet [K-Dur] 20 meq PO DAILY #1 tab 06/20/20 [Rx Confirmed 07/18/20] Lantus 90 units SQ QHS 07/04/20 [History Confirmed 07/18/20] [facility] Medical History Exertional dyspnea (Acute) Abnormal stress test (Acute) Pure hypercholesterolemia (Chronic) Essential hypertension (Chronic) Venous insufficiency (Chronic) Edema, lower extremity (Chronic) Acute on chronic diastolic (congestive) heart failure (Acute) Cellulitis of left lower extremity (Acute) Diabetes, type 1.5, uncontrolled, managed as type 1 (Chronic) Hypoglycemia due to insulin (Acute) Tubulovillous adenoma polyp of colon (Chronic) Chronic kidney disease, stage 3 (moderate) (Chronic) Kidney stones (Chronic) Stasis dermatitis (Chronic) Chronic diastolic (congestive) heart failure (Chronic) Severe concentric left ventricular hypertrophy (Chronic) Paroxysmal atrial fibrillation (Chronic) 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 Bob Merritt MD) Smoking Status: Former smoker HPI HPI HPI: REGGIE MOHR, is a 75 M who presents to the office today for HPI HPI Surgical H&P: Yes HPI: REGGIE MOHR, is a 75 M who presents to the office today for follow-up for anemia and positive fecal occult blood. I started the patient on a PPI and he noticed no differences but he did have a repeat hemoglobin about a week ago which showed a 1 g increase in hemoglobin. The patient reports he had a heart cath which was normal and his breathing is much improved. ROS General General: No weight change or fatigue Cardio Cardiovascular: No murmur, pacemaker, heart disease, atrial fibrillation, high blood pressure, heart attack, heart stent, palpitations, shortness of breat with exertion or chest pain Psych Psychiatric: No depression or anxiety Resp Respiratory: Yes shortness of breath, No sleep apnea, No cough, No COPD, No asthma, No emphysema, No wheezing Gastro Gastrointestinal: No abdominal pain, No nausea or vomiting, No diarrhea, No constipation, No blood in stool, No acid reflux, No hemorrhoids, No ulcers, No gallbladder problem, No black,tarry stools Jayson Hematologic: No blood thinners Exam Const General: cooperative Orientation: alert, oriented x3 Resp Effort & Inspection: normal respiratory effort Auscultation: clear to auscultation bilaterally Cardio Rate: regular rate Rhythm: regular rhythm Heart Sounds: no murmurs GI Inspection: non-distended Palpation: soft, nontender Assessment & Plan Problems 1. Fecal occult blood test positive R19.5 Plan The patient had anemia and positive fecal occult blood test. He was in the office about a month ago but he was too short of breath to undergo MAC anesthesia. I started him on a PPI and he repeated his hemoglobin about 1 week ago and it showed a 1 g increased from last month. Patient has not noted any gross blood in his stool or abdominal pain. I will plan for EGD for the patient to ensure the patient does have any lesions in the stomach or slowly bleeding ulcers. I do not believe the patient has the reserve to withstand a colonoscopy as it would be a longer procedure time and more intense anesthesia and he just had a colonoscopy 3 years ago which was normal. I explained endoscopy in detail to the patient. I explained the risks including but not limited to stroke or heart attack with anesthesia, perforation of the GI tract, bleeding, infection. I explained that any of these could necessitate further emergency surgery. The patient understands and all questions were answered sufficiently. The patient wishes to proceed with procedure. Bob Merritt MD Pager: [facility] [address] [place] [address], [address] [place] [phone] Office: I have re-examined the patient. There are no clinical changes since date of exam.
[2020-08-02] MEDS: Lactated Ringers 1,000 ML 100 ML IV (09:10)
--- NOTE | 2020-08-02 09:15 | EGD_PTH ---
PATIENT: REGGIE MOHR LOC: EN U#:[id number] AGE/SX: 75/M ROOM: RE08/02/[address]: Dr. Bob Merritt MD : 1945 BED: DIS: 08/02/2020 SPEC #: [id number] RECD: 08/02/20 12:11 STATUS: BERNICE RUIZ #: [id number] DUANE: 08/02/20 09:[address]: Bob Merritt DEPT: SURGICAL PATHOLOGY RECD BY: Holly Rebolledo ENTERED: 08/02/20 12:33 SP TYPE: EGD BIOPSY OT DR: Dr. Gutierrez Garces DO Tissues: Stomach, NOS Procedures: Special Stain Group I Surgery Specimen Level IV AFB Stain (control) GMS Stain (control) HEADER OPERATION: EGD ([facility]) PRE-OP DIAGNOSIS: Anemia TISSUE SUBMITTED: Body of stomach biopsy, H. pylori and path MICROSCOPIC DIAGNOSIS Gastric body, biopsy: Mild chronic gastritis. Focal non-necrotizing granulomatous inflammation. Negative for acid-fast bacilli and fungal organisms. See comment. AM:adrian 08/05/2020 COMMENT The results of immunohistochemistry for Helicobacter pylori will be reported separately ([id number]). AFB and GMS stains with matched controls were used in the evaluation of this case. Case has been reviewed in consultation with Dr. Kaur who concurs with the above diagnosis. IDC:PATY MICROSCOPIC DESCRIPTION Slides are reviewed. GROSS DESCRIPTION Received in fixative is one container labeled with the patient's name and designated body of stomach. The specimen consists of two irregular fragments of light redd soft tissue that in aggregate measure 0.5 x 0.4 x 0.1 cm. The specimen is totally submitted in one cassette. / PATY:adrian 08/02/20 TC:3 CPT: 36240, 66142 x2
--- NOTE | 2020-08-02 09:15 | IMM_PTH ---
PATIENT: REGGIE MOHR LOC: BOBO U#:[id number] AGE/SX: 75/M ROOM: RE08/02/[address]: Dr. Bob Merritt MD : 1945 BED: DIS: 08/02/2020 SPEC #: [id number] RECD: 08/02/20 12:56 STATUS: BERNICE REJan #: [id number] DUANE: 08/02/20 09:[address]: Bob Merritt DEPT: IMMUNOHISTOCHEMISTRY RECD BY: Denisse Little ENTERED: 08/02/20 12:56 SP TYPE: IMMUNO OTHR DR: Dr. Gutierrez Garces, Tissues: Stomach, NOS Procedures: H Pylori (initial) PHYSICIAN & INSTITUTION [place] [id number] SPECIMEN INFORMATION: Tissue Source: Body of stomach biopsy Clinical Info: Anemia Specimen Number: [id number] CPT code: 44605 METHODOLOGY: Deparaffinized sections of prefer/formalin-fixed tissue or PAP/DQ stained slides are incubated with monoclonal/polyclonal antibodies/oligonucleotide probes. Localization is made via biotin free immunoperoxidase method. Appropriate controls are performed and reacted as expected. Results on target cell population are indicated in the following table: RESULTS: ANTIBODY / CLONE RESULT H Pylori (polyclonal) negative These tests were developed and their performance characteristics determined by [facility]. They may not have been cleared or approved by the U.S. Food and Drug Administration. The FDA has determined that such clearance or approval is not necessary. INTERPRETATION: Body of stomach biopsy: Negative for Helicobacter pylori organisms. AM:adrian 08/05/2020
--- NOTE | 2020-08-02 09:26 | OP.EGD_ITS ---
Patient Name: Al Chung Procedure Date: 08/02/2020 9:08 AM Date of : 1945 Age: 75 Procedure: Upper GI endoscopy Indications: Iron deficiency anemia Providers: Bob Merritt MD Referring MD: Gutierrez Garces Medicines: Monitored Anesthesia Care Patient Profile: This is a 75 year old male. Refer to note in patient chart for documentation of history and physical. Complications: No immediate complications. Estimated blood loss: Minimal. Procedure: Pre-Anesthesia Assessment: - Prior to the procedure, a History and Physical was performed, and patient medications and allergies were reviewed. The patient's tolerance of previous anesthesia was also reviewed. The risks and benefits of the procedure and the sedation options and risks were discussed with the patient. All questions were answered, and informed consent was obtained. Prior Anticoagulants: The patient has taken Xarelto (rivaroxaban), last dose was 2 days prior to procedure. After reviewing the risks and benefits, the patient was deemed in satisfactory condition to undergo the procedure. After obtaining informed consent, the endoscope was passed under direct vision. Throughout the procedure, the patient's blood pressure, pulse, and oxygen saturations were monitored continuously. The gastroscope was introduced through the mouth, and advanced to the second part of duodenum. The upper GI endoscopy was accomplished without difficulty. The patient tolerated the procedure well. Scope In: 9:19:09 AM Scope Out: 9:21:57 AM Total Procedure Duration Time 0 hours 2 minutes 48 seconds Findings: The esophagus was normal. Diffuse moderate inflammation with hemorrhage characterized by congestion (edema) and friability was found in the stomach. Biopsies were taken with a cold forceps for Helicobacter pylori testing. The examined duodenum was normal. Impression: - Normal esophagus. - Gastritis with hemorrhage. Biopsied. - Normal examined duodenum. Recommendation: - Discharge patient to home. - Resume previous diet. - Continue present medications. - Resume Xarelto (rivaroxaban) at prior dose tomorrow. - Return to my office PRN. Procedure Code(s): --- Professional --- 96900, Esophagogastroduodenoscopy, flexible, transoral; with biopsy, single or multiple Diagnosis Code(s): --- Professional --- K29.71, Gastritis, unspecified, with bleeding D50.9, Iron deficiency anemia, unspecified CPT copyright 2017 [employer]. All rights reserved. The codes documented in this report are preliminary and upon freedom of information officer review may be revised to meet current compliance requirements. Bob Merritt MD 08/02/2020 9:25:54 AM This report has been signed electronically. Number of Addenda: 0 Note Initiated On: 08/02/2020 9:08 AM
--- NOTE | 2020-08-02 09:26 | OP.CCLET_ITS ---
08/02/2020 Gutierrez Garces [address] [place] [address] Re : Upper GI endoscopy procedure for Al Chung Dear Dr. Garces This procedure was performed on Sunday, August 02, 2020. My impressions and recommendations are as follows: Impressions : - Normal esophagus. - Gastritis with hemorrhage. Biopsied. - Normal examined duodenum. Recommendations : - Discharge patient to home. - Resume previous diet. - Continue present medications. - Resume Xarelto (rivaroxaban) at prior dose tomorrow. - Return to my office PRN. My findings are described in the full procedure note, which is enclosed. If I can be of further assistance, please feel free to contact me at Doctor phone number(s): , Work: . Sincerely, Bob Merritt MD 08/02/2020 9:25:54 AM This report has been signed electronically.
== END 2020-08-02 10:06 | disposition home or self-care (01) ==
LOC: EN 08:13 → AC 08:33
PROVIDERS: PCP Family Medicine; Referring Provider Family Medicine; Visit Provider Surgery
PROC: 0DJ08ZZ Inspection of Upper Intestinal Tract, Via Natural or Artificial Opening Endoscopic (ICD-10-PCS; CPT 43235; principal; 2020-08-02 09:10)
DX: D50.9 Iron deficiency anemia, unspecified (principal); K29.71 Gastritis, unspecified, with bleeding; K29.50 Unspecified chronic gastritis without bleeding; G47.33 Obstructive sleep apnea (adult) (pediatric); E66.01 Morbid (severe) obesity due to excess calories; R62.7 Adult failure to thrive; E78.00 Pure hypercholesterolemia, unspecified; N18.30 Chronic kidney disease, stage 3 unspecified; I13.0 Hypertensive heart and chronic kidney disease with heart failure and stage 1 through stage 4 chronic kidney disease, or unspecified chronic kidney disease; I50.32 Chronic diastolic (congestive) heart failure; I48.0 Paroxysmal atrial fibrillation; Z79.4 Long term (current) use of insulin; Z79.899 Other long term (current) drug therapy; Z79.01 Long term (current) use of anticoagulants; Z79.82 Long term (current) use of aspirin; Z68.43 Body mass index [BMI] 50.0-59.9, adult; Z87.891 Personal history of nicotine dependence
CPT/HCPCS: 43239; 82962; 88305; 88312; 88342; J7120; J2405

== ENCOUNTER 2020-08-02 08:24 | Outpatient (RCR) | payer MEDICARE, SELFPAY ==
[2020-08-02 08:40] VITALS: BMI 52.3
== END 2020-10-08 23:59 ==
LOC: IMMUN 08:24
PROVIDERS: PCP Family Medicine; Visit Provider Family Medicine
DX: Z23 Encounter for immunization (principal)
CPT/HCPCS: 0001A; 0002A; 91300

== ENCOUNTER → 2020-09-05 09:05 | Outpatient (CLI) | payer MEDICARE, MEDICAID, SELFPAY ==
[2020-09-05 10:22] LABS: Absolute Lymphocyte Count 1.04 X10^3/uL (0.83-4.51); Absolute Neutrophil Count 5.6 X10^3/uL (2.0-7.7); Basophil# 0.04 X10^3/uL; Basophil% 0.5 % (0-1); Eosinophil# 0.27 X10^3/uL; Eosinophils% 3.6 % (0-5); Hematocrit 37.8 % (40-54); Hemoglobin 10.9 g/dL (13.0-16.5); Lymphocyte # 1.04 X10^3/ul (0.83-4.51); Lymphocyte % 13.8 % (19-41); Mean Corp Hgb Conc 28.8 g/dL (32-36); Mean Corpuscular Hgb 20.8 pg (27.0-32.0); Mean Platelet Vol. 9.8 fl (6.2-12.0); Monocyte# 0.63 X10^3/uL; Monocyte% 8.3 % (0-10); NRBC Flagged by Analyzer 0 % (0-5); Neutrophil # 5.55 X10^3/uL (2.7-7.7); Neutrophil % 73.5 % (47-70); Platelet Count 312 K/mm3 (150-450); RBC Distribution Width CV 19.9 % (11.6-14.6); RBC Distribution Width SD 51.1 fl (35.1-43.9); Red Blood Count 5.25 M/mm3 (4.6-6.2); White Blood Count 7.6 K/mm3 (4.4-11.0)
[2020-09-05 10:27] LABS: International Normalized Ratio 1.2; Partial Thromboplast Time 32.5 Seconds (24.1-36.2); Prothrombin Time (Protime)PT. 14.7 SECONDS (11.7-14.9)
[2020-09-05 10:48] LABS: ALB/GLOB Ratio 0.7 RATIO (0.9-2.4); AST(SGOT) 12 U/L (15-37); Alanine Aminotransfer ALT/SGPT 16 U/L (16-61); Albumin, Serum 3.2 g/dL (3.2-5.0); Alkaline Phosphatase 89 U/L (45-117); Anion Gap 8 (5-15); BUN 23 mg/dL (7-18); BUN/Creat Ratio 12.2 RATIO (10-20); Calcium,Total 8.5 mg/dL (8.5-10.1); Chloride 104 mmol/L (98-107); Cholesterol 125 mg/dL (200); Creatinine, Serum 1.89 mg/dL (0.70-1.30); EST Glomerular Filtration Rate 37 mL/min (>60); Est Glom Filt Rate - Afr Amer 45 mL/min (>60); Globulin 4.6 g/dL (2.2-4.2); Glucose 202 mg/dL (74-106); High Density Lipoprotein 33 mg/dL; Potassium 3.7 mmol/L (3.5-5.1); Protein, Total 7.8 g/dL (6.4-8.2); Sodium Level 138 mmol/L (136-145); Triglycerides 128 mg/dL; Very Low Density Lipoprotein 26 mg/dL (5-40)
[2020-09-05 10:59] LABS: Hemoglobin A1c 8.4 % (3.8-5.6)
== END ==
PROVIDERS: Internal Medicine Cardiovascular Disease; PCP Family Medicine; Referring Provider Family Medicine; Visit Provider Family Medicine
DX: E11.610 Type 2 diabetes mellitus with diabetic neuropathic arthropathy (principal); I13.0 Hypertensive heart and chronic kidney disease with heart failure and stage 1 through stage 4 chronic kidney disease, or unspecified chronic kidney disease; N18.32 Chronic kidney disease, stage 3b; D63.1 Anemia in chronic kidney disease; I50.33 Acute on chronic diastolic (congestive) heart failure; E78.00 Pure hypercholesterolemia, unspecified; R94.39 Abnormal result of other cardiovascular function study; R06.02 Shortness of breath
CPT/HCPCS: 36415; 80053; 80061; 83036; 85025; 85610; 85730

== ENCOUNTER → 2020-10-08 05:00 | Outpatient (REF) | payer MEDICARE, MEDICAID, SELFPAY ==
[2020-10-08 08:32] LABS: Absolute Lymphocyte Count 1.28 X10^3/uL (0.83-4.51); Basophil# 0.07 X10^3/uL; Basophil% 1.1 % (0-1); Eosinophil# 0.15 X10^3/uL; Eosinophils% 2.5 % (0-5); Hematocrit 35.4 % (40-54); Hemoglobin 10.3 g/dL (13.0-16.5); Lymphocyte # 1.28 X10^3/ul (0.83-4.51); Mean Corp Hgb Conc 29.1 g/dL (32-36); Mean Corpuscular Volume 72.1 fL (80-94); Mean Platelet Vol. 9.9 fl (6.2-12.0); Monocyte# 0.53 X10^3/uL; Monocyte% 8.7 % (0-10); NRBC Flagged by Analyzer 0 % (0-5); Neutrophil # 4.04 X10^3/uL (2.7-7.7); Neutrophil % 66.2 % (47-70); Platelet Count 277 K/mm3 (150-450); RBC Distribution Width CV 19.9 % (11.6-14.6); RBC Distribution Width SD 51.4 fl (35.1-43.9); Red Blood Count 4.91 M/mm3 (4.6-6.2); White Blood Count 6.1 K/mm3 (4.4-11.0)
[2020-10-08 08:54] LABS: Hemoglobin A1c 8.2 % (3.8-5.6)
[2020-10-08 09:22] LABS: ALB/GLOB Ratio 0.8 RATIO (0.9-2.4); AST(SGOT) 10 U/L (15-37); Alanine Aminotransfer ALT/SGPT 13 U/L (16-61); Albumin, Serum 3.2 g/dL (3.2-5.0); Alkaline Phosphatase 82 U/L (45-117); Anion Gap 7 (5-15); BUN 23 mg/dL (7-18); BUN/Creat Ratio 12.9 RATIO (10-20); Calcium,Total 8.4 mg/dL (8.5-10.1); Chloride 108 mmol/L (98-107); Cholesterol 117 mg/dL (200); Creatinine, Serum 1.78 mg/dL (0.70-1.30); EST Glomerular Filtration Rate 40 mL/min (>60); Est Glom Filt Rate - Afr Amer 48 mL/min (>60); Globulin 3.8 g/dL (2.2-4.2); Glucose 127 mg/dL (74-106); High Density Lipoprotein 34 mg/dL; Potassium 3.7 mmol/L (3.5-5.1); Sodium Level 141 mmol/L (136-145); Triglycerides 130 mg/dL; Very Low Density Lipoprotein 26 mg/dL (5-40)
== END ==
LOC: OLS.SWAL 05:00
PROVIDERS: PCP Family Medicine; Visit Provider Family Medicine
DX: E11.610 Type 2 diabetes mellitus with diabetic neuropathic arthropathy (principal); N18.32 Chronic kidney disease, stage 3b; D63.1 Anemia in chronic kidney disease
CPT/HCPCS: 36415; 80053; 80061; 83036; 85025

== ENCOUNTER → 2020-12-02 04:00 | Outpatient (REF) | payer MEDICARE, SELFPAY ==
[2020-11-28 08:43] VITALS: BMI 50.2
[2020-12-02 09:03] LABS: BNP,B-Type NATRIURETIC PEPTIDE 224.5 pg/mL (0-100)
== END ==
LOC: OLS.SWAL 04:00
PROVIDERS: PCP Family Medicine; Visit Provider Family Medicine
DX: I50.9 Heart failure, unspecified (principal); I27.20 Pulmonary hypertension, unspecified
CPT/HCPCS: 36415; 83880

== ENCOUNTER 2020-12-10 09:22 | Inpatient (IN) | payer MEDICARE, MEDICAID, SELFPAY ==
[2020-11-28 08:43] VITALS: BMI 50.2
[2020-12-10] VITALS (18 sets, daily range): BP systolic 122–165; BP diastolic 57–78; PULSE 60–93; RESP 18–34; TEMP 36.8–38; O2SAT 83–96; BMI 47.6; BMI 48.4
--- NOTE | 2020-12-10 09:34 | EKG12_ITS ---
Test Reason : SOB Blood Pressure : / mmHG Vent. Rate : 087 BPM Atrial Rate : 096 BPM P-R Int : 000 ms QRS Dur : 098 ms QT Int : 378 ms P-R-T Axes : 000 -04 024 degrees QTc Int : 454 ms Atrial fibrillation Abnormal ECG Confirmed by LANETTE RINCON, PATSY ([id number]), editor greeting card HALEY NUÑEZ ([id number]) on 12/13/2020 9:20:30 AM Referred By: NATALIE Confirmed By:SOCORRO GAMA MD
--- NOTE | 2020-12-10 09:34 | RAD_ITS ---
STUDY: X-RAY CHEST REASON FOR EXAM: Male, 75 years old. Dyspnea TECHNIQUE: Single AP portable view of the chest. COMPARISON: Comparison is made with prior study dated 06/16/2020. FINDINGS: EKG electrodes are seen. Patchy infiltrates are seen in the left upper lobe and lingular segment of the left upper lobe. Mild increased markings at the right lung base. There is no demonstrated pleural abnormality. Normal size heart. Normal mediastinum and duncan. Normal visualized pulmonary arteries. There is atherosclerotic tortuosity of the aortic arch and descending thoracic aorta. There are diffuse degenerative changes of the visualized thoracic spine. Normal visualized ribs, clavicles, and shoulders. There is no demonstrated abnormality of the visualized soft tissue structures of the upper abdomen. RAD/Chest 1 View (Portable) IMPRESSION: Patchy infiltrates in the left lung as well as at the right lung base Electronically Signed: Fran Krause MD at 10:48 EDT , Service support ,
--- NOTE | 2020-12-10 09:44 | ED.VIS.DYS ---
HPI History of Present Illness Chief Complaint: Shortness of Breath Narrative Narrative: 75-year-old male with history of paroxysmal A. fib, CHF, moderate to severe pulmonary hypertension, ANDERSON, diabetes, hyperlipidemia presenting with dyspnea. He states has been more dyspneic over the last 2 days. He denies any chest pain. Patient states he wears 3 L at night and then transitions to CPAP when he sleeps. Patient states he does not usually wear oxygen during the day. He is currently wearing 3 L because he feels dyspneic. Patient states that he was unable to walk to breakfast this morning which is unusual for him. He states he is unable to walk 20 yards to get his own food so they brought him food. Patient states that he does sleep on his side and flat. He does not sleep in a chair. He does describe exertional dyspnea. Patient is anticoagulated on Xarelto. He denies black or bloody stools. Patient has had his COVID-19 vaccines. He admits to a slight cough, but denies fever, chills, myalgias, change in taste or smell. [facility] Medical History Abnormal stress test Acute on chronic diastolic (congestive) heart failure Cellulitis of left lower extremity Chronic diastolic (congestive) heart failure Chronic kidney disease, stage 3 (moderate) Diabetes, type 1.5, uncontrolled, managed as type 1 Edema, lower extremity Essential hypertension Exertional dyspnea Failure to thrive Hypoglycemia due to insulin Ischemic stroke (08/20/18) Kidney stones retirement (current) use of anticoagulants Moderate to severe pulmonary hypertension Morbid obesity with body mass index of 50.0-59.9 in adult Obstructive sleep apnea of adult Paroxysmal atrial fibrillation Pure hypercholesterolemia Recent cerebrovascular accident (CVA) Severe concentric left ventricular hypertrophy Stasis dermatitis Tubulovillous adenoma polyp of colon Venous insufficiency Home Medications atorvastatin 80 mg tablet 80 mg PO DAILY 09/19/18 [History Last Taken 06/16/20] carvedilol 12.5 mg tablet 12.5 mg PO DAILY 09/19/18 [History Last Taken 08/02/20 06:30] mirabegron 25 mg tablet,extended release 24 hr 25 mg PO DAILY 10/31/18 [History Last Taken 06/16/20] amlodipine 10 mg PO DAILY 05/15/19 [History Last Taken 06/16/20] glipizide 10 mg tablet 10 mg PO DAILY 02/15/20 [History Last Taken 06/16/20] fluticasone furoate 200 mcg INHALATION DAILY 04/01/20 [History Last Taken Unknown] hydralazine 25 mg tablet 50 mg PO TID tablet 05/14/20 [History Last Taken 06/16/20] aspirin 81 mg tablet,delayed release 81 mg PO DAILY 06/03/20 [History Last Taken 06/16/20] acetaminophen 650 mg PO Q6H PRN PRN tablet 06/20/20 [Rx Last Taken Unknown] Lantus 50 - 60 units SQ DAILY 07/04/20 [History Last Taken Unknown] furosemide 40 mg PO BID 07/29/20 [History Last Taken Unknown] oxycodone 5 mg PO QHS 07/29/20 [History Last Taken Unknown] apixaban 2.5 mg PO BID 12/10/20 [History Last Taken Unknown] ferrous sulfate 325 mg PO DAILY 12/10/20 [History Last Taken Unknown] melatonin 5 mg PO QHS 12/10/20 [History Last Taken Unknown] pantoprazole 40 mg PO BID 12/10/20 [History Last Taken Unknown] potassium chloride 20 meq PO DAILY 12/10/20 [History Last Taken Unknown] treprostinil diolamine [Orenitram] 3.75 mg PO Q8H 12/10/20 [History Last Taken Unknown] Allergy/AdvReac Type Severity Reaction Status Date / Time No Known Allergies Allergy Verified 11/28/20 08:44 Family History (Updated 12/10/20 @ 12:[address] Peterson Johns MD) Father Colon cancer Mother Heart disease Surgical History History of cardioversion (08/23/15) History of right and left heart catheterization (~06/18/20) History of right heart catheterization (05/19/13) Social History Smoking Status: Former smoker alcohol intake: never substance use type: does not use caffeine: No what type of physical activity do you participate in: none frequency: does not exercise seatbelt use: always ROS ROS ED Constitutional Constitutional ED: Denies chills, fever(s) or weight loss Eyes Eyes: Denies blurry vision or diplopia ENT ENT ED: Denies rhinorrhea or sore throat Cardiovascular Cardiovascular: Denies chest pain, orthopnea or palpitations Respiratory/Chest Respiratory/Chest: Reports cough, dyspnea and dyspnea on exertion; Denies orthopnea Gastrointestinal Gastrointestinal: Denies abdominal pain, nausea or vomiting Genitourinary Genitourinary ED: Denies dysuria or hematuria Musculoskeletal Musculoskeletal: Denies arthralgias or myalgias Integumentary Denies Abrasions or rash Neurologic Neurologic: Denies headache(s) or paresthesias Psychiatric Psychiatric: Denies anxiety or depression EXAM Physical Exam Const Vital Signs: 12/10/20 09:23 12/10/20 09:34 12/10/20 09:35 Temperature 99.7 F H Temperature Source Oral Pulse Rate 93 86 Respiratory Rate 32 H 34 H Respiratory Effort Short of Breath Accessory Muscle Use Respiratory Depth Normal Respiratory Pattern Normal Blood Pressure 148/78 H 148/78 H Blood Pressure Mean 101 101 Pulse Ox 92 94 Oxygen Delivery Method Nasal Cannula Nasal Cannula Room Air Oxygen Flow Rate (L/min) 2 3 12/10/20 11:24 Temperature Temperature Source Pulse Rate Respiratory Rate Respiratory Effort Respiratory Depth Respiratory Pattern Blood Pressure Blood Pressure Mean Pulse Ox 83 Oxygen Delivery Method Room Air Oxygen Flow Rate (L/min) Positive obese General Appearance ED: NAD; Negative for pallor Nutritional Appearance: obese HEENT Reports moist mucous membranes atraumatic Eyes PERRL and EOMs intact bilaterally General Eye ED: Negative for pale conjunctiva or scleral icterus Neck supple Neck Narrative: No bruits. No stridor. Resp normal respiratory effort Auscultation: rales diffuse Cardio regular rate and regular rhythm GI non-tender and non-distended Palpation: soft Extremity General Extremety ED: Yes edema; Negative for tenderness General Extremity: edema Neuro oriented x3, CN's II-XII intact bilaterally and no sensory deficits noted Sensorium / Orientation: alert Motor Exam: strength 5/5 throughout Skin General Skin Exam: Negative for jaundice or pallor Lesions: no lesions Rashes: no rashes MDM MDM MDM Narrative Medical decision making narrative: Patient presenting with dyspnea. He states he wears 3 L in the afternoon and evening and also wears CPAP at night. He did desat in the bed down into the low 80s without oxygen. He is maintaining his saturations on 3 L. CBC shows a slight leukocytosis at 13.0. Hemoglobin hematocrit are stable. Platelets are normal. Creatinine is near his baseline at 1.4. Electrolytes are normal. Lipase is elevated at 284 without an anion gap. Troponin is 16.3. I was unable to get a BNP because the lab states that the machine is down. Patient is anticoagulated on Eliquis so low suspicion for PE. EKG is atrial fibrillation with ventricular rate of 87 bpm on my interpretation and there are no signs of ST elevation or depression. Patient's chest x-ray on my interpretation shows patchy bibasilar infiltrates and the radiologist does agree. Given patient's leukocytosis and hypoxia I did add a lactic acid which was negative. Patient was pancultured. Covid testing is negative. Currently awaiting urinalysis but patient will be transferred to the floor. Impression: 1. Hypoxia 2. Pneumonia 3. Sepsis Lab Data Labs: Laboratory Results - last 24 hr 12/10/20 12/10/20 12/10/20 10:16 10:16 10:16 WBC 13.0 H RBC 4.22 L Hgb 9.2 L Hct 31.1 L MCV 73.7 L MCH 21.8 L MCHC 29.6 L RDW Std Deviation 52.5 H RDW Coeff of Jun 19.8 H Plt Count 231 MPV 9.4 Immature Gran % (Auto) 0.500 Neut % (Auto) 90.3 H Lymph % (Auto) 3.5 L Lea % (Auto) 5.2 Eos % (Auto) 0.0 Baso % (Auto) 0.5 Absolute Neuts (auto) 11.7 H Absolute Lymphs (auto) 0.46 L Nucleated RBC % 0 Platelet Estimate ADEQUATE Hypochromasia 1+ Sodium 134 L Potassium 3.5 Chloride 102 Carbon Dioxide 24.0 Anion Gap 8 BUN 22 H Creatinine 1.84 H Estim Creat Clear Calc 37.51 Est GFR (MDRD) Af Amer 46 L Est GFR (MDRD) Non-Af 38 L BUN/Creatinine Ratio 12.0 Glucose 284 H Lactic Acid Calcium 8.1 L Troponin I High Sens 16.3 B-Natriuretic Peptide Cancelled 12/10/20 12:24 WBC RBC Hgb Hct MCV MCH MCHC RDW Std Deviation RDW Coeff of Jun Plt Count MPV Immature Gran % (Auto) Neut % (Auto) Lymph % (Auto) Lea % (Auto) Eos % (Auto) Baso % (Auto) Absolute Neuts (auto) Absolute Lymphs (auto) Nucleated RBC % Platelet Estimate Hypochromasia Sodium Potassium Chloride Carbon Dioxide Anion Gap BUN Creatinine Estim Creat Clear Calc Est GFR (MDRD) Af Amer Est GFR (MDRD) Non-Af BUN/Creatinine Ratio Glucose Lactic Acid 1.4 Calcium Troponin I High Sens B-Natriuretic Peptide Radiography Diagnostic Testing: Radiology Impression Chest X-Ray 12/10/20 09:34 IMPRESSION: Patchy infiltrates in the left lung as well as at the right lung base Electronically Signed: Fran Krause MD at 10:48 EDT , Service support , Discharge Plan Disposition Disposition: Acute Care Hospital [facility] Discharge Date/Time: 12/10/20 14:14
[2020-12-10 10:24] LABS: Absolute Lymphocyte Count 0.46 X10^3/uL (0.83-4.51); Absolute Neutrophil Count 11.7 X10^3/uL (2.0-7.7); Basophil# 0.06 X10^3/uL; Basophil% 0.5 % (0-1); Hematocrit 31.1 % (40-54); Hemoglobin 9.2 g/dL (13.0-16.5); Lymphocyte # 0.46 X10^3/ul (0.83-4.51); Lymphocyte % 3.5 % (19-41); Mean Corp Hgb Conc 29.6 g/dL (32-36); Mean Corpuscular Hgb 21.8 pg (27.0-32.0); Mean Corpuscular Volume 73.7 fL (80-94); Mean Platelet Vol. 9.4 fl (6.2-12.0); Monocyte# 0.67 X10^3/uL; Monocyte% 5.2 % (0-10); NRBC Flagged by Analyzer 0 % (0-5); Neutrophil # 11.72 X10^3/uL (2.7-7.7); Neutrophil % 90.3 % (47-70); POSITIVE DIFFERENTIAL YES; Platelet Count 231 K/mm3 (150-450); RBC Distribution Width CV 19.8 % (11.6-14.6); RBC Distribution Width SD 52.5 fl (35.1-43.9); Red Blood Count 4.22 M/mm3 (4.6-6.2)
[2020-12-10 10:26] LABS: Differential Indicated SCAN CRITERIA MET
[2020-12-10 10:42] LABS: Anion Gap 8 (5-15); BUN 22 mg/dL (7-18); Calcium,Total 8.1 mg/dL (8.5-10.1); Chloride 102 mmol/L (98-107); Creatinine, Serum 1.84 mg/dL (0.70-1.30); EST Glomerular Filtration Rate 38 mL/min (>60); Est Glom Filt Rate - Afr Amer 46 mL/min (>60); Estimated Creatinine Clearance 37.51 ml/min; Glucose 284 mg/dL (74-106); Potassium 3.5 mmol/L (3.5-5.1); Sodium Level 134 mmol/L (136-145); Troponin-I HS 16.3 pg/mL (3.0-78.5)
[2020-12-10 11:05] LABS: Hypochromasia 1+; Platelet Estimate ADEQUATE (ADEQ)
--- NOTE | 2020-12-10 12:34 | PCM.HP.STD ---
[facility] - General General Date of Admission: 12/10/20 Date of Service: 12/10/20 Chief Complaint: Shortness of breath HPI Narrative REGGIE MOHR, is a 75 M with multiple comorbidities including essential hypertension, chronic congestive heart failure obstructive sleep apnea morbid obesity with BMI of 47.6 currently residing at an extended care facility who was brought in with shortness of breath. Per patient symptoms have been on going for a couple of days. On the morning of his admission he felt extremely short of breath at rest. He was also reported to be hypoxic and complained of fatigue with minimal exertion. Patient was subsequently transferred to the urgency department and admitted for inpatient management [facility] Medical History Abnormal stress test Acute on chronic diastolic (congestive) heart failure Cellulitis of left lower extremity Chronic diastolic (congestive) heart failure Chronic kidney disease, stage 3 (moderate) Diabetes, type 1.5, uncontrolled, managed as type 1 Edema, lower extremity Essential hypertension Exertional dyspnea Failure to thrive Hypoglycemia due to insulin Ischemic stroke (08/20/18) Kidney stones custodial (current) use of anticoagulants Moderate to severe pulmonary hypertension Morbid obesity with body mass index of 50.0-59.9 in adult Obstructive sleep apnea of adult Paroxysmal atrial fibrillation Pure hypercholesterolemia Recent cerebrovascular accident (CVA) Severe concentric left ventricular hypertrophy Stasis dermatitis Tubulovillous adenoma polyp of colon Venous insufficiency Home Medications atorvastatin 80 mg tablet 80 mg PO DAILY 09/19/18 [History Last Taken 06/16/20] carvedilol 12.5 mg tablet 12.5 mg PO DAILY 09/19/18 [History Last Taken 08/02/20 06:30] mirabegron 25 mg tablet,extended release 24 hr 25 mg PO DAILY 10/31/18 [History Last Taken 06/16/20] amlodipine 10 mg PO DAILY 05/15/19 [History Last Taken 06/16/20] glipizide 10 mg tablet 10 mg PO DAILY 02/15/20 [History Last Taken 06/16/20] fluticasone furoate 200 mcg INHALATION DAILY 04/01/20 [History Last Taken Unknown] hydralazine 25 mg tablet 50 mg PO TID tablet 05/14/20 [History Last Taken 06/16/20] aspirin 81 mg tablet,delayed release 81 mg PO DAILY 06/03/20 [History Last Taken 06/16/20] acetaminophen 650 mg PO Q6H PRN PRN tablet 06/20/20 [Rx Last Taken Unknown] Lantus 50 - 60 units SQ DAILY 07/04/20 [History Last Taken Unknown] furosemide 40 mg PO BID 07/29/20 [History Last Taken Unknown] oxycodone 5 mg PO QHS 07/29/20 [History Last Taken Unknown] apixaban 2.5 mg PO BID 12/10/20 [History Last Taken Unknown] ferrous sulfate 325 mg PO DAILY 12/10/20 [History Last Taken Unknown] melatonin 5 mg PO QHS 12/10/20 [History Last Taken Unknown] pantoprazole 40 mg PO BID 12/10/20 [History Last Taken Unknown] potassium chloride 20 meq PO DAILY 12/10/20 [History Last Taken Unknown] Allergy/AdvReac Type Severity Reaction Status Date / Time No Known Allergies Allergy Verified 11/28/20 08:44 Family History (Updated 12/10/20 @ 12:[address] Peterson Johns MD) Father Colon cancer Mother Heart disease Surgical History History of cardioversion (08/23/15) History of right and left heart catheterization (~06/18/20) History of right heart catheterization (05/19/13) Social History Smoking Status: Former smoker alcohol intake: never substance use type: does not use caffeine: No what type of physical activity do you participate in: none frequency: does not exercise seatbelt use: always ROS ROS Narrative GENERAL: denies fever, chills, night sweats, HEENT: denies headache, sinus congestion, RESPIRATORY: cough, sputum production, shortness of breath, dyspnea on exertion CARDIAC: denies chest pain, palpitations, orthopnea, PND GASTROINTESTINAL: denies abdominal pain, nausea, vomiting, melena, GENITOURINARY: denies dysuria, urgency, frequency, heamaturia EXTREMITY: denies swelling MUSCULOSKELETAL: denies current joint pain or tenderness NEUROLOGIC: denies focal numbness, weakness, tingling HEMATOLOGIC: denies easy bruising and/or hemorrhage INTEGUMENT: denies rashes PSYCHIATRIC: denies suicidal or homicidal ideation Vital Signs Vital Signs Vital Signs: 12/10/20 09:23 12/10/20 09:34 12/10/20 09:35 Temperature 99.7 F H Temperature Source Oral Pulse Rate 93 86 Respiratory Rate 32 H 34 H Respiratory Effort Short of Breath Accessory Muscle Use Respiratory Depth Normal Respiratory Pattern Normal Blood Pressure 148/78 H 148/78 H Blood Pressure Mean 101 101 Pulse Ox 92 94 Oxygen Delivery Method Nasal Cannula Nasal Cannula Room Air Oxygen Flow Rate (L/min) 2 3 12/10/20 11:24 Temperature Temperature Source Pulse Rate Respiratory Rate Respiratory Effort Respiratory Depth Respiratory Pattern Blood Pressure Blood Pressure Mean Pulse Ox 83 Oxygen Delivery Method Room Air Oxygen Flow Rate (L/min) Weight Weight: 154.9 kg Body Mass Index (BMI) 47.6 Physical Exam Narrative GENERAL: Dyspneic at rest HEENT: Atraumatic; EYES; Anicteric, Normal Conjunctiva NECK; supple, normal thyroid, RESPIRATORY: Diminished to auscultation CARDIOVASCULAR: Regular S1 S2, GI: soft, normoactive bowel sounds, : No Renal angle tenderness; EXTREMITIES: Bilateral stasis dermatitis MUSCULOSKELETAL: no muscle waisting NEURO: Awake; no lateralizing signs. SKIN: No Rash PSYCH; Flat affect Results Lab / Micro Data Result Diagrams: 12/10/20 10:16 12/10/20 10:16 Labs: Laboratory Results - last 24 hr 12/10/20 10:16: WBC 13.0 H, RBC 4.22 L, Hgb 9.2 L, Hct 31.1 L, MCV 73.7 L, MCH 21.8 L, MCHC 29.6 L, RDW Std Deviation 52.5 H, RDW Coeff of Jun 19.8 H, Plt Count 231, MPV 9.4, Immature Gran % (Auto) 0.500, Neut % (Auto) 90.3 H, Lymph % (Auto) 3.5 L, [place] % (Auto) 5.2, Eos % (Auto) 0.0, Baso % (Auto) 0.5, Absolute Neuts (auto) 11.7 H, Absolute Lymphs (auto) 0.46 L, Nucleated RBC % 0, Platelet Estimate ADEQUATE, Hypochromasia 1+ 12/10/20 10:16: Sodium 134 L, Potassium 3.5, Chloride 102, Carbon Dioxide 24.0, Anion Gap 8, BUN 22 H, Creatinine 1.84 H, Estim Creat Clear Calc 37.51, Est GFR (MDRD) Af Amer 46 L, Est GFR (MDRD) Non-Af 38 L, BUN/Creatinine Ratio 12.0, Glucose 284 H, Calcium 8.1 L, Troponin I High Sens 16.3 12/10/20 10:16: B-Natriuretic Peptide Cancelled Micro: Microbiology 12/10/20 11:10 Mucosa - Nose SARS-CoV-2 Antigen (Rapid) - Final Radiology Impression Chest X-Ray 12/10/20 09:34 IMPRESSION: Patchy infiltrates in the left lung as well as at the right lung base Electronically Signed: Fran Krause MD at 10:48 EDT , Service support , Assessment & Plan Assessment/Plan (1) Exertional dyspnea: (2) Chronic diastolic (congestive) heart failure: PLAN: Patient is a 75-year-old gentleman presented with exertional dyspnea 1. Acute on chronic congestive heart failure with preserved ejection fraction ?Patient echo obtained on 04/02/2020 demonstrated EF of 65% with severe concentric left ventricular hypertrophy. Patient has been admitted to monitored bed placed on fluid restriction, strict input and output, daily weight low-sodium diet and IV diuretics 2. Suspected pneumonia ?Patient had bilateral infiltrate with elevated white cell count however I do suspect these infiltrate to be secondary to CHF. Patient was empirically started on antibiotics and cultures sent 3. Acute on chronic respiratory failure ?Secondary to #1 and #2 patient is on supplemental oxygen 4. Chronic hypoxic respiratory failure ?Secondary to a combination of obesity hypoventilation syndrome, congestive heart failure and obstructive sleep apnea 5. Obstructive sleep apnea ?Patient is on CPAP therapy at night plan is to continue with home settings 6. Paroxysmal A. fib ?Patient rate is controlled did continue with home meds and his systemic anticoagulation therapy 7. Diabetes mellitus type 2 ?Patient blood glucose levels not well controlled did continue home regimen also added scheduled short acting premeal insulin in addition to Accu-Cheks before meals and at bedtime with sliding scale coverage 8. Moderate to severe pulmonary hypertension ?Patient is on baseline oxygen 9. Obesity with BMI of 47.6 ?Weight loss advised 10. Hypertension - Blood pressure controlled, home medications continued with dose adjustment as needed 11. Dyslipidemia -Patient is on statin therapy, continued at home dose 12. DVT prophylaxis ?Patient is on apixaban Advance planning; did discuss with the patient regarding advanced directives as well as CODE STATUS. Did explain the various scenarios involved ( FULL CODE, DNR CCA, DNR CCA with no intubation, and DNR CC and what each meant) patient elected to be DNR CCA no intubation. Order was placed. Time spent on discussion 18 minutes. Charges/Coding Visit Charges Inpatient E&M: 24643 Init Hosp L3 Procedures Hospitalists Procedures: 61265 Advncd Care Plan 30 Min
--- NOTE | 2020-12-10 12:38 | ED.RN ---
called lab for second blood cultures. to come draw
[2020-12-10 12:56] LABS: Lactic Acid 1.4 mmol/L (0.4-1.9)
--- NOTE | 2020-12-10 15:22 | NURSING ---
Attempted to call Dr Warren office for information on pt orenitram dosing and frequency. Left voicemail after repeated attempts to talk to live person.
[2020-12-10 16:48] LABS: Troponin-I HS 17.5 pg/mL (3.0-78.5)
[2020-12-10 17:06] LABS: Troponin-I HS 18.3 pg/mL (3.0-78.5)
[2020-12-10] MEDS: guaiFENesin 1,200 MG Tablet 1200 MG PO (17:06)
[2020-12-10] MEDS: amLODIPine 10 MG Tablet PO (17:06)
[2020-12-10] MEDS: Mirabegron 25 MG TAB.ER.24H PO (17:06)
[2020-12-10] MEDS: Pantoprazole Sodium 40 MG Tablet PO ×2 (17:06→21:40)
[2020-12-10] MEDS: Furosemide 40 MG/4 ML Vial IV (17:07)
[2020-12-10] MEDS: 0.9% Saline Lock 10 ML Syringe IV ×2 (17:07→21:36)
[2020-12-10] MEDS: Aspirin E.C. 81 MG Tablet PO (17:15)
[2020-12-10] MEDS: hydrALAZINE 50 MG Tablet PO ×2 (17:15→21:37)
[2020-12-10] MEDS: Carvedilol 12.5 MG Tablet PO (17:15)
[2020-12-10 17:34] LABS: Bacteria 0 SEEN /hpf (None Seen); Mucous, Urine 0 SEEN /hpf (<or=2+); Squamous Epithelial Cells - UA 0 SEEN /hpf (0-5); White Blood Cells 0 SEEN /hpf (0-5)
[2020-12-10 17:40] LABS: Color, Urine Yellow (Yellow); Glucose, Dipstick Normal (Normal); Ketone-Dipstick Negative (Negative); Leukocyte Esterase-Dipstick Negative /ul (Negative); Nitrite-Dipstick Negative (Negative); Occult Blood-Urine 10 /ul (Negative); Protein-Dipstick 100 mg/dl (Negative); Specific Gravity, Urine 1.015 (1.002-1.030); Urine Bilirubin Dipstick Negative (Negative); Urine Clarity Clear (Clear); Urine Urobilinogen Normal (Normal)
[2020-12-10 17:51] LABS: Bedside Glucose 180 mg/dL (70-110)
[2020-12-10 18:01] LABS: Red Blood Cells-Urine 0-5 SEEN /hpf (0-5)
[2020-12-10] MEDS: Ipratropium/Albuterol Sulfate 3 ML AMPUL.NEB INHALATION (18:34)
[2020-12-10] MEDS: Budesonide Respules 0.5 MG/2 ML AMPUL.NEB. INHALATION (18:34)
[2020-12-10] MEDS: Insulin Lispro 100 UNIT/ML INSULN.PEN 10 UNIT SC (18:37)
[2020-12-10] MEDS: Insulin Lispro 100 UNIT/ML INSULN.PEN SC (18:37)
[2020-12-10 20:00] LABS: M R Staph aureus DNA By PCR Negative (Negative); Probe Check PASS; Specimen Processing Control PASS
[2020-12-10] MEDS: APIXABAN 2.5 MG TABLET PO (21:37)
[2020-12-10] MEDS: MELATONIN 10 MG TABLET 5 MG PO (21:38)
[2020-12-10] MEDS: Atorvastatin Calcium 80 MG Tablet PO (21:38)
[2020-12-10] MEDS: oxyCODONE 5 MG Tablet PO (21:39)
--- NOTE | 2020-12-10 21:45 | NURSING ---
this rn told the pt that i would be in to recheck his vitals shortly. after that set of vitals he wants the door shut and doesn't want anyone in his room tonight. no dr, no lab people, no oxygen checks. this rn explained to the pt that he is in the hospital and we need to check his vitals and do assessments. pt states no i need to get sleep.
[2020-12-10] MEDS: Potassium Chloride Oral Tablet 20 MEQ 40 MEQ PO (22:17)
--- NOTE | 2020-12-10 22:18 | NURSING ---
pt states he doesn't want anyone in his room until morning.
[2020-12-10 22:25] LABS: Bedside Glucose 125 mg/dL (70-110)
--- NOTE | 2020-12-10 22:55 | NURSING ---
pt asked for door to be closed and states no-one is to come in the room until 5am. will notify charge
[2020-12-11] VITALS (15 sets, daily range): BP systolic 108–144; BP diastolic 54–87; PULSE 63–87; RESP 18–20; TEMP 36.7–37.2; O2SAT 93–96
[2020-12-11] MEDS: hydrALAZINE 50 MG Tablet PO ×2 (06:00→21:04)
[2020-12-11] MEDS: Furosemide 40 MG/4 ML Vial IV (06:01)
[2020-12-11] MEDS: 0.9% Saline Lock 10 ML Syringe IV (06:01)
[2020-12-11 07:14] LABS: Absolute Lymphocyte Count 1.03 X10^3/uL (0.83-4.51); Absolute Neutrophil Count 7.8 X10^3/uL (2.0-7.7); Basophil# 0.05 X10^3/uL; Basophil% 0.5 % (0-1); Eosinophil# 0.08 X10^3/uL; Eosinophils% 0.8 % (0-5); Hematocrit 29.6 % (40-54); Hemoglobin 8.5 g/dL (13.0-16.5); Lymphocyte # 1.03 X10^3/ul (0.83-4.51); Lymphocyte % 10.8 % (19-41); Mean Corp Hgb Conc 28.7 g/dL (32-36); Mean Corpuscular Hgb 21.9 pg (27.0-32.0); Mean Corpuscular Volume 76.3 fL (80-94); Mean Platelet Vol. 10.1 fl (6.2-12.0); Monocyte# 0.55 X10^3/uL; Monocyte% 5.8 % (0-10); NRBC Flagged by Analyzer 0 % (0-5); Neutrophil # 7.78 X10^3/uL (2.7-7.7); Neutrophil % 81.7 % (47-70); POSITIVE MORPHOLOGY YES; Platelet Count 195 K/mm3 (150-450); RBC Distribution Width CV 20.1 % (11.6-14.6); RBC Distribution Width SD 55.2 fl (35.1-43.9); Red Blood Count 3.88 M/mm3 (4.6-6.2); White Blood Count 9.5 K/mm3 (4.4-11.0)
[2020-12-11 07:16] LABS: Differential Indicated SCAN CRITERIA MET
[2020-12-11 07:54] LABS: Anisocytosis RARE
[2020-12-11 07:55] LABS: AST(SGOT) 16 U/L (15-37); Alanine Aminotransfer ALT/SGPT 12 U/L (16-61); Albumin, Serum 2.7 g/dL (3.2-5.0); Alkaline Phosphatase 69 U/L (45-117); Anion Gap 9 (5-15); BUN 27 mg/dL (7-18); BUN/Creat Ratio 12.9 RATIO (10-20); Bilirubin, Direct 0.23 mg/dL (0.00-0.30); Calcium,Total 8.3 mg/dL (8.5-10.1); Chloride 104 mmol/L (98-107); EST Glomerular Filtration Rate 33 mL/min (>60); Est Glom Filt Rate - Afr Amer 40 mL/min (>60); Estimated Creatinine Clearance 32.87 ml/min; Globulin 4.4 g/dL (2.2-4.2); Glucose 114 mg/dL (74-106); Magnesium 2.1 mg/dL (1.6-2.6); Potassium 3.7 mmol/L (3.5-5.1); Protein, Total 7.1 g/dL (6.4-8.2); Sodium Level 137 mmol/L (136-145); Thyroid Stim Hormone (TSH) 1.22 uIU/mL (0.358-3.74)
[2020-12-11] MEDS: Carvedilol 12.5 MG Tablet PO (08:45)
[2020-12-11] MEDS: Ferrous Sulfate 325 MG Tablet PO (08:45)
[2020-12-11] MEDS: Aspirin E.C. 81 MG Tablet PO (08:46)
[2020-12-11] MEDS: Potassium Chloride Oral Tablet 20 MEQ 40 MEQ PO ×2 (08:46→21:04)
[2020-12-11] MEDS: amLODIPine 10 MG Tablet PO (08:46)
[2020-12-11] MEDS: Mirabegron 25 MG TAB.ER.24H PO (08:46)
[2020-12-11] MEDS: guaiFENesin 1,200 MG Tablet 1200 MG PO ×2 (08:46→21:04)
[2020-12-11] MEDS: APIXABAN 2.5 MG TABLET PO ×2 (08:46→21:04)
[2020-12-11] MEDS: Pantoprazole Sodium 40 MG Tablet PO ×2 (08:46→21:04)
[2020-12-11] MEDS: Insulin Lispro 100 UNIT/ML INSULN.PEN 10 UNIT SC ×3 (08:52→16:55)
[2020-12-11 10:26] LABS: Bedside Glucose 133 mg/dL (70-110)
--- NOTE | 2020-12-11 11:17 | CASEMGMT ---
Patient is from [facility]. faxed updates to [facility]. Nicolasa Ashraf SENIOR ELECTRONICS TECHNICIAN POULTRYMAN
--- NOTE | 2020-12-11 11:42 | PCM.PN.HOSP ---
Subjective Subjective Patient seen has copious purulent sputum production. His kidney function did worsen. Discontinued IV Lasix resume p.o. Lasix Objective Data Objective Data Vital Signs: Vital Signs Temp Pulse Resp BP Pulse Ox 98.1 F 71 18 121/87 H 95 12/11/20 08:00 12/11/20 11:00 12/11/20 08:00 12/11/20 08:00 12/11/20 08:00 Oxygen Flow Rate (L/min) 3.5 Oxygen Delivery Method Nasal Cannula Weight: 157.7 kg Body Mass Index (BMI) 48.4 Intake & Output: Intake and Output for Last 24 Hours 12/09/20 12/10/20 12/11/20 23:59 23:59 23:59 Intake Total 625 / 625 305 / 305 Output Total 825 / 825 Balance -200 / -200 305 / 305 Medical Nutrition Assessment Dietitian: Nutrition Therapy Diagnosis Start: 12/10/20 14:35 Freq: Status: Active Protocol: Document 12/10/20 17:01 RMA (Rec: 12/10/20 17:02 RMA [id number]) Nutrition Malnutrition Evidence of Malnutrition Exists No Intake Problem Decreased Nutrient Needs (specify) Etiology for sodium and calories related to morbid obesity and excessive energy intake; CHF and likely fluid wt gain Signs/Symptoms as evidenced by BMI 48.5 Status Active Problem Recommendation Dietitian Recommendations/Changes Rec advance diet as tolerated to 2200 calorie; consistent carbohydrate; cardiac/sodium- restricted w/ 1500ml FR. ONS only if PO fails at meals. Diet education on lifestyle change as pt willing to receive. Lab / Micro Data Result Diagrams: 12/11/20 06:50 12/11/20 06:50 Labs: Laboratory Results - last 24 hr 12/10/20 12:24: Lactic Acid 1.4 12/10/20 15:50: Troponin I High Sens 17.5 12/10/20 16:30: Troponin I High Sens 18.3 12/10/20 17:20: Urine Color Yellow, Urine Clarity Clear, Urine pH 6.0, Ur Specific [place] 1.015, Urine Protein 100 H, Urine Glucose (UA) Normal, Urine Ketones Negative, Urine Occult Blood 10 H, Urine Nitrite Negative, Urine Bilirubin Negative, Urine Urobilinogen Normal, Ur Leukocyte Esterase Negative, Urine RBC 0-5 SEEN, Urine WBC 0 SEEN, Ur Squamous Epith Cells 0 SEEN, Urine Bacteria 0 SEEN, Urine Mucus 0 SEEN 12/10/20 17:21: POC Glucose 180 H 12/10/20 18:33: MRSA (PCR) Negative 12/10/20 21:35: POC Glucose 125 H 12/11/20 06:50: WBC 9.5, RBC 3.88 L, Hgb 8.5 L, Hct 29.6 L, MCV 76.3 L, MCH 21.9 L, MCHC 28.7 L, RDW Std Deviation 55.2 H, RDW Coeff of Jun 20.1 H, Plt Count 195, MPV 10.1, Immature Gran % (Auto) 0.400, Neut % (Auto) 81.7 H, Lymph % (Auto) 10.8 L, [place] % (Auto) 5.8, Eos % (Auto) 0.8, Baso % (Auto) 0.5, Absolute Neuts (auto) 7.8 H, Absolute Lymphs (auto) 1.03, Nucleated RBC % 0, Anisocytosis RARE 12/11/20 06:50: Sodium 137, Potassium 3.7, Chloride 104, Carbon Dioxide 24.0, Anion Gap 9, BUN 27 H, Creatinine 2.10 H, Estim Creat Clear Calc 32.87, Est GFR (MDRD) Af Amer 40 L, Est GFR (MDRD) Non-Af 33 L, BUN/Creatinine Ratio 12.9, Glucose 114 H, Calcium 8.3 L, Magnesium 2.1, Total Bilirubin 1.00, Direct Bilirubin 0.23, AST 16, ALT 12 L, Alkaline Phosphatase 69, Total Protein 7.1, Albumin 2.7 L, Globulin 4.4 H, TSH 1.22 12/11/20 08:21: POC Glucose 133 H Micro: Microbiology 12/10/20 20:25 Sputum, Expectorated/Coughed Gram Stain - Final 12/10/20 17:20 Urine, Clean Catch Legionella Antigen - Final 12/10/20 17:20 Urine, Clean Catch Streptococcus pneumoniae Antigen (M - Final 12/10/20 11:10 Mucosa - Nose SARS-CoV-2 Antigen (Rapid) - Final Physical Exam Narrative GENERAL: Dyspneic at rest HEENT: Atraumatic; EYES; Anicteric, Normal Conjunctiva NECK; supple, normal thyroid, RESPIRATORY: Diminished to auscultation CARDIOVASCULAR: Regular S1 S2, GI: soft, normoactive bowel sounds, : No Renal angle tenderness; EXTREMITIES: Bilateral stasis dermatitis MUSCULOSKELETAL: no muscle waisting NEURO: Awake; no lateralizing signs. SKIN: No Rash PSYCH; Flat affect Assessment & Plan Assessment/Plan (1) Exertional dyspnea: (2) Chronic diastolic (congestive) heart failure: PLAN: Patient is a 75-year-old gentleman presented with exertional dyspnea 1. Acute on chronic congestive heart failure with preserved ejection fraction ?Patient echo obtained on 04/02/2020 demonstrated EF of 65% with severe concentric left ventricular hypertrophy. Patient has been admitted to monitored bed placed on fluid restriction, strict input and output, daily weight low-sodium diet and IV diuretics -12/11/2020. Discontinued IV Lasix due to worsening kidney function and resume p.o. Lasix 2. Suspected pneumonia ?Patient had bilateral infiltrate with elevated white cell count however I do suspect these infiltrate to be secondary to CHF. Patient was empirically started on antibiotics and cultures sent -12/11/2020 patient has copious sputum production culture sent awaiting results 3. Acute on chronic respiratory failure ?Secondary to #1 and #2 patient is on supplemental oxygen at night -12/11/2020. Patient has however required continuous oxygen use since being admitted 4. Anemia - Secondary to chronic disorder monitoring H&H and transfuse if patient becomes symptomatic or hemoglobin falls below 7 5. Chronic hypoxic respiratory failure ?Secondary to a combination of obesity hypoventilation syndrome, congestive heart failure and obstructive sleep apnea 6. Obstructive sleep apnea ?Patient is on CPAP therapy at night plan is to continue with home settings 7. Paroxysmal A. fib ?Patient rate is controlled did continue with home meds and his systemic anticoagulation therapy 8. Diabetes mellitus type 2 ?Patient blood glucose levels not well controlled did continue home regimen also added scheduled short acting premeal insulin in addition to Accu-Cheks before meals and at bedtime with sliding scale coverage 9. Moderate to severe pulmonary hypertension ?Patient is on treprostinil (Orenitram). Did continue 10. Obesity with BMI of 47.6 ?Weight loss advised 11. Hypertension - Blood pressure controlled, home medications continued with dose adjustment as needed 12. Dyslipidemia -Patient is on statin therapy, continued at home dose 13. DVT prophylaxis ?Patient is on apixaban Charges/Coding Visit Charges Inpatient E&M: 15404 Subs Hosp L3
[2020-12-11 12:40] LABS: Bedside Glucose 194 mg/dL (70-110)
--- NOTE | 2020-12-11 13:24 | CASEMGMT ---
?JOSE ANTONIO WU NOTE: ? ? Pt qualifies for a Palliative referral per the [facility] palliative screening tool at this time. ?? ? Andreas aware and states ok for Palliative c/s at this time. ?Order placed. Geraldine @ Palliative updated at this time. Face Sheet faxed to Palliative at this time.?? ? Bhupendra MARTINEZ RN, CM ?
--- NOTE | 2020-12-11 14:39 | CASEMGMT ---
REBECA faxed PT/OT evaluations to [facility]. Therapy is recommending outpatient therapy for patient. Nicolasa Ashraf GAMING MANAGER WILLIE
[2020-12-11 16:40] LABS: Bedside Glucose 164 mg/dL (70-110)
[2020-12-11] MEDS: Insulin Lispro 100 UNIT/ML INSULN.PEN SC ×2 (16:56→21:01)
[2020-12-11] MEDS: MELATONIN 10 MG TABLET 5 MG PO (21:04)
[2020-12-11] MEDS: Furosemide 40 MG Tablet PO (21:04)
[2020-12-11] MEDS: Atorvastatin Calcium 80 MG Tablet PO (21:04)
[2020-12-11] MEDS: oxyCODONE 5 MG Tablet PO (21:08)
[2020-12-11 22:41] LABS: Bedside Glucose 170 mg/dL (70-110)
[2020-12-12] VITALS (8 sets, daily range): BP systolic 143; BP diastolic 87; PULSE 62–93; RESP 18; TEMP 36.8; O2SAT 85–95
[2020-12-12] MEDS: hydrALAZINE 50 MG Tablet PO (05:43)
[2020-12-12 07:07] LABS: Absolute Lymphocyte Count 0.68 X10^3/uL (0.83-4.51); Absolute Neutrophil Count 7.4 X10^3/uL (2.0-7.7); Basophil# 0.05 X10^3/uL; Basophil% 0.6 % (0-1); Eosinophil# 0.13 X10^3/uL; Eosinophils% 1.5 % (0-5); Hematocrit 29.1 % (40-54); Hemoglobin 8.8 g/dL (13.0-16.5); Lymphocyte # 0.68 X10^3/ul (0.83-4.51); Lymphocyte % 7.8 % (19-41); Mean Corp Hgb Conc 30.2 g/dL (32-36); Mean Corpuscular Hgb 22.2 pg (27.0-32.0); Mean Corpuscular Volume 73.3 fL (80-94); Mean Platelet Vol. 9.6 fl (6.2-12.0); Monocyte# 0.52 X10^3/uL; Monocyte% 5.9 % (0-10); NRBC Flagged by Analyzer 0 % (0-5); Neutrophil # 7.37 X10^3/uL (2.7-7.7); Platelet Count 241 K/mm3 (150-450); RBC Distribution Width CV 19.9 % (11.6-14.6); RBC Distribution Width SD 52.9 fl (35.1-43.9); Red Blood Count 3.97 M/mm3 (4.6-6.2); White Blood Count 8.8 K/mm3 (4.4-11.0)
[2020-12-12 07:44] LABS: AST(SGOT) 12 U/L (15-37); Alanine Aminotransfer ALT/SGPT 14 U/L (16-61); Albumin, Serum 2.8 g/dL (3.2-5.0); Alkaline Phosphatase 70 U/L (45-117); Anion Gap 10 (5-15); BUN 33 mg/dL (7-18); BUN/Creat Ratio 14.7 RATIO (10-20); Bilirubin, Direct 0.19 mg/dL (0.00-0.30); Calcium,Total 8.1 mg/dL (8.5-10.1); Chloride 104 mmol/L (98-107); Creatinine, Serum 2.24 mg/dL (0.70-1.30); EST Glomerular Filtration Rate 31 mL/min (>60); Est Glom Filt Rate - Afr Amer 37 mL/min (>60); Estimated Creatinine Clearance 30.81 ml/min; Globulin 4.4 g/dL (2.2-4.2); Glucose 134 mg/dL (74-106); Protein, Total 7.2 g/dL (6.4-8.2); Sodium Level 138 mmol/L (136-145)
[2020-12-12] MEDS: Insulin Lispro 100 UNIT/ML INSULN.PEN 10 UNIT SC ×2 (08:11→12:33)
[2020-12-12] MEDS: APIXABAN 2.5 MG TABLET PO (08:13)
[2020-12-12] MEDS: Pantoprazole Sodium 40 MG Tablet PO (08:14)
[2020-12-12] MEDS: Aspirin E.C. 81 MG Tablet PO (08:14)
[2020-12-12] MEDS: amLODIPine 10 MG Tablet PO (08:14)
[2020-12-12] MEDS: guaiFENesin 1,200 MG Tablet 1200 MG PO (08:14)
[2020-12-12] MEDS: Carvedilol 12.5 MG Tablet PO (08:15)
[2020-12-12] MEDS: Potassium Chloride Oral Tablet 20 MEQ 40 MEQ PO (08:15)
[2020-12-12] MEDS: Ferrous Sulfate 325 MG Tablet PO (08:15)
[2020-12-12] MEDS: Furosemide 40 MG Tablet PO (08:16)
[2020-12-12] MEDS: Mirabegron 25 MG TAB.ER.24H PO (08:16)
[2020-12-12 09:01] LABS: Bedside Glucose 138 mg/dL (70-110)
--- NOTE | 2020-12-12 10:09 | CASEMGMT ---
REBECA met with patient. Introduced self and role at [facility]. SW gave him an order for outpatient therapy as this is what is recommended by therapy. He said he plans on going to therapy. REBECA asked if he will need a ride back to [place] and he said he may need a ride. He is waiting on his radio talk show host to call him. REBECA told him SW can check back with him. Plan: d/c back to [facility]. Nicolasa TAPIA
[2020-12-12] MEDS: 0.9% Saline Lock 10 ML Syringe IV (10:38)
--- NOTE | 2020-12-12 10:47 | CON.PCM.PA_ITS ---
Assessment & Plan Assessment/Plan (1) Exertional dyspnea: (2) Acute on chronic diastolic (congestive) heart failure: (3) Chronic kidney disease, stage 3 (moderate): QUALIFIERS: Chronic kidney disease stage 3 subtype: unspecified whether 3a or 3b Qualified Code(s): N18.30 - Chronic kidney disease, stage 3 unspecified (4) Paroxysmal atrial fibrillation: (5) Severe concentric left ventricular hypertrophy: (6) Moderate to severe pulmonary hypertension: (7) Obstructive sleep apnea of adult: (8) Stasis dermatitis: QUALIFIERS: Laterality: bilateral Qualified Code(s): I87.2 - Venous insufficiency (chronic) (peripheral) (9) Venous insufficiency: (10) Essential hypertension: (11) Pure hypercholesterolemia: (12) Anemia: QUALIFIERS: Anemia type: unspecified type Qualified Code(s): D64.9 - Anemia, unspecified PLAN: 75-year-old male admitted to the hospital for acute on chronic diastolic CHF, required increase in baseline oxygen requirements. Seen today for palliative care consultation for symptom management of shortness of breath. 1. Exertional dyspnea: Multifactorial, improved since admission, however still requiring daytime oxygen supplementation. He is to arrange outpatient therapy. He does take oxycodone 5 mg at bedtime. Goals would be avoiding CHF exacerbations, improving mobility, weight loss, and supportive care through palliative. Advised on need for close follow-up with pulmonary for his pulmonary hypertension and with cardiology. 2. Acute on chronic diastolic CHF: Advised close follow-up with cardiology, he did just have a visit 11/28/2020 and was stable at that time. CHF education provided and patient encouraged to call with any change in his symptomatology. 3. CKD stage III/PAF/severe concentric LVH/moderate to severe pulmonary hypertension/ANDERSON on CPAP/stasis dermatitis/venous insufficiency/HTN/anemia/h ypercholesteremia: Complicates overall care, management, recovery, and prognosis. Thank you for the opportunity to participate in this patient's care, please do not hesitate to contact [facility] with any further questions or concerns. Palliative direct line is [phone]. We will follow up after discharge and will discuss palliative services further at that time. He is agreeable to liaison visit at his assisted living facility. Would recommend visit within the next couple of weeks to establish patient if he is still interested in services. Greater than 50% of F2F visit dedicated to education and counseling of palliative care services, medications, comorbid conditions and potential assistance with management, and plan of care moving forward. He is receptive to education. Start time: 1046 End time: 1139 HPI Consult Data Date of Consult: 12/12/20 HPI Narrative HPI Narrative: REGGIE MOHR, is a 75 M who presents to [facility] 12/10/2020 with complaints of increased shortness of breath over the course of 2 days. He was unable to ambulate normal distances and was not tolerating activity. He was also desaturating into the 80s without oxygen so put on daytime supplementation at 3 L, which is unusual for him. Patient is fully vaccinated for Covid 19. He did have somewhat of a cough but no fevers or chills. Chest x-ray in the ED showed patchy bibasilar infiltrates. He was admitted to PCU for further evaluation and management of his hypoxia and pneumonia versus CHF exacerbation. Patient has component of obesity hypoventilation syndrome. Last heart catheterization was in June 2020. He also had an echocardiogram in April 2020 which showed estimated EF of 65%, severe concentric LVH, moderately enlarged left atrium, mildly enlarged right atrium, diffuse mitral valve thickening, RVSP not estimated due to technically difficult study. Diastolic dysfunction was also not assessed. He is anticoagulated due to atrial fibrillation. Also has ANDERSON, anemia, and moderate to severe pulmonary hypertension, which all contribute to his shortness of breath. Patient has had increased purulent sputum production and renal function worsened. IV Lasix was changed to p.o. He is requiring continuous oxygen supplementation since hospitalized. Respiratory and blood cultures pending. Patient resides at [facility] living by himself. Therapy is recommending outpatient therapy upon discharge. He follows with Dr. Murray for pulmonology and Dr. Henry for cardiology. [facility]. Patient takes oxycodone 5 mg at bedtime and as needed Tylenol for chronic pain. Patient denies any nausea, vomiting, diarrhea. He does have occasional constipation but medications PRN take care of it. No chest pain or current shortness of breath, does have GAVIRIA. He is currently wearing 3 L of oxygen supplementation. States he typically does not wear daytime oxygen but is requiring it currently. He is hoping he will continue to improve. Has some mild peripheral numbness and tingling, intermittent. Reports he still has a cough but that is also improved, some sputum production. Patient to be discharged home today and is anxious to leave. FOR[facility]LY [facility], [facility] Medical History (Updated 12/12/20 @ 11:34 by CATARINA Govea) Abnormal stress test Acute on chronic diastolic (congestive) heart failure Cellulitis of left lower extremity Chronic diastolic (congestive) heart failure Chronic kidney disease, stage 3 (moderate) Diabetes, type 1.5, uncontrolled, managed as type 1 Edema, lower extremity Essential hypertension Exertional dyspnea Failure to thrive Hypoglycemia due to insulin Ischemic stroke (08/20/18) Kidney stones [facility] (current) use of anticoagulants Moderate to severe pulmonary hypertension Morbid obesity with body mass index of 50.0-59.9 in adult Obstructive sleep apnea of adult Paroxysmal atrial fibrillation Pure hypercholesterolemia Recent cerebrovascular accident (CVA) Severe concentric left ventricular hypertrophy Stasis dermatitis Tubulovillous adenoma polyp of colon Venous insufficiency Home Medications atorvastatin 80 mg tablet 80 mg PO DAILY 09/19/18 [History Last Taken 06/16/20] carvedilol 12.5 mg tablet 12.5 mg PO DAILY 09/19/18 [History Last Taken 08/02/20 06:30] mirabegron 25 mg tablet,extended release 24 hr 25 mg PO DAILY 10/31/18 [History Last Taken 06/16/20] amlodipine 10 mg PO DAILY 05/15/19 [History Last Taken 06/16/20] fluticasone furoate 200 mcg INHALATION DAILY 04/01/20 [History Last Taken Unknown] hydralazine 25 mg tablet 50 mg PO TID tablet 05/14/20 [History Last Taken 06/16/20] aspirin 81 mg tablet,delayed release 81 mg PO DAILY 06/03/20 [History Last Taken 06/16/20] acetaminophen 650 mg PO Q6H PRN PRN tablet 06/20/20 [Rx Last Taken Unknown] Lantus 50 - 60 units SQ DAILY 07/04/20 [History Last Taken Unknown] furosemide 40 mg PO BID 07/29/20 [History Last Taken Unknown] oxycodone 5 mg PO QHS 07/29/20 [History Last Taken Unknown] apixaban 2.5 mg PO BID 12/10/20 [History Last Taken Unknown] ferrous sulfate 325 mg PO DAILY 12/10/20 [History Last Taken Unknown] melatonin 5 mg PO QHS 12/10/20 [History Last Taken Unknown] pantoprazole 40 mg PO BID 12/10/20 [History Last Taken Unknown] potassium chloride 20 meq PO DAILY 12/10/20 [History Last Taken Unknown] treprostinil diolamine [Orenitram] 3.75 mg PO Q8H 12/10/20 [History Last Taken Unknown] azithromycin 500 mg PO DAILY 3 Days #3 tab 12/12/20 [Rx Last Taken Unknown] cefdinir 300 mg PO BID #10 cap 12/12/20 [Rx Last Taken Unknown] Allergy/AdvReac Type Severity Reaction Status Date / Time No Known Allergies Allergy Verified 11/28/20 08:44 Family History Father Colon cancer Mother Heart disease Surgical History History of cardioversion (08/23/15) History of right and left heart catheterization (~06/18/20) History of right heart catheterization (05/19/13) Social History Smoking Status: Former smoker alcohol intake: never substance use type: does not use caffeine: No what type of physical activity do you participate in: none frequency: does not exercise seatbelt use: always ROS ROS Narrative Review of systems otherwise negative from a constitutional, HEENT, respiratory, cardiovascular, GI, genitourinary, musculoskeletal, skin, neurologic, psychiatric and hematologic system unless stated above. Physical Exam Const alert, oriented x3 and no apparent distress General Appearance: cooperative Nutritional Appearance: morbidly obese HEENT normocephalic and head/scalp atraumatic Neck supple General: trachea midline Resp Effort and Inspection: able to speak in complete sentences and symmetric chest movement Auscultation: diminished lung sounds Cardio regular rate, regular rhythm, S1 normal heart sound and S2 normal heart sound Cardio Narrative: slightly irreg at times GI soft to palpation and non-tender GI Narrative: obesity distention Auscultation: normoactive bowel sounds Extremity Extremity Narrative: bilat venous stasis/discoloration of LEs General Extremity: edema bilateral lower extremity Details: mild Skin no rashes or lesions noted Skin Narrative: stasis dermatitis/discoloration Neuro CN's II-XII intact bilaterally and no focal motor deficits Psych mental status grossly normal Attitude: calm Activity / Motor Behavior: appropriate eye contact Speech: normal speech Memory / Cognition: memory grossly intact
--- NOTE | 2020-12-12 11:08 | PCM.DC.SUM ---
Providers Date of Admission: 12/10/20 Primary Care Physician: Dr. Gutierrez Garces DO Reason For Visit: CHF Diagnosis Discharge Diagnosis (1) Exertional dyspnea: Status: Acute Code(s): R06.00 - Dyspnea, unspecified (2) Chronic diastolic (congestive) heart failure: Status: Chronic Code(s): I50.32 - Chronic diastolic (congestive) heart failure Medications at Discharge Home Medications atorvastatin 80 mg tablet 80 mg PO DAILY 09/19/18 carvedilol 12.5 mg tablet 12.5 mg PO DAILY 09/19/18 mirabegron 25 mg tablet,extended release 24 hr 25 mg PO DAILY 10/31/18 amlodipine 10 mg PO DAILY 05/15/19 fluticasone furoate 200 mcg INHALATION DAILY 04/01/20 hydralazine 25 mg tablet 50 mg PO TID tablet 05/14/20 aspirin 81 mg tablet,delayed release 81 mg PO DAILY 06/03/20 acetaminophen 650 mg PO Q6H PRN PRN tablet 06/20/20 Lantus 50 - 60 units SQ DAILY 07/04/20 furosemide 40 mg PO BID 07/29/20 oxycodone 5 mg PO QHS 07/29/20 Orenitram 3.75 mg PO Q8H 12/10/20 apixaban 2.5 mg PO BID 12/10/20 ferrous sulfate 325 mg PO DAILY 12/10/20 melatonin 5 mg PO QHS 12/10/20 pantoprazole 40 mg PO BID 12/10/20 potassium chloride 20 meq PO DAILY 12/10/20 azithromycin 500 mg PO DAILY 3 Days #3 tab 12/12/20 cefdinir 300 mg PO BID #10 cap 12/12/20 Hospital Course Summary of Care Provided Minutes Spent on Discharge: 40 Hospital Course: santa is a 75-year-old gentleman presented with exertional dyspnea 1. Acute on chronic congestive heart failure with preserved ejection fraction ?Patient echo obtained on 04/02/2020 demonstrated EF of 65% with severe concentric left ventricular hypertrophy. Patient has been admitted to monitored bed placed on fluid restriction, strict input and output, daily weight low-sodium diet and IV diuretics -12/11/2020. Discontinued IV Lasix due to worsening kidney function and resume p.o. Lasix -12/12/2020; CHF compensated at this point 2. Suspected pneumonia ?Patient had bilateral infiltrate with elevated white cell count however I do suspect these infiltrate to be secondary to CHF. Patient was empirically started on antibiotics and cultures sent -12/11/2020 patient has copious sputum production culture sent awaiting results -12/12/2020. Improved clinically. Discharged home on azithromycin as well as cefdinir 3. Acute on chronic hypoxic respiratory failure ?Secondary to #1 and #2 patient is on supplemental oxygen at night -12/11/2020. Patient has however required continuous oxygen use since being admitted -12/12/2020. Patient was assessed for home oxygen with he did qualify he will need portability since patient is mobile both at home as well as in the community 4. Anemia - Secondary to chronic disorder monitoring H&H and transfuse if patient becomes symptomatic or hemoglobin falls below 7 5. Chronic hypoxic respiratory failure ?Secondary to a combination of obesity hypoventilation syndrome, congestive heart failure and obstructive sleep apnea 6. Obstructive sleep apnea ?Patient is on CPAP therapy at night plan is to continue with home settings 7. Paroxysmal A. fib ?Patient rate is controlled did continue with home meds and his systemic anticoagulation therapy 8. Diabetes mellitus type 2 ?Patient blood glucose levels not well controlled did continue home regimen also added scheduled short acting premeal insulin in addition to Accu-Cheks before meals and at bedtime with sliding scale coverage 9. Moderate to severe pulmonary hypertension ?Patient is on treprostinil (Orenitram). Did continue 10. Obesity with BMI of 47.6 ?Weight loss advised 11. Hypertension - Blood pressure controlled, home medications continued with dose adjustment as needed 12. Dyslipidemia -Patient is on statin therapy, continued at home dose 13. DVT prophylaxis ?Patient is on apixaban Physical Exam Narrative GENERAL: Cooperative HEENT: Atraumatic; EYES; Anicteric, Normal Conjunctiva NECK; supple, normal thyroid, RESPIRATORY: Diminished to auscultation CARDIOVASCULAR: Regular S1 S2, GI: soft, normoactive bowel sounds, : No Renal angle tenderness; EXTREMITIES: Bilateral stasis dermatitis MUSCULOSKELETAL: no muscle waisting NEURO: Awake; no lateralizing signs. SKIN: No Rash PSYCH; Flat affect Medical Records Data Medical Nutrition Assessment Dietitian: Nutrition Therapy Diagnosis Start: 12/10/20 14:35 Freq: Status: Active Protocol: Document 12/10/20 17:01 RMA (Rec: 12/10/20 17:02 RMA [id number]) Nutrition Malnutrition Evidence of Malnutrition Exists No Intake Problem Decreased Nutrient Needs (specify) Etiology for sodium and calories related to morbid obesity and excessive energy intake; CHF and likely fluid wt gain Signs/Symptoms as evidenced by BMI 48.5 Status Active Problem Recommendation Dietitian Recommendations/Changes Rec advance diet as tolerated to 2200 calorie; consistent carbohydrate; cardiac/sodium- restricted w/ 1500ml FR. ONS only if PO fails at meals. Diet education on lifestyle change as pt willing to receive. Weight / BMI Weight Weight: 157.7 kg Body Mass Index (BMI) 48.4 ABG / Lab / Microbiology Data Result Diagrams: 12/12/20 06:56 12/12/20 06:56 Laboratory: Laboratory Results - last 24 hr 12/11/20 12:15: POC Glucose 194 H 12/11/20 16:09: POC Glucose 164 H 12/11/20 20:55: POC Glucose 170 H 12/12/20 06:56: WBC 8.8, RBC 3.97 L, Hgb 8.8 L, Hct 29.1 L, MCV 73.3 L, MCH 22.2 L, MCHC 30.2 L D, RDW Std Deviation 52.9 H, RDW Coeff of Jun 19.9 H, Plt Count 241, MPV 9.6, Immature Gran % (Auto) 0.200, Neut % (Auto) 84.0 H, Lymph % (Auto) 7.8 L, Moca % (Auto) 5.9, Eos % (Auto) 1.5, Baso % (Auto) 0.6, Absolute Neuts (auto) 7.4, Absolute Lymphs (auto) 0.68 L, Nucleated RBC % 0 12/12/20 06:56: Sodium 138, Potassium 4.0, Chloride 104, Carbon Dioxide 24.0, Anion Gap 10, BUN 33 H, Creatinine 2.24 H, Estim Creat Clear Calc 30.81, Est GFR (MDRD) Af Amer 37 L, Est GFR (MDRD) Non-Af 31 L, BUN/Creatinine Ratio 14.7, Glucose 134 H, Calcium 8.1 L, Total Bilirubin 0.70, Direct Bilirubin 0.19, AST 12 L, ALT 14 L, Alkaline Phosphatase 70, Total Protein 7.2, Albumin 2.8 L, Globulin 4.4 H 12/12/20 08:02: POC Glucose 138 H Microbiology: Microbiology 12/10/20 17:20 Urine, Clean Catch Urine Culture - Preliminary Gram positive organism 12/10/20 20:25 Sputum, Expectorated/Coughed Gram Stain - Final 12/10/20 17:20 Urine, Clean Catch Legionella Antigen - Final 12/10/20 17:20 Urine, Clean Catch Streptococcus pneumoniae Antigen (M - Final 12/10/20 11:10 Mucosa - Nose SARS-CoV-2 Antigen (Rapid) - Final D/C Instructions Discharge Diet: No restrictions, 8 Cup Fluid Restriction and 2000 mg Sodium Diet Discharge Activity: Return to Normal Activity Call your doctor if you observe: Fever of 101 or Higher, Shortness of breath, Fainting spells and Chest pain Meaningful Use Info Meaningful Use Diagnoses (Choose all that apply): CHF CHF LUCIO/ARB ordered at discharge?: Yes Reason LUCIO/ARB not ordered?: Not indicated Documented LVEF (%): 65 Discharge Plan Admission Admit Date/Time: 12/10/20 12:32 Primary Reason for Your Visit: Community-acquired pneumonia, CHF Attending Provider: Peterson Johns Primary Care Provider: Gutierrez Garces Instructions Additional Instructions / Restrictions: Patient Problems: Altered Health Status related to Hospitalization Patient Goals: *Optimal Level of Health *Keep Appointments *Medication Compliance *Remain Safe Discharge Orders/Prescriptions Prescriptions: New azithromycin 500 mg tablet 500 mg PO DAILY 3 Days Qty: 3 RF: 0 cefdinir 300 mg capsule 300 mg PO BID Qty: 10 RF: 0 Continued Myrbetriq 25 mg tablet extended release 24 hr 25 mg PO DAILY RF: 0 carvedilol 12.5 mg tablet 12.5 mg PO DAILY RF: 0 atorvastatin 80 mg tablet 80 mg PO DAILY RF: 0 hydralazine 25 mg tablet 50 mg PO TID RF: 0 amlodipine 10 MG tablet 10 mg PO DAILY RF: 0 fluticasone furoate 200 MCG blister with device 200 mcg INHALATION DAILY RF: 0 Lantus 50 - 60 units SQ DAILY RF: 0 acetaminophen 325 MG tablet 650 mg PO Q6H PRN PRN (Reason: Pain Score 1-10/Temp > 100.7 F) RF: 0 oxycodone 5 MG tablet 5 mg PO QHS RF: 0 furosemide 40 MG tablet 40 mg PO BID RF: 0 pantoprazole 40 mg Tablet,Delayed Release (Dr/Ec) 40 mg PO BID RF: 0 ferrous sulfate 325 mg (65 mg iron) Tablet 325 mg PO DAILY RF: 0 melatonin 5 mg Tablet 5 mg PO QHS RF: 0 apixaban 2.5 mg Tablet 2.5 mg PO BID RF: 0 potassium chloride 20 mEq Tablet Extended Release 20 meq PO DAILY RF: 0 Orenitram 2.5 mg Tablet Extended Release 3.75 mg PO Q8H RF: 0 aspirin [Adult Aspirin Regimen] 81 mg tablet,delayed release (DR/EC) 81 mg PO DAILY RF: 0 Discontinued glipizide 10 mg tablet 10 mg PO DAILY RF: 0 Referrals / Follow Up: Gutierrez Garces DO [Primary Care Provider] - Within 2 Weeks Disposition Disposition (needs filled in before D/C Order can be placed): Assisted Living Charges/Coding Visit Charges Inpatient E&M: [id number] [facility]
--- NOTE | 2020-12-12 11:31 | CASEMGMT ---
Order for OP therapy faxed to [facility] for pt and pt also qualifies for 4L nc w/ ambulation and new order faxed to [facility] as pt was only on oxygen at bedtime previously. Pt to go back to [place] via [facility] and they can provide O2 for pt and [facility] medical aware that pt will need tanks delivered, voice understanding. Josué BRADY CM
[2020-12-12 12:06] LABS: Bedside Glucose 208 mg/dL (70-110)
--- NOTE | 2020-12-12 12:23 | PHA.DC.MC ---
Pharmacy Service has performed discharge medication reconciliation and counseling for this patient. The patient was counseled on the following discharge medications and changes in medications for homegoing were reviewed. 1. zithromax 2. omnicef The Reason for Use, instructions for use, and potential side effects were reviewed for all new medications. The patient's questions regarding all of their medications were answered. The patient was able to verbally demonstrate an understanding of their discharge medications. Home Medications atorvastatin 80 mg tablet 80 mg PO DAILY 09/19/18 carvedilol 12.5 mg tablet 12.5 mg PO DAILY 09/19/18 mirabegron 25 mg tablet,extended release 24 hr 25 mg PO DAILY 10/31/18 amlodipine 10 mg PO DAILY 05/15/19 fluticasone furoate 200 mcg INHALATION DAILY 04/01/20 hydralazine 25 mg tablet 50 mg PO TID tablet 05/14/20 aspirin 81 mg tablet,delayed release 81 mg PO DAILY 06/03/20 acetaminophen 650 mg PO Q6H PRN PRN tablet 06/20/20 Lantus 50 - 60 units SQ DAILY 07/04/20 furosemide 40 mg PO BID 07/29/20 oxycodone 5 mg PO QHS 07/29/20 Orenitram 3.75 mg PO Q8H 12/10/20 apixaban 2.5 mg PO BID 12/10/20 ferrous sulfate 325 mg PO DAILY 12/10/20 melatonin 5 mg PO QHS 12/10/20 pantoprazole 40 mg PO BID 12/10/20 potassium chloride 20 meq PO DAILY 12/10/20 azithromycin 500 mg PO DAILY 3 Days #3 tab 12/12/20 cefdinir 300 mg PO BID #10 cap 12/12/20 The patient's discharge medication list was reviewed for discrepancies and discrepancies were resolved.
[2020-12-12] MEDS: Insulin Lispro 100 UNIT/ML INSULN.PEN SC (12:34)
--- NOTE | 2020-12-12 12:39 | CASEMGMT ---
REBECA spoke with patient and he does need transportation back to [place]. REBECA arranged for patient to get picked up at 130 via [employer] van. REBECA called Julián at [facility] and left him a voice mail letting him know. REBECA also let him know patient now needs O2 with exertion. REBECA faxed orders to [facility]. REBECA called [facility] and spoke with Judie letting her know about d/c, instructions were faxed, patient will need O2 with exertion, and his cook pickled meat time of 130. REBECA notified RN who was in the room with patient and he notified him as well. Plan: d/c back to [facility]. [facility] transported via [employer]. Nicolasa TAPIA
--- NOTE | 2020-12-12 12:49 | NURSING ---
attempted to call report for pt transfer back to [facility]. Got voicemail. Left message to return call for report.
--- NOTE | 2020-12-12 13:41 | CASEMGMT ---
REBECA received a voice mail from Brenda Romero from [facility]. She is patient's nurse case management and asked if REBECA could fax his d/c instructions. REBECA faxed d/c instructions to Brenda. Nicolasa TAPIA
--- NOTE | 2020-12-13 11:20 | CASEMGMT ---
Addendum entered by Rita Aguilera 12/13/20 12:53: This RN CM has not heard back from [facility], so most likely orders found. CM to f/u for any further questions/concerns/needs. Josué BRADY CM Original Note: Per Daniela JOSE, pt's [place] called and said [facility] never delivered portable tanks for pt. Call to [facility] and they now state order not received but this RN CM advised her that it went thru yesterday and this RN CM spoke to someone regarding same and to make sure tanks would be delivered. She states she will check again and call this RN CM back if she needs order re-faxed. Josué BRADY CM
--- NOTE | 2020-12-17 09:02 | CASEMGMT ---
This RN CM received message from supercharger mechanic that pt called in and still has not received e-tanks despite this RN CM notifying [facility] on and Wednesday last week and per Yoselin on Wednesday, they would be calling pt and would get tanks delivered. Call to Rita at [facility] and she states she spoke with pt yesterday 12/16/20 and pt declined tanks at that time. She states they will just set up to have tanks delivered nakul despite what pt told her yesterday. This RN CM has attempted to reach pt back several times and phone goes to voicemail so message left with all info and for pt to call this RN CM back if any further questions. This RN CM then received call from pt(prior to him listening to VM) and pt updated on all. Pt was not aware of DME company name/number. Pt aware that Julián at [place] has number for [facility] and that he needs to call them for any further equipment/tanks, pt voices understanding. Pt voices no further questions/concerns/needs and thanks this RN CM for all. SStyariel RN CM
== END 2020-12-12 13:35 | disposition home or self-care (01) | DRG 291 ==
LOC: ED 11:53 → PCU 13:18
PROVIDERS: Admitting Provider Internal Medicine; Emergency Provider Student in an Organized Health Care Education/Training Program; PCP Family Medicine; Visit Provider Internal Medicine
DX: I13.0 Hypertensive heart and chronic kidney disease with heart failure and stage 1 through stage 4 chronic kidney disease, or unspecified chronic kidney disease (principal); I50.33 Acute on chronic diastolic (congestive) heart failure; J96.21 Acute and chronic respiratory failure with hypoxia; J18.9 Pneumonia, unspecified organism; E66.2 Morbid (severe) obesity with alveolar hypoventilation; Z68.42 Body mass index [BMI] 45.0-49.9, adult; E78.5 Hyperlipidemia, unspecified; E13.22 Other specified diabetes mellitus with diabetic chronic kidney disease; D63.8 Anemia in other chronic diseases classified elsewhere; I48.0 Paroxysmal atrial fibrillation; N18.32 Chronic kidney disease, stage 3b; I27.20 Pulmonary hypertension, unspecified; Z79.899 Other long term (current) drug therapy; Z79.4 Long term (current) use of insulin; Z79.82 Long term (current) use of aspirin; Z79.01 Long term (current) use of anticoagulants; Z87.891 Personal history of nicotine dependence
CPT/HCPCS: 36415; 71045; 80048; 80076; 81001; 82962; 83605; 83735; 84443; 84484; 85025; 87040; 87070; 87086; 87088; 87205; 87426; 87449; 87641; 93005; 94640; 97161; 97165; 97530; 99251; 99285; J7040; A4216; G0463; J0696; J1940

== ENCOUNTER → 2021-02-07 10:31 | Outpatient (CLI) | payer MEDICARE, MEDICAID, SELFPAY ==
[2021-02-07 13:10] LABS: Absolute Lymphocyte Count 1.01 X10^3/uL (0.83-4.51); Absolute Neutrophil Count 4.8 X10^3/uL (2.0-7.7); Basophil# 0.06 X10^3/uL; Basophil% 0.9 % (0-1); Eosinophil# 0.16 X10^3/uL; Eosinophils% 2.4 % (0-5); Hematocrit 33.7 % (40-54); Lymphocyte # 1.01 X10^3/ul (0.83-4.51); Lymphocyte % 15.2 % (19-41); Mean Corp Hgb Conc 29.7 g/dL (32-36); Mean Corpuscular Hgb 21.9 pg (27.0-32.0); Mean Corpuscular Volume 73.9 fL (80-94); Mean Platelet Vol. 9.1 fl (6.2-12.0); Monocyte# 0.56 X10^3/uL; Monocyte% 8.4 % (0-10); NRBC Flagged by Analyzer 0 % (0-5); Neutrophil # 4.83 X10^3/uL (2.7-7.7); Neutrophil % 72.8 % (47-70); Platelet Count 260 K/mm3 (150-450); RBC Distribution Width CV 18.7 % (11.6-14.6); RBC Distribution Width SD 49.7 fl (35.1-43.9); Red Blood Count 4.56 M/mm3 (4.6-6.2); White Blood Count 6.6 K/mm3 (4.4-11.0)
[2021-02-07 13:44] LABS: AST(SGOT) 13 U/L (15-37); Alanine Aminotransfer ALT/SGPT 15 U/L (16-61); Albumin, Serum 2.9 g/dL (3.2-5.0); Alkaline Phosphatase 78 U/L (45-117); Bilirubin, Direct 0.15 mg/dL (0.00-0.30); Globulin 4.9 g/dL (2.2-4.2); Protein, Total 7.8 g/dL (6.4-8.2)
== END ==
PROVIDERS: PCP Family Medicine; Referring Provider Internal Medicine Pulmonary Disease; Visit Provider Internal Medicine Pulmonary Disease
DX: I27.20 Pulmonary hypertension, unspecified (principal); J44.9 Chronic obstructive pulmonary disease, unspecified; R06.00 Dyspnea, unspecified
CPT/HCPCS: 36415; 80076; 85025

== ENCOUNTER 2021-02-25 13:23 | Inpatient (IN) | payer MEDICARE, MEDICAID, SELFPAY ==
[2021-02-25] VITALS (16 sets, daily range): BP systolic 126–151; BP diastolic 71–97; PULSE 76–88; RESP 12–27; TEMP 36.7–37.2; O2SAT 72–99; BMI 49.1; BMI 48.9
--- NOTE | 2021-02-25 13:56 | EKG12_ITS ---
Test Reason : SOB Blood Pressure : / mmHG Vent. Rate : 083 BPM Atrial Rate : 182 BPM P-R Int : 000 ms QRS Dur : 084 ms QT Int : 366 ms P-R-T Axes : 000 001 011 degrees QTc Int : 430 ms Atrial fibrillation with premature ventricular or aberrantly conducted complexes Septal infarct , age undetermined , cannot be excluded Abnormal ECG Confirmed by XAVIER RINCON, RIGO ([id number]), managing editor HALEY NUÑEZ ([id number]) on 02/27/2021 9:29:11 AM Referred By: NATALIE Confirmed By:RIGO PARK MD
[2021-02-25 14:24] LABS: Absolute Lymphocyte Count 0.32 X10^3/uL (0.83-4.51); Absolute Neutrophil Count 3.4 X10^3/uL (2.0-7.7); Basophil# 0.01 X10^3/uL; Basophil% 0.3 % (0-1); Hematocrit 30.8 % (40-54); Hemoglobin 9.5 g/dL (13.0-16.5); Lymphocyte # 0.32 X10^3/ul (0.83-4.51); Mean Corp Hgb Conc 30.8 g/dL (32-36); Mean Corpuscular Hgb 21.9 pg (27.0-32.0); Mean Corpuscular Volume 71.1 fL (80-94); Monocyte# 0.24 X10^3/uL; NRBC Flagged by Analyzer 0 % (0-5); Neutrophil % 85.2 % (47-70); POSITIVE DIFFERENTIAL YES; Platelet Count 155 K/mm3 (150-450); RBC Distribution Width CV 18.6 % (11.6-14.6); RBC Distribution Width SD 47.8 fl (35.1-43.9); Red Blood Count 4.33 M/mm3 (4.6-6.2)
--- NOTE | 2021-02-25 14:25 | RAD_ITS ---
STUDY: X-RAY CHEST REASON FOR EXAM: Male, 75 years old. Dyspnea TECHNIQUE: Single AP portable view of the chest. COMPARISON: Comparison is made with prior study dated 12/10/2020. FINDINGS: EKG electrodes are seen. There is evidence of vascular congestion and mild degree of CHF. There is no demonstrated pleural abnormality. There is moderate cardiac enlargement. Normal mediastinum and duncan. Normal visualized pulmonary arteries. There is atherosclerotic tortuosity of the aortic arch and descending thoracic aorta. Normal visualized thoracic spine. Normal visualized ribs, clavicles, and shoulders. There is no demonstrated abnormality of the visualized soft tissue structures of the upper abdomen. RAD/Chest 1 View (Portable) IMPRESSION: Cardiomegaly and CHF. Electronically Signed: Fran Krause MD at 14:48 EDT , Service support ,
[2021-02-25 14:35] LABS: International Normalized Ratio 1.1; Prothrombin Time (Protime)PT. 13.9 SECONDS (11.7-14.9)
[2021-02-25 14:36] LABS: Partial Thromboplast Time 43.9 Seconds (24.1-36.2)
[2021-02-25 14:42] LABS: Differential Indicated SCAN CRITERIA MET
[2021-02-25 14:48] LABS: Differential Comment SCANNED
[2021-02-25 14:49] LABS: BNP,B-Type NATRIURETIC PEPTIDE 269.2 pg/mL (0-100)
[2021-02-25 14:54] LABS: ALB/GLOB Ratio 0.6 RATIO (0.9-2.4); AST(SGOT) 48 U/L (15-37); Alanine Aminotransfer ALT/SGPT 26 U/L (16-61); Albumin, Serum 2.9 g/dL (3.2-5.0); Alkaline Phosphatase 66 U/L (45-117); Anion Gap 12 (5-15); BUN 50 mg/dL (7-18); BUN/Creat Ratio 16.7 RATIO (10-20); Calcium,Total 7.7 mg/dL (8.5-10.1); Chloride 99 mmol/L (98-107); Creatinine, Serum 2.99 mg/dL (0.70-1.30); EST Glomerular Filtration Rate 22 mL/min (>60); Est Glom Filt Rate - Afr Amer 27 mL/min (>60); Estimated Creatinine Clearance 22.38 ml/min; Globulin 5.1 g/dL (2.2-4.2); Glucose 197 mg/dL (74-106); Potassium 4.2 mmol/L (3.5-5.1); Sodium Level 134 mmol/L (136-145); Troponin-I HS 35 pg/mL (3.0-78.0)
[2021-02-25 14:55] LABS: Lactic Acid 1.2 mmol/L (0.4-1.9)
[2021-02-25] MEDS: Furosemide 40 MG/4 ML Vial IV (15:23)
--- NOTE | 2021-02-25 16:37 | NURSING ---
111 dr larsen ch[facility], covid 19, hypoxic resp failure
--- NOTE | 2021-02-25 16:39 | ED.VIS.DYS ---
HPI History of Present Illness Chief Complaint: Shortness of Breath Narrative Narrative: 75-year-old male presenting with shortness of breath for the last 3 days. He states he is currently residing in a shelter he states that he started having symptoms of COVID-19 3 days ago and was tested for Covid. His result came back today. He does not usually wear oxygen at home but did have it set up previously and was able to use this. Patient states that his weight has actually gone down because he is not eating as much. He does complain of shortness of breath without chest pain. He has not had a fever, chills, body aches. [facility] Medical History Abnormal stress test Acute on chronic diastolic (congestive) heart failure Cellulitis of left lower extremity Chronic diastolic (congestive) heart failure Chronic kidney disease, stage 3 (moderate) Diabetes, type 1.5, uncontrolled, managed as type 1 Edema, lower extremity Essential hypertension Exertional dyspnea Failure to thrive Hypoglycemia due to insulin Ischemic stroke (08/20/18) Kidney stones care home (current) use of anticoagulants Moderate to severe pulmonary hypertension Morbid obesity with body mass index of 50.0-59.9 in adult Obstructive sleep apnea of adult Paroxysmal atrial fibrillation Pure hypercholesterolemia Recent cerebrovascular accident (CVA) Severe concentric left ventricular hypertrophy Stasis dermatitis Tubulovillous adenoma polyp of colon Venous insufficiency Home Medications atorvastatin 80 mg tablet 80 mg PO DAILY 09/19/18 [History Last Taken 06/16/20] carvedilol 12.5 mg tablet 12.5 mg PO DAILY 09/19/18 [History Last Taken 08/02/20 06:30] mirabegron 25 mg tablet,extended release 24 hr 25 mg PO DAILY 10/31/18 [History Last Taken 06/16/20] amlodipine 10 mg PO DAILY 05/15/19 [History Last Taken 06/16/20] fluticasone furoate 200 mcg INHALATION DAILY 04/01/20 [History Last Taken Unknown] hydralazine 25 mg tablet 50 mg PO TID tablet 05/14/20 [History Last Taken 06/16/20] aspirin 81 mg tablet,delayed release 81 mg PO DAILY 06/03/20 [History Last Taken 06/16/20] acetaminophen 650 mg PO Q6H PRN PRN tablet 06/20/20 [Rx Last Taken Unknown] furosemide 40 mg PO BID 07/29/20 [History Last Taken Unknown] oxycodone 5 mg PO QHS 07/29/20 [History Last Taken Unknown] Orenitram 3.75 mg PO Q8H 12/10/20 [History Last Taken Unknown] apixaban 2.5 mg PO BID 12/10/20 [History Last Taken Unknown] ferrous sulfate 325 mg PO DAILY 12/10/20 [History Last Taken Unknown] melatonin 5 mg PO QHS 12/10/20 [History Last Taken Unknown] pantoprazole 40 mg PO BID 12/10/20 [History Last Taken Unknown] potassium chloride 20 meq PO DAILY 12/10/20 [History Last Taken Unknown] albuterol sulfate 2.5 mg INHALATION Q2H PRN PRN 02/25/21 [History Last Taken Unknown] insulin glargine 60 unit SUBCUT QPM 02/25/21 [History Last Taken Unknown] Allergy/AdvReac Type Severity Reaction Status Date / Time No Known Allergies Allergy Verified 02/25/21 13:25 Family History Father Colon cancer Mother Heart disease Surgical History History of cardioversion (08/23/15) History of right and left heart catheterization (~06/18/20) History of right heart catheterization (05/19/13) Social History Smoking Status: Former smoker alcohol intake: never substance use type: does not use caffeine: No what type of physical activity do you participate in: none frequency: does not exercise seatbelt use: always ROS ROS ED Constitutional Constitutional ED: Denies chills or fever(s) Eyes Eyes: Denies blurry vision or diplopia ENT ENT ED: Denies rhinorrhea or sore throat Cardiovascular Cardiovascular: Reports racing heartbeat; Denies chest pain Respiratory/Chest Respiratory/Chest: Reports cough, dyspnea and dyspnea on exertion Gastrointestinal Gastrointestinal: Denies abdominal pain, nausea or vomiting Genitourinary Genitourinary ED: Denies dysuria or hematuria Musculoskeletal Musculoskeletal: Denies arthralgias or myalgias Neurologic Neurologic: Denies headache(s) or paresthesias EXAM Physical Exam Const Vital Signs: 02/25/21 13:25 02/25/21 13:28 02/25/21 13:30 Temperature 98.6 F 98.6 F Temperature Source Oral Oral Pulse Rate 81 81 Respiratory Rate 27 H 27 H Respiratory Effort Blood Pressure 133/74 H 133/74 H Blood Pressure Mean 93 93 Pulse Ox 72 83 86 Oxygen Delivery Method Room Air Nasal Cannula Nasal Cannula Oxygen Flow Rate (L/min) 2 4 Fraction of Inspired Oxygen (FIO2) 02/25/21 13:31 02/25/21 14:13 02/25/21 14:16 Temperature 98.9 F Temperature Source Temporal Pulse Rate 80 Respiratory Rate 21 H Respiratory Effort Short of Breath Labored Accessory Muscle Use Blood Pressure 126/77 H Blood Pressure Mean 93 Pulse Ox 94 Oxygen Delivery Method Nasal Cannula Nasal Cannula Oxygen Flow Rate (L/min) 6 6 Fraction of Inspired Oxygen (FIO2) 02/25/21 15:00 Temperature Temperature Source Pulse Rate 77 Respiratory Rate 25 H Respiratory Effort Blood Pressure 151/97 H Blood Pressure Mean 115 Pulse Ox 92 Oxygen Delivery Method Nasal Cannula Oxygen Flow Rate (L/min) 6 Fraction of Inspired Oxygen (FIO2) 0 Positive obese Constitutional Narrative: Hypoxic on arrival tachypneic and slightly labored breathing. There is some accessory muscle use initially General Appearance ED: Negative for pallor Nutritional Appearance: obese HEENT Reports dry mucous membranes atraumatic Mouth ED: Yes dry mucous membranes Mouth: dry mucous membranes Eyes PERRL and EOMs intact bilaterally Resp Auscultation: diminished lung sounds Cardio Rate: tachycardic Rhythm: abnormal rhythm irregularly irregular GI Palpation: soft Extremity General Extremety ED: Negative for edema General Extremity: Negative for edema Neuro oriented x3 and CN's II-XII intact bilaterally Psych mental status grossly normal Thought Process: normal thought process Skin General Skin Exam: Negative for jaundice or pallor MDM MDM MDM Narrative Medical decision making narrative: Patient presenting with shortness of breath. He is initially hypoxic and placed on oxygen. On 6 L of oxygen he is stable at 92 to 93%. Patient is already Covid positive so I did not test him. CBC shows his white blood cell count is 4.0. Hemoglobin 9.5 and near baseline. Platelets normal. Creatinine is slightly elevated at 2.99 previous. Electrolytes otherwise unremarkable. LFTs are normal with exception of elevated AST at 48. Lactic acid 1.2. Troponin 35. BNP elevated at 269.2. EKG on my interpretation shows atrial fibrillation with a ventricular rate of 83 bpm. Chest x-ray on my interpretation is consistent with CHF and the radiologist does agree. Patient was given 40 mg of Lasix IV. He is discussed with the hospitalist for admission due to his oxygen requirements as well as CHF. Patient stable on transfer to the floor. Impression: 1. COVID-19 pneumonitis 2. CHF 3. Hypoxic respiratory failure Lab Data Attestation: I reviewed the patient's lab results. Labs: Laboratory Results - last 24 hr 02/25/21 02/25/21 02/25/21 14:10 14:10 14:10 WBC 4.0 L RBC 4.33 L Hgb 9.5 L Hct 30.8 L MCV 71.1 L MCH 21.9 L MCHC 30.8 L RDW Std Deviation 47.8 H RDW Coeff of Jun 18.6 H Plt Count 155 MPV 9.0 Immature Gran % (Auto) 0.500 Neut % (Auto) 85.2 H Lymph % (Auto) 8.0 L [place] % (Auto) 6.0 Eos % (Auto) 0.0 Baso % (Auto) 0.3 Absolute Neuts (auto) 3.4 Absolute Lymphs (auto) 0.32 L Nucleated RBC % 0 Differential Comment SCANNED Diff Path Review August foll PT 13.9 INR 1.1 APTT 43.9 H Sodium 134 L Potassium 4.2 Chloride 99 Carbon Dioxide 23.0 Anion Gap 12 BUN 50 H Creatinine 2.99 H Estim Creat Clear Calc 22.38 Est GFR (MDRD) Af Amer 27 L Est GFR (MDRD) Non-Af 22 L BUN/Creatinine Ratio 16.7 Glucose 197 H Lactic Acid Calcium 7.7 L Total Bilirubin 0.60 AST 48 H ALT 26 Alkaline Phosphatase 66 Troponin I High Sens 35 B-Natriuretic Peptide Total Protein 8.0 Albumin 2.9 L Globulin 5.1 H Albumin/Globulin Ratio 0.6 L 02/25/21 02/25/21 14:10 14:10 WBC RBC Hgb Hct MCV MCH MCHC RDW Std Deviation RDW Coeff of Jun Plt Count MPV Immature Gran % (Auto) Neut % (Auto) Lymph % (Auto) [place] % (Auto) Eos % (Auto) Baso % (Auto) Absolute Neuts (auto) Absolute Lymphs (auto) Nucleated RBC % Differential Comment Diff Path Review PT INR APTT Sodium Potassium Chloride Carbon Dioxide Anion Gap BUN Creatinine Estim Creat Clear Calc Est GFR (MDRD) Af Amer Est GFR (MDRD) Non-Af BUN/Creatinine Ratio Glucose Lactic Acid 1.2 Calcium Total Bilirubin AST ALT Alkaline Phosphatase Troponin I High Sens B-Natriuretic Peptide 269.2 H Total Protein Albumin Globulin Albumin/Globulin Ratio Radiography Diagnostic Testing: Clinical Impression(s) from Imaging Studies Chest X-Ray 02/25/21 14:25 IMPRESSION: Cardiomegaly and CHF. Electronically Signed: Fran Krause MD at 14:48 EDT , Service support , Discharge Plan Triage Chief Complaint: Shortness of Breath ED Provider: Tra Hatfield Dx/Rx/DC Orders Primary Care Provider: Gutierrez Garces
--- NOTE | 2021-02-25 18:25 | HP.PCM.HOS_ITS ---
HPI - General General Date of Admission: 02/25/21 Date of Service: 02/25/21 Chief Complaint: Shortness of breath HPI Narrative REGGIE MOHR, is a 75 M who presented to the emergency department from his ECF with the chief complaint of shortness of breath. The patient has multiple medical comorbidities including significant pulmonary comorbidities and reports that approximately 3 days ago he had shortness of breath and he was tested for COVID-19 and the result was positive. He complains of decreased p.o. intake, diarrhea, nausea, shortness of breath with dry nonproductive cough. He has had no fever or chills. He states he follows with Dr. Murray for pulmonary medicine and he told them if he gets Covid to come immediately to the hospital. Upon presentation to the hospital he was found to have an oxygen saturation of 72% on room air. He is not O2 dependent typically at baseline during the day. He admits to wearing a positive pressure mask at night with a 5 L bleed. To maintain oxygen saturation of 92% or greater he had to be titrated up to 6 L. He was otherwise afebrile with mildly elevated blood pressure and tachypnea with respiratory rates in the mid to upper 20s. He was vaccinated while here in the hospital which makes me suspect he had Hermilo [employer] Hermilo but the patient was not clear. His CBC shows a mild leukopenia with a left shift and a chronic stable anemia but was otherwise unremarkable. His coags within normal limits. His BMP showed mild hyponatremia with a sodium of 134 and elevated BUN and creatinine that are both above his baseline of 1.8-2.2. His blood sugar was elevated 197, his AST was mildly elevated at 48 but his ALT was normal. He had mild BNP elevation at 269.2 but this appears to be close to his baseline when he does present to the hospital. A troponin was obtained and was normal at 35. Chest x-ray shows patchy bilateral infiltrates. His EKG shows no ST-T wave changes consistent with acute ischemia. In the emergency department he was given Decadron and request for admission was made. [facility] Medical History (Updated 02/25/21 @ 18:[address] 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 Moderate to severe pulmonary hypertension Morbid obesity with body mass index of 50.0-59.9 in adult Obstructive sleep apnea of adult Paroxysmal atrial fibrillation Pure hypercholesterolemia Recent cerebrovascular accident (CVA) Severe concentric left ventricular hypertrophy Stasis dermatitis Tubulovillous adenoma polyp of colon Venous insufficiency Home Medications atorvastatin 80 mg tablet 80 mg PO DAILY 09/19/18 [History Last Taken 02/25/21] carvedilol 12.5 mg tablet 12.5 mg PO DAILY 09/19/18 [History Last Taken 02/25/21] mirabegron 25 mg tablet,extended release 24 hr 25 mg PO DAILY 10/31/18 [History Last Taken 02/25/21] amlodipine 10 mg PO DAILY 05/15/19 [History Last Taken 02/25/21] fluticasone furoate 200 mcg INHALATION DAILY 04/01/20 [History Last Taken Unknown] aspirin 81 mg tablet,delayed release 81 mg PO DAILY 06/03/20 [History Last Taken 02/25/21] acetaminophen 650 mg PO Q6H PRN PRN tablet 06/20/20 [Rx Last Taken Unknown] oxycodone 5 mg PO QHS 07/29/20 [History Last Taken Unknown] Orenitram 3.75 mg PO Q8H 12/10/20 [History Last Taken 02/25/21] apixaban 2.5 mg PO BID 12/10/20 [History Last Taken Unknown] ferrous sulfate 325 mg PO DAILY 12/10/20 [History Last Taken Unknown] melatonin 5 mg PO QHS 12/10/20 [History Last Taken Unknown] pantoprazole 40 mg PO BID 12/10/20 [History Last Taken Unknown] potassium chloride 20 meq PO DAILY 12/10/20 [History Last Taken Unknown] albuterol sulfate 2.5 mg INHALATION Q2H PRN PRN 02/25/21 [History Last Taken Unknown] azelastine 1 spray INTRANASAL BID 02/25/21 [History Last Taken 02/25/21] furosemide 80 mg PO DAILY 02/25/21 [History Last Taken 02/25/21] glipizide 10 mg PO BIDCM 02/25/21 [History Last Taken 02/25/21] hydralazine 50 mg PO Q8H 02/25/21 [History Last Taken 02/25/21] insulin glargine [Lantus Solostar U-100 Insulin] 60 unit SUBCUT DAILY 02/25/21 [History Last Taken 02/25/21] omeprazole 40 mg PO DAILY 02/25/21 [History Last Taken Unknown] Allergy/AdvReac Type Severity Reaction Status Date / Time No Known Allergies Allergy Verified 02/25/21 13:25 Family History Father Colon cancer Mother Heart disease Surgical History History of cardioversion (08/23/15) History of right and left heart catheterization (~06/18/20) History of right heart catheterization (05/19/13) Social History (Updated 02/25/21 @ 18:[address] Anastacia Rizvi DO) Smoking Status: Former smoker alcohol intake: former substance use type: does not use caffeine: No what type of physical activity do you participate in: none frequency: does not exercise seatbelt use: always ROS Constitutional Constitutional: Reports anorexia, change in weight, chills, malaise and weakness Eyes Eyes: Denies blurry vision, change in eye color, change in vision, discharge from eye(s), double vision, erythema, eye pain, loss of vision or other ENT HEENT: Denies abnormal hearing, dysphagia, ear pain, epistaxis, headache(s), hearing loss, nasal congestion, nasal discharge, post nasal drip, sinus pressu re, sore throat or other Cardiovascular Cardiovascular: Reports dyspnea on exertion; Denies chest pain, claudication, edema, lightheadedness, orthopnea, palpitations, paroxysmal nocturnal dyspnea, rapid heart rate, syncope or other Respiratory/Chest Respiratory/Chest: Reports cough, dyspnea, shortness of breath at rest and short ness of breath with exertion; Denies excessive phlegm production, hemoptysis, productive cough, wheezing or other Gastrointestinal Gastrointestinal: Reports diarrhea and nausea; Denies abdominal pain, coffee ground emesis, constipation, dyspepsia, hematemesis, hematochezia, loose stools, melena, vomiting or other Genitourinary Genitourinary: Denies burning urination, difficulty urinating, dysuria, hemat uria, nocturia, urinary frequency, urinary hesitancy, urinary incontinence, urinary urgency or other Musculoskeletal Musculoskeletal: Reports arthralgias, back pain, joint pain, joint stiffness and myalgias; Denies joint swelling, neck pain or other Neurologic Neurologic: Denies abnormal gait, abnormal speech, confusion, disequilibrium, dizziness, focal weakness, headache(s), numbness, paresthesias, seizure-like activity, seizures, syncope, tingling, tremor(s) or other Psychiatric Psychiatric: Denies anxiety, depression, homicidal ideation, suicidal ideation or other Endocrine Endocrinology: Denies change in body appearance, cold intolerance, excessive sweating, heat intolerance, polydipsia, polyuria or other Hematologic/Lymphatic Hematologic/Lymphatic: Denies anemia, easy bleeding, easy bruising, ly mphadenopathy or other Allergic/Immunologic Allergic/Immunologic: Denies rhinitis, hives, eczemia, asthma or other Vital Signs Vital Signs Vital Signs: 02/25/21 13:25 02/25/21 13:28 02/25/21 13:30 Temperature 98.6 F 98.6 F Temperature Source Oral Oral Pulse Rate 81 81 Respiratory Rate 27 H 27 H Respiratory Effort Blood Pressure 133/74 H 133/74 H Blood Pressure Mean 93 93 Pulse Ox 72 83 86 Oxygen Delivery Method Room Air Nasal Cannula Nasal Cannula Oxygen Flow Rate (L/min) 2 4 Fraction of Inspired Oxygen (FIO2) 02/25/21 13:31 02/25/21 14:13 02/25/21 14:16 Temperature 98.9 F Temperature Source Temporal Pulse Rate 80 Respiratory Rate 21 H Respiratory Effort Short of Breath Labored Accessory Muscle Use Blood Pressure 126/77 H Blood Pressure Mean 93 Pulse Ox 94 Oxygen Delivery Method Nasal Cannula Nasal Cannula Oxygen Flow Rate (L/min) 6 6 Fraction of Inspired Oxygen (FIO2) 02/25/21 15:00 02/25/21 16:38 02/25/21 17:00 Temperature 98.3 F 98.3 F Temperature Source Oral Oral Pulse Rate 77 79 79 Respiratory Rate 25 H 24 H 24 H Respiratory Effort Blood Pressure 151/97 H 136/71 H 136/71 H Blood Pressure Mean 115 92 92 Pulse Ox 92 92 92 Oxygen Delivery Method Nasal Cannula Nasal Cannula Nasal Cannula Oxygen Flow Rate (L/min) 6 6 6 Fraction of Inspired Oxygen (FIO2) 0 Weight Weight: 154.811 kg Body Mass Index (BMI) 48.9 Physical Exam Const alert, oriented x3 and no apparent distress Constitutional Narrative: Morbidly obese white male sitting up in bed, appears tachypneic and struggling a bit to breathe, nontoxic General Appearance: cooperative HEENT normocephalic, head/scalp atraumatic and moist oral mucous membranes HEENT Narrative: Dentition is fair, Mallampati is 3, no thrush is noted Eyes PERRL, EOMs intact bilaterally and conjunctivae normal Eyes Narrative: No scleral icterus Neck no lymphadenopathy, supple, no JVD and no carotid bruits Neck Narrative: Short thick neck, trachea midline, no thyroid enlargement noted Resp no retractions and no use of accessory muscles Resp Narrative: Markedly diminished diffusely, tachypnea no signs of extremis Auscultation: Negative for crackles, rales, rhonchi or wheezes Cardio regular rate, regular rhythm, S1 normal heart sound, S2 normal heart sound, no murmurs, no rub, no gallops, no clicks and no JVD Cardio Narrative: Distant heart tones secondary to body habitus GI normal to inspection, nondistended, normoactive bowel sounds, soft to palpation, non-tender and non-distended Extremity Extremity Narrative: Trace bilateral lower extremity edema-chronic, lower extremity skin changes consistent with chronic venous stasis Peripheral Pulses: Yes pulses 2+ throughout Skin Skin Narrative: Small skin tear on the dorsal surface of left toe and ankle-no signs of infection and no significant drainage, minimal bleeding Neuro oriented x3, CN's II-XII intact bilaterally, moves all extremities and no focal motor deficits Neuro Narrative: Marked generalized weakness Sensorium / Orientation: awake and alert Speech: speech normal Results Lab / Micro Data Result Diagrams: 02/25/21 14:10 02/25/21 14:10 Labs: Laboratory Results - last 24 hr 02/25/21 14:10: WBC 4.0 L, RBC 4.33 L, Hgb 9.5 L, Hct 30.8 L, MCV 71.1 L, MCH 21.9 L, MCHC 30.8 L, RDW Std Deviation 47.8 H, RDW Coeff of Jun 18.6 H, Plt Count 155, MPV 9.0, Immature Gran % (Auto) 0.500, Neut % (Auto) 85.2 H, Lymph % (Auto) 8.0 L, [place] % (Auto) 6.0, Eos % (Auto) 0.0, Baso % (Auto) 0.3, Absolute Neuts (auto) 3.4, Absolute Lymphs (auto) 0.32 L, Nucleated RBC % 0, Differential Comment SCANNED, Diff Path Review August02/25/21 14:10: PT 13.9, INR 1.1, APTT 43.9 H 02/25/21 14:10: Sodium 134 L, Potassium 4.2, Chloride 99, Carbon Dioxide 23.0, Anion Gap 12, BUN 50 H, Creatinine 2.99 H, Estim Creat Clear Calc 22.38, Est GFR (MDRD) Af Amer 27 L, Est GFR (MDRD) Non-Af 22 L, BUN/Creatinine Ratio 16.7, Glucose 197 H, Calcium 7.7 L, Total Bilirubin 0.60, AST 48 H, ALT 26, Alkaline Phosphatase 66, Troponin I High Sens 35, Total Protein 8.0, Albumin 2.9 L, Globulin 5.1 H, Albumin/Globulin Ratio 0.6 L 02/25/21 14:10: Lactic Acid 1.2 02/25/21 14:10: B-Natriuretic Peptide 269.2 H Radiology Impression Chest X-Ray 02/25/21 14:25 IMPRESSION: Cardiomegaly and CHF. Electronically Signed: Fran Krause MD at 14:48 EDT , Service support , Assessment & Plan Assessment/Plan (1) Acute respiratory failure with hypoxia: (2) COVID-19: (3) ISAURA (acute kidney injury): (4) Leukopenia: PLAN: Acute hypoxic respiratory failure secondary to COVID-19 pneumonia -Patient was vaccinated with Hermilo & Hermilo -Date of symptom onset 02/22/2021--> will need quarantine until 03/14/2021 -Start Decadron day 1 of 10 -Patient is not a candidate for remdesivir at this time secondary to GFR--> could consider if GFR improves -Monitor closely for potential use of baricitinib -Check sputum culture -Encourage mobilization -Incentive spirometry/Acapella -Mucinex -Cough suppressant -Nebulizers -Consult pulmonary medicine since patient's pulmonary history is significantly complicated ISAURA on CKD stage IIIb -Baseline serum creatinine appears to be 1.8-2.2 -Current serum creatinine is 2.99 -Patient was given an extra dose of Lasix by the ER physician secondary to an elevated BNP -BNP is chronically elevated and I suspect this is a manifestation of his right heart failure -Hold home diuretics -We will avoid fluid administration at this time but monitor closely -May need small bolus tomorrow -If no improvement may need nephrology input Leukopenia -Secondary to Covid infection -Continue to monitor PAH who group 3/ANDERSON/OHS/COPD -Continue home Orenitram -Hold diuresis for now -BiPAP at at bedtime--> settings unclear so we will utilize 14/02 at this time until we can clarify settings -Nebulizers as ordered PAF -Continue apixaban -Continue carvedilol -High risk to develop atrial fibrillation with respiratory distress -Monitor on telemetry Heart failure with preserved ejection fraction--> right-sided and diastolic -Hold diuresis -Monitor clinically HTN/HPL -Continue carvedilol -Continue toward statin -Continue hydralazine GERD -Continue PPI DM-2 -Continue home insulin and increase basal insulin to 80 units -SSI -Accu-Cheks -Suspect elevation in blood sugars with Decadron use -We will likely need up titration further -Hold home oral agents DVT prophylaxis -Continue apixaban CODE STATUS -DNR CCA no intubation Charges/Coding Visit Charges Inpatient E&M: 09747 Init Hosp L3
--- NOTE | 2021-02-25 19:24 | PCS.PANDOC ---
PANDEMIC DOCUMENTATION INITIATED: Date: 12/16/2020 Time: 190
[2021-02-25 19:45] LABS: Troponin-I HS 38 pg/mL (3.0-78.0)
[2021-02-25] MEDS: Albuterol 2.5 MG/3 ML VIAL.NEB. INHALATION (19:45)
[2021-02-25] MEDS: Budesonide Respules 0.5 MG/2 ML AMPUL.NEB. INHALATION (19:45)
--- NOTE | 2021-02-25 20:02 | CPS ---
pt has cpap 5 at home with 5 l/m bleed-wilfredo bipap well-decreased to 50%
[2021-02-25] MEDS: oxyCODONE 5 MG Tablet PO (20:39)
[2021-02-25] MEDS: guaiFENesin 1,200 MG Tablet 1200 MG PO (20:40)
[2021-02-25] MEDS: Pantoprazole Sodium 40 MG Tablet PO (20:40)
[2021-02-25] MEDS: MELATONIN 10 MG TABLET 5 MG PO (20:40)
[2021-02-25] MEDS: hydrALAZINE 50 MG Tablet PO (20:40)
[2021-02-25] MEDS: APIXABAN 2.5 MG TABLET PO (20:40)
--- NOTE | 2021-02-25 20:52 | NURSING ---
pt states he does not want RN to take VS around 0300 when they are due. RN explained hospital policy. Pt verbalizes understanding and insists VS be taking around 0600 when RN will be in to administer morning medications.
[2021-02-25 20:55] LABS: Bedside Glucose 253 mg/dL (70-110)
[2021-02-25 21:41] LABS: Troponin-I HS 35 pg/mL (3.0-78.0)
[2021-02-26] VITALS (17 sets, daily range): BP systolic 106–124; BP diastolic 50–68; PULSE 60–84; RESP 12–23; TEMP 36.1–36.8; O2SAT 92–96
[2021-02-26] MEDS: hydrALAZINE 50 MG Tablet PO ×3 (06:21→19:59)
[2021-02-26] MEDS: Insulin Lispro 100 UNIT/ML INSULN.PEN SC ×3 (06:21→18:02)
[2021-02-26] MEDS: Budesonide Respules 0.5 MG/2 ML AMPUL.NEB. INHALATION (06:45)
[2021-02-26] MEDS: Albuterol 2.5 MG/3 ML VIAL.NEB. INHALATION (06:45)
[2021-02-26 06:46] LABS: Bedside Glucose 185 mg/dL (70-110)
[2021-02-26 06:53] LABS: Absolute Lymphocyte Count 0.36 X10^3/uL (0.83-4.51); Absolute Neutrophil Count 2.4 X10^3/uL (2.0-7.7); Hematocrit 31.6 % (40-54); Hemoglobin 9.4 g/dL (13.0-16.5); Lymphocyte # 0.36 X10^3/ul (0.83-4.51); Mean Corp Hgb Conc 29.7 g/dL (32-36); Mean Corpuscular Hgb 21.3 pg (27.0-32.0); Mean Corpuscular Volume 71.5 fL (80-94); Monocyte# 0.23 X10^3/uL; Monocyte% 7.6 % (0-10); NRBC Flagged by Analyzer 0 % (0-5); Neutrophil # 2.41 X10^3/uL (2.7-7.7); Neutrophil % 80.1 % (47-70); POSITIVE DIFFERENTIAL YES; Platelet Count 145 K/mm3 (150-450); RBC Distribution Width CV 18.4 % (11.6-14.6); RBC Distribution Width SD 47.9 fl (35.1-43.9); Red Blood Count 4.42 M/mm3 (4.6-6.2)
[2021-02-26 07:04] LABS: Differential Indicated SCAN CRITERIA MET
[2021-02-26 07:37] LABS: ALB/GLOB Ratio 0.5 RATIO (0.9-2.4); AST(SGOT) 40 U/L (15-37); Alanine Aminotransfer ALT/SGPT 22 U/L (16-61); Albumin, Serum 2.6 g/dL (3.2-5.0); Alkaline Phosphatase 63 U/L (45-117); Anion Gap 12 (5-15); BUN 58 mg/dL (7-18); BUN/Creat Ratio 18.6 RATIO (10-20); Calcium,Total 7.7 mg/dL (8.5-10.1); Chloride 100 mmol/L (98-107); Creatinine, Serum 3.11 mg/dL (0.70-1.30); EST Glomerular Filtration Rate 21 mL/min (>60); Est Glom Filt Rate - Afr Amer 25 mL/min (>60); Estimated Creatinine Clearance 21.52 ml/min; Globulin 5.1 g/dL (2.2-4.2); Glucose 185 mg/dL (74-106); Magnesium 2.4 mg/dL (1.6-2.6); Phosphorus 5.3 mg/dL (2.5-4.9); Potassium 3.9 mmol/L (3.5-5.1); Protein, Total 7.7 g/dL (6.4-8.2); Sodium Level 133 mmol/L (136-145); Thyroid Stim Hormone (TSH) 1.19 uIU/mL (0.358-3.74)
[2021-02-26] MEDS: Mirabegron 25 MG TAB.ER.24H PO (08:49)
[2021-02-26] MEDS: amLODIPine 10 MG Tablet PO (08:49)
[2021-02-26] MEDS: Pantoprazole Sodium 40 MG Tablet PO ×2 (08:49→19:59)
[2021-02-26] MEDS: APIXABAN 2.5 MG TABLET PO ×2 (08:50→19:59)
[2021-02-26] MEDS: Aspirin E.C. 81 MG Tablet PO (08:50)
[2021-02-26] MEDS: Atorvastatin Calcium 80 MG Tablet PO (08:50)
[2021-02-26] MEDS: guaiFENesin 1,200 MG Tablet 1200 MG PO ×2 (08:50→19:58)
[2021-02-26] MEDS: dexAMETHasone 4 MG Tablet 6 MG PO (08:50)
--- NOTE | 2021-02-26 11:07 | PCM.PN.HOSP ---
Subjective Subjective Follow-up on acute hypoxic respiratory failure secondary to acute COVID-19 pneumonia Patient was seen and examined. He is on 6 L of oxygen. Denied any new complaints. No acute events overnight Objective Data Objective Data Vital Signs: Vital Signs Temp Pulse Resp BP Pulse Ox 97 F L 64 16 124/68 H 92 02/26/21 08:41 02/26/21 08:41 02/26/21 08:41 02/26/21 08:41 02/26/21 08:41 Oxygen Flow Rate (L/min) 6 Oxygen Delivery Method Nasal Cannula Weight: 154.811 kg Body Mass Index (BMI) 48.9 Intake & Output: Intake and Output for Last 24 Hours 02/24/21 02/25/21 02/26/21 23:59 23:59 23:59 Intake Total 300 / 300 Output Total 300 / 300 600 / 600 Balance -300 / -300 -300 / -300 Lab / Micro Data Result Diagrams: 02/26/21 06:42 02/26/21 06:42 Labs: Laboratory Results - last 24 hr 02/25/21 14:10: WBC 4.0 L, RBC 4.33 L, Hgb 9.5 L, Hct 30.8 L, MCV 71.1 L, MCH 21.9 L, MCHC 30.8 L, RDW Std Deviation 47.8 H, RDW Coeff of Jun 18.6 H, Plt Count 155, MPV 9.0, Immature Gran % (Auto) 0.500, Neut % (Auto) 85.2 H, Lymph % (Auto) 8.0 L, [place] % (Auto) 6.0, Eos % (Auto) 0.0, Baso % (Auto) 0.3, Absolute Neuts (auto) 3.4, Absolute Lymphs (auto) 0.32 L, Nucleated RBC % 0, Differential Comment SCANNED, Diff Path Review August02/25/21 14:10: PT 13.9, INR 1.1, APTT 43.9 H 02/25/21 14:10: Sodium 134 L, Potassium 4.2, Chloride 99, Carbon Dioxide 23.0, Anion Gap 12, BUN 50 H, Creatinine 2.99 H, Estim Creat Clear Calc 22.38, Est GFR (MDRD) Af Amer 27 L, Est GFR (MDRD) Non-Af 22 L, BUN/Creatinine Ratio 16.7, Glucose 197 H, Calcium 7.7 L, Total Bilirubin 0.60, AST 48 H, ALT 26, Alkaline Phosphatase 66, Troponin I High Sens 35, Total Protein 8.0, Albumin 2.9 L, Globulin 5.1 H, Albumin/Globulin Ratio 0.6 L 02/25/21 14:10: Lactic Acid 1.2 02/25/21 14:10: B-Natriuretic Peptide 269.2 H 02/25/21 18:50: Troponin I High Sens 38 02/25/21 20:37: POC Glucose 253 H 02/25/21 20:40: Troponin I High Sens 35 02/26/21 06:18: POC Glucose 185 H 02/26/21 06:42: WBC 3.0 L, RBC 4.42 L, Hgb 9.4 L, Hct 31.6 L, MCV 71.5 L, MCH 21.3 L, MCHC 29.7 L, RDW Std Deviation 47.9 H, RDW Coeff of Jun 18.4 H, Plt Count 145 L, MPV 9.0, Immature Gran % (Auto) 0.300, Neut % (Auto) 80.1 H, Lymph % (Auto) 12.0 L, [place] % (Auto) 7.6, Eos % (Auto) 0.0, Baso % (Auto) 0.0, Absolute Neuts (auto) 2.4, Absolute Lymphs (auto) 0.36 L, Nucleated RBC % 0, Diff Path Review August02/26/21 06:42: Sodium 133 L, Potassium 3.9, Chloride 100, Carbon Dioxide 21.0, Anion Gap 12, BUN 58 H, Creatinine 3.11 H, Estim Creat Clear Calc 21.52, Est GFR (MDRD) Af Amer 25 L, Est GFR (MDRD) Non-Af 21 L, BUN/Creatinine Ratio 18.6, Glucose 185 H, Calcium 7.7 L, Phosphorus 5.3 H, Magnesium 2.4, Total Bilirubin 0.80, AST 40 H, ALT 22, Alkaline Phosphatase 63, Total Protein 7.7, Albumin 2.6 L, Globulin 5.1 H, Albumin/Globulin Ratio 0.5 L, TSH 1.19 Radiography Diagnostic Testing: Radiology Impression Chest X-Ray 02/25/21 14:25 IMPRESSION: Cardiomegaly and CHF. Electronically Signed: Fran Krause MD at 14:48 EDT , Service support , Physical Exam Narrative Physical exam: General: Alert, Oriented x3, Cooperative, in mild respiratory distress, morbidly obese HEENT: Atraumatic Oral: Moist Mucosa Neck: Supple Lungs: Clear to auscultation Cardiovascular: HS I+II, regular, no murmurs Abdomen: Bowel Sounds Present, Soft, Non Tender Extremities: No edema Assessment & Plan Assessment/Plan (1) Acute respiratory failure with hypoxia: (2) COVID-19: (3) ISAURA (acute kidney injury): (4) Leukopenia: QUALIFIERS: Leukopenia type: unspecified Qualified Code(s): D72.819 - Decreased white blood cell count, unspecified PLAN: 1. Acute hypoxic respiratory failure secondary to COVID-19 pneumonia Patient is on 6L oxygen Symptoms started on 02/22/21 Not a candidate for remdesivir Continue on Decadron 2. ISAURA on CKD stage IIIb, baseline serum creatinine appears to be 1.8-2.2 Cr today is 3.11 Will trend 3. Pulmonary hypertension/ANDERSON/obesity-ventilation syndrome Continue on home BiPAP at bedtime and for naps, breathing treatments, treprostinil 4. Heart failure with preserved ejection fraction, not in acute exacerbation 5. Rest of chronic medical conditions including type II DM, hypertension, hyperlipidemia, GERD remained stable Home meds reviewed Charges/Coding Visit Charges Inpatient E&M: 72778 Subs Hosp L2
[2021-02-26] MEDS: Ferrous Sulfate 325 MG Tablet PO (12:45)
--- NOTE | 2021-02-26 12:59 | CON.PCM.CC_ITS ---
Assessment & Plan Assessment/Plan (1) Acute respiratory failure with hypoxia: (2) COVID-19: (3) Acute on chronic diastolic (congestive) heart failure: (4) Diabetes, type 1.5, uncontrolled, managed as type 1: (5) Obstructive sleep apnea of adult: PLAN: RECOMMENDATIONS: 1. Obtain old records from Dr. Murray's office 2. Continue prostaglandin therapy 3. Will likely need initiation of diuresis in the near future 4. Not a candidate for baricitinib or Remdesivir given renal function 5. Not a candidate for monoclonal antibody given need for supplemental oxygen 6. Confirmed DNR Comfort Care arrest without intubation IMPRESSIONS: 1. Acute hypoxic respiratory failure secondary to COVID-19 It is unclear if patient has been vaccinated by history alone. Patient may have received [employer], but is pretty clear that he is only had 1 dose. Patient with significant supplemental oxygen requirements at this time a nd is relatively early in the course of the disease by his report. Patient is clear that he would not want to be intubated, but does have high risk for need of Airvo versus BiPAP. Patient also has multiple complicating factors worsening prognosis. Agree with checking sputum culture. BiPAP with sleep and avoidance of high pulmonary artery pressures secondary to hypoxia will be vital. Encourage incentive spirometer, prone positioning and Acapella. 2. PAH/ANDERSON/OHS/COPD Obtain old records from Dr. Murray's office. Patient is on prostaglandin therapy. This will have to be continued. Patient may need diuretics in the near future. Patient has significant lower extremity edema. Significant right- sided changes have been reported in the past with preserved left function. Patient will be preload dependent from a cardiac standpoint. Avoidance of hypoxemia will be vital to avoid a pulmonary hypertensive crisis with acute worsening in overall condition. Continue with anticoagulation. 3. Acute kidney injury on CKD stage IIIb Unclear etiology. Patient may have a prerenal etiology from both being volume depleted or from poor RV function. Both can result in a prerenal etiology. Monitor renal function for another 24 hours, but if not improving, nephrology should be included in the care team. 4. Chronic diastolic congestive heart failure/hypertension/hyperlipidemia/diabetes mellitus type 2/GERD/morbid obesity Complicates care, management, recovery and prognosis. Patient with a very tenuous cardiac status. Patient will likely have significant hyperglycemia with the addition of Decadron therapy. May need to increase insulin dosing. Okay to continue with statin and beta-blockers from a pulmonary perspective. HPI Consult Data Date of Consult: 02/26/21 HPI Narrative HPI Narrative: REGGIE MOHR is a 75 M, with past medical history listed below, who presents to [facility] on 02/25/2021 secondary to 3 days of progressive shortness of breath. Patient reportedly resides in a long-term and started having symptoms, so was tested for COVID-19 and came back positive on the day of presentation. Patient does not normally wear oxygen at baseline except for sleep. Patient's weight had actually gone down secondary to anorexia. Patient had complained of shortness of breath without chest pain. No fever, chills or body aches have been reported. Patient reportedly does see Dr. Murray at baseline for pulmonary hypertension and ANDERSON. In the ER, patient was afebrile, tachypneic and requiring 6 L nasal cannula to maintain saturations. Laboratory work-up showed pancytopenia with a white blood cell count of 4 and hemoglobin of 9.5. Coagulation studies were within normal limits. Patient did have an elevated BUN and creatinine of 50 and 2.99. Liver studies were within normal limits. Lactate was normal and BNP was slightly elevated the 269. Chest x-ray showed cardiomegaly with bilateral infiltrates. Given patient's new oxygen need and positive Covid testing, the patient was admitted to the PCU for further evaluation. Patient is unclear on his past medical history, but does state that he was vaccinated. Patient was placed on Decadron, supplemental oxygen and admitted to the floor. On my evaluation, patient stated that he was slightly improved compared to previous. Patient states he does have pulmonary hypertension and was initiated on Orenitram approximately 6 months ago. Patient had reported GI symptoms initially, but was tolerating it well at this time. Patient is on anticoagulation at baseline. Patient does have significant cardiac issues also. Patient states he has had some lower extremity edema, but is unclear if this is significantly worse compared to previous. Patient states he does not use supplemental oxygen during the day, but does believe it into his BiPAP. Patient is a relatively poor historian, but review of systems otherwise negative from a constitutional, HEENT, respiratory, cardiovascular, GI, genitourinary, musculoskeletal, skin, neurologic, psychiatric and hematologic system unless stated above. [facility] Medical History (Updated 02/25/21 @ 18:[address] Anastacia Rizvi, DO) Abnormal stress test Acute on chronic diastolic (congestive) heart failure Cellulitis of left lower extremity Chronic diastolic (congestive) heart failure Chronic kidney disease, stage 3 (moderate) Diabetes, type 1.5, uncontrolled, managed as type 1 Edema, lower extremity Essential hypertension Exertional dyspnea Failure to thrive Hypoglycemia due to insulin Ischemic stroke (08/20/18) Kidney stones half-way (current) use of anticoagulants Moderate to severe pulmonary hypertension Morbid obesity with body mass index of 50.0-59.9 in adult Obstructive sleep apnea of adult Paroxysmal atrial fibrillation Pure hypercholesterolemia Recent cerebrovascular accident (CVA) Severe concentric left ventricular hypertrophy Stasis dermatitis Tubulovillous adenoma polyp of colon Venous insufficiency Home Medications atorvastatin 80 mg tablet 80 mg PO DAILY 09/19/18 [History Last Taken 02/25/21] carvedilol 12.5 mg tablet 12.5 mg PO DAILY 09/19/18 [History Last Taken 02/25/21] mirabegron 25 mg tablet,extended release 24 hr 25 mg PO DAILY 10/31/18 [History Last Taken 02/25/21] amlodipine 10 mg PO DAILY 05/15/19 [History Last Taken 02/25/21] fluticasone furoate 200 mcg INHALATION DAILY 04/01/20 [History Last Taken Unknown] aspirin 81 mg tablet,delayed release 81 mg PO DAILY 06/03/20 [History Last Taken 02/25/21] acetaminophen 650 mg PO Q6H PRN PRN tablet 06/20/20 [Rx Last Taken Unknown] oxycodone 5 mg PO QHS 07/29/20 [History Last Taken Unknown] Orenitram 3.75 mg PO Q8H 12/10/20 [History Last Taken 02/25/21] apixaban 2.5 mg PO BID 12/10/20 [History Last Taken Unknown] ferrous sulfate 325 mg PO DAILY 12/10/20 [History Last Taken Unknown] melatonin 5 mg PO QHS 12/10/20 [History Last Taken Unknown] pantoprazole 40 mg PO BID 12/10/20 [History Last Taken Unknown] potassium chloride 20 meq PO DAILY 12/10/20 [History Last Taken Unknown] albuterol sulfate 2.5 mg INHALATION Q2H PRN PRN 02/25/21 [History Last Taken Unknown] azelastine 1 spray INTRANASAL BID 02/25/21 [History Last Taken 02/25/21] furosemide 80 mg PO DAILY 02/25/21 [History Last Taken 02/25/21] glipizide 10 mg PO BIDCM 02/25/21 [History Last Taken 02/25/21] hydralazine 50 mg PO Q8H 02/25/21 [History Last Taken 02/25/21] insulin glargine [Lantus Solostar U-100 Insulin] 60 unit SUBCUT DAILY 02/25/21 [History Last Taken 02/25/21] omeprazole 40 mg PO DAILY 02/25/21 [History Last Taken Unknown] Allergy/AdvReac Type Severity Reaction Status Date / Time No Known Allergies Allergy Verified 02/25/21 13:25 Family History Father Colon cancer Mother Heart disease Surgical History History of cardioversion (08/23/15) History of right and left heart catheterization (~06/18/20) History of right heart catheterization (05/19/13) Social History (Updated 02/25/21 @ 18:[address] Anastacia Rizvi DO) Smoking Status: Former smoker alcohol intake: former substance use type: does not use caffeine: No what type of physical activity do you participate in: none frequency: does not exercise seatbelt use: always ROS ROS Narrative See HPI Physical Exam Const alert, oriented x3 and no apparent distress General Appearance: cooperative Nutritional Appearance: morbidly obese HEENT normocephalic, head/scalp atraumatic and moist oral mucous membranes HEENT Narrative: Dentition is fair, Mallampati is 3, no thrush is noted Eyes PERRL, EOMs intact bilaterally and conjunctivae normal Eyes Narrative: No scleral icterus Neck no lymphadenopathy, supple, no JVD and no carotid bruits Resp no retractions and no use of accessory muscles Auscultation: diminished lung sounds; Negative for rales, rhonchi or wheezes Cardio regular rate, regular rhythm, S1 normal heart sound, S2 normal heart sound, no murmurs, no rub, no gallops, no clicks and no JVD Cardio Narrative: Distant heart tones secondary to body habitus GI normal to inspection, nondistended, normoactive bowel sounds, soft to palpation, non-tender and non-distended Extremity General Extremity: edema bilateral (lymphedema) Peripheral Pulses: Yes pulses 2+ throughout Skin General Skin Exam: lichenification and venous stasis Neuro oriented x3, CN's II-XII intact bilaterally, moves all extremities and no focal motor deficits Neuro Narrative: Marked generalized weakness Sensorium / Orientation: awake and alert Speech: speech normal Psych mental status grossly normal and thought process normal Lab / Micro Data Result Diagrams: 02/26/21 06:42 02/26/21 06:42 Labs: Laboratory Results - last 24 hr 02/25/21 14:10: WBC 4.0 L, RBC 4.33 L, Hgb 9.5 L, Hct 30.8 L, MCV 71.1 L, MCH 21.9 L, MCHC 30.8 L, RDW Std Deviation 47.8 H, RDW Coeff of Jun 18.6 H, Plt Count 155, MPV 9.0, Immature Gran % (Auto) 0.500, Neut % (Auto) 85.2 H, Lymph % (Auto) 8.0 L, [place] % (Auto) 6.0, Eos % (Auto) 0.0, Baso % (Auto) 0.3, Absolute Neuts (auto) 3.4, Absolute Lymphs (auto) 0.32 L, Nucleated RBC % 0, Differential Comment SCANNED, Diff Path Review August02/25/21 14:10: PT 13.9, INR 1.1, APTT 43.9 H 02/25/21 14:10: Sodium 134 L, Potassium 4.2, Chloride 99, Carbon Dioxide 23.0, Anion Gap 12, BUN 50 H, Creatinine 2.99 H, Estim Creat Clear Calc 22.38, Est GFR (MDRD) Af Amer 27 L, Est GFR (MDRD) Non-Af 22 L, BUN/Creatinine Ratio 16.7, Glucose 197 H, Calcium 7.7 L, Total Bilirubin 0.60, AST 48 H, ALT 26, Alkaline Phosphatase 66, Troponin I High Sens 35, Total Protein 8.0, Albumin 2.9 L, Globulin 5.1 H, Albumin/Globulin Ratio 0.6 L 02/25/21 14:10: Lactic Acid 1.2 02/25/21 14:10: B-Natriuretic Peptide 269.2 H 02/25/21 18:50: Troponin I High Sens 38 02/25/21 20:37: POC Glucose 253 H 02/25/21 20:40: Troponin I High Sens 35 02/26/21 06:18: POC Glucose 185 H 02/26/21 06:42: WBC 3.0 L, RBC 4.42 L, Hgb 9.4 L, Hct 31.6 L, MCV 71.5 L, MCH 21.3 L, MCHC 29.7 L, RDW Std Deviation 47.9 H, RDW Coeff of Jun 18.4 H, Plt Count 145 L, MPV 9.0, Immature Gran % (Auto) 0.300, Neut % (Auto) 80.1 H, Lymph % (Auto) 12.0 L, [place] % (Auto) 7.6, Eos % (Auto) 0.0, Baso % (Auto) 0.0, Absolute Neuts (auto) 2.4, Absolute Lymphs (auto) 0.36 L, Nucleated RBC % 0, Diff Path Review August02/26/21 06:42: Sodium 133 L, Potassium 3.9, Chloride 100, Carbon Dioxide 21.0, Anion Gap 12, BUN 58 H, Creatinine 3.11 H, Estim Creat Clear Calc 21.52, Est GFR (MDRD) Af Amer 25 L, Est GFR (MDRD) Non-Af 21 L, BUN/Creatinine Ratio 18.6, Glucose 185 H, Calcium 7.7 L, Phosphorus 5.3 H, Magnesium 2.4, Total Bilirubin 0.80, AST 40 H, ALT 22, Alkaline Phosphatase 63, Total Protein 7.7, Albumin 2.6 L, Globulin 5.1 H, Albumin/Globulin Ratio 0.5 L, TSH 1.19 Radiology Impression Chest X-Ray 02/25/21 14:25 IMPRESSION: Cardiomegaly and CHF. Electronically Signed: Fran Krause MD at 14:48 EDT , Service support , Charges/Coding Visit Charges Inpatient E&M: 32699 Init Hosp L3
[2021-02-26 13:25] LABS: Pathologist Review Reviewed
[2021-02-26 13:28] LABS: Pathologist Review Reviewed
--- NOTE | 2021-02-26 14:56 | CASEMGMT ---
Patient is from [facility]. REBECA faxed updates to [facility]. REBECA also called Julián at [facility] and he is aware patient is COVID positive as they are the ones that tested him. REBECA will keep Julián updated. REBECA called [facility] and spoke with the coverage line. Brenda Romero is normally patient's lining caser. However, Brenda is out on extended leave. Prabha Rowan is the covering lining caser. Plan: d/c back to [facility] unless patient will end up requiring skilled care on the SNF side.
[2021-02-26] MEDS: Carvedilol 12.5 MG Tablet PO (15:18)
[2021-02-26 15:30] LABS: Bedside Glucose 197 mg/dL (70-110)
[2021-02-26 17:31] LABS: D-Dimer Quantitative (DVT/PE) 3.33 FEU/ug/m (0.27-0.49)
[2021-02-26 18:40] LABS: Bedside Glucose 248 mg/dL (70-110)
[2021-02-26] MEDS: oxyCODONE 5 MG Tablet PO (19:59)
[2021-02-26] MEDS: 0.9% Normal Saline 1,000 ML 100 ML IV (19:59)
[2021-02-26] MEDS: MELATONIN 10 MG TABLET 5 MG PO (19:59)
[2021-02-26] MEDS: 0.9% Saline Lock 10 ML Syringe IV (20:00)
--- NOTE | 2021-02-26 20:12 | NURSING ---
evening medications given early per pt request.
[2021-02-26 21:36] LABS: Bedside Glucose 273 mg/dL (70-110)
[2021-02-27] VITALS (17 sets, daily range): BP systolic 99–127; BP diastolic 56–67; PULSE 60–80; RESP 12–20; TEMP 36.3–36.8; O2SAT 92–96
[2021-02-27 00:35] LABS: Mucous, Urine 0 SEEN /hpf (<or=2+); Squamous Epithelial Cells - UA 0 SEEN /hpf (0-5); White Blood Cells 0 SEEN /hpf (0-5)
[2021-02-27 00:37] LABS: Color, Urine Yellow (Yellow); Glucose, Dipstick Normal (Normal); Ketone-Dipstick Negative (Negative); Leukocyte Esterase-Dipstick Negative /ul (Negative); Nitrite-Dipstick Negative (Negative); Occult Blood-Urine 50 /ul (Negative); Protein-Dipstick 30 mg/dl (Negative); Specific Gravity, Urine 1.025 (1.002-1.030); Urine Bilirubin Dipstick Negative (Negative); Urine Clarity Clear (Clear); Urine Urobilinogen Normal (Normal)
--- NOTE | 2021-02-27 00:43 | NURSING ---
attempted to bladder scan pt without success. pt walked to BR with assist of this RN and attempted to urinate. After about 20 min being unsuccessful, pt walked back to chair. RN contacted Ac VILLAGOMEZ who authorized RN to straight cath pt. Successful straight cath by this RN. Only 350ml of urine returned. Urine specimen sent. Pt states he will never do that again. When explained that a cath may have to be used again if pt is unable to urinate on his own, pt states he would refuse. Ac VILLAGOMEZ notified.
[2021-02-27 00:49] LABS: Bacteria 2+ /hpf (None Seen); Hyaline Cast 10-25 SEEN /lpf (0-5); Red Blood Cells-Urine 10-25 SEEN /hpf (0-5)
[2021-02-27] MEDS: Insulin Lispro 100 UNIT/ML INSULN.PEN SC ×3 (06:08→16:15)
[2021-02-27] MEDS: hydrALAZINE 50 MG Tablet PO ×3 (06:09→20:05)
[2021-02-27 06:26] LABS: Bedside Glucose 228 mg/dL (70-110)
[2021-02-27 07:20] LABS: Absolute Lymphocyte Count 0.29 X10^3/uL (0.83-4.51); Absolute Neutrophil Count 2.7 X10^3/uL (2.0-7.7); Hematocrit 31.9 % (40-54); Hemoglobin 9.8 g/dL (13.0-16.5); Lymphocyte # 0.29 X10^3/ul (0.83-4.51); Lymphocyte % 9.2 % (19-41); Mean Corp Hgb Conc 30.7 g/dL (32-36); Mean Corpuscular Hgb 21.7 pg (27.0-32.0); Mean Corpuscular Volume 70.6 fL (80-94); Mean Platelet Vol. 10.3 fl (6.2-12.0); Monocyte# 0.19 X10^3/uL; NRBC Flagged by Analyzer 0 % (0-5); Neutrophil # 2.65 X10^3/uL (2.7-7.7); Neutrophil % 84.2 % (47-70); POSITIVE DIFFERENTIAL YES; Platelet Count 169 K/mm3 (150-450); RBC Distribution Width CV 18.3 % (11.6-14.6); RBC Distribution Width SD 46.6 fl (35.1-43.9); Red Blood Count 4.52 M/mm3 (4.6-6.2); White Blood Count 3.2 K/mm3 (4.4-11.0)
[2021-02-27 07:31] LABS: Differential Indicated SCAN CRITERIA MET
[2021-02-27 07:54] LABS: ALB/GLOB Ratio 0.5 RATIO (0.9-2.4); AST(SGOT) 38 U/L (15-37); Alanine Aminotransfer ALT/SGPT 20 U/L (16-61); Albumin, Serum 2.6 g/dL (3.2-5.0); Alkaline Phosphatase 65 U/L (45-117); Anion Gap 12 (5-15); BUN 73 mg/dL (7-18); BUN/Creat Ratio 20.4 RATIO (10-20); Calcium,Total 7.8 mg/dL (8.5-10.1); Chloride 99 mmol/L (98-107); Creatinine, Serum 3.57 mg/dL (0.70-1.30); EST Glomerular Filtration Rate 18 mL/min (>60); Est Glom Filt Rate - Afr Amer 22 mL/min (>60); Estimated Creatinine Clearance 18.74 ml/min; Glucose 246 mg/dL (74-106); Potassium 3.9 mmol/L (3.5-5.1); Protein, Total 7.6 g/dL (6.4-8.2); Sodium Level 131 mmol/L (136-145)
[2021-02-27 08:26] LABS: Differential Comment SCANNED; Reactive Lymphocyte 1+
--- NOTE | 2021-02-27 08:53 | PCM.PN.INT ---
Assessment & Plan Assessment/Plan (1) Acute respiratory failure with hypoxia: (2) COVID-19: (3) Acute on chronic diastolic (congestive) heart failure: (4) Diabetes, type 1.5, uncontrolled, managed as type 1: (5) Obstructive sleep apnea of adult: PLAN: RECOMMENDATIONS: 1. Obtain old records from Dr. Murray's office 2. Continue prostaglandin therapy 3. Will likely need initiation of diuresis in the near future 4. Not a candidate for baricitinib or Remdesivir given renal function 5. Challenge with diuretics, BMP this afternoon 6. Confirmed DNR Comfort Care arrest without intubation IMPRESSIONS: 1. Acute hypoxic respiratory failure secondary to COVID-19 It is unclear if patient has been vaccinated by history alone. Patient may have received Hermilo & Hermilo, but is pretty clear that he is only had 1 dose. Patient with significant supplemental oxygen requirements at this time and is relatively early in the course of the disease by his report. Patient is clear that he would not want to be intubated, but does have high risk for need of Airvo versus BiPAP. Patient also has multiple complicating factors worsening prognosis. Cultures appear to be negative to this point. BiPAP with sleep and avoidance of high pulmonary artery pressures secondary to hypoxia will be vital. Encourage incentive spirometer, prone positioning and Acapella. Patient has not been overly compliant with recommendations. 2. PAH/ANDERSON/OHS/COPD Obtain old records from Dr. Murray's office. Patient is on prostaglandin therapy. This will have to be continued. Patient may need diuretics in the near future. Patient has significant lower extremity edema. Significant right-sided changes have been reported in the past with preserved left function. Patient will be preload dependent from a cardiac standpoint. Continue with anticoagulation. Will give patient a diuretic challenge today. 3. Acute kidney injury on CKD stage IIIb Unclear etiology. Patient may have a prerenal etiology from both being volume depleted or from poor RV function. Both can result in a prerenal etiology. Patient will receive a diuretic challenge today. If patient is overloaded and off [place] forces, creatinine should improve. If not improved, recommend nephrology consult. Repeat BMP this afternoon. 4. Chronic diastolic congestive heart failure/hypertension/hyperlipidemia/diabetes mellitus type 2/GERD/morbid obesity Complicates care, management, recovery and prognosis. Patient with a very tenuous cardiac status. Patient will likely have significant hyperglycemia with the addition of Decadron therapy. May need to increase insulin dosing. Okay to continue with statin and beta-blockers from a pulmonary perspective. Subjective Subjective Patient overall feels subjectively unchanged compared to previous. Patient continues to have significant coughing during the day. No hemoptysis is been reported. Patient does have significant lower extremity edema with a tense sensation. Objective Data Objective Data Vital Signs: Vital Signs Temp Pulse Resp BP Pulse Ox 36.8 C 69 18 99/62 92 02/27/21 06:16 02/27/21 06:16 02/27/21 06:16 02/27/21 06:16 02/27/21 07:50 Oxygen Flow Rate (L/min) 6 Oxygen Delivery Method Nasal Cannula Weight: 154.8 kg Body Mass Index (BMI) 48.9 Intake & Output: Intake and Output for Last 24 Hours 02/25/21 02/26/21 02/27/21 23:59 23:59 23:59 Intake Total 660 / 660 1700 / 1700 Output Total 300 / 300 600 / 600 350 / 350 Balance -300 / -300 60 / 60 1350 / 1350 Lab / Micro Data Result Diagrams: 02/27/21 06:30 02/27/21 06:30 Labs: Laboratory Results - last 24 hr 02/25/21 14:10: Diff Path Review Reviewed 02/26/21 06:42: Diff Path Review Reviewed 02/26/21 12:38: POC Glucose 197 H 02/26/21 16:50: D-Dimer Quant (PE/DVT) 3.33 H* 02/26/21 17:53: POC Glucose 248 H 02/26/21 19:57: POC Glucose 273 H 02/27/21 00:27: Urine Color Yellow, Urine Clarity Clear, Urine pH 5.0, Ur Specific [place] 1.025, Urine Protein 30 H, Urine Glucose (UA) Normal, Urine Ketones Negative, Urine Occult Blood 50 H, Urine Nitrite Negative, Urine Bilirubin Negative, Urine Urobilinogen Normal, Ur Leukocyte Esterase Negative, Urine RBC 10-25 SEEN, Urine WBC 0 SEEN, Ur Squamous Epith Cells 0 SEEN, Urine Bacteria 2+, Hyaline Casts 10-25 SEEN, Urine Mucus 0 SEEN 02/27/21 06:07: POC Glucose 228 H 02/27/21 06:30: WBC 3.2 L, RBC 4.52 L, Hgb 9.8 L, Hct 31.9 L, MCV 70.6 L, MCH 21.7 L, MCHC 30.7 L, RDW Std Deviation 46.6 H, RDW Coeff of Jun 18.3 H, Plt Count 169, MPV 10.3, Immature Gran % (Auto) 0.600, Neut % (Auto) 84.2 H, Lymph % (Auto) 9.2 L, [place] % (Auto) 6.0, Eos % (Auto) 0.0, Baso % (Auto) 0.0, Absolute Neuts (auto) 2.7, Absolute Lymphs (auto) 0.29 L, Nucleated RBC % 0, Differential Comment SCANNED, Diff Path Review August, Reactive Lymphocytes 1+ 02/27/21 06:30: Sodium 131 L, Potassium 3.9, Chloride 99, Carbon Dioxide 20.0 L, Anion Gap 12, BUN 73 H, Creatinine 3.57 H, Estim Creat Clear Calc 18.74, Est GFR (MDRD) Af Amer 22 L, Est GFR (MDRD) Non-Af 18 L, BUN/Creatinine Ratio 20.4 H, Glucose 246 H, Calcium 7.8 L, Total Bilirubin 0.70, AST 38 H, ALT 20, Alkaline Phosphatase 65, Total Protein 7.6, Albumin 2.6 L, Globulin 5.0 H, Albumin/Globulin Ratio 0.5 L Micro: Microbiology 02/25/21 14:26 Blood Culture (Wb) - Left Hand Blood Culture - Preliminary No growth in 48 hours. 02/25/21 14:10 Blood Culture (Wb) - Anticubital Left Blood Culture - Preliminary No growth in 48 hours. Physical Exam Const alert, oriented x3 and no apparent distress General Appearance: cooperative Nutritional Appearance: morbidly obese HEENT normocephalic, head/scalp atraumatic and moist oral mucous membranes HEENT Narrative: Dentition is fair, Mallampati is 3, no thrush is noted Eyes PERRL, EOMs intact bilaterally and conjunctivae normal Eyes Narrative: No scleral icterus Neck no lymphadenopathy, supple, no JVD and no carotid bruits Resp no retractions and no use of accessory muscles Auscultation: diminished lung sounds; Negative for rales, rhonchi or wheezes Cardio regular rate, regular rhythm, S1 normal heart sound, S2 normal heart sound, no murmurs, no rub, no gallops, no clicks and no JVD Cardio Narrative: Distant heart tones secondary to body habitus GI normal to inspection, nondistended, normoactive bowel sounds, soft to palpation, non-tender and non-distended Extremity General Extremity: edema bilateral (lymphedema) Peripheral Pulses: Yes pulses 2+ throughout Skin General Skin Exam: lichenification and venous stasis Neuro oriented x3, CN's II-XII intact bilaterally, moves all extremities and no focal motor deficits Neuro Narrative: Marked generalized weakness Sensorium / Orientation: awake and alert Speech: speech normal Psych mental status grossly normal and thought process normal Charges/Coding Visit Charges Inpatient E&M: 16118 Subs Hosp L3
[2021-02-27] MEDS: Mirabegron 25 MG TAB.ER.24H PO (09:10)
[2021-02-27] MEDS: Carvedilol 12.5 MG Tablet PO (09:10)
[2021-02-27] MEDS: guaiFENesin 1,200 MG Tablet 1200 MG PO ×2 (09:10→20:05)
[2021-02-27] MEDS: dexAMETHasone 4 MG Tablet 6 MG PO (09:10)
[2021-02-27] MEDS: Aspirin E.C. 81 MG Tablet PO (09:10)
[2021-02-27] MEDS: amLODIPine 10 MG Tablet PO (09:10)
[2021-02-27] MEDS: Atorvastatin Calcium 80 MG Tablet PO (09:10)
[2021-02-27] MEDS: Pantoprazole Sodium 40 MG Tablet PO ×2 (09:10→20:05)
[2021-02-27] MEDS: Furosemide 40 MG/4 ML Vial IV (09:14)
[2021-02-27] MEDS: Azelastine HCl NASAL.SRY 1 SPRAY NASAL ×2 (09:14→20:05)
[2021-02-27] MEDS: Benzonatate 100 MG Capsule PO (09:18)
[2021-02-27] MEDS: APIXABAN 5 MG TABLET PO ×2 (09:54→20:05)
--- NOTE | 2021-02-27 10:42 | PCM.PN.HOSP ---
Subjective Subjective Follow-up on acute hypoxic respiratory failure secondary to acute COVID-19 pneumonia Patient was seen and examined. He had poor urine output yesterday. Bladder scan showed less than 3 mls. He stated that he does not feel any improvement; feels the same. Admits to feeling depressed. He does not want anything and he wants to be left alone. Objective Data Objective Data Vital Signs: Vital Signs Temp Pulse Resp BP Pulse Ox 97.6 F L 76 16 127/62 H 92 02/27/21 09:06 02/27/21 09:06 02/27/21 09:06 02/27/21 09:06 02/27/21 09:06 Oxygen Flow Rate (L/min) 6 Oxygen Delivery Method Nasal Cannula Weight: 154.8 kg Body Mass Index (BMI) 48.9 Intake & Output: Intake and Output for Last 24 Hours 02/25/21 02/26/21 02/27/21 23:59 23:59 23:59 Intake Total 660 / 660 1700 / 1700 Output Total 300 / 300 600 / 600 350 / 350 Balance -300 / -300 60 / 60 1350 / 1350 Lab / Micro Data Result Diagrams: 02/27/21 06:30 02/27/21 06:30 Labs: Laboratory Results - last 24 hr 02/25/21 14:10: Diff Path Review Reviewed 02/26/21 06:42: Diff Path Review Reviewed 02/26/21 12:38: POC Glucose 197 H 02/26/21 16:50: D-Dimer Quant (PE/DVT) 3.33 H* 02/26/21 17:53: POC Glucose 248 H 02/26/21 19:57: POC Glucose 273 H 02/27/21 00:27: Urine Color Yellow, Urine Clarity Clear, Urine pH 5.0, Ur Specific [place] 1.025, Urine Protein 30 H, Urine Glucose (UA) Normal, Urine Ketones Negative, Urine Occult Blood 50 H, Urine Nitrite Negative, Urine Bilirubin Negative, Urine Urobilinogen Normal, Ur Leukocyte Esterase Negative, Urine RBC 10-25 SEEN, Urine WBC 0 SEEN, Ur Squamous Epith Cells 0 SEEN, Urine Bacteria 2+, Hyaline Casts 10-25 SEEN, Urine Mucus 0 SEEN 02/27/21 06:07: POC Glucose 228 H 02/27/21 06:30: WBC 3.2 L, RBC 4.52 L, Hgb 9.8 L, Hct 31.9 L, MCV 70.6 L, MCH 21.7 L, MCHC 30.7 L, RDW Std Deviation 46.6 H, RDW Coeff of Jun 18.3 H, Plt Count 169, MPV 10.3, Immature Gran % (Auto) 0.600, Neut % (Auto) 84.2 H, Lymph % (Auto) 9.2 L, [place] % (Auto) 6.0, Eos % (Auto) 0.0, Baso % (Auto) 0.0, Absolute Neuts (auto) 2.7, Absolute Lymphs (auto) 0.29 L, Nucleated RBC % 0, Differential Comment SCANNED, Diff Path Review August, Reactive Lymphocytes 1+ 02/27/21 06:30: Sodium 131 L, Potassium 3.9, Chloride 99, Carbon Dioxide 20.0 L, Anion Gap 12, BUN 73 H, Creatinine 3.57 H, Estim Creat Clear Calc 18.74, Est GFR (MDRD) Af Amer 22 L, Est GFR (MDRD) Non-Af 18 L, BUN/Creatinine Ratio 20.4 H, Glucose 246 H, Calcium 7.8 L, Total Bilirubin 0.70, AST 38 H, ALT 20, Alkaline Phosphatase 65, Total Protein 7.6, Albumin 2.6 L, Globulin 5.0 H, Albumin/Globulin Ratio 0.5 L Micro: Microbiology 02/27/21 00:27 Urine, Random Urine Culture - Preliminary Culture exhibits no growth. 02/25/21 14:26 Blood Culture (Wb) - Left Hand Blood Culture - Preliminary No growth in 48 hours. 02/25/21 14:10 Blood Culture (Wb) - Anticubital Left Blood Culture - Preliminary No growth in 48 hours. Physical Exam Narrative Physical exam: General: Alert, Oriented x3, Cooperative, in mild respiratory distress, morbidly obese HEENT: Atraumatic Oral: Moist Mucosa Neck: Supple Lungs: Clear to auscultation Cardiovascular: HS I+II, regular, no murmurs Abdomen: Bowel Sounds Present, Soft, Non Tender Extremities: Bilateral +2-3 pedal edema with chronic venous stasis changes Assessment & Plan Assessment/Plan (1) Acute respiratory failure with hypoxia: (2) COVID-19: (3) ISAURA (acute kidney injury): (4) Leukopenia: QUALIFIERS: Leukopenia type: unspecified Qualified Code(s): D72.819 - Decreased white blood cell count, unspecified PLAN: 1. Acute hypoxic respiratory failure secondary to COVID-19 pneumonia Patient remains on on 6L oxygen Symptoms started on 02/22/21 Not a candidate for remdesivir Continue on Decadron 2. ISAURA on CKD stage IIIb, baseline serum creatinine appears to be 1.8-2.2 Cr today is 3.57, nephrology consulted 3. Elevated D-dimer, 3.33, will increase Eliquis to 5 mg twice daily 4. Pulmonary hypertension/ANDERSON/obesity-ventilation syndrome Continue on home BiPAP at bedtime and for naps, breathing treatments, treprostinil 5. Heart failure with preserved ejection fraction, not in acute exacerbation 6. Type II DM, blood sugars uncontrolled, will increase Lantus to 74 units daily, continue with insulin sliding scale 7. Rest of chronic medical conditions including hypertension, hyperlipidemia, GERD remained stable Home meds reviewed Charges/Coding Visit Charges Inpatient E&M: 01930 Subs Hosp L2
[2021-02-27] MEDS: Ferrous Sulfate 325 MG Tablet PO (12:47)
[2021-02-27 13:27] LABS: Pathologist Review Reviewed
[2021-02-27 14:39] LABS: Anion Gap 11 (5-15); BUN 79 mg/dL (7-18); BUN/Creat Ratio 21.8 RATIO (10-20); Calcium,Total 7.7 mg/dL (8.5-10.1); Chloride 99 mmol/L (98-107); Creatinine, Serum 3.63 mg/dL (0.70-1.30); EST Glomerular Filtration Rate 18 mL/min (>60); Est Glom Filt Rate - Afr Amer 21 mL/min (>60); Estimated Creatinine Clearance 18.43 ml/min; Glucose 238 mg/dL (74-106); Sodium Level 132 mmol/L (136-145)
[2021-02-27 14:55] LABS: Bedside Glucose 214 mg/dL (70-110)
--- NOTE | 2021-02-27 16:04 | CON.PCM.RE_ITS ---
Assessment & Plan Assessment/Plan (1) ISAURA (acute kidney injury): (2) Chronic kidney disease, stage 3 (moderate): QUALIFIERS: Chronic kidney disease stage 3 subtype: unspecified whether 3a or 3b Qualified Code(s): N18.30 - Chronic kidney disease, stage 3 unspecified (3) COVID-19: (4) Acute respiratory failure with hypoxia: PLAN: Patient has ISAURA on CKD stage 3 (baseline creatinine ranging 1.7 to 2 mg/dL), likely ISAURA prerenal with recent Covid infection, hypotension, poor oral intake, decreased appetite. At this time there is no acute indication for [employer]. Acid-base acceptable. Potassium acceptable. Creatinine 2.99 mg/dL on admission and today creatinine is up to 3.6 mg/dL. Patient has received IV Lasix 40mg IV today but also received IV fluids last evening. Bladder scan yesterday showed only 3 mL however patient did have straight cath with 350 mL urine output. He refuses Todd. Encouraged patient to increase oral intake/fluids. He is eating ice. Blood pressures were on the low side, slight improvement this afternoon. He is on carvedilol, amlodipine and hydralazine. Will stop amlodipine and add holding parameters to the rest of his antihypertensives, allow for better renal perfusion. Though patient is still requiring O2, lung sounds are clear, would recommend no further diuretics at this time. Last chest x-ray showed evidence of vascular congestion with mild degree of CHF. Further orders forthcoming as hospitalization evolves. Thank you for allowing us to participate in the care of Mr. Chung. HPI Consult Data Date of Consult: 02/27/21 HPI Narrative HPI Narrative: REGGIE CHUGN, is a 75 M with past medical history significant for diabetes mellitus, hypertension, pulmonary hypertension, CKD stage III (followed by Dr. Rizvi), ANDERSON who presented to the emergency room with complaints of shortness of breath and was admitted for acute respiratory failure secondary to COVID-19 pneumonia. Patient was vaccinated with Hermilo & Hermilo. We were consulted for acute kidney injury. In reviewing past creatinine trends, patient has had elevated creatinine dating back to at least 2012 with baseline creatinine ranging 1.7 to 2 mg/dL. Patient has poor appetite. Complains of shortness of breath. [facility] Medical History (Updated 02/26/21 @ 16:[address] Fanta Yu MD) Abnormal stress test Acute on chronic diastolic (congestive) heart failure Cellulitis of left lower extremity Chronic diastolic (congestive) heart failure Chronic kidney disease, stage 3 (moderate) Diabetes, type 1.5, uncontrolled, managed as type 1 Edema, lower extremity Essential hypertension Exertional dyspnea Failure to thrive Hypoglycemia due to insulin Ischemic stroke (08/20/18) Kidney stones group home (current) use of anticoagulants Moderate to severe pulmonary hypertension Morbid obesity with body mass index of 50.0-59.9 in adult Obstructive sleep apnea of adult Paroxysmal atrial fibrillation Pure hypercholesterolemia Recent cerebrovascular accident (CVA) Severe concentric left ventricular hypertrophy Stasis dermatitis Tubulovillous adenoma polyp of colon Venous insufficiency Home Medications atorvastatin 80 mg tablet 80 mg PO DAILY 09/19/18 [History Last Taken 02/25/21] carvedilol 12.5 mg tablet 12.5 mg PO DAILY 09/19/18 [History Last Taken 02/25/21] mirabegron 25 mg tablet,extended release 24 hr 25 mg PO DAILY 10/31/18 [History Last Taken 02/25/21] amlodipine 10 mg PO DAILY 05/15/19 [History Last Taken 02/25/21] fluticasone furoate 200 mcg INHALATION DAILY 04/01/20 [History Last Taken Unknown] aspirin 81 mg tablet,delayed release 81 mg PO DAILY 06/03/20 [History Last Taken 02/25/21] acetaminophen 650 mg PO Q6H PRN PRN tablet 06/20/20 [Rx Last Taken Unknown] oxycodone 5 mg PO QHS 07/29/20 [History Last Taken Unknown] Orenitram 3.75 mg PO Q8H 12/10/20 [History Last Taken 02/25/21] apixaban 2.5 mg PO BID 12/10/20 [History Last Taken Unknown] ferrous sulfate 325 mg PO DAILY 12/10/20 [History Last Taken Unknown] melatonin 5 mg PO QHS 12/10/20 [History Last Taken Unknown] pantoprazole 40 mg PO BID 12/10/20 [History Last Taken Unknown] potassium chloride 20 meq PO DAILY 12/10/20 [History Last Taken Unknown] albuterol sulfate 2.5 mg INHALATION Q2H PRN PRN 02/25/21 [History Last Taken Unknown] azelastine 1 spray INTRANASAL BID 02/25/21 [History Last Taken 02/25/21] furosemide 80 mg PO DAILY 02/25/21 [History Last Taken 02/25/21] glipizide 10 mg PO BIDCM 02/25/21 [History Last Taken 02/25/21] hydralazine 50 mg PO Q8H 02/25/21 [History Last Taken 02/25/21] insulin glargine [Lantus Solostar U-100 Insulin] 60 unit SUBCUT DAILY 02/25/21 [ History Last Taken 02/25/21] omeprazole 40 mg PO DAILY 02/25/21 [History Last Taken Unknown] Allergy/AdvReac Type Severity Reaction Status Date / Time No Known Allergies Allergy Verified 02/25/21 13:25 Family History Father Colon cancer Mother Heart disease Surgical History History of cardioversion (08/23/15) History of right and left heart catheterization (~06/18/20) History of right heart catheterization (05/19/13) Social History (Updated 02/25/21 @ 18:[address] Anastacia Rizvi DO) Smoking Status: Former smoker alcohol intake: former substance use type: does not use caffeine: No what type of physical activity do you participate in: none frequency: does not exercise seatbelt use: always ROS ROS Narrative As in HPI and past medical history Physical Exam Narrative Constitutional: Alert and oriented x3 Oral: Moist, lips dry Respiratory: Clear anteriorly and posteriorly Extremities: 2+ pitting edema bilateral lower legs Lab / Micro Data Result Diagrams: 02/27/21 06:30 02/27/21 13:55 Labs: Laboratory Results - last 24 hr 02/26/21 16:50: D-Dimer Quant (PE/DVT) 3.33 H* 02/26/21 17:53: POC Glucose 248 H 02/26/21 19:57: POC Glucose 273 H 02/27/21 00:27: Urine Color Yellow, Urine Clarity Clear, Urine pH 5.0, Ur Specific [place] 1.025, Urine Protein 30 H, Urine Glucose (UA) Normal, Urine Ketones Negative, Urine Occult Blood 50 H, Urine Nitrite Negative, Urine Bilirubin Negative, Urine Urobilinogen Normal, Ur Leukocyte Esterase Negative, Urine RBC 10-25 SEEN, Urine WBC 0 SEEN, Ur Squamous Epith Cells 0 SEEN, Urine B acteria 2+, Hyaline Casts 10-25 SEEN, Urine Mucus 0 SEEN 02/27/21 06:07: POC Glucose 228 H 02/27/21 06:30: WBC 3.2 L, RBC 4.52 L, Hgb 9.8 L, Hct 31.9 L, MCV 70.6 L, MCH 21.7 L, MCHC 30.7 L, RDW Std Deviation 46.6 H, RDW Coeff of Jun 18.3 H, Plt Count 169, MPV 10.3, Immature Gran % (Auto) 0.600, Neut % (Auto) 84.2 H, Lymph % (Auto) 9.2 L, [place] % (Auto) 6.0, Eos % (Auto) 0.0, Baso % (Auto) 0.0, Absolute Neuts (auto) 2.7, Absolute Lymphs (auto) 0.29 L, Nucleated RBC % 0, Differential Comment SCANNED, Diff Path Review Reviewed, Reactive Lymphocytes 1+ 02/27/21 06:30: Sodium 131 L, Potassium 3.9, Chloride 99, Carbon Dioxide 20.0 L, Anion Gap 12, BUN 73 H, Creatinine 3.57 H, Estim Creat Clear Calc 18.74, Est GFR (MDRD) Af Amer 22 L, Est GFR (MDRD) Non-Af 18 L, BUN/Creatinine Ratio 20.4 H, Glucose 246 H, Calcium 7.8 L, Total Bilirubin 0.70, AST 38 H, ALT 20, Alkaline Phosphatase 65, Total Protein 7.6, Albumin 2.6 L, Globulin 5.0 H, Album in/Globulin Ratio 0.5 L 02/27/21 12:53: POC Glucose 214 H 02/27/21 13:55: Sodium 132 L, Potassium 4.0, Chloride 99, Carbon Dioxide 22.0, Anion Gap 11, BUN 79 H, Creatinine 3.63 H, Estim Creat Clear Calc 18.43, Est GFR (MDRD) Af Amer 21 L, Est GFR (MDRD) Non-Af 18 L, BUN/Creatinine Ratio 21.8 H, Glucose 238 H, Calcium 7.7 L Micro: Microbiology 02/27/21 00:27 Urine, Random Urine Culture - Preliminary Culture exhibits no growth. 02/25/21 14:26 Blood Culture (Wb) - Left Hand Blood Culture - Preliminary No growth in 48 hours. 02/25/21 14:10 Blood Culture (Wb) - Anticubital Left Blood Culture - Prelimi nary No growth in 48 hours.
[2021-02-27 16:26] LABS: Bedside Glucose 217 mg/dL (70-110)
[2021-02-27] MEDS: oxyCODONE 5 MG Tablet PO (18:55)
[2021-02-27] MEDS: 0.9% Normal Saline 1,000 ML 100 ML IV (18:57)
[2021-02-27] MEDS: MELATONIN 10 MG TABLET 5 MG PO (20:05)
[2021-02-27 20:21] LABS: Bedside Glucose 236 mg/dL (70-110)
--- NOTE | 2021-02-27 21:50 | NURSING ---
pt adamant about RN not taking VS in middle of the night when the are due to be checked again. VS will be checked in AM with morning medication pass.
[2021-02-28] VITALS (25 sets, daily range): BP systolic 111–155; BP diastolic 57–101; PULSE 67–87; RESP 12–25; TEMP 36.4–37.1; O2SAT 83–96
[2021-02-28] MEDS: 0.9% Normal Saline 1,000 ML 100 ML IV (05:39)
[2021-02-28] MEDS: Insulin Lispro 100 UNIT/ML INSULN.PEN SC (05:43)
[2021-02-28] MEDS: hydrALAZINE 50 MG Tablet PO ×3 (05:45→22:48)
[2021-02-28 05:55] LABS: Bedside Glucose 175 mg/dL (70-110)
--- NOTE | 2021-02-28 05:56 | NURSING ---
Blood sugar checked early d/t pt not wanting RN to come back to do it. States he wants to rest.
[2021-02-28 06:24] LABS: Absolute Lymphocyte Count 0.29 X10^3/uL (0.83-4.51); Absolute Neutrophil Count 7.1 X10^3/uL (2.0-7.7); Basophil# 0.01 X10^3/uL; Basophil% 0.1 % (0-1); Hematocrit 32.3 % (40-54); Hemoglobin 9.9 g/dL (13.0-16.5); Lymphocyte # 0.29 X10^3/ul (0.83-4.51); Lymphocyte % 3.8 % (19-41); Mean Corp Hgb Conc 30.7 g/dL (32-36); Mean Corpuscular Hgb 21.4 pg (27.0-32.0); Mean Corpuscular Volume 69.8 fL (80-94); Mean Platelet Vol. 9.1 fl (6.2-12.0); Monocyte# 0.27 X10^3/uL; Monocyte% 3.5 % (0-10); NRBC Flagged by Analyzer 0 % (0-5); Neutrophil # 7.05 X10^3/uL (2.7-7.7); Neutrophil % 91.8 % (47-70); POSITIVE DIFFERENTIAL YES; Platelet Count 193 K/mm3 (150-450); RBC Distribution Width CV 18.6 % (11.6-14.6); RBC Distribution Width SD 46.1 fl (35.1-43.9); Red Blood Count 4.63 M/mm3 (4.6-6.2); White Blood Count 7.7 K/mm3 (4.4-11.0)
[2021-02-28 06:34] LABS: Differential Indicated SCAN CRITERIA MET
[2021-02-28 06:51] LABS: ALB/GLOB Ratio 0.5 RATIO (0.9-2.4); AST(SGOT) 39 U/L (15-37); Alanine Aminotransfer ALT/SGPT 20 U/L (16-61); Albumin, Serum 2.7 g/dL (3.2-5.0); Alkaline Phosphatase 65 U/L (45-117); Anion Gap 13 (5-15); BUN 86 mg/dL (7-18); Calcium,Total 7.8 mg/dL (8.5-10.1); Chloride 101 mmol/L (98-107); Creatinine, Serum 3.91 mg/dL (0.70-1.30); EST Glomerular Filtration Rate 16 mL/min (>60); Est Glom Filt Rate - Afr Amer 19 mL/min (>60); Estimated Creatinine Clearance 17.11 ml/min; Globulin 5.2 g/dL (2.2-4.2); Glucose 173 mg/dL (74-106); Protein, Total 7.9 g/dL (6.4-8.2); Sodium Level 133 mmol/L (136-145)
[2021-02-28 07:19] LABS: Burr Cells 1+
[2021-02-28 07:20] LABS: Differential Comment SCANNED
[2021-02-28] MEDS: Mirabegron 25 MG TAB.ER.24H PO (09:58)
[2021-02-28] MEDS: dexAMETHasone 4 MG Tablet 6 MG PO (09:58)
[2021-02-28] MEDS: Pantoprazole Sodium 40 MG Tablet PO ×2 (09:58→21:52)
[2021-02-28] MEDS: Atorvastatin Calcium 80 MG Tablet PO (09:58)
[2021-02-28] MEDS: Carvedilol 12.5 MG Tablet PO (09:58)
[2021-02-28] MEDS: guaiFENesin 1,200 MG Tablet 1200 MG PO ×2 (09:58→21:52)
[2021-02-28] MEDS: Aspirin E.C. 81 MG Tablet PO (09:58)
[2021-02-28] MEDS: Azelastine HCl NASAL.SRY 1 SPRAY NASAL ×2 (09:59→21:50)
[2021-02-28] MEDS: APIXABAN 5 MG TABLET PO ×2 (10:00→21:51)
--- NOTE | 2021-02-28 10:17 | PN.CC_ITS ---
Assessment & Plan Assessment/Plan (1) Acute respiratory failure with hypoxia: (2) COVID-19: (3) Acute on chronic diastolic (congestive) heart failure: (4) Diabetes, type 1.5, uncontrolled, managed as type 1: (5) Obstructive sleep apnea of adult: PLAN: RECOMMENDATIONS: 1. Obtain old records from Dr. Murray's office 2. Continue prostaglandin therapy 3. Defer to nephrology on diuretics 4. Not a candidate for baricitinib or Remdesivir given renal function 5. Consult ID for possible actinomyces. Start Unasyn 6. Confirmed DNR Comfort Care arrest without intubation IMPRESSIONS: 1. 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 Patient may have received Hermilo & Hermilo, but is pretty clear that he is only had 1 dose. Patient with significant supplemental oxygen requirements at this time and is relatively early in the course of the disease by his report. Patient is clear that he would not want to be intubated, but does have high risk for need of Airvo versus BiPAP. Patient also has multiple complicating factors worsening prognosis. Cultures appear to be negative to this point. BiPAP with sleep and avoidance of high pulmonary artery pressures secondary to hypoxia will be vital. Encourage incentive spirometer, prone positioning and Acapella. Patient has not been overly compliant with recommendations. Start Unasyn for possible actinomyces 2. PAH/ANDERSON/OHS/COPD Obtain old records from Dr. Murray's office. Patient is on prostaglandin therapy. This will have to be continued. Patient may need diuretics in the near future. Patient has significant lower extremity edema. Significant right- sided changes have been reported in the past with preserved left function. Lyric ent will be preload dependent from a cardiac standpoint. Continue with anticoagulation. Will defer to nephrology on further guidance with diuretics 3. Acute kidney injury on CKD stage IIIb Unclear etiology. Patient may have a prerenal etiology from both being volume depleted or from poor RV function. Both can result in a prerenal etiology. Defer to nephrology on diuretics 4. Chronic diastolic congestive heart failure/hypertension/hyperlipidemi a/diabetes mellitus type 2/GERD/morbid obesity Complicates care, management, recovery and prognosis. Patient with a very tenuous cardiac status. Patient will likely have significant hyperglycemia with the addition of Decadron therapy. May need to increase insulin dosing. Okay to continue with statin and beta-blockers from a pulmonary perspective. Subjective Subjective Patient overall feels subjectively improved compared to previous. Patient is reporting some nausea this morning. Patient overall feels that he is not swollen. Patient denies any chest pain at this time. Patient continues to have a cough. Objective Data Objective Data Vital Signs: Vital Signs Temp Pulse Resp BP Pulse Ox 36.4 C L 84 20 H 111/84 H 83 02/28/21 05:48 02/28/21 07:23 02/28/21 05:48 02/28/21 05:48 02/28/21 10:00 Oxygen Flow Rate (L/min) 10 Oxygen Delivery Method Nasal Cannula Weight: 154.5 kg Body Mass Index (BMI) 48.9 Intake & Output: Intake and Output for Last 24 Hours 02/26/21 02/27/21 02/28/21 23:59 23:59 23:59 Intake Total 660 / 660 2180 / 2180 1220 / 1220 Output Total 600 / 600 350 / 350 Balance 60 / 60 1830 / 1830 1220 / 1220 Lab / Micro Data Result Diagrams: 02/28/21 05:50 02/28/21 05:50 Labs: Laboratory Results - last 24 hr 02/27/21 06:30: Diff Path Review Reviewed 02/27/21 12:53: POC Glucose 214 H 02/27/21 13:55: Sodium 132 L, Potassium 4.0, Chloride 99, Carbon Dioxide 22.0, Anion Gap 11, BUN 79 H, Creatinine 3.63 H, Estim Creat Clear Calc 18.43, Est GFR (MDRD) Af Amer 21 L, Est GFR (MDRD) Non-Af 18 L, BUN/Creatinine Ratio 21.8 H, Glucose 238 H, Calcium 7.7 L 02/27/21 16:12: POC Glucose 217 H 02/27/21 20:02: POC Glucose 236 H 02/28/21 05:42: POC Glucose 175 H 02/28/21 05:50: WBC 7.7, RBC 4.63, Hgb 9.9 L, Hct 32.3 L, MCV 69.8 L, MCH 21.4 L , MCHC 30.7 L, RDW Std Deviation 46.1 H, RDW Coeff of Jun 18.6 H, Plt Count 193, MPV 9.1, Immature Gran % (Auto) 0.800, Neut % (Auto) 91.8 H, Lymph % (Auto) 3.8 L, [place] % (Auto) 3.5, Eos % (Auto) 0.0, Baso % (Auto) 0.1, Absolute Neuts (auto) 7.1, Absolute Lymphs (auto) 0.29 L, Nucleated RBC % 0, Differential Comment SCANNED, [place] Cells 1+ 02/28/21 05:50: Sodium 133 L, Potassium 4.0, Chloride 101, Carbon Dioxide 19.0 L , Anion Gap 13, BUN 86 H, Creatinine 3.91 H, Estim Creat Clear Calc 17.11, Est GFR (MDRD) Af Amer 19 L, Est GFR (MDRD) Non-Af 16 L, BUN/Creatinine Ratio 22.0 H , Glucose 173 H, Calcium 7.8 L, Total Bilirubin 0.60, AST 39 H, ALT 20, Alkaline Phosphatase 65, Total Protein 7.9, Albumin 2.7 L, Globulin 5.2 H, Albumin/Globulin Ratio 0.5 L Micro: Microbiology 02/27/21 00:27 Urine, Random Urine Culture - Preliminary Culture exhibits no growth. 02/25/21 14:26 Blood Culture (Wb) - Left Hand Blood Culture - Preliminary No growth in 48 hours. 02/25/21 14:10 Blood Culture (Wb) - Anticubital Left Blood Culture - Preliminary No growth in 48 hours. Physical Exam Const alert, oriented x3 and no apparent distress General Appearance: cooperative Nutritional Appearance: morbidly obese HEENT normocephalic, head/scalp atraumatic and moist oral mucous membranes HEENT Narrative: Dentition is fair, Mallampati is 3, no thrush is noted Eyes PERRL, EOMs intact bilaterally and conjunctivae normal Eyes Narrative: No scleral icterus Neck no lymphadenopathy, supple, no JVD and no carotid bruits Resp no retractions and no use of accessory muscles Auscultation: diminished lung sounds; Negative for rales, rhonchi or wheezes Cardio regular rate, regular rhythm, S1 normal heart sound, S2 normal heart sound, no m urmurs, no rub, no gallops, no clicks and no JVD Cardio Narrative: Distant heart tones secondary to body habitus GI normal to inspection, nondistended, normoactive bowel sounds, soft to palpation, non-tender and non-distended Extremity General Extremity: edema bilateral (lymphedema) Peripheral Pulses: Yes pulses 2+ throughout Skin General Skin Exam: lichenification and venous stasis Neuro oriented x3, CN's II-XII intact bilaterally, moves all extremities and no focal motor deficits Neuro Narrative: Marked generalized weakness Sensorium / Orientation: awake and alert Speech: speech normal Psych mental status grossly normal and thought process normal Charges/Coding Visit Charges Inpatient E&M: 97824 Subs Hosp L3
--- NOTE | 2021-02-28 10:25 | CPS ---
RT was called to room, d/t pt desatting after possibly aspirating. RN had placed pt back on BIPAP to get SpO2 back into the 90's. had to increase O2 on PAp machine to 70% to get Sat of 93%. Gave aerosol and asked pt stay on BIPAP for at least the next 1-1.5hours to which he agreed.
[2021-02-28] MEDS: Ipratropium/Albuterol Sulfate 3 ML AMPUL.NEB INHALATION ×2 (10:33→18:45)
[2021-02-28 12:40] LABS: Bedside Glucose 102 mg/dL (70-110)
--- NOTE | 2021-02-28 13:40 | PN.HOSP_ITS ---
Subjective Subjective Follow-up on acute hypoxic respiratory failure secondary to acute COVID-19 pneumonia: Patient was seen and examined. He had a choking episode last night with some bradycardia and pauses. He failed bedside swallow eval. Patient apparently choked on applesauce with speech therapy. He was kept n.p.o. His oxygen satur ation dipped down was. He was put on BiPAP. Objective Data Objective Data Vital Signs: Vital Signs Temp Pulse Resp BP Pulse Ox 98.8 F 73 20 H 115/72 92 02/28/21 13:00 02/28/21 13:28 02/28/21 13:00 02/28/21 13:00 02/28/21 13:00 Oxygen Flow Rate (L/min) 10 Oxygen Delivery Method Bi-pap Weight: 154.5 kg Body Mass Index (BMI) 48.9 Intake & Output: Intake and Output for Last 24 Hours 02/26/21 02/27/21 02/28/21 23:59 23:59 23:59 Intake Total 660 / 660 2180 / 2180 1926 Output Total 600 / 600 350 / 350 Balance 60 / 60 1830 / 1830 1926 Lab / Micro Data Result Diagrams: 02/28/21 05:50 02/28/21 05:50 Labs: Laboratory Results - last 24 hr 02/27/21 12:53: POC Glucose 214 H 02/27/21 13:55: Sodium 132 L, Potassium 4.0, Chloride 99, Carbon Dioxide 22.0, Anion Gap 11, BUN 79 H, Creatinine 3.63 H, Estim Creat Clear Calc 18.43, Est GFR (MDRD) Af Amer 21 L, Est GFR (MDRD) Non-Af 18 L, BUN/Creatinine Ratio 21.8 H, Glucose 238 H, Calcium 7.7 L 02/27/21 16:12: POC Glucose 217 H 02/27/21 20:02: POC Glucose 236 H 02/28/21 05:42: POC Glucose 175 H 02/28/21 05:50: WBC 7.7, RBC 4.63, Hgb 9.9 L, Hct 32.3 L, MCV 69.8 L, MCH 21.4 L , MCHC 30.7 L, RDW Std Deviation 46.1 H, RDW Coeff of Jun 18.6 H, Plt Count 193, MPV 9.1, Immature Gran % (Auto) 0.800, Neut % (Auto) 91.8 H, Lymph % (Auto) 3.8 L, [place] % (Auto) 3.5, Eos % (Auto) 0.0, Baso % (Auto) 0.1, Absolute Neuts (auto) 7.1, Absolute Lymphs (auto) 0.29 L, Nucleated RBC % 0, Differential Comment SCANNED, [place] Cells 1+ 02/28/21 05:50: Sodium 133 L, Potassium 4.0, Chloride 101, Carbon Dioxide 19.0 L , Anion Gap 13, BUN 86 H, Creatinine 3.91 H, Estim Creat Clear Calc 17.11, Est GFR (MDRD) Af Amer 19 L, Est GFR (MDRD) Non-Af 16 L, BUN/Creatinine Ratio 22.0 H , Glucose 173 H, Calcium 7.8 L, Total Bilirubin 0.60, AST 39 H, ALT 20, Alkaline Phosphatase 65, Total Protein 7.9, Albumin 2.7 L, Globulin 5.2 H, Albumin/Globulin Ratio 0.5 L 02/28/21 11:58: POC Glucose 102 Micro: Microbiology 02/27/21 16:00 Sputum, Expectorated/Coughed Gram Stain - Final 02/27/21 16:00 Sputum, Expectorated/Coughed Respiratory Culture - Preliminary Mixed normal respiratory tammie. No Haemophilus, Streptococcus pneumoniae, beta-hemolytic St reptococcus or Staphylococcus aureus isolated. 02/27/21 00:27 Urine, Random Urine Culture - Preliminary Culture exhibits no growth. 02/25/21 14:26 Blood Culture (Wb) - Left Hand Blood Culture - Preliminary No growth in 48 hours. 02/25/21 14:10 Blood Culture (Wb) - Anticubital Left Blood Culture - Prelim inary No growth in 48 hours. Physical Exam Narrative Physical exam: General: Alert, Oriented x3, Cooperative, in mild respiratory distress, morbidly obese, on BiPAP HEENT: Atraumatic Oral: Moist Mucosa Neck: Supple Lungs: Clear to auscultation Cardiovascular: HS I+II, regular, no murmurs Abdomen: Bowel Sounds Present, Soft, Non Tender Extremities: Bilateral +2-3 pedal edema with chronic venous stasis changes Assessment & Plan Assessment/Plan (1) Acute respiratory failure with hypoxia: (2) COVID-19: (3) ISAURA (acute kidney injury): (4) Leukopenia: QUALIFIERS: Leukopenia type: unspecified Qualified Code(s): D72.819 - Decreased white blood cell count, unspecified PLAN: 1. Acute hypoxic respiratory failure secondary to COVID-19 pneumonia, worsening Currently on BiPAP Symptoms started on 02/22/21 Not a candidate for remdesivir Continue on Decadron 2. Dysphagia, failed swallow eval, kept n.p.o., speech therapy following 3. ISAURA on CKD stage IIIb, baseline serum creatinine appears to be 1.8-2.2 Cr today is 3.91, nephrology consulted 4. Elevated D-dimer, 3.33, continue on Eliquis to 5 mg twice daily 5. Pulmonary hypertension/ANDERSON/obesity-ventilation syndrome Continue on home BiPAP at bedtime and for naps, breathing treatments, treprostinil 6. Heart failure with preserved ejection fraction, not in acute exacerbation 7. Type II DM, blood sugars uncontrolled, Hold Lantus, continue on high-dose insulin sliding scale 8. Rest of chronic medical conditions including hypertension, hyperlipidemia, GERD remained stable Home meds reviewed Charges/Coding Visit Charges Inpatient E&M: 70045 Subs Hosp L3
--- NOTE | 2021-02-28 14:15 | CASEMGMT ---
REBECA called Julián at [facility] and left him a voice mail letting him know patient will likely not be returning over the weekend. REBECA will follow up on Wednesday. Nicolasa TAPIA
--- NOTE | 2021-02-28 14:41 | PCM.PN.REN ---
Subjective Subjective On bipap. Objective Data Objective Data Vital Signs: Vital Signs Temp Pulse Resp BP Pulse Ox 98.8 F 73 20 H 115/72 92 02/28/21 13:00 02/28/21 13:28 02/28/21 13:00 02/28/21 13:00 02/28/21 13:00 Oxygen Flow Rate (L/min) 10 Oxygen Delivery Method Bi-pap Weight: 154.5 kg Body Mass Index (BMI) 48.9 Intake & Output: Intake and Output for Last 24 Hours 02/26/21 02/27/21 02/28/21 23:59 23:59 23:59 Intake Total 660 / 660 2180 / 2180 1926 Output Total 600 / 600 350 / 350 Balance 60 / 60 1830 / 1830 1926 Lab / Micro Data Result Diagrams: 02/28/21 05:50 02/28/21 05:50 Labs: Laboratory Results - last 24 hr 02/27/21 12:53: POC Glucose 214 H 02/27/21 16:12: POC Glucose 217 H 02/27/21 20:02: POC Glucose 236 H 02/28/21 05:42: POC Glucose 175 H 02/28/21 05:50: WBC 7.7, RBC 4.63, Hgb 9.9 L, Hct 32.3 L, MCV 69.8 L, MCH 21.4 L, MCHC 30.7 L, RDW Std Deviation 46.1 H, RDW Coeff of Jun 18.6 H, Plt Count 193, MPV 9.1, Immature Gran % (Auto) 0.800, Neut % (Auto) 91.8 H, Lymph % (Auto) 3.8 L, [place] % (Auto) 3.5, Eos % (Auto) 0.0, Baso % (Auto) 0.1, Absolute Neuts (auto) 7.1, Absolute Lymphs (auto) 0.29 L, Nucleated RBC % 0, Differential Comment SCANNED, [place] Cells 1+ 02/28/21 05:50: Sodium 133 L, Potassium 4.0, Chloride 101, Carbon Dioxide 19.0 L, Anion Gap 13, BUN 86 H, Creatinine 3.91 H, Estim Creat Clear Calc 17.11, Est GFR (MDRD) Af Amer 19 L, Est GFR (MDRD) Non-Af 16 L, BUN/Creatinine Ratio 22.0 H, Glucose 173 H, Calcium 7.8 L, Total Bilirubin 0.60, AST 39 H, ALT 20, Alkaline Phosphatase 65, Total Protein 7.9, Albumin 2.7 L, Globulin 5.2 H, Albumin/Globulin Ratio 0.5 L 02/28/21 11:58: POC Glucose 102 Micro: Microbiology 02/27/21 16:00 Sputum, Expectorated/Coughed Gram Stain - Final 02/27/21 16:00 Sputum, Expectorated/Coughed Respiratory Culture - Preliminary Mixed normal respiratory tammie. No Haemophilus, Streptococcus pneumoniae, beta-hemolytic Streptococcus or Staphylococcus aureus isolated. 02/27/21 00:27 Urine, Random Urine Culture - Preliminary Culture exhibits no growth. 02/25/21 14:26 Blood Culture (Wb) - Left Hand Blood Culture - Preliminary No growth in 48 hours. 02/25/21 14:10 Blood Culture (Wb) - Anticubital Left Blood Culture - Preliminary No growth in 48 hours. Physical Exam Narrative Const: Alert and oriented x3 Respiratory: On BiPAP. Diminished breath sounds GI: Abdomen round, obese Extremities: Pitting edema noted bilateral lower legs Assessment & Plan Assessment/Plan (1) ISAURA (acute kidney injury): (2) COVID-19: (3) Acute respiratory failure with hypoxia: (4) Chronic kidney disease, stage 3 (moderate): QUALIFIERS: Chronic kidney disease stage 3 subtype: unspecified whether 3a or 3b Qualified Code(s): N18.30 - Chronic kidney disease, stage 3 unspecified (5) Chronic diastolic (congestive) heart failure: PLAN: - ISAURA on CKD stage 3 (baseline creatinine ranging 1.7 to 2 mg/dL), likely ISAURA prerenal with recent Covid infection, hypotension, poor oral intake, decreased appetite. 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 Acid-base acceptable. Potassium acceptable. Creatinine 2.99 mg/dL on admission and today creatinine is up to 3.9 mg/dL. Patient has received IV Lasix 40mg IV but also received IV fluids. Bladder scan showed only 3 mL however patient did have straight cath with 350 mL urine output. He refuses Todd. - Bps improved, currently on carvedilol and hydralazine. We stopped amlodipine and added holding parameters to his antihypertensives to allow for better renal perfusion. - concern for aspiration. Now NPO and on Bipap. Started on Ampicillin. Last chest x-ray showed evidence of vascular congestion with mild degree of CHF.
[2021-02-28] MEDS: Ondansetron 4 MG/2 ML Vial IV (17:33)
[2021-02-28] MEDS: 0.9% Normal Saline 1,000 ML 50 ML IV (17:33)
[2021-02-28] MEDS: 0.9% Saline Lock 10 ML Syringe IV (17:34)
[2021-02-28 18:01] LABS: Bedside Glucose 110 mg/dL (70-110)
[2021-02-28] MEDS: MELATONIN 10 MG TABLET 5 MG PO (21:51)
[2021-02-28 22:25] LABS: Bedside Glucose 127 mg/dL (70-110)
[2021-03-01] VITALS (22 sets, daily range): BP systolic 131–141; BP diastolic 58–79; PULSE 21–92; RESP 12–28; TEMP 36.3–36.9; O2SAT 70–93
[2021-03-01] MEDS: hydrALAZINE 50 MG Tablet PO ×3 (05:11→21:37)
[2021-03-01 06:55] LABS: Bedside Glucose 126 mg/dL (70-110)
[2021-03-01] MEDS: Ipratropium/Albuterol Sulfate 3 ML AMPUL.NEB INHALATION ×4 (08:04→21:24)
--- NOTE | 2021-03-01 08:08 | CPS ---
Upon entering room pt was found on room air. Room ait saturation 83%. Pt was placed back on Aivo and wilfredo well
[2021-03-01 08:14] LABS: Absolute Lymphocyte Count 0.19 X10^3/uL (0.83-4.51); Absolute Neutrophil Count 6.7 X10^3/uL (2.0-7.7); Differential Indicated SCAN CRITERIA MET; Hematocrit 29.8 % (40-54); Hemoglobin 9.2 g/dL (13.0-16.5); Lymphocyte # 0.19 X10^3/ul (0.83-4.51); Lymphocyte % 2.6 % (19-41); Mean Corp Hgb Conc 30.9 g/dL (32-36); Mean Corpuscular Hgb 21.6 pg (27.0-32.0); Mean Corpuscular Volume 70.1 fL (80-94); Monocyte# 0.21 X10^3/uL; Monocyte% 2.9 % (0-10); NRBC Flagged by Analyzer 0 % (0-5); Neutrophil % 93.5 % (47-70); POSITIVE DIFFERENTIAL YES; Platelet Count 169 K/mm3 (150-450); RBC Distribution Width CV 18.8 % (11.6-14.6); Red Blood Count 4.25 M/mm3 (4.6-6.2); White Blood Count 7.2 K/mm3 (4.4-11.0)
[2021-03-01] MEDS: Azelastine HCl NASAL.SRY 1 SPRAY NASAL ×2 (08:28→21:44)
[2021-03-01] MEDS: Ondansetron 4 MG/2 ML Vial IV ×2 (08:30→16:20)
[2021-03-01] MEDS: 0.9% Saline Lock 10 ML Syringe IV (08:31)
[2021-03-01] MEDS: Ferrous Sulfate 325 MG Tablet PO (08:34)
[2021-03-01] MEDS: APIXABAN 5 MG TABLET PO ×2 (08:34→21:36)
[2021-03-01] MEDS: Carvedilol 12.5 MG Tablet PO (08:34)
[2021-03-01] MEDS: Atorvastatin Calcium 80 MG Tablet PO (08:35)
[2021-03-01] MEDS: Aspirin E.C. 81 MG Tablet PO (08:35)
[2021-03-01] MEDS: guaiFENesin 1,200 MG Tablet 1200 MG PO ×2 (08:35→21:36)
[2021-03-01] MEDS: Mirabegron 25 MG TAB.ER.24H PO (08:35)
[2021-03-01] MEDS: Pantoprazole Sodium 40 MG Tablet PO ×2 (08:36→21:40)
[2021-03-01] MEDS: dexAMETHasone 4 MG Tablet 6 MG PO (08:36)
[2021-03-01 08:38] LABS: ALB/GLOB Ratio 0.5 RATIO (0.9-2.4); AST(SGOT) 38 U/L (15-37); Alanine Aminotransfer ALT/SGPT 19 U/L (16-61); Albumin, Serum 2.5 g/dL (3.2-5.0); Alkaline Phosphatase 64 U/L (45-117); Anion Gap 14 (5-15); BUN 85 mg/dL (7-18); Calcium,Total 7.9 mg/dL (8.5-10.1); Chloride 101 mmol/L (98-107); Creatinine, Serum 3.15 mg/dL (0.70-1.30); EST Glomerular Filtration Rate 21 mL/min (>60); Est Glom Filt Rate - Afr Amer 25 mL/min (>60); Estimated Creatinine Clearance 21.24 ml/min; Globulin 5.2 g/dL (2.2-4.2); Glucose 147 mg/dL (74-106); Potassium 3.8 mmol/L (3.5-5.1); Protein, Total 7.7 g/dL (6.4-8.2); Sodium Level 135 mmol/L (136-145)
--- NOTE | 2021-03-01 08:43 | CPS ---
0820 Pt was desatting on Airvo to 86%, pt increased to 95% on Airvo, saturation to 93%
[2021-03-01 08:47] LABS: Acanthocytes RARE; Anisocytosis 1+; Burr Cells 1+; Hypochromasia 1+; Microcytosis 1+; Ovalocyte 1+; Platelet Estimate ADEQUATE (ADEQ)
--- NOTE | 2021-03-01 09:54 | PCM.PN.HOSP ---
Subjective Subjective Follow-up on acute hypoxic respiratory failure secondary to acute COVID-19 pneumonia: Patient was seen and examined. No new complains. Objective Data Objective Data Vital Signs: Vital Signs Temp Pulse Resp BP Pulse Ox 97.5 F L 78 20 H 141/68 H 91 03/01/21 08:25 03/01/21 08:25 03/01/21 08:25 03/01/21 08:25 03/01/21 08:53 Oxygen Flow Rate (L/min) 75 Oxygen Delivery Method Airvo Weight: 154.5 kg Body Mass Index (BMI) 48.9 Intake & Output: Intake and Output for Last 24 Hours 02/27/21 02/28/21 03/01/21 23:59 23:59 23:59 Intake Total 2180 / 2180 2039 / 2039 866.17 / 866.17 Output Total 350 / 350 500 / 500 100 / 100 Balance 1830 / 1830 1539 / 1539 766.17 / 766.17 Lab / Micro Data Result Diagrams: 03/01/21 08:02 03/01/21 08:02 Labs: Laboratory Results - last 24 hr 02/28/21 11:58: POC Glucose 102 02/28/21 17:30: POC Glucose 110 02/28/21 21:38: POC Glucose 127 H 03/01/21 06:48: POC Glucose 126 H 03/01/21 08:02: WBC 7.2, RBC 4.25 L, Hgb 9.2 L, Hct 29.8 L, MCV 70.1 L, MCH 21.6 L, MCHC 30.9 L, RDW Std Deviation 47.0 H, RDW Coeff of Jun 18.8 H, Plt Count 169, MPV 9.0, Immature Gran % (Auto) 1.000 H, Neut % (Auto) 93.5 H, Lymph % (Auto) 2.6 L, [place] % (Auto) 2.9, Eos % (Auto) 0.0, Baso % (Auto) 0.0, Absolute Neuts (auto) 6.7, Absolute Lymphs (auto) 0.19 L, Nucleated RBC % 0, Platelet Estimate ADEQUATE, Hypochromasia 1+, Anisocytosis 1+, Microcytosis 1+, Ovalocytes 1+, [place] Cells 1+, Acanthocytes (Spur) RARE 03/01/21 08:02: Sodium 135 L, Potassium 3.8, Chloride 101, Carbon Dioxide 20.0 L, Anion Gap 14, BUN 85 H, Creatinine 3.15 H, Estim Creat Clear Calc 21.24, Est GFR (MDRD) Af Amer 25 L, Est GFR (MDRD) Non-Af 21 L, BUN/Creatinine Ratio 27.0 H, Glucose 147 H, Calcium 7.9 L, Total Bilirubin 0.70, AST 38 H, ALT 19, Alkaline Phosphatase 64, Total Protein 7.7, Albumin 2.5 L, Globulin 5.2 H, Albumin/Globulin Ratio 0.5 L Micro: Microbiology 02/27/21 00:27 Urine, Random Urine Culture - Final Culture exhibits no growth. 02/27/21 16:00 Sputum, Expectorated/Coughed Gram Stain - Final 02/27/21 16:00 Sputum, Expectorated/Coughed Respiratory Culture - Preliminary Mixed normal respiratory tammie. No Haemophilus, Streptococcus pneumoniae, beta-hemolytic Streptococcus or Staphylococcus aureus isolated. 02/25/21 14:26 Blood Culture (Wb) - Left Hand Blood Culture - Preliminary No growth in 48 hours. 02/25/21 14:10 Blood Culture (Wb) - Anticubital Left Blood Culture - Preliminary No growth in 48 hours. Physical Exam Narrative Physical exam: General: Alert, Oriented x3, Cooperative, in mild respiratory distress, morbidly obese, on BiPAP HEENT: Atraumatic Oral: Moist Mucosa Neck: Supple Lungs: Clear to auscultation Cardiovascular: HS I+II, regular, no murmurs Abdomen: Bowel Sounds Present, Soft, Non Tender Extremities: Bilateral +2-3 pedal edema with chronic venous stasis changes Assessment & Plan Assessment/Plan (1) Acute respiratory failure with hypoxia: (2) COVID-19: (3) ISAURA (acute kidney injury): (4) Leukopenia: QUALIFIERS: Leukopenia type: unspecified Qualified Code(s): D72.819 - Decreased white blood cell count, unspecified PLAN: 1. Acute hypoxic respiratory failure secondary to COVID-19 pneumonia, worsening Currently on BiPAP Symptoms started on 02/22/21 Not a candidate for remdesivir Continue on Decadron 2. Dysphagia, failed swallow eval, N.p.o., speech therapy following 3. ISAURA on CKD stage IIIb, baseline serum creatinine appears to be 1.8-2.2 Cr today is 3.91, nephrology consulted 4. Elevated D-dimer, 3.33, continue on Eliquis to 5 mg twice daily 5. Pulmonary hypertension/ANDERSON/obesity-ventilation syndrome Continue on home BiPAP at bedtime and for naps, breathing treatments, treprostinil 6. Heart failure with preserved ejection fraction, not in acute exacerbation 7. Type II DM, blood sugars uncontrolled, Hold Lantus, continue on high-dose insulin sliding scale 8. Rest of chronic medical conditions including hypertension, hyperlipidemia, GERD remained stable Home meds reviewed Charges/Coding Visit Charges Inpatient E&M: 79061 Subs Hosp L2
--- NOTE | 2021-03-01 10:54 | PN.RENAL_ITS ---
Subjective Subjective Following for ISAURA on CKD. Patient still complains of shortness of breath. The patient came off BiPAP, but he is still on high flow oxygen. Objective Data Objective Data Vital Signs: Vital Signs Temp Pulse Resp BP Pulse Ox 97.5 F L 78 20 H 141/68 H 91 03/01/21 08:25 03/01/21 08:25 03/01/21 08:25 03/01/21 08:25 03/01/21 08:53 Oxygen Flow Rate (L/min) 75 Oxygen Delivery Method Airvo Weight: 154.5 kg Body Mass Index (BMI) 48.9 Intake & Output: Intake and Output for Last 24 Hours 02/27/21 02/28/21 03/01/21 23:59 23:59 23:59 Intake Total 2180 / 2180 2039 / 2039 866.17 / 866.17 Output Total 350 / 350 500 / 500 100 / 100 Balance 1830 / 1830 1539 / 1539 766.17 / 766.17 Lab / Micro Data Result Diagrams: 03/01/21 08:02 03/01/21 08:02 Labs: Laboratory Results - last 24 hr 02/28/21 11:58: POC Glucose 102 02/28/21 17:30: POC Glucose 110 02/28/21 21:38: POC Glucose 127 H 03/01/21 06:48: POC Glucose 126 H 03/01/21 08:02: WBC 7.2, RBC 4.25 L, Hgb 9.2 L, Hct 29.8 L, MCV 70.1 L, MCH 21.6 L, MCHC 30.9 L, RDW Std Deviation 47.0 H, RDW Coeff of Jun 18.8 H, Plt Count 169, MPV 9.0, Immature Gran % (Auto) 1.000 H, Neut % (Auto) 93.5 H, Lymph % (Auto) 2.6 L, [place] % (Auto) 2.9, Eos % (Auto) 0.0, Baso % (Auto) 0.0, Absolute Neuts (auto) 6.7, Absolute Lymphs (auto) 0.19 L, Nucleated RBC % 0, Platelet Estimate ADEQUATE, Hypochromasia 1+, Anisocytosis 1+, Microcytosis 1+, Ovalocyte s 1+, [place] Cells 1+, Acanthocytes (Spur) RARE 03/01/21 08:02: Sodium 135 L, Potassium 3.8, Chloride 101, Carbon Dioxide 20.0 L , Anion Gap 14, BUN 85 H, Creatinine 3.15 H, Estim Creat Clear Calc 21.24, Est GFR (MDRD) Af Amer 25 L, Est GFR (MDRD) Non-Af 21 L, BUN/Creatinine Ratio 27.0 H , Glucose 147 H, Calcium 7.9 L, Total Bilirubin 0.70, AST 38 H, ALT 19, Alkaline Phosphatase 64, Total Protein 7.7, Albumin 2.5 L, Globulin 5.2 H, Albumin/Globulin Ratio 0.5 L Micro: Microbiology 02/27/21 00:27 Urine, Random Urine Culture - Final Culture exhibits no growth. 02/27/21 16:00 Sputum, Expectorated/Coughed Gram Stain - Final 02/27/21 16:00 Sputum, Expectorated/Coughed Respiratory Culture - Preliminary Mixed normal respiratory tammie. No Haemophilus, Streptococcus pneumoniae, beta-hemolytic Streptococcus or Staphylococcus aureus isolated. 02/25/21 14:26 Blood Culture (Wb) - Left Hand Blood Culture - Preliminary No growth in 48 hours. 02/25/21 14:10 Blood Culture (Wb) - Anticubital Left Blood Culture - Preliminary No growth in 48 hours. Physical Exam Narrative Const: Alert and oriented x3 Respiratory: On AirVo. Diminished breath sounds GI: Abdomen round, obese Extremities: Pitting edema noted bilateral lower legs Assessment & Plan Assessment/Plan (1) ISAURA (acute kidney injury): (2) COVID-19: (3) Acute respiratory failure with hypoxia: (4) Chronic kidney disease, stage 3 (moderate): QUALIFIERS: Chronic kidney disease stage 3 subtype: unspecified whether 3a or 3b Qualified Code(s): N18.30 - Chronic kidney disease, stage 3 unspecified (5) Chronic diastolic (congestive) heart failure: PLAN: - ISAURA on CKD stage 3 (baseline creatinine ranging 1.7 to 2 mg/dL), likely ISAURA prerenal which has progressed to ATN with recent Covid infection, hypotension, poor oral intake, decreased appetite. He is oliguric. -Difficult to determine intravascular volume. I suspect that it is low. However, his respiratory status limits as from using too much IV fluid. We will see how he does on his own today once he passes swallowing study. -If intake is poor today and urine output remains low, I may try IV fluid boluses tomorrow. 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 Acid-base acceptable. Potassium acceptable. Creatinine 2.99 mg/dL on admission. Serum creatinine was 3.91 mg deciliter yesterday and today creatinine is 3.15 mg/dL after some IV fluid yesterday. -Agree with holding Lasix. - Bps is stable, currently on carvedilol and hydralazine. We stopped amlodipine and added holding parameters to his antihypertensives to allow for better renal perfusion. -Overall, if renal function continues to worsen despite current medical rios tment, I do not think that he would do well with dialysis given his comorbidities.
[2021-03-01 12:50] LABS: Bedside Glucose 158 mg/dL (70-110)
[2021-03-01] MEDS: 0.9% Normal Saline 1,000 ML 50 ML IV (15:39)
--- NOTE | 2021-03-01 15:57 | CPS ---
1519 pt was offered the bipap but refused at this time. Pt states he goes on it at night. Pt was informed that we can pit it on him at any time if he changes his mind. Pt's nurse aware also.
[2021-03-01 16:31] LABS: Bedside Glucose 163 mg/dL (70-110)
--- NOTE | 2021-03-01 17:48 | CPS ---
called to pt's room per pt request to be placed back on Bipap. Pt was placed on Bipap and wilfredo well. Nurse aware of change
[2021-03-01] MEDS: MELATONIN 10 MG TABLET 5 MG PO (21:20)
[2021-03-01 21:41] LABS: Bedside Glucose 176 mg/dL (70-110)
[2021-03-01] MEDS: oxyCODONE 5 MG Tablet PO (22:05)
[2021-03-02] VITALS (10 sets, daily range): BP systolic 127–150; BP diastolic 71–80; PULSE 57–127; RESP 12–25; TEMP 36.3–36.7; O2SAT 74–94
[2021-03-02] MEDS: hydrALAZINE 50 MG Tablet PO ×2 (07:00→13:28)
[2021-03-02 07:11] LABS: Bedside Glucose 181 mg/dL (70-110)
[2021-03-02 07:44] LABS: Absolute Lymphocyte Count 0.35 X10^3/uL (0.83-4.51); Absolute Neutrophil Count 6.8 X10^3/uL (2.0-7.7); Hematocrit 29.6 % (40-54); Hemoglobin 8.8 g/dL (13.0-16.5); Lymphocyte # 0.35 X10^3/ul (0.83-4.51); Lymphocyte % 4.7 % (19-41); Mean Corp Hgb Conc 29.7 g/dL (32-36); Mean Corpuscular Hgb 21.2 pg (27.0-32.0); Mean Corpuscular Volume 71.3 fL (80-94); Mean Platelet Vol. 8.9 fl (6.2-12.0); Monocyte# 0.27 X10^3/uL; Monocyte% 3.6 % (0-10); NRBC Flagged by Analyzer 0 % (0-5); Neutrophil # 6.75 X10^3/uL (2.7-7.7); Neutrophil % 90.6 % (47-70); POSITIVE DIFFERENTIAL YES; Platelet Count 170 K/mm3 (150-450); RBC Distribution Width CV 18.9 % (11.6-14.6); RBC Distribution Width SD 48.3 fl (35.1-43.9); Red Blood Count 4.15 M/mm3 (4.6-6.2); White Blood Count 7.5 K/mm3 (4.4-11.0)
[2021-03-02] MEDS: Ipratropium/Albuterol Sulfate 3 ML AMPUL.NEB INHALATION ×2 (07:45→11:29)
--- NOTE | 2021-03-02 07:52 | CPS ---
Fio2 increased to 90% on Bipap
[2021-03-02 07:56] LABS: Differential Indicated SCAN CRITERIA MET
[2021-03-02 08:07] LABS: ALB/GLOB Ratio 0.5 RATIO (0.9-2.4); AST(SGOT) 40 U/L (15-37); Alanine Aminotransfer ALT/SGPT 19 U/L (16-61); Albumin, Serum 2.5 g/dL (3.2-5.0); Alkaline Phosphatase 67 U/L (45-117); Anion Gap 14 (5-15); BUN 91 mg/dL (7-18); BUN/Creat Ratio 29.2 RATIO (10-20); Calcium,Total 7.7 mg/dL (8.5-10.1); Chloride 104 mmol/L (98-107); Creatinine, Serum 3.12 mg/dL (0.70-1.30); EST Glomerular Filtration Rate 21 mL/min (>60); Est Glom Filt Rate - Afr Amer 25 mL/min (>60); Estimated Creatinine Clearance 21.45 ml/min; Glucose 183 mg/dL (74-106); Protein, Total 7.5 g/dL (6.4-8.2); Sodium Level 137 mmol/L (136-145)
[2021-03-02 08:26] LABS: Acanthocytes 1+; Anisocytosis 1+; Hypochromasia 2+; Ovalocyte 1+; Platelet Estimate ADEQUATE (ADEQ)
--- NOTE | 2021-03-02 09:28 | PN.RENAL_ITS ---
Subjective Subjective Following for acute kidney injury. The patient denies increasing shortness of breath. He is on BiPAP. He denies nausea or vomiting. He is currently n.p.o. Objective Data Objective Data Vital Signs: Vital Signs Temp Pulse Resp BP Pulse Ox 98.1 F 92 25 H 150/80 H 86 03/02/21 07:00 03/02/21 07:46 03/02/21 07:46 03/02/21 07:00 03/02/21 07:46 Oxygen Flow Rate (L/min) 85 Oxygen Delivery Method Bi-pap Weight: 156.8 kg Body Mass Index (BMI) 48.9 Intake & Output: Intake and Output for Last 24 Hours 02/28/21 03/01/21 03/02/21 23:59 23:59 23:59 Intake Total 2039 / 2039 1284.00 / 1284.00 Output Total 500 / 500 625 / 685 115 / 115 Balance 1539 / 1539 659.00 / 599.00 -115 / -115 Lab / Micro Data Result Diagrams: 03/02/21 07:35 03/02/21 07:35 Labs: Laboratory Results - last 24 hr 03/01/21 12:08: POC Glucose 158 H 03/01/21 16:16: POC Glucose 163 H 03/01/21 21:30: POC Glucose 176 H 03/02/21 07:03: POC Glucose 181 H 03/02/21 07:35: WBC 7.5, RBC 4.15 L, Hgb 8.8 L, Hct 29.6 L, MCV 71.3 L, MCH 21.2 L, MCHC 29.7 L, RDW Std Deviation 48.3 H, RDW Coeff of Jun 18.9 H, Plt Count 170, MPV 8.9, Immature Gran % (Auto) 1.100 H, Neut % (Auto) 90.6 H, Lymph % (Auto) 4.7 L, [place] % (Auto) 3.6, Eos % (Auto) 0.0, Baso % (Auto) 0.0, Absolute Neuts (auto) 6.8, Absolute Lymphs (auto) 0.35 L, Nucleated RBC % 0, Platelet Estimate ADEQUATE, Hypochromasia 2+, Anisocytosis 1+, Ovalocytes 1+, Acanthocytes (Spur) 1+ 03/02/21 07:35: Sodium 137, Potassium 4.0, Chloride 104, Carbon Dioxide 19.0 L, Anion Gap 14, BUN 91 H, Creatinine 3.12 H, Estim Creat Clear Calc 21.45, Est GFR (MDRD) Af Amer 25 L, Est GFR (MDRD) Non-Af 21 L, BUN/Creatinine Ratio 29.2 H, Glucose 183 H, Calcium 7.7 L, Total Bilirubin 0.80, AST 40 H, ALT 19, Alkaline Phosphatase 67, Total Protein 7.5, Albumin 2.5 L, Globulin 5.0 H, Albumin/Globulin Ratio 0.5 L Micro: Microbiology 02/27/21 16:00 Sputum, Expectorated/Coughed Gram Stain - Final 02/27/21 16:00 Sputum, Expectorated/Coughed Respiratory Culture - Final 02/27/21 00:27 Urine, Random Urine Culture - Final Culture exhibits no growth. 02/25/21 14:26 Blood Culture (Wb) - Left Hand Blood Culture - Preliminary No growth in 48 hours. 02/25/21 14:10 Blood Culture (Wb) - Anticubital Left Blood Culture - Preliminary No growth in 48 hours. Physical Exam Narrative Const: Alert and oriented x3 Respiratory: On BiPAP. Diminished breath sounds bilaterally. Breath sounds coarse. Heart: Normal S1, S2. No rubs or murmurs. GI: Abdomen round, obese. No pain on palpation no guarding or rebound. Extremities: 2+ pitting edema noted bilateral lower legs. Assessment & Plan Assessment/Plan (1) ISAURA (acute kidney injury): (2) COVID-19: (3) Acute respiratory failure with hypoxia: (4) Chronic kidney disease, stage 3 (moderate): QUALIFIERS: Chronic kidney disease stage 3 subtype: unspecified whether 3a or 3b Qualified Code(s): N18.30 - Chronic kidney disease, stage 3 unspecified (5) Chronic diastolic (congestive) heart failure: PLAN: - ISAURA on CKD stage 3 (baseline creatinine ranging 1.7 to 2 mg/dL), ISAURA is likely prerenal which has progressed to ATN with recent Covid infection, hypotension, poor oral intake. Renal function remains stable and urine output has improved in the last 24 hours. -Difficult to determine intravascular volume. I suspect that it is low. However, his respiratory status limits as from using too much IV fluid. We will see how he does on current treatment. Agree with maintenance IV fluid at 50 cc/h since he is n.p.o. -No acute indication for MOVEMENT ASSEMBLER. Acid-base acceptable. Potassium acceptable. Creatinine 2.99 mg/dL on admission. Serum creatinine was 3.91 mg/dL on 02/28/2021 and 3.12 mg/dL today. -Agree with holding Lasix. -Blood pressure is stable, currently on carvedilol and hydralazine. We stopped amlodipine and added holding parameters to his antihypertensives to allow for better renal perfusion. -Overall, if renal function worsens despite current medical treatment, I do not think that he would do well with dialysis given his comorbidities.
[2021-03-02] MEDS: Ferrous Sulfate 325 MG Tablet PO (09:36)
[2021-03-02] MEDS: guaiFENesin 1,200 MG Tablet 1200 MG PO (09:36)
[2021-03-02] MEDS: Pantoprazole Sodium 40 MG Tablet PO (09:37)
[2021-03-02] MEDS: Atorvastatin Calcium 80 MG Tablet PO (09:37)
[2021-03-02] MEDS: Carvedilol 12.5 MG Tablet PO (09:37)
[2021-03-02] MEDS: Mirabegron 25 MG TAB.ER.24H PO (09:37)
[2021-03-02] MEDS: Aspirin E.C. 81 MG Tablet PO (09:37)
[2021-03-02] MEDS: dexAMETHasone 4 MG Tablet 6 MG PO (09:37)
[2021-03-02] MEDS: APIXABAN 5 MG TABLET PO (09:38)
[2021-03-02] MEDS: Ondansetron 4 MG/2 ML Vial IV (09:41)
[2021-03-02] MEDS: Azelastine HCl NASAL.SRY 1 SPRAY NASAL (09:43)
--- NOTE | 2021-03-02 12:14 | PCM.PN.HOSP ---
Subjective Subjective Follow-up on acute hypoxic respiratory failure secondary to acute COVID-19 pneumonia: Patient was seen and examined. Overnight he got worse, required use of BiPAP since morning except for meds and sips of water. Patient was put on airVo so we could have a discussion. He desaturated very easily. He stated that he did not want to be intubated. He wants hospice as he feels he is ready to . I asked if I should call any family member and update them. He stated no! Objective Data Objective Data Vital Signs: Vital Signs Temp Pulse Resp BP Pulse Ox 97.4 F L 57 L 16 141/77 H 90 03/02/21 08:30 03/02/21 11:30 03/02/21 11:30 03/02/21 08:30 03/02/21 11:30 Oxygen Flow Rate (L/min) 85 Oxygen Delivery Method Bi-pap Weight: 156.8 kg Body Mass Index (BMI) 48.9 Intake & Output: Intake and Output for Last 24 Hours 02/28/21 03/01/21 03/02/21 23:59 23:59 23:59 Intake Total 2039 / 9 1284.00 / 1284.00 1000.33 / 1000.33 Output Total 500 / 500 625 / 685 115 / 115 Balance 1539 / 1539 659.00 / 599.00 885.33 / 885.33 Lab / Micro Data Result Diagrams: 03/02/21 07:35 03/02/21 07:35 Labs: Laboratory Results - last 24 hr 03/01/21 12:08: POC Glucose 158 H 03/01/21 16:16: POC Glucose 163 H 03/01/21 21:30: POC Glucose 176 H 03/02/21 07:03: POC Glucose 181 H 03/02/21 07:35: WBC 7.5, RBC 4.15 L, Hgb 8.8 L, Hct 29.6 L, MCV 71.3 L, MCH 21.2 L, MCHC 29.7 L, RDW Std Deviation 48.3 H, RDW Coeff of Jun 18.9 H, Plt Count 170, MPV 8.9, Immature Gran % (Auto) 1.100 H, Neut % (Auto) 90.6 H, Lymph % (Auto) 4.7 L, [place] % (Auto) 3.6, Eos % (Auto) 0.0, Baso % (Auto) 0.0, Absolute Neuts (auto) 6.8, Absolute Lymphs (auto) 0.35 L, Nucleated RBC % 0, Platelet Estimate ADEQUATE, Hypochromasia 2+, Anisocytosis 1+, Ovalocytes 1+, Acanthocytes (Spur) 1+ 03/02/21 07:35: Sodium 137, Potassium 4.0, Chloride 104, Carbon Dioxide 19.0 L, Anion Gap 14, BUN 91 H, Creatinine 3.12 H, Estim Creat Clear Calc 21.45, Est GFR (MDRD) Af Amer 25 L, Est GFR (MDRD) Non-Af 21 L, BUN/Creatinine Ratio 29.2 H, Glucose 183 H, Calcium 7.7 L, Total Bilirubin 0.80, AST 40 H, ALT 19, Alkaline Phosphatase 67, Total Protein 7.5, Albumin 2.5 L, Globulin 5.0 H, Albumin/Globulin Ratio 0.5 L Micro: Microbiology 02/27/21 16:00 Sputum, Expectorated/Coughed Gram Stain - Final 02/27/21 16:00 Sputum, Expectorated/Coughed Respiratory Culture - Final 02/27/21 00:27 Urine, Random Urine Culture - Final Culture exhibits no growth. 02/25/21 14:26 Blood Culture (Wb) - Left Hand Blood Culture - Preliminary No growth in 48 hours. 02/25/21 14:10 Blood Culture (Wb) - Anticubital Left Blood Culture - Preliminary No growth in 48 hours. Physical Exam Narrative Physical exam: General: Alert, Oriented x3, Cooperative, in mild respiratory distress, morbidly obese, on BiPAP HEENT: Atraumatic Oral: Moist Mucosa Neck: Supple Lungs: Clear to auscultation Cardiovascular: HS I+II, regular, no murmurs Abdomen: Bowel Sounds Present, Soft, Non Tender Extremities: Bilateral +2-3 pedal edema with chronic venous stasis changes Assessment & Plan Assessment/Plan (1) Acute respiratory failure with hypoxia: (2) COVID-19: (3) ISAURA (acute kidney injury): (4) Leukopenia: QUALIFIERS: Leukopenia type: unspecified Qualified Code(s): D72.819 - Decreased white blood cell count, unspecified PLAN: 1. Acute hypoxic respiratory failure secondary to COVID-19 pneumonia, worsening Remains on BiPAP. Hospice appropriate. Hospice consulted Continue on Decadron 2. Dysphagia, failed swallow eval, N.p.o., speech therapy following 3. ISAURA on CKD stage IIIb, baseline serum creatinine appears to be 1.8-2.2 Cr today is 3.12, nephrology following 4. Elevated D-dimer, 3.33, continue on Eliquis to 5 mg twice daily 5. Pulmonary hypertension/ANDERSON/obesity-ventilation syndrome Continue on home BiPAP at bedtime and for naps, breathing treatments, treprostinil 6. Heart failure with preserved ejection fraction, not in acute exacerbation 7. Type II DM, blood sugars better controlled Hold Lantus, continue on high-dose insulin sliding scale 8. Rest of chronic medical conditions including hypertension, hyperlipidemia, GERD remained stable Home meds reviewed Hospice consulted Charges/Coding Visit Charges Inpatient E&M: 18495 [facility] L3
[2021-03-02] MEDS: Morphine 2 MG/ML Syringe 1 MG IV ×2 (12:23→15:01)
[2021-03-02] MEDS: Furosemide 40 MG/4 ML Vial IV (12:26)
[2021-03-02] MEDS: 0.9% Saline Lock 10 ML Syringe IV (12:29)
[2021-03-02 12:35] LABS: Bedside Glucose 165 mg/dL (70-110)
[2021-03-02] MEDS: oxyCODONE 5 MG Tablet PO (13:29)
--- NOTE | 2021-03-02 14:25 | DCINST_ITS ---
Discharge Instructions Diet Discharge Diet: No restrictions Follow Up Care Test Results: Test results from this visit will be discussed in further detail at your follow-up appointment, if applicable. Discharge Plan Admission Admit Date/Time: 02/25/21 16:23 Primary Reason for Your Visit: Acute respiratory failure/acute COVID-19 pneumonia Attending Provider: Fanta Yu Primary Care Provider: Gutierrez Garces Consulting Providers: Martir Garcia ; Simeon Torres ; Eunice Murillo NP ; Harriett Rizvi ; Nia Pierre ; Peterson Rendon ; Ciera Flanagan ; Kim Lane ; Aracelis Smith ; Madison Garces NP Discharge Orders/Prescriptions Prescriptions: No Action Myrbetriq 25 mg tablet extended release 24 hr 25 mg PO DAILY RF: 0 carvedilol 12.5 mg tablet 12.5 mg PO DAILY RF: 0 atorvastatin 80 mg tablet 80 mg PO DAILY RF: 0 amlodipine 10 MG tablet 10 mg PO DAILY RF: 0 fluticasone furoate 200 MCG blister with device 200 mcg INHALATION DAILY RF: 0 acetaminophen 325 MG tablet 650 mg PO Q6H PRN PRN (Reason: Pain Score 1-10/Temp > 100.7 F) RF: 0 oxycodone 5 MG tablet 5 mg PO QHS RF: 0 pantoprazole 40 mg Tablet,Delayed Release (Dr/Ec) 40 mg PO BID RF: 0 ferrous sulfate 325 mg (65 mg iron) Tablet 325 mg PO DAILY RF: 0 melatonin 5 mg Tablet 5 mg PO QHS RF: 0 apixaban 2.5 mg Tablet 2.5 mg PO BID RF: 0 potassium chloride 20 mEq Tablet Extended Release 20 meq PO DAILY RF: 0 Orenitram 2.5 mg Tablet Extended Release 3.75 mg PO Q8H RF: 0 albuterol sulfate 2.5 mg/0.5 mL Solution For Nebulization 2.5 mg INHALATION Q2H PRN PRN (Reason: Shortness Of Breath) RF: 0 Lantus Solostar U-100 Insulin 100 unit/mL (3 mL) Insulin Pen 60 unit SUBCUT DAILY RF: 0 glipizide 10 mg tablet 10 mg PO BIDCM RF: 0 omeprazole 40 mg capsule,delayed release(DR/EC) 40 mg PO DAILY RF: 0 furosemide 80 mg tablet 80 mg PO DAILY RF: 0 hydralazine 50 mg tablet 50 mg PO Q8H RF: 0 azelastine 137 mcg (0.1 %) aerosol,spray 1 spray INTRANASAL BID RF: 0 aspirin [Adult Aspirin Regimen] 81 mg tablet,delayed release (DR/EC) 81 mg PO DAILY RF: 0 Referrals / Follow Up: Gutierrez Garces DO [Primary Care Provider] - Disposition Disposition (needs filled in before D/C Order can be placed): Hospice in Medical Facility
--- NOTE | 2021-03-02 14:27 | PCM.DC.SUM ---
Providers Date of Admission: 02/25/21 Date of Discharge: 03/02/21 Primary Care Physician: Dr. Gutierrez Garces, Consultations 02/25/21 18:30 Consult: Chief Medical Technologist / Pulmonary Medicine Routine Consulting Provider: [facility] Reason for Consult: Covid Respiratory Failure with complex respiratory hx EMERGENT Consult: No MD Notified: Yes Date Notified: 02/25/21 Time Notified: 18:43 Method of Notification: Text 02/27/21 08:10 Consult: Nephrology Routine Consulting Provider: Harriett Rizvi Reason for Consult: ISAURA ON CKD EMERGENT Consult: No MD Notified: Yes Date Notified: 02/27/21 Time Notified: 08:32 Method of Notification: Text 03/02/21 11:49 Consult: Hospice / Palliative Care Routine Consulting Provider: [facility] Reason for Consult: hospice EMERGENT Consult: No MD Notified: Yes Date Notified: 03/02/21 Time Notified: 11:49 Method of Notification: collection systems consultant nurse notified. Reason For Visit: ACUTE HYPOXIC RESPIRATORY FAILURE COVID 19 Diagnosis Discharge Diagnosis (1) Acute respiratory failure with hypoxia: Status: Acute Code(s): J96.01 - Acute respiratory failure with hypoxia (2) COVID-19: Status: Acute Code(s): U07.1 - COVID-19 (3) ISAURA (acute kidney injury): Status: Acute Code(s): N17.9 - Acute kidney failure, unspecified (4) Leukopenia: Status: Acute Code(s): D72.819 - Decreased white blood cell count, unspecified Qualifiers: Leukopenia type: unspecified Qualified Code(s): D72.819 - Decreased white blood cell count, unspecified Medications at Discharge Home Medications atorvastatin 80 mg tablet 80 mg PO DAILY 09/19/18 carvedilol 12.5 mg tablet 12.5 mg PO DAILY 09/19/18 mirabegron 25 mg tablet,extended release 24 hr 25 mg PO DAILY 10/31/18 amlodipine 10 mg PO DAILY 05/15/19 fluticasone furoate 200 mcg INHALATION DAILY 04/01/20 aspirin 81 mg tablet,delayed release 81 mg PO DAILY 06/03/20 acetaminophen 650 mg PO Q6H PRN PRN tablet 06/20/20 oxycodone 5 mg PO QHS 07/29/20 Orenitram 3.75 mg PO Q8H 12/10/20 apixaban 2.5 mg PO BID 12/10/20 ferrous sulfate 325 mg PO DAILY 12/10/20 melatonin 5 mg PO QHS 12/10/20 pantoprazole 40 mg PO BID 12/10/20 potassium chloride 20 meq PO DAILY 12/10/20 albuterol sulfate 2.5 mg INHALATION Q2H PRN PRN 02/25/21 azelastine 1 spray INTRANASAL BID 02/25/21 furosemide 80 mg PO DAILY 02/25/21 glipizide 10 mg PO BIDCM 02/25/21 hydralazine 50 mg PO Q8H 02/25/21 insulin glargine [Lantus Solostar U-100 Insulin] 60 unit SUBCUT DAILY 02/25/21 omeprazole 40 mg PO DAILY 02/25/21 Hospital Course Operations None Procedures None Summary of Care Provided Minutes Spent on Discharge: 45 Hospital Course: 75-year-old male with past medical history of severe pulmonary hypertension, chronic heart failure with preserved EF, patient is on CPAP at night with set 5 L of oxygen bled into it. Patient follows with in the outpatient. He presented with a 3-day history of progressive shortness of breath, decreased p.o. intake, diarrhea, nausea and a dry nonproductive cough. In the emergency room his oxygen saturation was 72% on room air. He usually is not on oxygen during the day. He was admitted to the progressive care unit and maintained on 6 L of oxygen. His chest x-ray showed bilateral patchy interstitial infiltrates. His D-dimer was elevated. Patient was not a candidate for CTA of the chest or VQ scan of the lungs. Patient was on Eliquis 2.5 mg p.o. twice daily which was subtherapeutic. This was increased to 5 mg p.o. twice daily Patient was found during this hospital admission to aspirate on applesauce. Speech therapy was consulted. He was started on IV Unasyn. Pulmonology was consulted. Throughout this admission, patient told that he was not going to make it. Nephrology was consulted for an increase in his kidney function after a dose of Lasix. Patient had intermittent IV fluids and Lasix. His pulmonary function worsened requiring use of BiPAP. Patient was very adamant that he did not want to be intubated. He was very comfortable with being transitioned to hospice. Physical Exam Narrative Physical exam: General: Alert, Oriented x3, Cooperative, in mild respiratory distress, morbidly obese, on BiPAP HEENT: Atraumatic Oral: Moist Mucosa Neck: Supple Lungs: Clear to auscultation Cardiovascular: HS I+II, regular, no murmurs Abdomen: Bowel Sounds Present, Soft, Non Tender Extremities: Bilateral +2-3 pedal edema with chronic venous stasis changes Weight / BMI Weight Weight: 156.8 kg Body Mass Index (BMI) 48.9 ABG / Lab / Microbiology Data Result Diagrams: 03/02/21 07:35 03/02/21 07:35 Laboratory: Laboratory Results - last 24 hr 03/01/21 16:16: POC Glucose 163 H 03/01/21 21:30: POC Glucose 176 H 03/02/21 07:03: POC Glucose 181 H 03/02/21 07:35: WBC 7.5, RBC 4.15 L, Hgb 8.8 L, Hct 29.6 L, MCV 71.3 L, MCH 21.2 L, MCHC 29.7 L, RDW Std Deviation 48.3 H, RDW Coeff of Jun 18.9 H, Plt Count 170, MPV 8.9, Immature Gran % (Auto) 1.100 H, Neut % (Auto) 90.6 H, Lymph % (Auto) 4.7 L, [place] % (Auto) 3.6, Eos % (Auto) 0.0, Baso % (Auto) 0.0, Absolute Neuts (auto) 6.8, Absolute Lymphs (auto) 0.35 L, Nucleated RBC % 0, Platelet Estimate ADEQUATE, Hypochromasia 2+, Anisocytosis 1+, Ovalocytes 1+, Acanthocytes (Spur) 1+ 03/02/21 07:35: Sodium 137, Potassium 4.0, Chloride 104, Carbon Dioxide 19.0 L, Anion Gap 14, BUN 91 H, Creatinine 3.12 H, Estim Creat Clear Calc 21.45, Est GFR (MDRD) Af Amer 25 L, Est GFR (MDRD) Non-Af 21 L, BUN/Creatinine Ratio 29.2 H, Glucose 183 H, Calcium 7.7 L, Total Bilirubin 0.80, AST 40 H, ALT 19, Alkaline Phosphatase 67, Total Protein 7.5, Albumin 2.5 L, Globulin 5.0 H, Albumin/Globulin Ratio 0.5 L 03/02/21 12:20: POC Glucose 165 H Microbiology: Microbiology 02/27/21 16:00 Sputum, Expectorated/Coughed Gram Stain - Final 02/27/21 16:00 Sputum, Expectorated/Coughed Respiratory Culture - Final 02/27/21 00:27 Urine, Random Urine Culture - Final Culture exhibits no growth. 02/25/21 14:26 Blood Culture (Wb) - Left Hand Blood Culture - Preliminary No growth in 48 hours. 02/25/21 14:10 Blood Culture (Wb) - Anticubital Left Blood Culture - Preliminary No growth in 48 hours. D/C Instructions Discharge Diet: No restrictions Meaningful Use Info Meaningful Use Diagnoses (Choose all that apply): CHF CHF LUCIO/ARB ordered at discharge?: No Reason LUCIO/ARB not ordered?: Worsening renal dysfunctn Documented LVEF (%): 65 Discharge Plan Admission Admit Date/Time: 02/25/21 16:23 Primary Reason for Your Visit: Acute respiratory failure/acute COVID-19 pneumonia Attending Provider: Fanta Yu Primary Care Provider: Gutierrez Garces Consulting Providers: Martir Garcia ; Simeon Torres ; Eunice Murillo BUSINESS BROKER ; Harriett Rizvi ; Nia Pierre ; Peterson Rendon ; Ciera Flanagan ; Kim Lane ; Aracelis Smith ; Madison Garces BUSINESS BROKER Discharge Orders/Prescriptions Prescriptions: No Action Myrbetriq 25 mg tablet extended release 24 hr 25 mg PO DAILY RF: 0 carvedilol 12.5 mg tablet 12.5 mg PO DAILY RF: 0 atorvastatin 80 mg tablet 80 mg PO DAILY RF: 0 amlodipine 10 MG tablet 10 mg PO DAILY RF: 0 fluticasone furoate 200 MCG blister with device 200 mcg INHALATION DAILY RF: 0 acetaminophen 325 MG tablet 650 mg PO Q6H PRN PRN (Reason: Pain Score 1-10/Temp > 100.7 F) RF: 0 oxycodone 5 MG tablet 5 mg PO QHS RF: 0 pantoprazole 40 mg Tablet,Delayed Release (Dr/Ec) 40 mg PO BID RF: 0 ferrous sulfate 325 mg (65 mg iron) Tablet 325 mg PO DAILY RF: 0 melatonin 5 mg Tablet 5 mg PO QHS RF: 0 apixaban 2.5 mg Tablet 2.5 mg PO BID RF: 0 potassium chloride 20 mEq Tablet Extended Release 20 meq PO DAILY RF: 0 Orenitram 2.5 mg Tablet Extended Release 3.75 mg PO Q8H RF: 0 albuterol sulfate 2.5 mg/0.5 mL Solution For Nebulization 2.5 mg INHALATION Q2H PRN PRN (Reason: Shortness Of Breath) RF: 0 Lantus Solostar U-100 Insulin 100 unit/mL (3 mL) Insulin Pen 60 unit SUBCUT DAILY RF: 0 glipizide 10 mg tablet 10 mg PO BIDCM RF: 0 omeprazole 40 mg capsule,delayed release(DR/EC) 40 mg PO DAILY RF: 0 furosemide 80 mg tablet 80 mg PO DAILY RF: 0 hydralazine 50 mg tablet 50 mg PO Q8H RF: 0 azelastine 137 mcg (0.1 %) aerosol,spray 1 spray INTRANASAL BID RF: 0 aspirin [Adult Aspirin Regimen] 81 mg tablet,delayed release (DR/EC) 81 mg PO DAILY RF: 0 Referrals / Follow Up: Gutierrez Garces DO [Primary Care Provider] - Disposition Disposition (needs filled in before D/C Order can be placed): Hospice in Medical Facility Charges/Coding Visit Charges Inpatient E&M: 88572 [facility] H[facility]
--- NOTE | 2021-03-02 14:39 | NURSING ---
Report called to hospice nurse Kim for pt transfer to hospice facility.
--- NOTE | 2021-03-03 09:05 | CASEMGMT ---
REBECA called Julián at [facility] and left him a voice mail letting him know patient went to the Inpatient Hospice Unit yesterday. REBECA also called [facility] and spoke with Peterson Yo on the coverage line. REBECA let Peterson know patient went to the inpatient Hospice unit yesterday. Nicolasa TAPIA
== END 2021-03-02 15:18 | disposition hospice, inpatient (51) | DRG 177 ==
LOC: ED 16:26 → PCU 16:37
PROVIDERS: Internal Medicine Critical Care Medicine; Admitting Provider Internal Medicine; Emergency Provider Student in an Organized Health Care Education/Training Program; PCP Family Medicine; Visit Provider Internal Medicine
DX: U07.1 COVID-19 (principal); J12.82 Pneumonia due to coronavirus disease 2019; J96.01 Acute respiratory failure with hypoxia; J44.0 Chronic obstructive pulmonary disease with (acute) lower respiratory infection; I50.32 Chronic diastolic (congestive) heart failure; I13.0 Hypertensive heart and chronic kidney disease with heart failure and stage 1 through stage 4 chronic kidney disease, or unspecified chronic kidney disease; E66.2 Morbid (severe) obesity with alveolar hypoventilation; Z68.42 Body mass index [BMI] 45.0-49.9, adult; E87.1 Hypo-osmolality and hyponatremia; N17.9 Acute kidney failure, unspecified; D61.818 Other pancytopenia; N18.32 Chronic kidney disease, stage 3b; E13.22 Other specified diabetes mellitus with diabetic chronic kidney disease; I27.20 Pulmonary hypertension, unspecified; E78.5 Hyperlipidemia, unspecified; K21.9 Gastro-esophageal reflux disease without esophagitis; T17.928A Food in respiratory tract, part unspecified causing other injury, initial encounter; I48.0 Paroxysmal atrial fibrillation; Z79.899 Other long term (current) drug therapy; Z79.51 Long term (current) use of inhaled steroids; Z79.82 Long term (current) use of aspirin; Z79.01 Long term (current) use of anticoagulants; Z87.891 Personal history of nicotine dependence; Z79.4 Long term (current) use of insulin
CPT/HCPCS: 36415; 71045; 80048; 80053; 81001; 82962; 83605; 83735; 83880; 84100; 84443; 84484; 85025; 85379; 85610; 85730; 87040; 87070; 87086; 87205; 92526; 92610; 93005; 94002; 94003; 94640; 94660; 94667; 94668; 94762; 97163; 97165; 99251; 99285; J7030; A4216; G0463; J0295; J1940; J2405